=== PATIENT | male | born 1985 | race African-American/Black ===

== ENCOUNTER 2019-04-17 23:09 | Emergency (ER) | payer MEDICAID, SELFPAY ==
[2019-04-17 23:11] VITALS: BP 134/74; PULSE 108; RESP 15; TEMP 37.4; O2SAT 97; BMI 30.4
[2019-04-17] MEDS: Ondansetron 4 MG/2 ML Vial IV (23:42)
[2019-04-17] MEDS: 0.9% Normal Saline 1,000 ML 999 ML IV (23:42)
[2019-04-17] MEDS: Morphine 4 MG/ML Syringe IV (23:43)
--- NOTE | 2019-04-17 23:45 | ED.VISSUMM ---
- ER Visit Summary Date of Service: 04/17/19 Chief Complaint: Dental pain, fever History of Present Illness: The patient is a 33 M presents with left lower dental pain. He states this started yesterday. He also complains of sore throat and painful swallowing. No difficulty swallowing. He has subjective fever. He took ibuprofen just prior to arrival. He complains of mild lightheadedness with no syncope. He has had nausea with no vomiting. He has had mild diarrhea. Denies blood in stool. Denies abdominal pain. Denies chest pain or shortness of breath. Denies other complaints. Physical Examination: Vitals are stable. Temperature 99.3. Alert no acute distress. HEENT exam left lower molar tenderness to palpation with no surrounding fluctuance. No sublingual edema. Pharyngeal erythema and exudate, uvula midline. Neck is supple. No meningismus Lungs are clear and equal bilaterally. Heart is regular rate and rhythm. Abdomen is soft nontender nondistended. Extremities are unremarkable. Skin is warm and dry. Remainder of exam is unremarkable. Emergency Department Course and Treatment: Patient is given IV fluids, morphine, Zofran IV. Rapid strep positive. Patient was given penicillin and prescription for Naprosyn and penicillin. On reevaluation he states he is feeling much improved. Advised to follow-up with primary care physician and dentist. Advised to return to the ED for worsening complaints. Disposition: Discharge home Impression: Odontalgia, pharyngitis This note was generated with [employer] dictation software. It may contain incorrect words, spelling, and punctuation that were not noted in review of the chart prior to signing ED Disposition - Plan for ED Patient: Disposition: Home or Assisted Living Instructions: Dental Pain, PHARYNGITIS, Strep (Confirmed) Prescriptions: Naproxen [Naprosyn] 500 mg PO BID PRN #20 tab Prescription Printed Penicillin V Potassium 500 mg PO 4X/DAY #40 tab Prescription Printed Referrals: Care Physician,No Primary [Primary Care Provider] -
--- NOTE | 2019-04-18 00:05 | ED.RN ---
positive strep A rteported to dr. olea . verbalized understanding
--- NOTE | 2019-04-18 01:19 | ED.DEP ---
ED Disposition - Plan for ED Patient: Instructions: Dental Pain, PHARYNGITIS, Strep (Confirmed) Prescriptions: Naproxen [Naprosyn] 500 mg PO BID PRN #20 tablet Penicillin V Potassium 500 mg PO 4X/DAY #40 tablet Referrals: Care Physician,No Primary [Primary Care Provider] -
[2019-04-18] MEDS: Penicillin Vk 250 MG Tablet 500 MG PO (01:29)
[2019-04-18 01:33] VITALS: BP 135/79; PULSE 90; RESP 15; O2SAT 94
--- NOTE | 2019-04-18 01:34 | ED.RN ---
PT GIVEN WRITTEN AND VERBAL DISCHARGE INSTRUCTIONS AND HOME GOING PRESCRIPTIONS. PT EDUCATED NOT TO DRIVE FOR 6 HOURS AFTER HAVING MORPHINE. PT VERBALIZES UNDERSTANDING. REPORTS, MY BROTHER LIVES BEHIND HERE SO I AM JUST WALKING HOME. DENIES ANY FURTHER QUESTIONS. PT AMBULATES OUT OF DEPT BY SELF.
== END 2019-04-18 01:35 | disposition home or self-care (01) ==
PROVIDERS: Emergency Provider Emergency Medicine
DX: K08.89 Other specified disorders of teeth and supporting structures (principal); J02.0 Streptococcal pharyngitis
CPT/HCPCS: 87077; 87880; 96361; 96374; 96375; 99284; J7030; A4216; J2405

== ENCOUNTER 2019-10-24 09:11 | Emergency (ER) | payer MEDICAID, SELFPAY ==
[2019-10-24 09:12] VITALS: BP 152/94; PULSE 97; RESP 16; TEMP 37.1; O2SAT 99; BMI 32.5
[2019-10-24] MEDS: LORazepam 2 MG/ML Syringe IM (09:38)
--- NOTE | 2019-10-24 10:02 | EKG12_ITS ---
Test Reason : Blood Pressure : / mmHG Vent. Rate : 097 BPM Atrial Rate : 097 BPM P-R Int : 208 ms QRS Dur : 100 ms QT Int : 340 ms P-R-T Axes : 054 051 014 degrees QTc Int : 431 ms Normal sinus rhythm Nonspecific T wave abnormality Abnormal ECG Confirmed by ROSARIO LUIS, MUKESH ([id number]), editorial clerk JOCELYN HOOPER ([id number]) on 10/28/2019 10:13:16 AM Referred By: SHARRON Confirmed By:MUKESH PONCE MD
--- NOTE | 2019-10-24 12:03 | ED.DCSUM_ITS ---
- ER Visit Summary Date of Service: 10/24/19 Chief Complaint: [Anxiety] History of Present Illness: The patient is a 34 M [presents to the emergency department complaint of anxiety that started this morning. Patient states that he came home from work and had not slept yet when he started feeling very anxio us. Patient states that he takes PRN Ativan but ran out. Patient called the squad to bring him in. On arrival he complains of chest discomfort and shortness of breath and feeling jittery and very anxious. Patient states that his anxiety is triggered by deaths in his family as he recently lost his brother about a month ago and he buried a cousin last week. Patient denies any suicidal or homicidal ideation. He denies any illicit drug use. He does not smoke or drink alcohol.] Physical Examination: [HEENT-PERRLA, EOMI. Cranial nerves II through XII grossly intact. TMs clear. Mucous membranes moist. No adenopathy. Cardiovascular-regular rate and rhythm without murmur or ectopy Lungs-clear to auscultation, chest wall stable without crepitus or subcu emphysema Abdomen-normoactive bowel sounds, soft, nontender, no rebound or rigidity, no peritoneal signs. Extremities-intact ?4, normal range of motion, normal pulses, atraumatic] Test Results: [EKG obtained on arrival showed a sinus rhythm with a ventricular rate of 97 bpm with some nonspecific ST changes. ] Emergency Department Course and Treatment: [Patient received Ativan 2 mg IM and he was able to sleep. Upon reevaluation 3 hours later he is feeling significantly improved and most of symptoms are resolved at this time.] Treatment Plan: [Patient will be given a prescription for PRN Ativan. Patient will be given referral to primary care physician ergonomics technician for no doc.] Disposition: [Discharged home in stable condition] Impression: [Anxiety reaction] This note was generated with [employer] dictation software. It may contain incorrect words, spelling, and punctuation that were not noted in review of the chart prior to signing ED Disposition - Plan for ED Patient: Referrals: Care Physician,No Primary [Primary Care Provider] -
--- NOTE | 2019-10-24 12:06 | ED.DEP ---
ED Disposition - Plan for ED Patient: Instructions: Anxiety Reaction Prescriptions: Lorazepam [Ativan] 1 mg PO TID PRN #15 tab PRN Reason: Anxiety Prescription Printed Referrals: Care Physician,No Primary [Primary Care Provider] - Dre Jaquez MD [STAFF PHYSICIAN] - 3-5 Days
[2019-10-24 12:11] VITALS: BP 137/79; PULSE 83; RESP 16; O2SAT 98
== END 2019-10-24 12:12 | disposition home or self-care (01) ==
PROVIDERS: Emergency Provider Emergency Medicine
DX: F41.1 Generalized anxiety disorder (principal)
CPT/HCPCS: 93005; 96372; 99284

== ENCOUNTER 2019-10-26 20:12 | Observation (INO) | payer MEDICAID, SELFPAY ==
[2019-10-26 20:14] VITALS: BP 147/80; PULSE 89; RESP 15; TEMP 36.8; O2SAT 98; BMI 29.2
--- NOTE | 2019-10-26 20:38 | ED.DCSUM_ITS ---
History of Present Illness Chief Complaint: Other, Pain/Inj Informant: Patient Onset: Today Narrative: Patient presents the emergency department for lower lip swelling. 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 When he awoke it was significantly swollen and now painful because of the swelling. He denies any new medications states he takes Ativan as needed for anxiety. He denies any new exposures. He denies any trauma to the lip. No dental pain. No fevers. No history of allergic reactions. Past Medical History - Allergies and Home Meds Allergies/Adverse Reactions: Allergies No Known Allergies Allergy (Verified 10/26/19 20:16) Smoking Status: Former smoker Review of Systems General: Denies: Chills, Fever, Sweats Eyes: Denies: Visual changes - bilaterally, Diplopia ENT: Reports: - - Lower lip swelling. Denies: Left ear pain, Right ear pain, Rhinorrhea, Sore throat Cardiovascular: Denies: Chest pain, Palpitations Respiratory: Denies: Dyspnea, Cough, Dyspnea on exertion Gastrointestinal: Denies: Abdominal pain, Nausea, Vomiting, Diarrhea, Melena, Hematochezia Genitourinary: Denies: Dysuria, Hematuria, Frequency Musculoskeletal: Denies: Back pain, Extremity Pain Skin: Denies: Rash, Wounds Neurological: Denies: Headache, Weakness, Numbness Physical Exam Vital Signs/Narrative: Vital Signs Temp Pulse Resp BP Pulse Ox 10/26/19 20:14 98.3 F 89 15 147/80 H 98 Inital Vital Signs reviewed: Yes General: Well nourished, Well developed, No Acute Distress Head: Normocephalic, Atraumatic Eyes: Perrl, EOMI ENT: Moist mucous membranes, No rhinorrhea, - - The lower lip is diffusely swollen. I do not see any trauma to the lip. There is no trismus. No uvular swelling. Floor the mouth is soft. No tongue swelling. Swelling appears to be confined to the lip itself not extending onto the face. Neck: Supple, Nontender Cardiovascular: Regular rate, Regular rhythm, No murmurs Respiratory: No distress, CTA bilaterally, Chest nontender Abdomen: Soft, Nontender, Nondistended, Normal bowel sounds Back: Nontender, Normal Inspection Extremities: Nontender, No edema Skin: Normal color, No rash Neurological: Alert, Oriented x3, Cranial nerves II-XII grossly intact, Normal Strength, Normal Sensation Psychological: Normal affect, Normal Mood Diagnostic/Tx/Re-eval - Medical Decision Making Patient received Benadryl Pepcid and Solu-Medrol. Repeat examination after couple hours shows no improvement of the lower lip and now the upper lip appears to be swelling. He still laying down resting comfortably. He is handling his secretions. There is no tongue swelling. Because the patient appears to be worsening I think he would benefit from inpatient observation.. ED Disposition - Plan for ED Patient: Disposition: Acute Care Hospital [facility] Diagnosis: Angioedema
[2019-10-26] MEDS: MethylPREDNISolone 125 MG/2 ML Vial IV (21:04)
[2019-10-26] MEDS: DiphenhydrAMINE 50 MG/ML Syringe IV (21:04)
[2019-10-26] MEDS: Famotidine 20 MG Tablet 40 MG PO (21:04)
[2019-10-26 22:59] LABS: Absolute Lymphocyte Count 1.02 X10^3/uL (0.83-4.51); Absolute Neutrophil Count 5.8 X10^3/uL (2.0-7.7); Basophil# 0.03 X10^3/uL; Basophil% 0.4 % (0-1); Eosinophil# 0.03 X10^3/uL; Eosinophils% 0.4 % (0-5); Hematocrit 45.5 % (40-54); Hemoglobin 15.1 g/dL (13.0-16.5); Lymphocyte # 1.02 X10^3/ul (4.0); Lymphocyte % 14.1 % (19-41); Mean Corp Hgb Conc 33.2 g/dL (32-36); Mean Corpuscular Hgb 27.8 pg (27.0-32.0); Mean Corpuscular Volume 83.8 fL (80-94); Mean Platelet Vol. 12.2 fl (6.2-12.0); Monocyte% 4.2 % (0-10); NRBC Flagged by Analyzer 0 % (0-5); Neutrophil # 5.82 X10^3/uL (2.7-7.7); Neutrophil % 80.6 % (47-70); POSITIVE MORPHOLOGY YES; Platelet Count 134 K/mm3 (150-450); RBC Distribution Width SD 42.6 fl (35.1-43.9); Red Blood Count 5.43 M/mm3 (4.6-6.2); White Blood Count 7.2 K/mm3 (4.4-11.0)
[2019-10-26 23:02] VITALS: BP 134/79; PULSE 89; RESP 12; O2SAT 97
[2019-10-26 23:02] LABS: Differential Indicated SCAN CRITERIA MET
--- NOTE | 2019-10-26 23:02 | HP.PCM_ITS ---
Problem List (1) Anxiety and depression Status: Chronic (2) Angioedema Status: Acute Qualifiers: Encounter type: initial encounter Qualified Code(s): T78.3XXA - Angioneurotic edema, initial encounter History of Present Illness Date of Admission: 10/26/19 Chief Complaint: Lip swelling - 1 day The patient is a 34 year old M with past medical history of anxiety/depression, on PRN Ativan comes in with complaints of swelling that started on the morning of the admission. Patient woke up in the morning and realized that his lower lip was swollen. His lower lip got progressively bigger and started to tingle and became painful. He came to the emergency department. Denied any wheezes or choking sensation or loss of breath. He denied any new medications or trying new food. The first time of such an episode. No family history of angioedema. He received IV Solu-Medrol, Benadryl and famotidine. He was reevaluated a couple of hours and patient was found to develop any swelling of the upper lip. At the time of being seen, he denied any wheezes or shortness of breath or choking sensation or tongue swelling. His vitals showed temperature of 98.3F, heart rate 89, blood pressure 147/80, respiratory rate 15, SPO2 97% on room air. WBC was 1.2, hemoglobin 15.1, platelet count was 134, BMP was unremarkable. Past Medical History Past Medical History (Chronic Problems): Chronic Problems Anxiety and depression (Chronic) Allergies No Known Allergies Allergy (Verified 10/26/19 20:16) Home Medications: Ambulatory Orders Medication Instructions Recorded Lorazepam [Ativan] 1 mg PO TID PRN #15 tab 10/24/19 Surgical History: - - right foot/ankle surgery Psychiatric History: Anxiety, Depression Lives: Alone Smoking Status: Current every day smoker Tobacco Use: Cigarettes Alcohol: None Drugs: None - *Family History Maternal History Items: No pertinent history Paternal History Items: Diabetes Review of Systems Constitutional: Denies: Anorexia, Chills, Fever, Night Sweats, Malaise, Weakness, Weight Change, Fatigue Eyes: Denies: Blurred vision, Cataracts, Conjunctivae Inflammation, Pain, Redne ss HEENT: Reports: - - upper and lower lip swelling. Denies: Difficulty Hearing, Difficulty Swallowing, Head Aches, Hearing Changes, Sinus Congestion, Sinus Drainage, Sore Throat Cardiovascular: Denies: Chest Pain, Claudication, Light Headedness, Orthopnea, Palpitations, Paroxysmal Noc. Dyspnea, Syncope Respiratory: Denies: Cough, Hemoptysis, Shortness of breath at rest, Shortness of breath upon exertion, Sputum production Gastrointestinal: Denies: Abdominal Pain, Constipation, Hematemesis, Hem atochezia, Nausea, Vomiting Genitourinary: Denies: Dysuria, Frequency, Incontinence Musculoskeletal: Denies: Joint Pain, Joint Tenderness Skin: Denies: Dryness, Jaundice, Rash, Wounds Neurological: Denies: Balance problems, Blurred vision, Difficulty swallowing, Focal weakness, Numbness, Tingling Psychiatric: Denies: Anxiety, Depression, Homicidal Ideations, Suicidal Ideations Hematologic/ Lymphatic: Denies: Easy Bruising, Easy Bleeding VTE Information - Inpt Only VTE Present on Admission: No VTE Pharm Prophylaxis ordered?: Yes Patient Problems: Active and Suspected Problems Angioedema (Acute) - Physical Exam Vitals/I&O's: Vital Signs Temp Pulse Resp BP Pulse Ox 98.3 F 89 15 147/80 H 98 10/26/19 20:14 10/26/19 20:14 10/26/19 20:14 10/26/19 20:14 10/26/19 20:14 Oxygen Delivery Method Room Air Weight: 95.254 kg Body Mass Index (BMI) 29.2 General: Alert, Oriented x3, Cooperative, No apparent distress HEENT: Atraumatic, PERRLA, EOMI, Normocephalic, - - marked swelling of her lower lip, mild swelling with upper lip, no tongue swelling or uvula swelling Oral: Moist Mucosa Neck: Supple Lungs: Clear to auscultation, Normal air movement, No rhonchi, No wheeze Cardiovascular: Regular rate, Regular Rhythm, Normal S1, Normal S2, No murmurs Abdomen: Bowel Sounds Present, Soft, Non Tender, Non-Distended, No Hepato- splenomegaly Extremities: No edema Skin: No rashes Musculoskeletal: No Tenderness to Palpation of Joints or Extremities Lymphatic: No Cervical, Supraclavicular, or Inguinal Adenopathy Neurological: Cranial nerves II-XII grossly intact, Neuro grossly intact Psych/Mental Status: Normal Affect, Appropriate Laboratory Results 10/26/19 22:49: WBC Pending, RBC Pending, Hgb Pending, Hct Pending, MCV Pending, MCH Pending, MCHC Pending, RDW Std Deviation Pending, RDW Coeff of Maria A Pending, Plt Count Pending, Neut % (Auto) Pending, Absolute Neuts (auto) Pending 10/26/19 22:49: Sodium Pending, Potassium Pending, Chloride Pending, Carbon Dioxide Pending, Anion Gap Pending, BUN Pending, Creatinine Pending, Est GFR (MDRD) Af Amer Pending, Est GFR (MDRD) Non-Af Pending, BUN/Creatinine Ratio Pending, Glucose Pending, Calcium Pending Assessment/Plan All Active Problems Angioedema (Acute) The patient is a 34 year old M with past medical history of anxiety/depression, on PRN Ativan comes in with complaints of swelling that started on the morning of the admission. Patient woke up in the morning and realized that his lower lip was swollen. 1. Angioedema, unclear etiology for now likely idiopathic/isolated Initially involved the lower lip, progressed to involve the upper lip No signs of respiratory failure. First episode of such. No new foods, not on ELTON inhibitor or NSAIDs. No signs of urticaria or anaphylaxis Received IV famotidine, Solu-Medrol, Benadryl Will check liver profile, CRP, ESR, Complement C4 Will continue same, monitor for progressive respiratory distress 2. Hyperglycemia, will check for DM with HgBA1c 3. Anxiety/depression, on Ativan as needed 4. DVT [id number], early ambulation recommended Code Visit Inpatient E&M: 82858 Init Hosp L2
[2019-10-26 23:15] LABS: Anion Gap 6 (5-15); BUN 10 mg/dL (7-18); BUN/Creat Ratio 8.9 RATIO (10-20); Calcium,Total 8.9 mg/dL (8.5-10.1); Chloride 106 mmol/L (98-107); Creatinine, Serum 1.12 mg/dL (0.70-1.30); EST Glomerular Filtration Rate 81 mL/min (>60); Est Glom Filt Rate - Afr Amer 98 mL/min (>60); Estimated Creatinine Clearance 100.85 ml/min; Glucose 163 mg/dL (74-106); Potassium 4.5 mmol/L (3.5-5.1); Sodium Level 138 mmol/L (136-145)
[2019-10-26 23:22] LABS: Differential Comment SCANNED; Platelet Estimate SLT DEC (ADEQ); Red Cell Morphology NORM C+C NORMAL (NORM C&C)
[2019-10-26 23:49] VITALS: BMI 29.7
[2019-10-27] VITALS (9 sets, daily range): BP systolic 115–145; BP diastolic 72–77; PULSE 69–103; RESP 18–100; TEMP 36.6–36.9; O2SAT 20–98
[2019-10-27] MEDS: 0.9% Normal Saline 1,000 ML 100 ML IV ×2 (00:20→10:23)
[2019-10-27] MEDS: Loratadine 10 MG Tablet 5 MG PO ×3 (00:20→21:04)
[2019-10-27] MEDS: 0.9% Saline Lock 10 ML Syringe IV ×3 (00:21→20:51)
[2019-10-27] MEDS: Acetaminophen 325 MG Tablet 650 MG PO ×4 (00:22→21:09)
[2019-10-27 00:35] LABS: Erythrocyte Sedimentation Rate 19 mm/hr (0-15)
[2019-10-27 01:03] LABS: Hemoglobin A1c 6.4 % (4.2-6.3)
[2019-10-27 02:10] LABS: AST(SGOT) 33 U/L (15-37); Alanine Aminotransfer ALT/SGPT 32 U/L (16-61); Albumin, Serum 3.6 g/dL (3.2-5.0); Alkaline Phosphatase 61 U/L (45-117); Bilirubin, Direct 0.08 mg/dL (0.00-0.30); Globulin 4.1 g/dL (2.2-4.2); Protein, Total 7.7 g/dL (6.4-8.2)
[2019-10-27] MEDS: Famotidine 200 MG/20 ML MDV 20 MG in 0.9% Normal Saline (Pres. free 8 ML 300 MG IV ×2 (10:25→21:23)
[2019-10-27] MEDS: DiphenhydrAMINE 50 MG/ML Syringe 25 MG IV ×2 (14:13→20:44)
--- NOTE | 2019-10-27 14:18 | PCM.PN.HOSP ---
Patient Problems: Active and Suspected Problems Angioedema (Acute) Subjective: Still with lower lip swelling and numbness though it is improved. Denies any shortness of breath. Vitals/I&O's: Vital Signs Temp Pulse Resp BP Pulse Ox 98 F 82 20 H 134/76 H 97 10/27/19 10:12 10/27/19 10:17 10/27/19 10:12 10/27/19 10:12 10/27/19 10:12 Oxygen Delivery Method Room Air Weight: 212 lb 15.465 oz Body Mass Index (BMI) 29.7 Intake and Output for Last 24 Hours 10/25/19 10/26/19 10/27/19 23:59 23:59 23:59 Intake Total 1940 / 1940 Output Total 450 / 450 Balance 1490 / 1490 General: Alert, Oriented x3, Cooperative, No apparent distress HEENT: Atraumatic, PERRLA, EOMI, Normocephalic, - - Lower lip is swollen compared to the upper lip Oral: Moist Mucosa Neck: Supple, No JVD Lungs: Clear to auscultation, Normal air movement, No rhonchi, No wheeze, No rales, - - No stridor Cardiovascular: Regular rate, Regular Rhythm, Normal S1, Normal S2, No murmurs Abdomen: Soft, Non Tender, Non-Distended, No Hepato-splenomegaly Extremities: No edema, Capillary Refill Less than 3 Seconds Skin: No rashes, No breakdown Neurological: Neuro grossly intact, Sensory exam intact to light touch and pain Psych/Mental Status: Normal Affect, Appropriate Laboratory Results 10/26/19 22:49: WBC 7.2, RBC 5.43, Hgb 15.1, Hct 45.5, MCV 83.8, MCH 27.8, MCHC 33.2, RDW Std Deviation 42.6, RDW Coeff of Maria A 14.0, Plt Count 134 L, MPV 12.2 H, Immature Gran % (Auto) 0.300, Neut % (Auto) 80.6 H, Lymph % (Auto) 14.1 L, [place] % (Auto) 4.2, Eos % (Auto) 0.4, Baso % (Auto) 0.4, Absolute Neuts (auto) 5.8, Absolute Lymphs (auto) 1.02, Nucleated RBC % 0, Differential Comment SCANNED, Platelet Estimate SLT SEP, RBC Morphology NORM C+C 10/26/19 22:49: Sodium 138, Potassium 4.5, Chloride 106, Carbon Dioxide 26.0, Anion Gap 6, BUN 10, Creatinine 1.12, Estim Creat Clear Calc 100.85, Est GFR (MDRD) Af Amer 98, Est GFR (MDRD) Non-Af 81, BUN/Creatinine Ratio 8.9 L, Glucose 163 H, Calcium 8.9 10/26/19 22:49: ESR 19 H 10/26/19 22:49: Total Bilirubin 0.60, Direct Bilirubin 0.08, AST 33, ALT 32, Alkaline Phosphatase 61, C-React Prot Ext Range 10.10 H, Total Protein 7.7, Albumin 3.6, Globulin 4.1 10/26/19 22:49: Hemoglobin A1c 6.4 H 10/26/19 22:49: Complement C4 Pending Current Medications Acetaminophen (Tylenol) 650 mg PO Q6H PRN PRN PRN Reason: Pain Score 1-10/Temp > 100.7 F Last Admin: 10/27/19 12:47 Dose: 650 mg Documented by: Diphenhydramine HCl (Benadryl) 25 mg IV Q6H PRN PRN PRN Reason: ITCHING Last Admin: 10/27/19 14:13 Dose: 25 mg Documented by: Sodium Chloride () 1,000 mls @ 100 mls/hr IV .Q10H [facility] Stop: 10/27/19 14:47 Last Admin: 10/27/19 10:23 Dose: 100 mls/hr Documented by: Famotidine 20 mg/ Sodium (Chloride) 10 mls @ 300 mls/hr IV Q12 [facility] Last Infusion: 10/27/19 10:29 Dose: Infused Documented by: Loratadine (Claritin) 5 mg PO BID [facility] Last Admin: 10/27/19 10:24 Dose: 5 mg Documented by: Methylprednisolone (Solu-Medrol) 40 mg IV Q8 [facility] Last Admin: 10/27/19 14:14 Dose: 40 mg Documented by: Ondansetron HCl (Zofran) 4 mg IV Q8H PRN PRN PRN Reason: NAUSEA/VOMITING Sodium Chloride () 10 - 40 ml IV UD PRN PRN Reason: SALINE FLUSH Last Admin: 10/27/19 00:21 Dose: 10 ml Documented by: Medical Necessity - Tobacco Use Smoking Status: Current every day smoker Tobacco Use: Cigarettes Assessment/Plan All Active Problems Angioedema (Acute) 1. Angioedema -The etiology at this time, his CRP and his ESR elevated -Complement C4 is pending -Since he still having swelling, numbness even though is not having any shortness of breath do recommend continued observation and current therapy -Continue with Pepcid, Solu-Medrol, Benadryl 2. Hypoglycemia -A1c is 6.4 -Can follow-up with his PCP to initiate treatment DVT: Ambulation Code Visit Inpatient E&M: 35917 Subs Hosp L2
[2019-10-28 02:30] VITALS: BP 134/83; PULSE 96; RESP 18; TEMP 36.9; O2SAT 96
[2019-10-28 02:46] VITALS: PULSE 96
[2019-10-28] MEDS: DiphenhydrAMINE 50 MG/ML Syringe 25 MG IV (02:58)
[2019-10-28] MEDS: 0.9% Saline Lock 10 ML Syringe IV ×5 (02:59→14:53)
[2019-10-28] MEDS: Acetaminophen 325 MG Tablet 650 MG PO ×2 (03:27→14:56)
--- NOTE | 2019-10-28 05:15 | NURSING ---
0200 Patient squeezed bottom lip. Patient reported a yellow liquid came out of lip. Patient said it was more tender and sore after squeezing lip. Patient was advised to leave lip alone and not mess with it.
[2019-10-28 08:30] VITALS: BP 138/79; PULSE 94; RESP 18; TEMP 36.6; O2SAT 99
[2019-10-28] MEDS: Famotidine 200 MG/20 ML MDV 20 MG in 0.9% Normal Saline (Pres. free 8 ML 300 MG IV (08:40)
[2019-10-28] MEDS: Loratadine 10 MG Tablet 5 MG PO (08:40)
--- NOTE | 2019-10-28 11:45 | PCM.DC ---
- Discharge Diagnoses Current Active Problems: Current Active and Chronic Problems Angioedema (Acute) Anxiety and depression (Chronic) You will use the following diet at home:: Regular Your food should be the consistency of: Regular Discharge Activity: May Not Drive - while taking benadryl Allergies/Adverse Reactions: Allergies No Known Allergies Allergy (Verified 10/26/19 20:16) Medications to take at Discharge Lorazepam [Ativan] 1 mg PO TID PRN #15 tab 10/24/19 DiphenhydrAMINE [Benadryl] 25 mg PO Q8H #20 cap 10/28/19 Famotidine [Pepcid] 20 mg PO BID #14 tab 10/28/19 MethylPREDNISolone DosePak [Medrol DosePak] 4 mg PO UD #1 box 10/28/19 The following prescriptions were given: DiphenhydrAMINE [Benadryl] 25 mg PO Q8H #20 cap Transmission Status: Pending to [facility] MethylPREDNISolone DosePak [Medrol DosePak] 4 mg PO UD #1 box Transmission Status: Pending to [facility] Famotidine [Pepcid] 20 mg PO BID #14 tab Transmission Status: Pending to [facility] Primary Care Physician: Care Physician,No Primary [Primary Care Provider] - Please follow up with your Primary Care Physician in: [place] 2 weeks Test Results: Test results from this visit will be discussed in further detail at your follow-up appointment, if applicable.
--- NOTE | 2019-10-28 12:17 | CASEMGMT ---
RN CM Assessment Presentation: Angioedema Intro role of CM and purpose of RN CM assessment to patient in room. Pt is awake, alert and able to participate in assessment. Demographics, PCP and Pharmacy verified. Nurse, Fernando updated that pt requests back to work excuse on dc. PCP: Pt does not have PCP. List of [facility] physicians for [place] given to pt and explained. Process for calling for appt, paperwork and need to attend first appointment explained to pt. Specialists: none Preferred Pharmacy: [facility] Insurance: [place] Prescription Benefit: yes LNOK: Foster Mother Shayy Montes listed Living Arrangements: Living independently. No care needs identified. Transportation: does not drive, states friend drives DME: none HHC/SNF: none SW Referral: no Patient DC goals: Home DC PLAN: Home on dc. Nader VALADEZN RN ACM
--- NOTE | 2019-10-28 13:14 | PCM.DC.SUM ---
Discharge Date and Diagnosis - Problem List Patient Problems: Active and Suspected Problems Angioedema (Acute) Date of Admission: 10/26/19 Date of Discharge: 10/28/19 - Primary Discharge Diagnosis Active and Suspected Problems Angioedema (Acute) - Secondary Discharge Diagnosis Chronic Problems Anxiety and depression (Chronic) Hospital Course and Treatment Summary of Care Provided: The patient is a 34 year old M who was admitted with lower lip swelling, tingling sensation and pain. Patient denies any shortness of breath, choking sensation or wheezing. 1. Angioedema, etiology unclear: Patient was admitted on [facility] floor. Denies respiratory distress, dysphagia, dysphonia, hoarseness. On exam soft palate movement is good. CRP and ESR elevated. Complement C4 is pending. Most likely immune related -The etiology at this time, his CRP and his ESR elevated -Patient was treated with Pepcid, Solu-Medrol, Benadryl. Discharged on Benadryl, Medrol Dosepak and Pepcid. Prescription sent to patient's pharmacy. 2. Prediabetes most likely insulin resistance; morbid obesity consistent with metabolic syndrome: -A1c is 6.4: Weight reduction counseling was done. DVT: Ambulation Patient Problems: Active and Suspected Problems Angioedema (Acute) Subjective: Seen and examined. Patient complain of pain over her lower lip which is still very swollen and edematous. No respiratory distress, dysphagia or hoarseness of voice. - Physical Exam Vitals/I&O's: Vital Signs Temp Pulse Resp BP Pulse Ox 97.9 F 94 18 138/79 H 99 10/28/19 08:30 10/28/19 08:30 10/28/19 08:30 10/28/19 08:30 10/28/19 08:30 Oxygen Delivery Method Room Air Weight: 212 lb 15.465 oz Body Mass Index (BMI) 29.7 Intake and Output for Last 24 Hours 10/26/19 10/27/19 10/28/19 23:59 23:59 23:59 Intake Total 3430 / 3430 890 / 890 Output Total 450 / 450 Balance 2980 / 2980 890 / 890 General: Alert, Oriented x3, Cooperative, - - Morbid obesity HEENT: Atraumatic, PERRLA, EOMI, Normocephalic Neck: Supple, No JVD, Negative Carotid Bruits Lungs: Clear to auscultation, Normal air movement, No rhonchi, No wheeze, No rales, Diminished Cardiovascular: Regular rate, Regular Rhythm, Normal S1, Normal S2, No murmurs Abdomen: Bowel Sounds Present, Soft, Non Tender, Non-Distended Extremities: No edema, Capillary Refill Less than 3 Seconds Skin: No rashes, No breakdown Musculoskeletal: No Tenderness to Palpation of Joints or Extremities, Arthritic Changes Neurological: Cranial nerves II-XII grossly intact Psych/Mental Status: Normal Affect, Appropriate Current Medications Acetaminophen (Tylenol) 650 mg PO Q6H PRN PRN PRN Reason: Pain Score 1-10/Temp > 100.7 F Last Admin: 10/28/19 03:27 Dose: 650 mg Documented by: Diphenhydramine HCl (Benadryl) 25 mg IV Q6H PRN PRN PRN Reason: ITCHING Last Admin: 10/28/19 02:58 Dose: 25 mg Documented by: Famotidine 20 mg/ Sodium (Chloride) 10 mls @ 300 mls/hr IV Q12 [facility] Last Infusion: 10/28/19 08:42 Dose: Infused Documented by: Loratadine (Claritin) 5 mg PO BID BERTA Last Admin: 10/28/19 08:40 Dose: 5 mg Documented by: Methylprednisolone (Solu-Medrol) 40 mg IV Q8 BERTA Last Admin: 10/28/19 05:06 Dose: 40 mg Documented by: Ondansetron HCl (Zofran) 4 mg IV Q8H PRN PRN PRN Reason: NAUSEA/VOMITING Sodium Chloride () 10 - 40 ml IV UD PRN PRN Reason: SALINE FLUSH Last Admin: 10/28/19 08:40 Dose: 10 ml Documented by: Discharge Activity: May Not Drive - while taking benadryl Home Medications: Medications to take at Discharge Lorazepam [Ativan] 1 mg PO TID PRN #15 tab 10/24/19 DiphenhydrAMINE [Benadryl] 25 mg PO Q8H #20 cap 10/28/19 Famotidine [Pepcid] 20 mg PO BID #14 tab 10/28/19 MethylPREDNISolone DosePak [Medrol DosePak] 4 mg PO UD #1 box 10/28/19 Following Prescrptions Were Given to Patient: DiphenhydrAMINE [Benadryl] 25 mg PO Q8H #20 cap Transmission Status: Received by [facility] MethylPREDNISolone DosePak [Medrol DosePak] 4 mg PO UD #1 box Transmission Status: Received by [facility] Famotidine [Pepcid] 20 mg PO BID #14 tab Transmission Status: Received by [facility] Primary Care Physician: Care Physician,No Primary [Primary Care Provider] - Please follow up with your Primary Care Physician in: IN 2 weeks Medical Necessity - Tobacco Use Smoking Status: Current every day smoker Tobacco Use: Cigarettes Meaningful Use Info Meaningful Use Diagnoses (Choose all that apply): None applicable Code Visit Inpatient E&M: 63520 Disch Hosp
[2019-10-28 14:00] VITALS: BP 133/72; PULSE 95; RESP 18; TEMP 36.6; O2SAT 99
== END 2019-10-28 15:22 | disposition home or self-care (01) ==
LOC: ED 22:46 → MS3 10-27 07:05
PROVIDERS: Admitting Provider Internal Medicine; Emergency Provider Emergency Medicine; Visit Provider Internal Medicine
DX: T78.3XXA Angioneurotic edema, initial encounter (principal); F41.1 Generalized anxiety disorder; F32.9 Major depressive disorder, single episode, unspecified; Z79.899 Other long term (current) drug therapy; F17.210 Nicotine dependence, cigarettes, uncomplicated; R73.03 Prediabetes
CPT/HCPCS: 80048; 80076; 83036; 85025; 85652; 86140; 86160; 93005; 96361; 96372; 96374; 96375; 96376; 99218; 99284; J7030; A4216; G0378; J3490

== ENCOUNTER 2019-10-29 08:07 | Inpatient (IN) | payer MEDICAID, SELFPAY ==
[2019-10-26 23:49] VITALS: BMI 29.7
[2019-10-29] VITALS (30 sets, daily range): BP systolic 118–174; BP diastolic 68–132; PULSE 63–121; RESP 14–23; TEMP 36.4–36.8; O2SAT 90–100; BMI 30.9; BMI 30.7
--- NOTE | 2019-10-29 08:10 | RAD_ITS ---
STUDY: X-RAY CHEST REASON FOR EXAM: Male, 34 years old. ET tube placement -- OG tube placement -- pt unresponsive TECHNIQUE: Single AP portable view of the chest. COMPARISON: Comparison is made with prior study dated October 03, 2017. FINDINGS: An endotracheal tube is in situ. The tip is at the level of the ellyn. It should be pulled back approximately 2 cm. The tip of the orogastric tube is in the fundal portion of the stomach. Mild increased markings at the lung bases suggestive of atelectasis. There is no demonstrated pleural abnormality. Normal size heart. Normal mediastinum and wally. Normal visualized pulmonary arteries. Normal visualized aortic arch and descending thoracic aorta. Normal visualized thoracic spine. Normal visualized ribs, clavicles, and shoulders. There is no demonstrated abnormality of the visualized soft tissue structures of the upper abdomen. RAD/Chest 1 View (Portable) IMPRESSION: The tip of the endotracheal tube is at the level of the ellyn. This should be withdrawn approximately 2 cm. The tip of the orogastric tube is in the fundal portion of the stomach. Mild increased markings at the lung bases suggestive of atelectasis. Electronically Signed: Kwabena Adam, at 9:18 EST , Service support ,
--- NOTE | 2019-10-29 08:11 | EKG12_ITS ---
Test Reason : ANGIOEDEMA Blood Pressure : / mmHG Vent. Rate : 102 BPM Atrial Rate : 102 BPM P-R Int : 184 ms QRS Dur : 096 ms QT Int : 328 ms P-R-T Axes : 048 049 033 degrees QTc Int : 427 ms Sinus tachycardia Nonspecific T wave abnormality Abnormal ECG Confirmed by COURTNEY LUIS, ELI ([id number]), state editor KAMILA HERNANDEZ ([id number]) on 11/01/2019 9:52:13 AM Referred By: ALBERTINA Confirmed By:EKATERINA VALDEZ MD
[2019-10-29] MEDS: Etomidate 20 MG/10 ML Vial IV (08:17)
[2019-10-29] MEDS: Rocuronium Bromide 50 MG/5 ML Vial 100 MG IV (08:17)
--- NOTE | 2019-10-29 08:20 | CT_ITS ---
STUDY: CT BRAIN WITHOUT CONTRAST REASON FOR EXAM: Male, 34 years old. Tonic-clonic seizure, lip/tongue/throat swelling, ? Allergic reaction. Recently hospitalized for angioedema-discharged yesterday. RADIATION DOSAGE (If Supplied By Facility): CTDIvol = ( 44.99 ) mGy, DLP = ( 745.49 ) mGycm TECHNIQUE: Transaxial CT imaging of the brain was performed without administration of intravenous contrast material. Individualized dose optimization techniques were used for this CT. COMPARISON: No relevant priors. FINDINGS: Nasal soft tissue swelling. Soft tissue prominence within the nasal cavities. Normal calvarium. Normal size ventricles and extra-axial spaces for the patient''s age. Normal white matter tracts of the cerebral hemispheres. Normal basal ganglia and thalami. Normal brainstem. Normal cerebellum. There is no intracranial hemorrhage. There are no findings of an acute ischemic infarction. Mucosal thickening of the ethmoid sinuses. CT/Brain/Head without Contrast IMPRESSION: No intracranial abnormality is seen. Soft tissue prominence of the nasal structure as well as soft tissue density within the nasal cavity. Electronically Signed: Kwabena Adam, at 9:46 EST , Service support ,
--- NOTE | 2019-10-29 08:22 | ED.DCSUM_ITS ---
History of Present Illness Chief Complaint: Allergic Reaction Detail of Chief Complaint: Angioedema Informant: Patient Onset: Today Context: Sudden Onset - 30 minutes prior to presentation Timing: Continuous Quality: Lower lip, tongue and throat Location: Upper airway Current Severity: Moderate Maximum Severity: Moderate Worsened by: Unknown Relieved by: Unknown Associated Symptoms: Difficulty swallowing and change in voice Narrative: Patient is a 34-year-old male who was admitted on October 26 for angioedema. He states he was discharged yesterday. Patient was seen immediately upon presentation. History is limited secondary to acutely worsening condition. He acknowledges the only medication he is on is systemic steroids and Benadryl. He denies taking any other medicine. Prior similar symptoms: Yes Recent Illness/Hospitalization: Yes - Past Medical History (1) Angioedema Status: Acute Past Medical History - Allergies and Home Meds Allergies/Adverse Reactions: Allergies No Known Allergies Allergy (Verified 10/26/19 20:16) Primary Care Physician: Care Physician,No Primary [Primary Care Provider] - Prior records reviewed: Yes Surgical History: noncontributory, - - right foot/ankle surgery Lives: Alone Smoking Status: Never smoker - Family History Maternal Family History: Reports: No pertinent history Paternal Family History: Reports: Diabetes Review of Systems ROS: Unable to Obtain ENT: Reports: - - In voice and trouble swallowing Allergy: Reports: Swelling of the mouth, Swelling of the tongue Physical Exam Vital Signs/Narrative: Vital Signs Temp Pulse Resp BP Pulse Ox 10/29/19 08:09 97.6 F L 97 23 H 170/107 H 100 Inital Vital Signs reviewed: Yes General: Well nourished, Well developed, Obese Head: Normocephalic, Atraumatic Eyes: Perrl, EOMI. Negative for: Pale conjunctiva, Scleral icterus ENT: Moist mucous membranes, No rhinorrhea, - - There is profound swelling of the lower lip. From the time patient was initially seen and until the time aerosolized lidocaine was nebulized the floor the tongue had swollen to the point his tongue was displaced superiorly. His voice became garbled and had trouble controlling secretions. Neck: Supple, No lymphadenopathy, No JVD, - - Trachea is midline. There is inspiratory stridor and expiratory stridor. Negative for: Nontender Cardiovascular: Regular rate, Regular rhythm, No murmurs, Normal S1, Normal S2 Respiratory: No distress, CTA bilaterally, Chest nontender Abdomen: Soft, Nontender, Nondistended, Normal bowel sounds Extremities: Nontender, No edema Skin: Normal color, No rash. Negative for: Cyanosis, Diaphoresis, Jaundice, No Trauma Neurological: Alert, Oriented x3, Cranial nerves II-XII grossly intact, Normal Strength, Normal Sensation Psychological: Normal affect Diagnostic/Tx/Re-eval Chest X-Ray - ED: 1 View, Read by ED Physician, - - Portable view of the chest was performed and reveals endotracheal tube to be in proper position. Cardiac size and silhouette are normal. Mediastinum is normal. Lung parenchyma is normal. There is no abnormality osseous structures. OG is also in proper position. 10/29/19 08:10 Chest 1 View (Portable) [RAD] Stat 10/29/19 08:20 Brain/Head without Contrast [CT] Stat Laboratory Results 10/29/19 10/29/19 08:15 08:15 WBC 16.4 H RBC 5.52 Hgb 15.2 Hct 45.8 MCV 83.0 MCH 27.5 MCHC 33.2 RDW Std Deviation 43.5 RDW Coeff of Maria A 14.5 Plt Count 150 MPV 12.4 H Immature Gran % (Auto) 0.600 Neut % (Auto) 72.3 H Lymph % (Auto) 17.5 L [place] % (Auto) 9.5 Eos % (Auto) 0.0 Baso % (Auto) 0.1 Absolute Neuts (auto) 11.8 H Absolute Lymphs (auto) 2.87 Nucleated RBC % 0 Differential Comment COMMENT Reactive Lymphocytes 1+ Plt Morphology Comment LARGE Sodium 138 Potassium 3.7 Chloride 102 Carbon Dioxide 31.0 Anion Gap 5 BUN 16 Creatinine 1.15 Estim Creat Clear Calc 98.22 Est GFR (MDRD) Af Amer 95 Est GFR (MDRD) Non-Af 78 BUN/Creatinine Ratio 13.9 Glucose 193 H Calcium 9.2 Total Bilirubin 0.30 AST 30 ALT 66 H Alkaline Phosphatase 73 Total Protein 8.8 H Albumin 4.1 Globulin 4.7 H Albumin/Globulin Ratio 0.9 CT of the head reveals no acute abnormality. Awaiting formal read by radio logist. The hospitalist and industrial tractor driver were paged at 0917 for admission ICU. - Rhythm Strip Rhythm Strip: Sinus Rhythm Rate: 93 Ectopy: None - EKG Initial EKG Interpretation: Sinus Tachycardia - Anus tachycardia with a ventricular rate of 102. ID interval is 184 ms. QRS duration 96 ms. QT duration 328 ms. [place] is normal. The EKG is normal. - Medical Decision Making Patient was informed he requires intubation. Patient was preoxygenated and lidocaine was aerosolized. As the 20 mg etomidate was administered patient had a generalized tonic-clonic seizure. His jaw was clenched closed. For this reason patient received 100 mg of rocuronium to facilitate intubation. Patient pulse ox remained at 100%. There was swelling of the epiglottis and supraglottic structures. This was minimal. Because patient had a generalized tonic clonic seizure and based on review of prior records that he has no known history of seizures talk screen was ordered as well as CT of the head. If CT of the head is normal will contact hospitalist for admission ICU. Since patient is on H1, H2 floresita and prednisone suspect familial angioedema. Since this occurred even though patient has been compliant with his medication he did not receive Pepcid, Benadryl or Solu-Medrol in the department. C complement levels are pending. A second 40 mg bolus of propofol was administered because of tachycardia. Suspect patient is still chemically paralyzed from the rocuronium and awakening. At 0858 I was asked to see patient. Patient had movement of his head in a rhythmic fashion as well as movement of left lower leg in a rhythmic fashion to suggest a possible focal seizure. Since he had a witnessed tonic-clonic seizure and this appears to be a second seizure 1 g of Keppra was ordered. Case was discussed with Dr. Francois Yi the industrial tractor driver. He requested a propofol drip. He will see patient once he gets to the ICU. Dr. Francois Yi was made aware the tach screen is pending. - Critical Care Time Critical care time (excluding procedures): 30-74 minutes - Critical care time 47 minutes, Discussing w/Patient &/or Family/Supervisor Dock, Discussing w/Consultants, Arranging Admission or Transfer, Performing Direct Patient Care at Bedside Procedures Procedure(s): Patient was prepped for oral tracheal intubation with use of glide scope. He was preoxygenated. He received aerosolized lidocaine. Initially he received 20 mg of etomidate. Because of the tonic-clonic seizure and the fact that his teeth were clenched shot he received 100 mg of rocuronium. He was orotracheally abated with a 7.5 [place] endotracheal tube. This was performed without difficulty on first attempt. There is appropriate color change of the capnometer. There was misting in the endotracheal tube, paper trailing. Breath sounds are noted bilaterally. Chest x-ray was obtained to confirm placement of endotracheal tube and OG tube. ED Disposition - Plan for ED Patient: Disposition: Acute Care Hospital [facility] Diagnosis: Idiopathic angioedema, New onset seizure Referrals: Care Physician,No Primary [Primary Care Provider] -
[2019-10-29 08:23] LABS: Absolute Lymphocyte Count 2.87 X10^3/uL (0.83-4.51); Absolute Neutrophil Count 11.8 X10^3/uL (2.0-7.7); Basophil# 0.01 X10^3/uL; Basophil% 0.1 % (0-1); Hematocrit 45.8 % (40-54); Hemoglobin 15.2 g/dL (13.0-16.5); Lymphocyte # 2.87 X10^3/ul (4.0); Lymphocyte % 17.5 % (19-41); Mean Corp Hgb Conc 33.2 g/dL (32-36); Mean Corpuscular Hgb 27.5 pg (27.0-32.0); Mean Platelet Vol. 12.4 fl (6.2-12.0); Monocyte# 1.55 X10^3/uL; Monocyte% 9.5 % (0-10); NRBC Flagged by Analyzer 0 % (0-5); Neutrophil # 11.83 X10^3/uL (2.7-7.7); Neutrophil % 72.3 % (47-70); POSITIVE DIFFERENTIAL YES; POSITIVE MORPHOLOGY YES; Platelet Count 150 K/mm3 (150-450); RBC Distribution Width CV 14.5 % (11.6-14.6); RBC Distribution Width SD 43.5 fl (35.1-43.9); Red Blood Count 5.52 M/mm3 (4.6-6.2); White Blood Count 16.4 K/mm3 (4.4-11.0)
[2019-10-29 08:29] LABS: Differential Indicated SCAN CRITERIA MET
[2019-10-29] MEDS: fentaNYL drip 100 ML 2.5 MCG IV (08:42)
[2019-10-29 08:43] LABS: ALB/GLOB Ratio 0.9 RATIO (0.9-2.4); AST(SGOT) 30 U/L (15-37); Alanine Aminotransfer ALT/SGPT 66 U/L (16-61); Albumin, Serum 4.1 g/dL (3.2-5.0); Alkaline Phosphatase 73 U/L (45-117); Anion Gap 5 (5-15); BUN 16 mg/dL (7-18); BUN/Creat Ratio 13.9 RATIO (10-20); Calcium,Total 9.2 mg/dL (8.5-10.1); Chloride 102 mmol/L (98-107); Creatinine, Serum 1.15 mg/dL (0.70-1.30); EST Glomerular Filtration Rate 78 mL/min (>60); Est Glom Filt Rate - Afr Amer 95 mL/min (>60); Estimated Creatinine Clearance 98.22 ml/min; Globulin 4.7 g/dL (2.2-4.2); Glucose 193 mg/dL (74-106); Potassium 3.7 mmol/L (3.5-5.1); Protein, Total 8.8 g/dL (6.4-8.2); Sodium Level 138 mmol/L (136-145)
[2019-10-29 08:44] LABS: Reactive Lymphocyte 1+
[2019-10-29] MEDS: 0.9% Normal Saline 1,000 ML 150 ML IV (08:44)
[2019-10-29] MEDS: Propofol 200 MG/20 ML Vial 40 MG IV BOLUS ×2 (08:45→08:59)
[2019-10-29 08:50] LABS: Platelet Morphology LARGE
[2019-10-29] MEDS: Propofol 10MG/Ml 1,000 MG/100 ML Bottle 6 MG CONT INF (09:33)
--- NOTE | 2019-10-29 09:37 | NURSING ---
DR TRAE ENG
--- NOTE | 2019-10-29 09:39 | HP.PCM_ITS ---
Problem List (1) Acute hypoxic respiratory failure Status: Acute (2) Angioedema of upper airways Status: Acute (3) Idiopathic angioedema Status: Acute (4) New onset seizure Status: Acute (5) Angioedema Status: Acute Qualifiers: Encounter type: initial encounter Qualified Code(s): T78.3XXA - Angioneurotic edema, initial encounter (6) Anxiety and depression Status: Chronic History of Present Illness Date of Admission: 10/29/19 Chief Complaint: respiratory distress, airway swelling The patient is a 34 year old M with no significant past medical history came to ER with swelling of lower lip, tongue and throat with acute worsening of airway swelling and in respiratory distress. Patient was intubated in ER on etomidate, rocuronium and was given Solu-Medrol, Pepcid and Benadryl. After that he was put on propofol and fentanyl drip. Patient was admitted between 10/26 and discharged on 10/28 for angioedema of lips. Prior to the discharge, on exam there was no swelling of soft palate, base of tongue or pharyngeal wall except lower lip swelling. The patient was discharged on Medrol Dosepak, Pepcid and Benadryl. Patient also has history of seizure and therefore Keppra 1 g was given in ER [] I saw the patient in ICU and is intubated on ventilator. Patient denies any substance use including methamphetamine, cocaine, alcohol, or opioids but U tox is positive of cannabinoids. Past Medical History Past Medical History (Chronic Problems): Chronic Problems Anxiety and depression (Chronic) Allergies No Known Allergies Allergy (Verified 10/26/19 20:16) Home Medications: Ambulatory Orders Medication Instructions Recorded Lorazepam [Ativan] 1 mg PO TID PRN #15 tab 10/24/19 DiphenhydrAMINE [Benadryl] 25 mg PO Q8H #20 cap 10/28/19 Famotidine [Pepcid] 20 mg PO BID #14 tab 10/28/19 MethylPREDNISolone DosePak [Medrol 4 mg PO UD #1 box 10/28/19 DosePak] Surgical History: noncontributory, - - right foot/ankle surgery Psychiatric History: Anxiety, Depression Lives: Alone Smoking Status: Never smoker - *Family History Maternal History Items: No pertinent history Paternal History Items: Diabetes Review of Systems Constitutional: Denies: Chills, Fever HEENT: Reports: Difficulty Swallowing, Dysphasia Unable to obtain accurate/complete ROS d/t: intubated on ventilator. IV fentanyl and propofol drip VTE Information - Inpt Only VTE Present on Admission: No VTE Mechan Device Prophylaxis: None VTE Pharm Prophylaxis ordered?: Yes Patient Problems: Active and Suspected Problems Idiopathic angioedema (Acute) New onset seizure (Acute) Acute hypoxic respiratory failure (Acute) Angioedema of upper airways (Acute) - Physical Exam Vitals/I&O's: Vital Signs Temp Pulse Resp BP Pulse Ox 97.6 F L 101 H 19 H 173/100 H 98 10/29/19 08:09 10/29/19 09:35 10/29/19 09:35 10/29/19 09:35 10/29/19 09:35 Oxygen Delivery Method Mechanical Ventilator Weight: 222 lb 3.615 oz Body Mass Index (BMI) 30.9 Intake and Output for Last 24 Hours 10/27/19 10/28/19 10/29/19 23:59 23:59 23:59 Intake Total 1.04 / 1.04 Balance 1.04 / 1.04 General: - - Intubated on ventilator. HEENT: Atraumatic, PERRLA, EOMI, Normocephalic Oral: - - ET and OG tube swelling of lower lips Neck: Supple, No JVD, Negative Carotid Bruits Lungs: Clear to auscultation, No rhonchi, No wheeze, No rales, Diminished Cardiovascular: Regular rate, Regular Rhythm, Normal S1, Normal S2, No murmurs Abdomen: Bowel Sounds Present, Soft, Non Tender, Non-Distended Extremities: No edema, Capillary Refill Less than 3 Seconds Skin: No rashes, No breakdown Musculoskeletal: No Tenderness to Palpation of Joints or Extremities Neurological: Cranial nerves II-XII grossly intact Psych/Mental Status: Normal Affect, Appropriate Laboratory Results 10/29/19 08:15: WBC 16.4 H, RBC 5.52, Hgb 15.2, Hct 45.8, MCV 83.0, MCH 27.5, MCHC 33.2, RDW Std Deviation 43.5, RDW Coeff of Maria A 14.5, Plt Count 150, MPV 12.4 H, Immature Gran % (Auto) 0.600, Neut % (Auto) 72.3 H, Lymph % (Auto) 17.5 L, [place] % (Auto) 9.5, Eos % (Auto) 0.0, Baso % (Auto) 0.1, Absolute Neuts (auto) 11.8 H, Absolute Lymphs (auto) 2.87, Nucleated RBC % 0, Differential Comment COMMENT, Reactive Lymphocytes 1+, Plt Morphology Comment LARGE 10/29/19 08:15: Sodium 138, Potassium 3.7, Chloride 102, Carbon Dioxide 31.0, Anion Gap 5, BUN 16, Creatinine 1.15, Estim Creat Clear Calc 98.22, Est GFR (MDRD) Af Amer 95, Est GFR (MDRD) Non-Af 78, BUN/Creatinine Ratio 13.9, Glucose 193 H, Calcium 9.2, Total Bilirubin 0.30, AST 30, ALT 66 H, Alkaline Phosphatase 73, Total Protein 8.8 H, Albumin 4.1, Globulin 4.7 H, Albumin/Globulin Ratio 0.9 Current Medications Sodium Chloride () 1,000 mls @ 150 mls/hr IV .Q6H40M BERTA Last Admin: 10/29/19 08:44 Dose: 150 mls/hr Documented by: Fentanyl () 100 mls @ 2.5 mls/hr IV UD BERTA; Protocol Last Titration: 10/29/19 09:07 Dose: 50 mcg/hr, 5 mls/hr Documented by: Propofol (Diprivan) 1,000 mg in 100 mls @ 6.048 mls/hr CONT INF .Q12H BERTA; Protocol Last Admin: 10/29/19 09:33 Dose: 10 mcg/kg/min, 6 mls/hr Documented by: Assessment/Plan All Active Problems Angioedema (Acute) Idiopathic angioedema (Acute) New onset seizure (Acute) Acute hypoxic respiratory failure (Acute) Angioedema of upper airways (Acute) The patient is a 34 year old M with no significant past medical history came to ER with swelling of lower lip, tongue and throat with acute worsening of airway swelling and in respiratory distress. Patient was intubated in ER on etomidate, rocuronium and was given Solu-Medrol, Pepcid and Benadryl. After that he was put on propofol and fentanyl drip. Patient was admitted between 10/26 and discharged on 10/28 for angioedema of lips. Prior to the discharge, on exam there was no swelling of soft palate, base of tongue or pharyngeal wall except lower lip swelling. The patient was discharged on Medrol Dosepak, Pepcid and Benadryl. Patient also has history of seizure and therefore Keppra 1 g was given in ER [] I saw the patient in ICU and is intubated on ventilator. Patient denies any substance use including methamphetamine, cocaine, alcohol, or opioids but U tox is positive of cannabinoids. 1. Angioedema of upper airway including glottis with acute hypoxic respiratory failure on ventilator: Patient is being admitted in ICU. Maintenance Shop Welder consulted. On IV propofol and fentanyl drips. Started on IV Solu-Medrol, Benadryl and IV Pepcid. LFTs ALT 66, A/G ratio 0.9, total protein 8.8. Leukocytosis 16.4 thousand with left shift. Chest x-ray shows mild bilateral atelectasis at lung bases Complement C4 and C1 esterase inhibitor pending. 2. History of seizure: Patient loaded with Keppra 1 g in ER. Continue Keppra 500 mg IV twice daily. 3. Possible polysubstance use: GGT 64, serum alcohol negative. U tox positive of cannabinoids. DVT prophylaxis, moderate risk: Patient is intubated on ventilator therefore Lovenox 40 mg subcut daily. Clinical Impression(s) from Imaging Studies Chest X-Ray 10/29/19 08:10 IMPRESSION: The tip of the endotracheal tube is at the level of the ellyn. This should be withdrawn approximately 2 cm. The tip of the orogastric tube is in the fundal portion of the stomach. Mild increased markings at the lung bases suggestive of atelectasis. Brain CT 10/29/19 08:20 IMPRESSION: No intracranial abnormality is seen. Soft tissue prominence of the nasal structure as well as soft tissue density within the nasal cavity. Code Visit Inpatient E&M: 69654 Init Hosp L3
--- NOTE | 2019-10-29 09:39 | NURSING ---
ICU TRAE ANGIOEDEMA,NEW ONSET SEIZURE
--- NOTE | 2019-10-29 09:48 | NURSING ---
ICU 1
--- NOTE | 2019-10-29 09:51 | ED.RN ---
call ex fortino per his request and updated her on his condition and his admission.
[2019-10-29 10:03] LABS: GGTP 64 U/L (15-85)
--- NOTE | 2019-10-29 10:08 | CON.PCM_ITS ---
Reason for Consult Date of Consultation: 10/29/19 Reason for Consultation: Respiratory failure History of Present Illness: The patient is a 34-year-old male, with a history as outlined below, who presented to the emergency room on October 29 with complaints of oropharyngeal swelling, difficulty swallowing and change in vocal phonation. The patient was just hospitalized October 26- after having presented with angioedema of unclear etiology. The patient's C4 complement level was noted to be 36 mg/dL on October 26. The patient did not have any airway compromise during his previous hospitalization. He was treated with Pepcid, Benadryl and steroids. The patient was discharged home with a Medrol Dosepak and Pepcid. Aside from the aforementioned medications, the patient also appears to have an active prescription for Ativan. On presentation to the emergency department, the patient was noted to be afebrile but was hypertensive with a blood pressure documented to be 170/107. The patient was tachypneic and hypoxemic requiring nonrebreather supplemental oxygen. Laboratory evaluation revealed an elevated white blood cell count to 16,000. Chemistry profile was otherwise unremarkable. Following evaluation in the emergency department, there was concern for airway compromise and the patient was therefore emergently intubated. Short time later, the patient reportedly developed what appeared to be a generalized tonic-clonic seizure, despite not having had a prior history of seizure activity. A CT head was subsequently obtained and revealed no acute intracranial abnormality. The patient was loaded on Keppra and started on a continuous propofol and fentanyl drip. He was then admitted to the medical intensive care unit for further management. Of note, I did clarify with the ED nursing staff who did indicate that the patient's reported seizure activity occurred directly after having been administered etomidate. On arrival to the ICU, the patient was minimally sedated and able to answer some simple questions. He denies any recent food ingestion that was out of the ordinary for him. He denied having taken any other individuals prescription medications. He denied having taken any [id number] medications. Past Medical History Past Medical History (Chronic Problems): Chronic Problems Anxiety and depression (Chronic) Allergies No Known Allergies Allergy (Verified 10/26/19 20:16) Home Medications: Ambulatory Orders Medication Instructions Recorded Lorazepam [Ativan] 1 mg PO TID PRN #15 tab 10/24/19 DiphenhydrAMINE [Benadryl] 25 mg PO Q8H #20 cap 10/28/19 Famotidine [Pepcid] 20 mg PO BID #14 tab 10/28/19 MethylPREDNISolone DosePak [Medrol 4 mg PO UD #1 box 10/28/19 DosePak] Surgical History: noncontributory, - - right foot/ankle surgery Psychiatric History: Anxiety, Depression Lives: Alone Smoking Status: Never smoker - *Family History Maternal History Items: No pertinent history Paternal History Items: Diabetes Review of Systems Unable to obtain accurate/complete ROS d/t: Due to current intubation and mechanical ventilation status Patient Problems: Active and Suspected Problems Idiopathic angioedema (Acute) New onset seizure (Acute) Acute hypoxic respiratory failure (Acute) Angioedema of upper airways (Acute) Objective: The patient's most recent lab work, culture data and imaging studies have all been personally reviewed. - Physical Exam Vitals/I&O's: Vital Signs Temp Pulse Resp BP Pulse Ox 97.6 F L 110 H 19 H 165/97 H 100 10/29/19 08:09 10/29/19 09:45 10/29/19 09:45 10/29/19 09:45 10/29/19 09:45 Oxygen Delivery Method Mechanical Ventilator Weight: 222 lb 3.615 oz Body Mass Index (BMI) 30.9 Intake and Output for Last 24 Hours 10/27/19 10/28/19 10/29/19 23:59 23:59 23:59 Intake Total 1.04 / 1.04 Balance 1.04 / 1.04 General: - - Intubated, minimally sedated and mechanically ventilated. HEENT: Atraumatic, PERRLA, Normocephalic Oral: - - Significant oral pharyngeal swelling/lip edema Neck: Supple, No Nodes, Trachea Midline Lungs: No rhonchi, No wheeze, No rales Cardiovascular: Normal S1, Normal S2, No murmurs, Tachycardic Abdomen: Bowel Sounds Present, Soft, Non Tender, Obese Extremities: No clubbing, No cyanosis, No edema Skin: No breakdown Musculoskeletal: No Tenderness to Palpation of Joints or Extremities Lymphatic: No Cervical, Supraclavicular, or Inguinal Adenopathy Neurological: Neuro grossly intact Labs (Last 48 Hours) 10/29/19 10/29/19 10/29/19 08:15 08:15 08:15 WBC 16.4 H RBC 5.52 Hgb 15.2 Hct 45.8 MCV 83.0 MCH 27.5 MCHC 33.2 RDW Std Deviation 43.5 RDW Coeff of Maria A 14.5 Plt Count 150 MPV 12.4 H Immature Gran % (Auto) 0.600 Neut % (Auto) 72.3 H Lymph % (Auto) 17.5 L [place] % (Auto) 9.5 Eos % (Auto) 0.0 Baso % (Auto) 0.1 Absolute Neuts (auto) 11.8 H Absolute Lymphs (auto) 2.87 Nucleated RBC % 0 Differential Comment COMMENT Reactive Lymphocytes 1+ Plt Morphology Comment LARGE Sodium 138 Potassium 3.7 Chloride 102 Carbon Dioxide 31.0 Anion Gap 5 BUN 16 Creatinine 1.15 Estim Creat Clear Calc 98.22 Est GFR (MDRD) Af Amer 95 Est GFR (MDRD) Non-Af 78 BUN/Creatinine Ratio 13.9 Glucose 193 H Calcium 9.2 Total Bilirubin 0.30 GGT 64 AST 30 ALT 66 H Alkaline Phosphatase 73 Total Protein 8.8 H Albumin 4.1 Globulin 4.7 H Albumin/Globulin Ratio 0.9 Clinical Impression(s) from Imaging Studies Chest X-Ray 10/29/19 08:10 IMPRESSION: The tip of the endotracheal tube is at the level of the ellyn. This should be withdrawn approximately 2 cm. The tip of the orogastric tube is in the fundal portion of the stomach. Mild increased markings at the lung bases suggestive of atelectasis. Electronically Signed: Kwabena Adam, at 9:18 EST , Service support , Brain CT 10/29/19 08:20 IMPRESSION: No intracranial abnormality is seen. Soft tissue prominence of the nasal structure as well as soft tissue density within the nasal cavity. Electronically Signed: Kwabena Adam, at 9:46 EST , Service support , Current Medications Sodium Chloride () 1,000 mls @ 150 mls/hr IV .[id number] BERTA Last Admin: 10/29/19 08:44 Dose: 150 mls/hr Documented by: Fentanyl () 100 mls @ 2.5 mls/hr IV UD BERTA; Protocol Last Titration: 10/29/19 09:07 Dose: 50 mcg/hr, 5 mls/hr Documented by: Propofol (Diprivan) 1,000 mg in 100 mls @ 6.048 mls/hr CONT INF .Q12H BERTA; Protocol Last Admin: 10/29/19 09:33 Dose: 10 mcg/kg/min, 6 mls/hr Documented by: Assessment/Plan Active and Suspected Problems Idiopathic angioedema (Acute) New onset seizure (Acute) Acute hypoxic respiratory failure (Acute) Angioedema of upper airways (Acute) RECOMMENDATIONS: 1. Check C4 complement, along with C1 esterase inhibitor protein levels and function. 2. Check urine toxicology screen. 3. Obtain arterial blood gas. 4. Continue propofol and fentanyl for sedation. 5. Continue Benadryl, Pepcid and IV steroids. 6. Start gentle IV fluid hydration. 7. Lovenox for DVT prophylaxis IMPRESSIONS: 1. 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 The patient returned today, just days after having been discharged with a much more severe case of angioedema, leading to airway compromise and the need for invasive mechanical ventilatory support. The exact precipitating etiology is unclear. We will plan to check C4 complement along with C1 esterase inhibitor protein levels and function. The patient will remain on steroids, Benadryl and Pepcid accordingly. Attempts at spontaneous breathing trial can be undertaken, once the patient's oropharyngeal edema resolves. 2. Reported seizure activity The patient was reported to have experienced questionable seizure activity in the emergency department. However, upon further discussion with emergency department staff, the seizure-like activity was noted after the patient was administered etomidate for intubation. The patient is currently able to follow simple commands. He has no known history of epilepsy. I do strongly suspect that the seizure-like activity was likely the side effect of the etomidate ad ministered in the emergency department for intubation. We will continue to monitor the patient clinically. I do not see an indication for EEG at the current time. TIME: 45 minutes of critical care time, independent of procedures, was spent addressing the patient's acute respiratory failure, idiopathic recurrent angioedema, questionable seizure activity, review of all data and collaboration with the care team. ([id number]) Code Visit [id number]: [id number] Critical care first hour
[2019-10-29] MEDS: levETIRAcetam IV 1,000 MG/100 ML BAG 400 MG IV (10:43)
[2019-10-29 10:48] LABS: Alcohol, Blood (Medical)-Serum < 3.0 mg/dL
[2019-10-29 11:01] LABS: Amphetamine Urine VISTA NEGATIVE (<1000 ng/mL); Barbiturate Urine VISTA NEGATIVE (< 200 ng/mL); Benzodiazepine Urine VISTA NEGATIVE (< 200 ng/mL); Cocaine Urine VISTA NEGATIVE (< 300 ng/mL); Ecstacy Urine VISTA NEGATIVE (< 500 ng/mL); Methadone Urine VISTA NEGATIVE (< 300 ng/mL); PCP Urine VISTA NEGATIVE (< 25 ng/mL); THC Urine VISTA POSITIVE (< 50 ng/mL); Vista UDS pH Range 5
[2019-10-29] MEDS: Famotidine 200 MG/20 ML MDV 20 MG in 0.9% Normal Saline (Pres. free 8 ML 300 MG IV ×2 (12:01→20:56)
[2019-10-29] MEDS: DiphenhydrAMINE 50 MG/ML Syringe 12.5 MG IV ×2 (12:01→18:23)
[2019-10-29] MEDS: Enoxaparin 40 MG/0.4 ML Syringe SC (12:02)
[2019-10-29 12:53] LABS: Erythrocyte Sedimentation Rate 35 mm/hr (0-15)
[2019-10-29] MEDS: Lactated Ringers 1,000 ML 100 ML IV ×2 (12:58→23:20)
[2019-10-29 13:00] LABS: Base Excess 3 mmol/L (-2 to +2); Bicarbonate 27.6 mmol/L (22-26); Blood Gas Specimen Type ART; FI02 21; Mode A-C; O2 Delivery Device Vent; PEEP 5; PO2 81 mmHG (75-100); RR 16; SITE L Brachial; SO2 96 % (95-99); Time Given 1253; Total Carbon Dioxide 29 mmol/L; Vt 450; pCO2 43.4 mmHg (35-45); pH 7.41 (7.35-7.45)
--- NOTE | 2019-10-29 14:20 | CASEMGMT ---
RN NAA Readmission Note Previous Admission: 10.26.2019-10.28.2019 Diagnosis: angioedema DC Disposition: Home Current Admission Presentation: worsening angioedema requiring intubation; seizure See RN NAA assessment completed 10.28.2019 for details. DC PLAN: anticipate pt will be able to return home on dc once extubated and angioedema resolved. Pt does not have PCP, however list of [facility] PCP's given to patient yesterday prior to dc. Will continue to follow and assist with any dc needs that arise. Nader FAYE RN ACM
[2019-10-29 17:26] LABS: Bedside Glucose 192 mg/dL (70-110)
[2019-10-29 18:01] LABS: Bedside Glucose 186 mg/dL (70-110)
[2019-10-29] MEDS: fentaNYL drip 100 ML 7.5 MCG IV (20:50)
[2019-10-29] MEDS: Propofol 10MG/Ml 1,000 MG/100 ML Bottle 3 MG CONT INF (20:55)
[2019-10-29] MEDS: Chlorhexidine 15 ML PO (21:00)
[2019-10-30] VITALS (35 sets, daily range): BP systolic 116–148; BP diastolic 64–93; PULSE 56–103; RESP 14–25; TEMP 36.6–36.8; O2SAT 91–99
[2019-10-30] MEDS: DiphenhydrAMINE 50 MG/ML Syringe 12.5 MG IV ×5 (00:21→23:49)
[2019-10-30 05:12] LABS: Absolute Lymphocyte Count 1.46 X10^3/uL (0.83-4.51); Absolute Neutrophil Count 8.6 X10^3/uL (2.0-7.7); Hematocrit 42.1 % (40-54); Hemoglobin 13.8 g/dL (13.0-16.5); Lymphocyte # 1.46 X10^3/ul (4.0); Lymphocyte % 12.8 % (19-41); Mean Corp Hgb Conc 32.8 g/dL (32-36); Mean Corpuscular Hgb 27.7 pg (27.0-32.0); Mean Corpuscular Volume 84.5 fL (80-94); Mean Platelet Vol. 12.8 fl (6.2-12.0); Monocyte# 1.28 X10^3/uL; Monocyte% 11.2 % (0-10); NRBC Flagged by Analyzer 0 % (0-5); Neutrophil # 8.63 X10^3/uL (2.7-7.7); Neutrophil % 75.4 % (47-70); Platelet Count 128 K/mm3 (150-450); RBC Distribution Width CV 14.8 % (11.6-14.6); Red Blood Count 4.98 M/mm3 (4.6-6.2); White Blood Count 11.4 K/mm3 (4.4-11.0)
[2019-10-30] MEDS: CHLORHEXIDINE GLUC 2% CLOTH 1 EACH TOWELETTE TOPICAL (05:39)
[2019-10-30 05:46] LABS: Bedside Glucose 173 mg/dL (70-110)
[2019-10-30] MEDS: fentaNYL drip 100 ML 10 MCG IV ×2 (06:08→16:44)
--- NOTE | 2019-10-30 06:41 | PN_ITS ---
Subjective: The patient was seen and examined at the bedside this morning. Events from the last 24 hours have been reviewed. The patient is currently afebrile, hemodynamically stable and maintaining appropriate oxygen saturations on assist control mode of mechanical ventilation with minimal FiO2 requirement. No overnight issues were identified by the nursing staff. The patient is currently sedated on both propofol and fentanyl. Objective: The patient's most recent lab work, culture data and imaging studies have all been personally reviewed. General: - - Remains intubated, sedated mechanically ventilated. HEENT: Atraumatic, PERRLA, Normocephalic Oral: - - There continues to be significant oropharyngeal edema. Endotracheal tube remains in place. Neck: Supple, No JVD, Negative Carotid Bruits Lungs: Normal air movement, No rhonchi, No wheeze, No rales Cardiovascular: Regular rate, Regular Rhythm, Normal S1, Normal S2 Abdomen: Bowel Sounds Present, Soft, Non Tender Extremities: No clubbing, No cyanosis, No edema Skin: No breakdown Musculoskeletal: No Tenderness to Palpation of Joints or Extremities, No Muscle Wasting Lymphatic: No Cervical, Supraclavicular, or Inguinal Adenopathy Neurological: - - No focal neurological deficits. Vital Signs Temp Pulse Resp BP Pulse Ox 98.2 F 91 16 130/90 H 97 10/30/19 04:00 10/30/19 06:00 10/30/19 06:00 10/30/19 06:00 10/30/19 06:00 Oxygen Delivery Method Mechanical Ventilator Weight: 220 lb 7.396 oz Body Mass Index (BMI) 30.7 Intake and Output for Last 24 Hours 10/28/19 10/29/19 10/30/19 23:59 23:59 23:59 Intake Total 1914.47 / 1994.14 764.25 / 764.25 Output Total 1000 / 1070 720 / 720 Balance 914.47 / 924.14 44.25 / 44.25 Labs (Last 48 Hours) 10/29/19 10/29/19 10/29/19 08:15 08:15 08:15 WBC 16.4 H RBC 5.52 Hgb 15.2 Hct 45.8 MCV 83.0 MCH 27.5 MCHC 33.2 RDW Std Deviation 43.5 RDW Coeff of Maria A 14.5 Plt Count 150 MPV 12.4 H Immature Gran % (Auto) 0.600 Neut % (Auto) 72.3 H Lymph % (Auto) 17.5 L [place] % (Auto) 9.5 Eos % (Auto) 0.0 Baso % (Auto) 0.1 Absolute Neuts (auto) 11.8 H Absolute Lymphs (auto) 2.87 Nucleated RBC % 0 Differential Comment COMMENT Reactive Lymphocytes 1+ Plt Morphology Comment LARGE ESR Specimen Type Sample Site pH Bicarbonate Actual POC Total CO2 Base Excess O2 Saturation O2 % ABG pCO2 ABG pO2 Respiration Rate O2 Delivery Device Minute Volume Vent Mode Tidal Volume POC PEEP Blood Gas Notified Whom Blood Gas Notified Time Sodium 138 Potassium 3.7 Chloride 102 Carbon Dioxide 31.0 Anion Gap 5 BUN 16 Creatinine 1.15 Estim Creat Clear Calc 98.22 Est GFR (MDRD) Af Amer 95 Est GFR (MDRD) Non-Af 78 BUN/Creatinine Ratio 13.9 Glucose 193 H Calcium 9.2 Total Bilirubin 0.30 GGT 64 AST 30 ALT 66 H Alkaline Phosphatase 73 C-React Prot Ext Range Total Protein 8.8 H Albumin 4.1 Globulin 4.7 H Albumin/Globulin Ratio 0.9 Urine Opiates Screen Urine Methadone Screen Ur Barbiturates Screen Ur Phencyclidine Scrn Ur Amphetamines Screen U Methamphetamin-MDMA U Benzodiazepines Scrn Urine Cocaine Screen U Cannabinoids Screen Ur Drug Screen Comment Ethyl Alcohol C1 Esterase Inhibitor Func C1 Esterase Inhib Complement C4 POC Glucose 10/29/19 10/29/19 10/29/19 08:15 08:15 08:40 WBC RBC Hgb Hct MCV MCH MCHC RDW Std Deviation RDW Coeff of Maria A Plt Count MPV Immature Gran % (Auto) Neut % (Auto) Lymph % (Auto) [place] % (Auto) Eos % (Auto) Baso % (Auto) Absolute Neuts (auto) Absolute Lymphs (auto) Nucleated RBC % Differential Comment Reactive Lymphocytes Plt Morphology Comment ESR 35 H Specimen Type Sample Site pH Bicarbonate Actual POC Total CO2 Base Excess O2 Saturation O2 % ABG pCO2 ABG pO2 Respiration Rate O2 Delivery Device Minute Volume Vent Mode Tidal Volume POC PEEP Blood Gas Notified Whom Blood Gas Notified Time Sodium Potassium Chloride Carbon Dioxide Anion Gap BUN Creatinine Estim Creat Clear Calc Est GFR (MDRD) Af Amer Est GFR (MDRD) Non-Af BUN/Creatinine Ratio Glucose Calcium Total Bilirubin GGT AST ALT Alkaline Phosphatase C-React Prot Ext Range 11.00 H Total Protein Albumin Globulin Albumin/Globulin Ratio Urine Opiates Screen NEGATIVE Urine Methadone Screen NEGATIVE Ur Barbiturates Screen NEGATIVE Ur Phencyclidine Scrn NEGATIVE Ur Amphetamines Screen NEGATIVE U Methamphetamin-MDMA NEGATIVE U Benzodiazepines Scrn NEGATIVE Urine Cocaine Screen NEGATIVE U Cannabinoids Screen POSITIVE H Ur Drug Screen Comment Ethyl Alcohol C1 Esterase Inhibitor Func C1 Esterase Inhib Complement C4 POC Glucose 10/29/19 10/29/19 10/29/19 09:34 09:34 09:34 WBC RBC Hgb Hct MCV MCH MCHC RDW Std Deviation RDW Coeff of Maria A Plt Count MPV Immature Gran % (Auto) Neut % (Auto) Lymph % (Auto) [place] % (Auto) Eos % (Auto) Baso % (Auto) Absolute Neuts (auto) Absolute Lymphs (auto) Nucleated RBC % Differential Comment Reactive Lymphocytes Plt Morphology Comment ESR Specimen Type Sample Site pH Bicarbonate Actual POC Total CO2 Base Excess O2 Saturation O2 % ABG pCO2 ABG pO2 Respiration Rate O2 Delivery Device Minute Volume Vent Mode Tidal Volume POC PEEP Blood Gas Notified Whom Blood Gas Notified Time Sodium Potassium Chloride Carbon Dioxide Anion Gap BUN Creatinine Estim Creat Clear Calc Est GFR (MDRD) Af Amer Est GFR (MDRD) Non-Af BUN/Creatinine Ratio Glucose Calcium Total Bilirubin GGT AST ALT Alkaline Phosphatase C-React Prot Ext Range Total Protein Albumin Globulin Albumin/Globulin Ratio Urine Opiates Screen Urine Methadone Screen Ur Barbiturates Screen Ur Phencyclidine Scrn Ur Amphetamines Screen U Methamphetamin-MDMA U Benzodiazepines Scrn Urine Cocaine Screen U Cannabinoids Screen Ur Drug Screen Comment Ethyl Alcohol < 3.0 C1 Esterase Inhibitor Pending Func C1 Esterase Inhib Pending Complement C4 Cancelled Pending POC Glucose 10/29/19 10/29/19 10/29/19 12:53 14:14 17:57 WBC RBC Hgb Hct MCV MCH MCHC RDW Std Deviation RDW Coeff of Maria A Plt Count MPV Immature Gran % (Auto) Neut % (Auto) Lymph % (Auto) [place] % (Auto) Eos % (Auto) Baso % (Auto) Absolute Neuts (auto) Absolute Lymphs (auto) Nucleated RBC % Differential Comment Reactive Lymphocytes Plt Morphology Comment ESR Specimen Type ART Sample Site L Brachial pH 7.41 Bicarbonate Actual 27.6 H POC Total CO2 29 Base Excess 3 H O2 Saturation 96 O2 % 21 ABG pCO2 43.4 ABG pO2 81 Respiration Rate 16 O2 Delivery Device Vent Minute Volume 9.00 Vent Mode A-C Tidal Volume 450 POC PEEP 5 Blood Gas Notified Whom ICU MD Blood Gas Notified Time 1253 Sodium Potassium Chloride Carbon Dioxide Anion Gap BUN Creatinine Estim Creat Clear Calc Est GFR (MDRD) Af Amer Est GFR (MDRD) Non-Af BUN/Creatinine Ratio Glucose Calcium Total Bilirubin GGT AST ALT Alkaline Phosphatase C-React Prot Ext Range Total Protein Albumin Globulin Albumin/Globulin Ratio Urine Opiates Screen Urine Methadone Screen Ur Barbiturates Screen Ur Phencyclidine Scrn Ur Amphetamines Screen U Methamphetamin-MDMA U Benzodiazepines Scrn Urine Cocaine Screen U Cannabinoids Screen Ur Drug Screen Comment Ethyl Alcohol C1 Esterase Inhibitor Func C1 Esterase Inhib Complement C4 POC Glucose 192 H 186 H 10/30/19 10/30/19 04:50 05:37 WBC 11.4 H RBC 4.98 Hgb 13.8 Hct 42.1 MCV 84.5 MCH 27.7 MCHC 32.8 RDW Std Deviation 45.0 H RDW Coeff of Maria A 14.8 H Plt Count 128 L MPV 12.8 H Immature Gran % (Auto) 0.600 Neut % (Auto) 75.4 H Lymph % (Auto) 12.8 L [place] % (Auto) 11.2 H Eos % (Auto) 0.0 Baso % (Auto) 0.0 Absolute Neuts (auto) 8.6 H Absolute Lymphs (auto) 1.46 Nucleated RBC % 0 Differential Comment Reactive Lymphocytes Plt Morphology Comment ESR Specimen Type Sample Site pH Bicarbonate Actual POC Total CO2 Base Excess O2 Saturation O2 % ABG pCO2 ABG pO2 Respiration Rate O2 Delivery Device Minute Volume Vent Mode Tidal Volume POC PEEP Blood Gas Notified Whom Blood Gas Notified Time Sodium Potassium Chloride Carbon Dioxide Anion Gap BUN Creatinine Estim Creat Clear Calc Est GFR (MDRD) Af Amer Est GFR (MDRD) Non-Af BUN/Creatinine Ratio Glucose Calcium Total Bilirubin GGT AST ALT Alkaline Phosphatase C-React Prot Ext Range Total Protein Albumin Globulin Albumin/Globulin Ratio Urine Opiates Screen Urine Methadone Screen Ur Barbiturates Screen Ur Phencyclidine Scrn Ur Amphetamines Screen U Methamphetamin-MDMA U Benzodiazepines Scrn Urine Cocaine Screen U Cannabinoids Screen Ur Drug Screen Comment Ethyl Alcohol C1 Esterase Inhibitor Func C1 Esterase Inhib Complement C4 POC Glucose 173 H Clinical Impression(s) from Imaging Studies Chest X-Ray 01/14/20 08:10 IMPRESSION: The tip of the endotracheal tube is at the level of the ellyn. This should be withdrawn approximately 2 cm. The tip of the orogastric tube is in the fundal portion of the stomach. Mild increased markings at the lung bases suggestive of atelectasis. Electronically Signed: Kwabena Lombardidonna, at 9:18 EST , Service support , Brain CT 10/29/19 08:20 IMPRESSION: No intracranial abnormality is seen. Soft tissue prominence of the nasal structure as well as soft tissue density within the nasal cavity. Electronically Signed: Kwabena Kia, at 9:46 EST , Service support , Medical Necessity - Tobacco Use Smoking Status: Never smoker Assessment/Plan All Active Problems Angioedema (Acute) Idiopathic angioedema (Acute) New onset seizure (Acute) Acute hypoxic respiratory failure (Acute) Angioedema of upper airways (Acute) RECOMMENDATIONS: 1. Await results of C4 complement, along with C1 esterase inhibitor protein levels and function. 2. Continue current supportive measures including invasive mechanical ventilatory support until oropharyngeal edema improves. 3. Continue propofol and fentanyl for sedation. 4. Continue Benadryl, Pepcid and IV steroids. 5. Continue gentle IV fluid hydration, with plans to transition to tube feeds today. 6. Lovenox for DVT prophylaxis. IMPRESSIONS: 1. 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 The patient returned on 10/29, just days after having been discharged, with a much more severe case of angioedema, leading to airway compromise and the need for invasive mechanical ventilatory support. The exact precipitating etiology is unclear. C4 complement along with C1 esterase inhibitor protein levels and function are currently pending. The patient will remain on steroids, Benadryl and Pepcid accordingly. Attempts at spontaneous breathing trial can be undertaken, once the patient's oropharyngeal edema resolves. 2. Reported seizure activity The patient was reported to have experienced questionable seizure activity in the emergency department. However, upon further discussion with emergency department staff, the seizure-like activity was noted after the patient was administered etomidate for intubation. The patient is currently able to follow simple commands. He has no known history of epilepsy. I do strongly suspect that the seizure-like activity was likely the side effect of the etomidate administered in the emergency department for intubation. We will continue to monitor the patient clinically. Keppra can be discontinued from my perspective. TIME: 38 minutes of critical care time, independent of procedures, was spent addressing the patient's acute respiratory failure, idiopathic recurrent angioedema, questionable seizure activity, review of all data and collaboration with the care team. ([id number]) Code Visit [id number]: [id number] Critical care first hour
--- NOTE | 2019-10-30 07:25 | PCM.PN.HOSP ---
Patient Problems: Active and Suspected Problems Idiopathic angioedema (Acute) New onset seizure (Acute) Acute hypoxic respiratory failure (Acute) Angioedema of upper airways (Acute) Reason for Visit: Angioedema with compromised airway resulting into acute hypoxic respiratory failure Objective: Patient is awake and alert. Mechanically ventilated on minimal oxygen requirement. Light sedation with IV propofol and fentanyl. Patient has a lot of secretions and lower lip swelling which is tender. Vitals/I&O's: Vital Signs Temp Pulse Resp BP Pulse Ox 98.2 F 91 16 130/90 H 97 10/30/19 04:00 10/30/19 06:00 10/30/19 06:00 10/30/19 06:00 10/30/19 06:00 Oxygen Delivery Method Mechanical Ventilator Weight: 220 lb 3.869 oz Body Mass Index (BMI) 30.7 Intake and Output for Last 24 Hours 10/28/19 10/29/19 10/30/19 23:59 23:59 23:59 Intake Total 1914.47 / 1994.14 794.25 / 794.25 Output Total 1000 / 1070 720 / 720 Balance 914.47 / 924.14 74.25 / 74.25 General: Alert HEENT: Atraumatic, PERRLA, EOMI, Normocephalic Oral: - - ET and OG tube. Lower lip is edematous and tender. Mild tenderness over left submandibular angle Neck: Supple, No JVD, Negative Carotid Bruits Lungs: - - ET and OG tube. Mechanically ventilated on assist control mode Cardiovascular: Regular rate, Regular Rhythm, Normal S1, Normal S2, No murmurs Abdomen: Bowel Sounds Present, Soft, Non Tender, Non-Distended Extremities: No edema, Capillary Refill Less than 3 Seconds Musculoskeletal: Arthritic Changes Laboratory Results 10/29/19 08:15: WBC 16.4 H, RBC 5.52, Hgb 15.2, Hct 45.8, MCV 83.0, MCH 27.5, MCHC 33.2, RDW Std Deviation 43.5, RDW Coeff of Maria A 14.5, Plt Count 150, MPV 12.4 H, Immature Gran % (Auto) 0.600, Neut % (Auto) 72.3 H, Lymph % (Auto) 17.5 L, [place] % (Auto) 9.5, Eos % (Auto) 0.0, Baso % (Auto) 0.1, Absolute Neuts (auto) 11.8 H, Absolute Lymphs (auto) 2.87, Nucleated RBC % 0, Differential Comment COMMENT, Reactive Lymphocytes 1+, Plt Morphology Comment LARGE 10/29/19 08:15: Sodium 138, Potassium 3.7, Chloride 102, Carbon Dioxide 31.0, Anion Gap 5, BUN 16, Creatinine 1.15, Estim Creat Clear Calc 98.22, Est GFR (MDRD) Af Amer 95, Est GFR (MDRD) Non-Af 78, BUN/Creatinine Ratio 13.9, Glucose 193 H, Calcium 9.2, Total Bilirubin 0.30, AST 30, ALT 66 H, Alkaline Phosphatase 73, Total Protein 8.8 H, Albumin 4.1, Globulin 4.7 H, Albumin/Globulin Ratio 0.9 10/29/19 08:15: GGT 64 10/29/19 08:15: ESR 35 H 10/29/19 08:15: C-React Prot Ext Range 11.00 H 10/29/19 08:40: Urine Opiates Screen NEGATIVE, Urine Methadone Screen NEGATIVE, Ur Barbiturates Screen NEGATIVE, Ur Phencyclidine Scrn NEGATIVE, Ur Amphetamines Screen NEGATIVE, U Methamphetamin-MDMA NEGATIVE, U Benzodiazepines Scrn NEGATIVE, Urine Cocaine Screen NEGATIVE, U Cannabinoids Screen POSITIVE H, Ur Drug Screen Comment 10/29/19 09:34: Ethyl Alcohol < 3.0 10/29/19 09:34: Complement C4 Cancelled 10/29/19 09:34: C1 Esterase Inhibitor Pending, Func C1 Esterase Inhib Pending, Complement C4 Pending 10/29/19 12:53: Specimen Type ART, Sample Site L Brachial, pH 7.41, Bicarbonate Actual 27.6 H, POC Total CO2 29, Base Excess 3 H, O2 Saturation 96, O2 % 21, ABG pCO2 43.4, ABG pO2 81, Respiration Rate 16, O2 Delivery Device Vent, Minute Volume 9.00, Vent Mode A-C, Tidal Volume 450, POC PEEP 5, Blood Gas Notified Whom ICU , Blood Gas Notified Time 1253 10/29/19 14:14: POC Glucose 192 H 10/29/19 17:57: POC Glucose 186 H 10/30/19 04:50: WBC 11.4 H, RBC 4.98, Hgb 13.8, Hct 42.1, MCV 84.5, MCH 27.7, MCHC 32.8, RDW Std Deviation 45.0 H, RDW Coeff of Maria A 14.8 H, Plt Count 128 L, MPV 12.8 H, Immature Gran % (Auto) 0.600, Neut % (Auto) 75.4 H, Lymph % (Auto) 12.8 L, [place] % (Auto) 11.2 H, Eos % (Auto) 0.0, Baso % (Auto) 0.0, Absolute Neuts (auto) 8.6 H, Absolute Lymphs (auto) 1.46, Nucleated RBC % 0 10/30/19 05:37: POC Glucose 173 H Current Medications Acetaminophen (Tylenol) 650 mg RECTAL Q4H PRN PRN PRN Reason: Pain Score 1-3/Temp > 100.7 F Albuterol Sulfate (Ventolin Aerosols) 2.5 mg INHALATION Q2H PRN PRN PRN Reason: SOB/Wheezing Chlorhexidine Gluconate () 15 ml PO BID [facility] Last Admin: 10/29/19 21:00 Dose: 15 ml Documented by: Chlorhexidine Gluconate () 1 each TOPICAL DAILY [facility] Last Admin: 10/30/19 05:39 Dose: 1 each Documented by: Diphenhydramine HCl (Benadryl) 12.5 mg IV Q6H [facility] Last Admin: 10/30/19 05:39 Dose: 12.5 mg Documented by: Enoxaparin Sodium (Lovenox) 40 mg SC DAILY [facility] Last Admin: 10/29/19 12:02 Dose: 40 mg Documented by: Glucagon () 1 mg IM .X1 PRN PRN Reason: Hypoglycemia Fentanyl () 100 mls @ 2.5 mls/hr IV UD [facility]; Protocol Last Admin: 10/30/19 06:08 Dose: 100 mcg/hr, 10 mls/hr Documented by: Propofol (Diprivan) 1,000 mg in 100 mls @ 6 mls/hr CONT INF .Q12H [facility]; Protocol Last Titration: 10/30/19 06:00 Dose: 10 mcg/kg/min, 6 mls/hr Documented by: Sodium Chloride () 250 mls @ 15 mls/hr IV .[id number] PRN PRN Reason: Saline Flush Sodium Chloride () 250 mls @ 15 mls/hr IV .[id number] PRN PRN Reason: Additional IVPB Infusion Lactated Ringer's () 1,000 mls @ 100 mls/hr IV .Q10H [facility] Last Infusion: 10/30/19 06:00 Dose: 100 mls/hr Documented by: Famotidine 20 mg/ Sodium (Chloride) 10 mls @ 300 mls/hr IV Q12 [facility] Last Infusion: 10/29/19 21:11 Dose: Infused Documented by: Dextrose (Dextrose 10%-Water) 250 mls @ 999 mls/hr IV .Q16M PRN; Protocol PRN Reason: HYPOGLYCEMIA Levetiracetam 500 mg/ Sodium (Chloride) 105 mls @ 400 mls/hr IV Q24 [facility] Last Infusion: 10/29/19 20:15 Dose: Infused Documented by: Insulin Human Lispro (Humalog Kwikpen (Bkc)) 0 unit SC Q6 [facility]; Protocol Methylprednisolone (Solu-Medrol) 40 mg IV Q8 [facility] Last Admin: 10/30/19 05:39 Dose: 40 mg Documented by: Nitroglycerin (Nitrostat) 0.4 mg SUBLINGUAL Q5M PRN PRN Reason: CARDIAC/CHEST PAIN Ondansetron HCl (Zofran) 4 mg IV Q8H PRN PRN PRN Reason: NAUSEA/VOMITING Sodium Chloride () 10 - 40 ml IV UD PRN PRN Reason: SALINE FLUSH STROKE Vital Signs/Narrative: Vital Signs Temp Pulse Resp BP Pulse Ox 10/30/19 06:00 91 16 130/90 H 97 10/30/19 05:29 64 19 H 97 10/30/19 05:00 80 16 138/78 H 97 10/30/19 04:00 98.2 F 58 L 16 116/70 97 Medical Necessity - Tobacco Use Smoking Status: Never smoker Assessment/Plan All Active Problems Angioedema (Acute) Idiopathic angioedema (Acute) New onset seizure (Acute) Acute hypoxic respiratory failure (Acute) Angioedema of upper airways (Acute) The patient is a 34 year old M with no significant past medical history came to ER with swelling of lower lip, tongue and throat with acute worsening of airway swelling and in respiratory distress. Patient was intubated in ER on etomidate, rocuronium and was given Solu-Medrol, Pepcid and Benadryl. Seizure-like movement including clenching of mandible shortly after admitted. Patient was admitted between 10/26 and discharged on 10/28 for angioedema of lips. Prior to the discharge, on exam there was no swelling of soft palate, base of tongue or pharyngeal wall except lower lip swelling. The patient was discharged on Medrol Dosepak, Pepcid and Benadryl. Patient also has history of seizure and therefore Keppra 1 g was given in ER [] 1. Angioedema of upper airway including glottis with acute hypoxic respiratory failure on ventilator: Patient is being admitted in ICU. [facility] [employer] consulted. On IV propofol and fentanyl drips. Started on IV Solu-Medrol, Benadryl and IV Pepcid. LFTs ALT 66, A/G ratio 0.9, total protein 8.8. Leukocytosis 16.4 thousand with left shift. Chest x-ray shows mild bilateral atelectasis at lung bases 10/30/2019: Mild tenderness to her left submandibular angle and lower lip swelling which is tender. Oral secretions. Remains intubated. Complement C4 and C1 esterase inhibitor pending. Discussed with the patient's brother and does not have history of angioedema in first-degree family relative. 2. Seizure-like activity probably secondary to etomidate: Patient loaded with Keppra 1 g in ER. Continue Keppra 500 mg 3. Possible polysubstance use: GGT 64, serum alcohol negative. U tox positive of cannabinoids. DVT prophylaxis, moderate risk: Patient is intubated on ventilator therefore Lovenox 40 mg subcut daily. Clinical Impression(s) from Imaging Studies Chest X-Ray 10/29/19 08:10 IMPRESSION: The tip of the endotracheal tube is at the level of the ellyn. This should be withdrawn approximately 2 cm. The tip of the orogastric tube is in the fundal portion of the stomach. Mild increased markings at the lung bases suggestive of atelectasis. Brain CT 10/29/19 08:20 IMPRESSION: No intracranial abnormality is seen. Soft tissue prominence of the nasal structure as well as soft tissue density within the nasal cavity. Code Visit Inpatient E&M: 78847 Subs Hosp L3
[2019-10-30] MEDS: Lactated Ringers 1,000 ML 100 ML IV ×2 (08:42→19:06)
[2019-10-30] MEDS: Chlorhexidine 15 ML PO ×2 (08:44→21:49)
--- NOTE | 2019-10-30 09:38 | CASEMGMT ---
RN CM Note: Participated in interdisciplinary rounds. Pt remains on ventilator, continues to have swelling related to angioedema. Family present in rounds, were able to ask questions. DC planning deferred at this time. CM will continue to follow and assist with any discharge needs. Nader VALADEZN RN ACM
[2019-10-30] MEDS: Vital AF 1.2 Cal Liquid 1,000 ML 20 ML GT (11:02)
[2019-10-30] MEDS: Famotidine 200 MG/20 ML MDV 20 MG in 0.9% Normal Saline (Pres. free 8 ML 300 MG IV ×2 (11:03→21:46)
[2019-10-30] MEDS: Enoxaparin 40 MG/0.4 ML Syringe SC (11:04)
[2019-10-30] MEDS: Propofol 10MG/Ml 1,000 MG/100 ML Bottle 6 MG CONT INF ×2 (11:17→23:49)
[2019-10-30 11:36] LABS: Bedside Glucose 186 mg/dL (70-110)
[2019-10-30] MEDS: Insulin Lispro 100 UNIT/ML INSULN.PEN SC ×2 (11:39→16:49)
[2019-10-30 16:56] LABS: Bedside Glucose 161 mg/dL (70-110)
[2019-10-30 20:26] LABS: Bedside Glucose 178 mg/dL (70-110)
[2019-10-31] VITALS (40 sets, daily range): BP systolic 108–155; BP diastolic 71–98; PULSE 53–99; RESP 10–23; TEMP 36.9–37.2; O2SAT 91–100
[2019-10-31 00:26] LABS: Bedside Glucose 153 mg/dL (70-110)
[2019-10-31] MEDS: fentaNYL drip 100 ML 10 MCG IV (03:21)
[2019-10-31] MEDS: DiphenhydrAMINE 50 MG/ML Syringe 12.5 MG IV ×4 (05:18→23:18)
[2019-10-31] MEDS: Lactated Ringers 1,000 ML 100 ML IV (05:18)
[2019-10-31] MEDS: CHLORHEXIDINE GLUC 2% CLOTH 1 EACH TOWELETTE TOPICAL (05:19)
[2019-10-31] MEDS: Insulin Lispro 100 UNIT/ML INSULN.PEN SC ×5 (05:34→23:19)
[2019-10-31 05:46] LABS: Bedside Glucose 193 mg/dL (70-110)
--- NOTE | 2019-10-31 06:23 | PCM.PN.INT ---
Subjective: The patient was seen and examined at the bedside this morning. Events from the last 24 hours have been reviewed. The patient is currently afebrile, hemodynamically stable and maintaining appropriate oxygen saturations on assist control mode mechanical ventilation with an FiO2 requirement of 21%. The patient did well this morning with his spontaneous awakening trial. He was never placed on a spontaneous breathing trial, as he continues to have a significant amount of oropharyngeal edema. No overnight issues were identified by the nursing staff. Objective: The patient's most recent lab work, culture data and imaging studies have all been personally reviewed. General: - - Currently alert and interactive. Remains intubated and mechanically ventilated. HEENT: Atraumatic, PERRLA, Normocephalic Oral: Moist Mucosa, - - Endotracheal tube remains in place. Improving oropharyngeal edema Neck: Supple, No JVD, Negative Carotid Bruits Lungs: No rhonchi, No wheeze, No rales Cardiovascular: Regular rate, Regular Rhythm, Normal S1, Normal S2, No murmurs Abdomen: Bowel Sounds Present, Soft, Non Tender Extremities: No clubbing, No cyanosis, No edema Skin: No breakdown Musculoskeletal: No Tenderness to Palpation of Joints or Extremities, No Muscle Wasting Lymphatic: No Cervical, Supraclavicular, or Inguinal Adenopathy Neurological: Neuro grossly intact Vital Signs Temp Pulse Resp BP Pulse Ox 98.9 F 56 L 16 125/80 H 98 10/31/19 00:00 10/31/19 06:00 10/31/19 06:00 10/31/19 06:00 10/31/19 06:00 Oxygen Delivery Method Mechanical Ventilator Weight: 216 lb 14.958 oz Body Mass Index (BMI) 30.7 Intake and Output for Last 24 Hours 10/29/19 10/30/19 10/31/19 23:59 23:59 23:59 Intake Total 1914.47 / 1993.14 2772.16 / 2783.26 715.99 / 715.99 Output Total 1000 / 1070 2370 / 3620 2500 / 2500 Balance 914.47 / 924.14 402.16 / -836.74 -1784.01 / -1784.01 Labs (Last 48 Hours) 10/29/19 10/29/19 10/29/19 08:15 08:15 08:15 WBC 16.4 H RBC 5.52 Hgb 15.2 Hct 45.8 MCV 83.0 MCH 27.5 MCHC 33.2 RDW Std Deviation 43.5 RDW Coeff of Maria A 14.5 Plt Count 150 MPV 12.4 H Immature Gran % (Auto) 0.600 Neut % (Auto) 72.3 H Lymph % (Auto) 17.5 L [place] % (Auto) 9.5 Eos % (Auto) 0.0 Baso % (Auto) 0.1 Absolute Neuts (auto) 11.8 H Absolute Lymphs (auto) 2.87 Nucleated RBC % 0 Differential Comment COMMENT Reactive Lymphocytes 1+ Plt Morphology Comment LARGE ESR Specimen Type Sample Site pH Bicarbonate Actual POC Total CO2 Base Excess O2 Saturation O2 % ABG pCO2 ABG pO2 Respiration Rate O2 Delivery Device Minute Volume Vent Mode Tidal Volume POC PEEP Blood Gas Notified Whom Blood Gas Notified Time Sodium 138 Potassium 3.7 Chloride 102 Carbon Dioxide 31.0 Anion Gap 5 BUN 16 Creatinine 1.15 Estim Creat Clear Calc 98.22 Est GFR (MDRD) Af Amer 95 Est GFR (MDRD) Non-Af 78 BUN/Creatinine Ratio 13.9 Glucose 193 H Calcium 9.2 Total Bilirubin 0.30 GGT 64 AST 30 ALT 66 H Alkaline Phosphatase 73 C-React Prot Ext Range Total Protein 8.8 H Albumin 4.1 Globulin 4.7 H Albumin/Globulin Ratio 0.9 Urine Opiates Screen Urine Methadone Screen Ur Barbiturates Screen Ur Phencyclidine Scrn Ur Amphetamines Screen U Methamphetamin-MDMA U Benzodiazepines Scrn Urine Cocaine Screen U Cannabinoids Screen Ur Drug Screen Comment Ethyl Alcohol C1 Esterase Inhibitor Func C1 Esterase Inhib Complement C4 POC Glucose 10/29/19 10/29/19 10/29/19 08:15 08:15 08:40 WBC RBC Hgb Hct MCV MCH MCHC RDW Std Deviation RDW Coeff of Maria A Plt Count MPV Immature Gran % (Auto) Neut % (Auto) Lymph % (Auto) [place] % (Auto) Eos % (Auto) Baso % (Auto) Absolute Neuts (auto) Absolute Lymphs (auto) Nucleated RBC % Differential Comment Reactive Lymphocytes Plt Morphology Comment ESR 35 H Specimen Type Sample Site pH Bicarbonate Actual POC Total CO2 Base Excess O2 Saturation O2 % ABG pCO2 ABG pO2 Respiration Rate O2 Delivery Device Minute Volume Vent Mode Tidal Volume POC PEEP Blood Gas Notified Whom Blood Gas Notified Time Sodium Potassium Chloride Carbon Dioxide Anion Gap BUN Creatinine Estim Creat Clear Calc Est GFR (MDRD) Af Amer Est GFR (MDRD) Non-Af BUN/Creatinine Ratio Glucose Calcium Total Bilirubin GGT AST ALT Alkaline Phosphatase C-React Prot Ext Range 11.00 H Total Protein Albumin Globulin Albumin/Globulin Ratio Urine Opiates Screen NEGATIVE Urine Methadone Screen NEGATIVE Ur Barbiturates Screen NEGATIVE Ur Phencyclidine Scrn NEGATIVE Ur Amphetamines Screen NEGATIVE U Methamphetamin-MDMA NEGATIVE U Benzodiazepines Scrn NEGATIVE Urine Cocaine Screen NEGATIVE U Cannabinoids Screen POSITIVE H Ur Drug Screen Comment Ethyl Alcohol C1 Esterase Inhibitor Func C1 Esterase Inhib Complement C4 POC Glucose 10/29/19 10/29/19 10/29/19 09:34 09:34 09:34 WBC RBC Hgb Hct MCV MCH MCHC RDW Std Deviation RDW Coeff of Maria A Plt Count MPV Immature Gran % (Auto) Neut % (Auto) Lymph % (Auto) [place] % (Auto) Eos % (Auto) Baso % (Auto) Absolute Neuts (auto) Absolute Lymphs (auto) Nucleated RBC % Differential Comment Reactive Lymphocytes Plt Morphology Comment ESR Specimen Type Sample Site pH Bicarbonate Actual POC Total CO2 Base Excess O2 Saturation O2 % ABG pCO2 ABG pO2 Respiration Rate O2 Delivery Device Minute Volume Vent Mode Tidal Volume POC PEEP Blood Gas Notified Whom Blood Gas Notified Time Sodium Potassium Chloride Carbon Dioxide Anion Gap BUN Creatinine Estim Creat Clear Calc Est GFR (MDRD) Af Amer Est GFR (MDRD) Non-Af BUN/Creatinine Ratio Glucose Calcium Total Bilirubin GGT AST ALT Alkaline Phosphatase C-React Prot Ext Range Total Protein Albumin Globulin Albumin/Globulin Ratio Urine Opiates Screen Urine Methadone Screen Ur Barbiturates Screen Ur Phencyclidine Scrn Ur Amphetamines Screen U Methamphetamin-MDMA U Benzodiazepines Scrn Urine Cocaine Screen U Cannabinoids Screen Ur Drug Screen Comment Ethyl Alcohol < 3.0 C1 Esterase Inhibitor Pending Func C1 Esterase Inhib Pending Complement C4 Cancelled Pending POC Glucose 10/29/19 10/29/19 10/29/19 12:53 14:14 17:57 WBC RBC Hgb Hct MCV MCH MCHC RDW Std Deviation RDW Coeff of Maria A Plt Count MPV Immature Gran % (Auto) Neut % (Auto) Lymph % (Auto) [place] % (Auto) Eos % (Auto) Baso % (Auto) Absolute Neuts (auto) Absolute Lymphs (auto) Nucleated RBC % Differential Comment Reactive Lymphocytes Plt Morphology Comment ESR Specimen Type ART Sample Site L Brachial pH 7.41 Bicarbonate Actual 27.6 H POC Total CO2 29 Base Excess 3 H O2 Saturation 96 O2 % 21 ABG pCO2 43.4 ABG pO2 81 Respiration Rate 16 O2 Delivery Device Vent Minute Volume 9.00 Vent Mode A-C Tidal Volume 450 POC PEEP 5 Blood Gas Notified Whom ICU MD Blood Gas Notified Time 1253 Sodium Potassium Chloride Carbon Dioxide Anion Gap BUN Creatinine Estim Creat Clear Calc Est GFR (MDRD) Af Amer Est GFR (MDRD) Non-Af BUN/Creatinine Ratio Glucose Calcium Total Bilirubin GGT AST ALT Alkaline Phosphatase C-React Prot Ext Range Total Protein Albumin Globulin Albumin/Globulin Ratio Urine Opiates Screen Urine Methadone Screen Ur Barbiturates Screen Ur Phencyclidine Scrn Ur Amphetamines Screen U Methamphetamin-MDMA U Benzodiazepines Scrn Urine Cocaine Screen U Cannabinoids Screen Ur Drug Screen Comment Ethyl Alcohol C1 Esterase Inhibitor Func C1 Esterase Inhib Complement C4 POC Glucose 192 H 186 H 10/30/19 10/30/19 10/30/19 00:16 04:50 05:37 WBC 11.4 H RBC 4.98 Hgb 13.8 Hct 42.1 MCV 84.5 MCH 27.7 MCHC 32.8 RDW Std Deviation 45.0 H RDW Coeff of Maria A 14.8 H Plt Count 128 L MPV 12.8 H Immature Gran % (Auto) 0.600 Neut % (Auto) 75.4 H Lymph % (Auto) 12.8 L [place] % (Auto) 11.2 H Eos % (Auto) 0.0 Baso % (Auto) 0.0 Absolute Neuts (auto) 8.6 H Absolute Lymphs (auto) 1.46 Nucleated RBC % 0 Differential Comment Reactive Lymphocytes Plt Morphology Comment ESR Specimen Type Sample Site pH Bicarbonate Actual POC Total CO2 Base Excess O2 Saturation O2 % ABG pCO2 ABG pO2 Respiration Rate O2 Delivery Device Minute Volume Vent Mode Tidal Volume POC PEEP Blood Gas Notified Whom Blood Gas Notified Time Sodium Potassium Chloride Carbon Dioxide Anion Gap BUN Creatinine Estim Creat Clear Calc Est GFR (MDRD) Af Amer Est GFR (MDRD) Non-Af BUN/Creatinine Ratio Glucose Calcium Total Bilirubin GGT AST ALT Alkaline Phosphatase C-React Prot Ext Range Total Protein Albumin Globulin Albumin/Globulin Ratio Urine Opiates Screen Urine Methadone Screen Ur Barbiturates Screen Ur Phencyclidine Scrn Ur Amphetamines Screen U Methamphetamin-MDMA U Benzodiazepines Scrn Urine Cocaine Screen U Cannabinoids Screen Ur Drug Screen Comment Ethyl Alcohol C1 Esterase Inhibitor Func C1 Esterase Inhib Complement C4 POC Glucose 178 H 173 H 10/30/19 10/30/19 10/30/19 11:33 16:48 23:58 WBC RBC Hgb Hct MCV MCH MCHC RDW Std Deviation RDW Coeff of Maria A Plt Count MPV Immature Gran % (Auto) Neut % (Auto) Lymph % (Auto) [place] % (Auto) Eos % (Auto) Baso % (Auto) Absolute Neuts (auto) Absolute Lymphs (auto) Nucleated RBC % Differential Comment Reactive Lymphocytes Plt Morphology Comment ESR Specimen Type Sample Site pH Bicarbonate Actual POC Total CO2 Base Excess O2 Saturation O2 % ABG pCO2 ABG pO2 Respiration Rate O2 Delivery Device Minute Volume Vent Mode Tidal Volume POC PEEP Blood Gas Notified Whom Blood Gas Notified Time Sodium Potassium Chloride Carbon Dioxide Anion Gap BUN Creatinine Estim Creat Clear Calc Est GFR (MDRD) Af Amer Est GFR (MDRD) Non-Af BUN/Creatinine Ratio Glucose Calcium Total Bilirubin GGT AST ALT Alkaline Phosphatase C-React Prot Ext Range Total Protein Albumin Globulin Albumin/Globulin Ratio Urine Opiates Screen Urine Methadone Screen Ur Barbiturates Screen Ur Phencyclidine Scrn Ur Amphetamines Screen U Methamphetamin-MDMA U Benzodiazepines Scrn Urine Cocaine Screen U Cannabinoids Screen Ur Drug Screen Comment Ethyl Alcohol C1 Esterase Inhibitor Func C1 Esterase Inhib Complement C4 POC Glucose 186 H 161 H 153 H 10/31/19 05:29 WBC RBC Hgb Hct MCV MCH MCHC RDW Std Deviation RDW Coeff of Maria A Plt Count MPV Immature Gran % (Auto) Neut % (Auto) Lymph % (Auto) [place] % (Auto) Eos % (Auto) Baso % (Auto) Absolute Neuts (auto) Absolute Lymphs (auto) Nucleated RBC % Differential Comment Reactive Lymphocytes Plt Morphology Comment ESR Specimen Type Sample Site pH Bicarbonate Actual POC Total CO2 Base Excess O2 Saturation O2 % ABG pCO2 ABG pO2 Respiration Rate O2 Delivery Device Minute Volume Vent Mode Tidal Volume POC PEEP Blood Gas Notified Whom Blood Gas Notified Time Sodium Potassium Chloride Carbon Dioxide Anion Gap BUN Creatinine Estim Creat Clear Calc Est GFR (MDRD) Af Amer Est GFR (MDRD) Non-Af BUN/Creatinine Ratio Glucose Calcium Total Bilirubin GGT AST ALT Alkaline Phosphatase C-React Prot Ext Range Total Protein Albumin Globulin Albumin/Globulin Ratio Urine Opiates Screen Urine Methadone Screen Ur Barbiturates Screen Ur Phencyclidine Scrn Ur Amphetamines Screen U Methamphetamin-MDMA U Benzodiazepines Scrn Urine Cocaine Screen U Cannabinoids Screen Ur Drug Screen Comment Ethyl Alcohol C1 Esterase Inhibitor Func C1 Esterase Inhib Complement C4 POC Glucose 193 H Clinical Impression(s) from Imaging Studies Chest X-Ray 10/29/19 08:10 IMPRESSION: The tip of the endotracheal tube is at the level of the ellyn. This should be withdrawn approximately 2 cm. The tip of the orogastric tube is in the fundal portion of the stomach. Mild increased markings at the lung bases suggestive of atelectasis. Electronically Signed: Kwabena Adam, at 9:18 EST , Service support , Brain CT 10/29/19 08:20 IMPRESSION: No intracranial abnormality is seen. Soft tissue prominence of the nasal structure as well as soft tissue density within the nasal cavity. Electronically Signed: Kwabena Adam, at 9:46 EST , Service support , Medical Necessity - Tobacco Use Smoking Status: Never smoker Assessment/Plan All Active Problems Angioedema (Acute) Idiopathic angioedema (Acute) New onset seizure (Acute) Acute hypoxic respiratory failure (Acute) Angioedema of upper airways (Acute) RECOMMENDATIONS: 1. Await results of C4 complement, along with C1 esterase inhibitor protein levels and function. 2. Continue current supportive measures including invasive mechanical ventilatory support until oropharyngeal edema improves. 3. Continue propofol and fentanyl for sedation. 4. Continue Benadryl, Pepcid and IV steroids. 5. Continue tube feeds. 6. Lovenox for DVT prophylaxis. 7. Check RAST food profile IMPRESSIONS: 1. 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 The patient returned on 10/29, just days after having been discharged, with a much more severe case of angioedema, leading to airway compromise and the need for invasive mechanical ventilatory support. The exact precipitating etiology is unclear. C4 complement along with C1 esterase inhibitor protein levels and function are currently pending. The patient will remain on steroids, Benadryl and Pepcid accordingly. Attempts at spontaneous breathing trial can be undertaken, once the patient's oropharyngeal edema resolves. 2. Reported seizure activity The patient was reported to have experienced questionable seizure activity in the emergency department. However, upon further discussion with emergency department staff, the seizure-like activity was noted after the patient was administered etomidate for intubation. The patient is currently able to follow simple commands. He has no known history of epilepsy. I do strongly suspect that the seizure-like activity was likely the side effect of the etomidate administered in the emergency department for intubation. We will continue to monitor the patient clinically. TIME: 38 minutes of critical care time, independent of procedures, was spent addressing the patient's acute respiratory failure, idiopathic recurrent angioedema, questionable seizure activity, review of all data and collaboration with the care team. ([id number]) Code Visit [id number]: [id number] Critical care first hour
--- NOTE | 2019-10-31 07:00 | NURSING ---
Addendum entered by Gaviota Jaquez 10/31/19 07:13: states pt will not be extubated today due to swelling. Original Note: stated to restart sedation and pain medicine. see med titration.
--- NOTE | 2019-10-31 09:12 | PN_ITS ---
Patient Problems: Active and Suspected Problems Idiopathic angioedema (Acute) New onset seizure (Acute) Acute hypoxic respiratory failure (Acute) Angioedema of upper airways (Acute) Reason for Visit: Angioedema. Patient is still intubated. Oropharyngeal edema Objective: No fever or chills. Heart rate in 70s. Intubated on assist control mode: FiO2 21% Vitals/I&O's: Vital Signs Temp Pulse Resp BP Pulse Ox 98.5 F 79 18 140/91 H 99 10/31/19 08:00 10/31/19 08:00 10/31/19 08:00 10/31/19 08:00 10/31/19 08:00 Oxygen Delivery Method Mechanical Ventilator Weight: 216 lb 14.958 oz Body Mass Index (BMI) 30.7 Intake and Output for Last 24 Hours 10/29/19 10/30/19 10/31/19 23:59 23:59 23:59 Intake Total 1914.47 / 1994.14 2772.16 / 2783.26 976.57 / 976.57 Output Total 1000 / 1070 2370 / 3620 2500 / 2500 Balance 914.47 / 924.14 402.16 / -836.74 -1523.43 / -1523.43 General: Alert, Cooperative, - - ICU sedation protocol HEENT: Atraumatic, PERRLA, EOMI, Normocephalic Neck: Supple, No JVD, Negative Carotid Bruits Lungs: Diminished - Entry is diminished in bilateral lung bases., - - Intubated on ventilator Cardiovascular: Regular rate, Regular Rhythm, Normal S1, Normal S2, No murmurs Abdomen: Bowel Sounds Present, Soft, Non Tender, Non-Distended Extremities: No edema, Capillary Refill Less than 3 Seconds Skin: No breakdown Musculoskeletal: No Tenderness to Palpation of Joints or Extremities Lymphatic: No Cervical, Supraclavicular, or Inguinal Adenopathy Neurological: Cranial nerves II-XII grossly intact, Neuro grossly intact Laboratory Results 10/30/19 00:16: POC Glucose 178 H 10/30/19 11:33: POC Glucose 186 H 10/30/19 16:48: POC Glucose 161 H 10/30/19 23:58: POC Glucose 153 H 10/31/19 05:29: POC Glucose 193 H Current Medications Acetaminophen (Tylenol) 650 mg RECTAL Q4H PRN PRN PRN Reason: Pain Score 1-3/Temp > 100.7 F Albuterol Sulfate (Ventolin Aerosols) 2.5 mg INHALATION Q2H PRN PRN PRN Reason: SOB/Wheezing Chlorhexidine Gluconate () 15 ml PO BID [facility] Last Admin: 10/30/19 21:49 Dose: 15 ml Documented by: Chlorhexidine Gluconate () 1 each TOPICAL DAILY [facility] Last Admin: 10/31/19 05:19 Dose: 1 each Documented by: Diphenhydramine HCl (Benadryl) 12.5 mg IV Q6H [facility] Last Admin: 10/31/19 05:18 Dose: 12.5 mg Documented by: Enoxaparin Sodium (Lovenox) 40 mg SC DAILY [facility] Last Admin: 10/30/19 11:04 Dose: 40 mg Documented by: Glucagon () 1 mg IM .X1 PRN PRN Reason: Hypoglycemia Fentanyl () 100 mls @ 2.5 mls/hr IV UD [facility]; Protocol Last Titration: 10/31/19 08:30 Dose: 150 mcg/hr, 15 mls/hr Documented by: Propofol (Diprivan) 1,000 mg in 100 mls @ 6 mls/hr CONT INF .Q12H [facility]; Protocol Last Admin: 10/31/19 08:41 Dose: Not Given Documented by: Sodium Chloride () 250 mls @ 15 mls/hr IV .[id number] PRN PRN Reason: Saline Flush Sodium Chloride () 250 mls @ 15 mls/hr IV .[id number] PRN PRN Reason: Additional IVPB Infusion Famotidine 20 mg/ Sodium (Chloride) 10 mls @ 300 mls/hr IV Q12 [facility] Last Infusion: 10/30/19 22:59 Dose: Infused Documented by: Dextrose (Dextrose 10%-Water) 250 mls @ 999 mls/hr IV .Q16M PRN; Protocol PRN Reason: HYPOGLYCEMIA Enteral Nutritional Formula (Vital Af 1.2 Ricardo Liquid) 1,000 mls @ 50 mls/hr GT .Q20H [facility] Last Admin: 10/31/19 07:11 Dose: Not Given Documented by: Insulin Human Lispro (Humalog Kwikpen (Bkc)) 0 unit SC Q6 [facility]; Protocol Last Admin: 01/16/20 05:34 Dose: 1 u Documented by: Methylprednisolone (Solu-Medrol) 40 mg IV Q8 [facility] Last Admin: 10/31/19 05:18 Dose: 40 mg Documented by: Nitroglycerin (Nitrostat) 0.4 mg SUBLINGUAL Q5M PRN PRN Reason: CARDIAC/CHEST PAIN Ondansetron HCl (Zofran) 4 mg IV Q8H PRN PRN PRN Reason: NAUSEA/VOMITING Sodium Chloride () 10 - 40 ml IV UD PRN PRN Reason: SALINE FLUSH Sodium Chloride () 10 - 40 ml IV UD PRN PRN Reason: SALINE FLUSH STROKE Vital Signs/Narrative: Vital Signs Temp Pulse Resp BP Pulse Ox 10/31/19 08:00 98.5 F 79 18 140/91 H 99 10/31/19 07:50 75 10/31/19 07:00 78 17 140/95 H 100 10/31/19 06:00 56 L 16 125/80 H 98 Medical Necessity - Tobacco Use Smoking Status: Never smoker Assessment/Plan All Active Problems Angioedema (Acute) Idiopathic angioedema (Acute) New onset seizure (Acute) Acute hypoxic respiratory failure (Acute) Angioedema of upper airways (Acute) The patient is a 34 year old M with no significant past medical history came to ER with swelling of lower lip, tongue and throat with acute worsening of airway swelling and in respiratory distress. Patient was intubated in ER on etomidate, rocuronium and was given Solu-Medrol, Pepcid and Benadryl. Seizure-like movement including clenching of mandible shortly after admitted. Patient was admitted between 10/26 and discharged on 10/28 for angioedema of lips. Prior to the discharge, on exam there was no swelling of soft palate, base of tongue or pharyngeal wall except lower lip swelling. The patient was discharged on Medrol Dosepak, Pepcid and Benadryl. Patient also has history of seizure and therefore Keppra 1 g was given in ER [] 1. Angioedema of upper airway including glottis with acute hypoxic respiratory failure on ventilator: Patient is being admitted in ICU. [employer] consulted. On IV propofol and fentanyl drips. Started on IV Solu-Medrol, Benadryl and IV Pepcid. LFTs ALT 66, A/G ratio 0.9, total protein 8.8. Leukocytosis 16.4 thousand with left shift. Chest x-ray shows mild bilateral atelectasis at lung bases 10/30/2019: Mild tenderness to her left submandibular angle and lower lip swelling which is tender. Oral secretions. Remains intubated. Complement C4 and C1 esterase inhibitor pending. Discussed with the patient's brother and does not have history of angioedema in first-degree family relative. 10/31/2019: Patient remains intubated. Significant oropharyngeal edema. On mechanical ventilatory support until oropharyngeal edema improves. On ICU awakening trial/sedation protocol 2. Seizure-like activity probably secondary to etomidate: Patient loaded with Keppra 1 g in ER. Continue Keppra 500 mg 10/31/2019: Keppra is discontinued. Patient is on low-dose of fentanyl and propofol drip. 3. Possible polysubstance use: GGT 64, serum alcohol negative. U tox positive of cannabinoids. DVT prophylaxis, moderate risk: Patient is intubated on ventilator therefore Lovenox 40 mg subcut daily. Clinical Impression(s) from Imaging Studies Chest X-Ray 10/29/19 08:10 IMPRESSION: The tip of the endotracheal tube is at the level of the ellyn. This should be withdrawn approximately 2 cm. The tip of the orogastric tube is in the fundal portion of the stomach. Mild increased markings at the lung bases suggestive of atelectasis. Brain CT 10/29/19 08:20 IMPRESSION: No intracranial abnormality is seen. Soft tissue prominence of the nasal structure as well as soft tissue density within the nasal cavity. Code Visit Inpatient E&M: 22036 [facility] Hosp L3
[2019-10-31 09:49] LABS: Absolute Lymphocyte Count 1.21 X10^3/uL (0.83-4.51); Absolute Neutrophil Count 8.4 X10^3/uL (2.0-7.7); Basophil# 0.01 X10^3/uL; Basophil% 0.1 % (0-1); Hematocrit 43.1 % (40-54); Hemoglobin 13.9 g/dL (13.0-16.5); Lymphocyte # 1.21 X10^3/ul (4.0); Lymphocyte % 11.3 % (19-41); Mean Corp Hgb Conc 32.3 g/dL (32-36); Mean Corpuscular Hgb 26.9 pg (27.0-32.0); Mean Corpuscular Volume 83.4 fL (80-94); Mean Platelet Vol. 12.5 fl (6.2-12.0); Monocyte% 9.3 % (0-10); NRBC Flagged by Analyzer 0 % (0-5); Neutrophil # 8.44 X10^3/uL (2.7-7.7); Neutrophil % 78.5 % (47-70); POSITIVE MORPHOLOGY YES; Platelet Count 158 K/mm3 (150-450); RBC Distribution Width CV 14.4 % (11.6-14.6); RBC Distribution Width SD 43.8 fl (35.1-43.9); Red Blood Count 5.17 M/mm3 (4.6-6.2); White Blood Count 10.8 K/mm3 (4.4-11.0)
[2019-10-31] MEDS: Famotidine 200 MG/20 ML MDV 20 MG in 0.9% Normal Saline (Pres. free 8 ML 300 MG IV ×2 (09:55→21:32)
[2019-10-31] MEDS: Chlorhexidine 15 ML PO ×2 (09:55→21:31)
[2019-10-31] MEDS: Senna/Docusate Sodium 1 Tablet PO (09:55)
[2019-10-31] MEDS: 0.9% Saline Lock 10 ML Syringe IV ×5 (09:55→21:32)
[2019-10-31] MEDS: Enoxaparin 40 MG/0.4 ML Syringe SC (09:55)
[2019-10-31 10:00] LABS: Differential Indicated SCAN CRITERIA MET
[2019-10-31 10:07] LABS: Anion Gap 5 (5-15); BUN 18 mg/dL (7-18); BUN/Creat Ratio 19.6 RATIO (10-20); Calcium,Total 9.1 mg/dL (8.5-10.1); Chloride 101 mmol/L (98-107); Creatinine, Serum 0.92 mg/dL (0.70-1.30); EST Glomerular Filtration Rate 101 mL/min (>60); Est Glom Filt Rate - Afr Amer 123 mL/min (>60); Estimated Creatinine Clearance 122.77 ml/min; Glucose 176 mg/dL (74-106); Potassium 4.2 mmol/L (3.5-5.1); Sodium Level 135 mmol/L (136-145)
[2019-10-31 10:22] LABS: Platelet Estimate ADEQUATE (ADEQ); Reactive Lymphocyte 1+; Red Cell Morphology NORM C+C NORMAL (NORM C&C)
[2019-10-31] MEDS: fentaNYL drip 100 ML 17.5 MCG IV ×3 (11:51→23:17)
[2019-10-31] MEDS: Propofol 10MG/Ml 1,000 MG/100 ML Bottle 6 MG CONT INF (11:52)
[2019-10-31 12:15] LABS: Bedside Glucose 182 mg/dL (70-110)
[2019-10-31 17:41] LABS: Bedside Glucose 175 mg/dL (70-110)
[2019-10-31] MEDS: Propofol 10MG/Ml 1,000 MG/100 ML Bottle 12 MG CONT INF (22:09)
[2019-10-31 23:26] LABS: Bedside Glucose 160 mg/dL (70-110)
[2019-11-01] VITALS (24 sets, daily range): BP systolic 107–166; BP diastolic 73–109; PULSE 52–98; RESP 14–24; TEMP 36.8–37.1; O2SAT 96–100
[2019-11-01] MEDS: DiphenhydrAMINE 50 MG/ML Syringe 12.5 MG IV ×4 (05:12→22:49)
[2019-11-01 05:31] LABS: Bedside Glucose 138 mg/dL (70-110)
[2019-11-01] MEDS: TITRATION PARAMETER CHANGE 1 EACH IV (05:32)
[2019-11-01 05:37] LABS: Anion Gap 6 (5-15); BUN 18 mg/dL (7-18); BUN/Creat Ratio 18.2 RATIO (10-20); Calcium,Total 9.1 mg/dL (8.5-10.1); Chloride 99 mmol/L (98-107); Creatinine, Serum 0.99 mg/dL (0.70-1.30); EST Glomerular Filtration Rate 93 mL/min (>60); Est Glom Filt Rate - Afr Amer 112 mL/min (>60); Estimated Creatinine Clearance 114.09 ml/min; Glucose 141 mg/dL (74-106); Potassium 4.3 mmol/L (3.5-5.1); Sodium Level 133 mmol/L (136-145)
[2019-11-01 05:39] LABS: Absolute Lymphocyte Count 1.43 X10^3/uL (0.83-4.51); Absolute Neutrophil Count 8.3 X10^3/uL (2.0-7.7); Basophil# 0.03 X10^3/uL; Basophil% 0.3 % (0-1); Eosinophil# 0.19 X10^3/uL; Eosinophils% 1.7 % (0-5); Hemoglobin 15.1 g/dL (13.0-16.5); Lymphocyte # 1.43 X10^3/ul (4.0); Lymphocyte % 12.6 % (19-41); Mean Corp Hgb Conc 32.8 g/dL (32-36); Mean Corpuscular Hgb 27.7 pg (27.0-32.0); Mean Corpuscular Volume 84.4 fL (80-94); Mean Platelet Vol. 12.1 fl (6.2-12.0); Monocyte# 1.31 X10^3/uL; Monocyte% 11.5 % (0-10); NRBC Flagged by Analyzer 0 % (0-5); Neutrophil # 8.32 X10^3/uL (2.7-7.7); Neutrophil % 72.9 % (47-70); Platelet Count 149 K/mm3 (150-450); RBC Distribution Width CV 14.1 % (11.6-14.6); RBC Distribution Width SD 43.3 fl (35.1-43.9); Red Blood Count 5.45 M/mm3 (4.6-6.2); White Blood Count 11.4 K/mm3 (4.4-11.0)
--- NOTE | 2019-11-01 07:04 | PCM.PN.INT ---
Subjective: The patient was seen and examined at the bedside this morning. Events from the last 24 hours have been reviewed. The patient is currently afebrile, hemodynamically stable and maintaining appropriate oxygen saturations on spontaneous mode of mechanical ventilation with an FiO2 requirement of 21%. The patient has done well this morning on his spontaneous breathing trial. His residual swelling seems to be isolated to his lower lip. The patient did have a positive air leak this morning when checked. He is currently alert and following commands appropriately. Therefore, under my direct supervision, the patient was extubated this morning to nasal cannula supplemental oxygen. Upon extubation, the patient reported feeling refreshed and denied the presence of shortness of breath. Objective: The patient's most recent lab work, culture data and imaging studies have all been personally reviewed. General: Alert, Cooperative, - - Tolerating spontaneous mode mechanical ventilation. HEENT: Atraumatic, PERRLA, Normocephalic Oral: - - Endotracheal tube remains in place. The patient has swelling isolated to his lower lip, which continues to improve. Neck: Supple, No Nodes, Trachea Midline Lungs: Normal air movement, No rhonchi, No wheeze, No rales Cardiovascular: Regular rate, Regular Rhythm, Normal S1, Normal S2, No murmurs Abdomen: Bowel Sounds Present, Soft, Non Tender Extremities: No clubbing, No cyanosis, No edema Skin: No breakdown Musculoskeletal: No Tenderness to Palpation of Joints or Extremities, No Muscle Wasting Lymphatic: No Cervical, Supraclavicular, or Inguinal Adenopathy Neurological: Neuro grossly intact, - - Alert and following commands appropriately. Vital Signs Temp Pulse Resp BP Pulse Ox 98.5 F 85 19 H 147/82 H 98 11/01/19 04:00 11/01/19 06:00 11/01/19 06:00 11/01/19 06:00 11/01/19 06:00 Oxygen Delivery Method Mechanical Ventilator Weight: 211 lb 3.245 oz Body Mass Index (BMI) 30.7 Intake and Output for Last 24 Hours 10/30/19 10/31/19 11/01/19 23:59 23:59 23:59 Intake Total 2772.16 / 2783.26 2764.75 / 2786.29 139.55 / 139.55 Output Total 2370 / 3620 4425 / 4425 900 / 900 Balance 402.16 / -836.74 -1660.25 / -1638.71 -760.45 / -760.45 Labs (Last 48 Hours) 10/30/19 10/30/19 10/30/19 00:16 11:33 16:48 WBC RBC Hgb Hct MCV MCH MCHC RDW Std Deviation RDW Coeff of Maria A Plt Count MPV Immature Gran % (Auto) Neut % (Auto) Lymph % (Auto) [place] % (Auto) Eos % (Auto) Baso % (Auto) Absolute Neuts (auto) Absolute Lymphs (auto) Nucleated RBC % Differential Comment Reactive Lymphocytes Platelet Estimate RBC Morphology Sodium Potassium Chloride Carbon Dioxide Anion Gap BUN Creatinine Estim Creat Clear Calc Est GFR (MDRD) Af Amer Est GFR (MDRD) Non-Af BUN/Creatinine Ratio Glucose Calcium Seafood Allergens Beef Allergen Chocolate Allergen [place] Allergen Cow's Milk Allergen Egg Whole Allergen Peanut Allergen Pork Allergen Soybean Allergen Wheat Allergen POC Glucose 178 H 186 H 161 H 10/30/19 10/31/19 10/31/19 23:58 05:29 09:35 WBC 10.8 RBC 5.17 Hgb 13.9 Hct 43.1 MCV 83.4 MCH 26.9 L MCHC 32.3 RDW Std Deviation 43.8 RDW Coeff of Maria A 14.4 Plt Count 158 MPV 12.5 H Immature Gran % (Auto) 0.800 Neut % (Auto) 78.5 H Lymph % (Auto) 11.3 L [place] % (Auto) 9.3 Eos % (Auto) 0.0 Baso % (Auto) 0.1 Absolute Neuts (auto) 8.4 H Absolute Lymphs (auto) 1.21 Nucleated RBC % 0 Differential Comment COMMENT Reactive Lymphocytes 1+ Platelet Estimate ADEQUATE RBC Morphology NORM C+C Sodium Potassium Chloride Carbon Dioxide Anion Gap BUN Creatinine Estim Creat Clear Calc Est GFR (MDRD) Af Amer Est GFR (MDRD) Non-Af BUN/Creatinine Ratio Glucose Calcium Seafood Allergens Beef Allergen Chocolate Allergen [place] Allergen Cow's Milk Allergen Egg Whole Allergen Peanut Allergen Pork Allergen Soybean Allergen Wheat Allergen POC Glucose 153 H 193 H 10/31/19 10/31/19 10/31/19 09:35 09:35 12:04 WBC RBC Hgb Hct MCV MCH MCHC RDW Std Deviation RDW Coeff of Maria A Plt Count MPV Immature Gran % (Auto) Neut % (Auto) Lymph % (Auto) [place] % (Auto) Eos % (Auto) Baso % (Auto) Absolute Neuts (auto) Absolute Lymphs (auto) Nucleated RBC % Differential Comment Reactive Lymphocytes Platelet Estimate RBC Morphology Sodium 135 L Potassium 4.2 Chloride 101 Carbon Dioxide 29.0 Anion Gap 5 BUN 18 Creatinine 0.92 Estim Creat Clear Calc 122.77 Est GFR (MDRD) Af Amer 123 Est GFR (MDRD) Non-Af 101 BUN/Creatinine Ratio 19.6 Glucose 176 H Calcium 9.1 Seafood Allergens Pending Beef Allergen Pending Chocolate Allergen Pending [place] Allergen Pending Cow's Milk Allergen Pending Egg Whole Allergen Pending Peanut Allergen Pending Pork Allergen Pending Soybean Allergen Pending Wheat Allergen Pending POC Glucose 182 H 10/31/19 10/31/19 11/01/19 17:35 23:16 05:11 WBC RBC Hgb Hct MCV MCH MCHC RDW Std Deviation RDW Coeff of Maria A Plt Count MPV Immature Gran % (Auto) Neut % (Auto) Lymph % (Auto) [place] % (Auto) Eos % (Auto) Baso % (Auto) Absolute Neuts (auto) Absolute Lymphs (auto) Nucleated RBC % Differential Comment Reactive Lymphocytes Platelet Estimate RBC Morphology Sodium Potassium Chloride Carbon Dioxide Anion Gap BUN Creatinine Estim Creat Clear Calc Est GFR (MDRD) Af Amer Est GFR (MDRD) Non-Af BUN/Creatinine Ratio Glucose Calcium Seafood Allergens Beef Allergen Chocolate Allergen [place] Allergen Cow's Milk Allergen Egg Whole Allergen Peanut Allergen Pork Allergen Soybean Allergen Wheat Allergen POC Glucose 175 H 160 H 138 H 11/01/19 11/01/19 05:15 05:15 WBC 11.4 H RBC 5.45 Hgb 15.1 Hct 46.0 MCV 84.4 MCH 27.7 MCHC 32.8 RDW Std Deviation 43.3 RDW Coeff of Maria A 14.1 Plt Count 149 L MPV 12.1 H Immature Gran % (Auto) 1.000 H Neut % (Auto) 72.9 H Lymph % (Auto) 12.6 L [place] % (Auto) 11.5 H Eos % (Auto) 1.7 Baso % (Auto) 0.3 Absolute Neuts (auto) 8.3 H Absolute Lymphs (auto) 1.43 Nucleated RBC % 0 Differential Comment Reactive Lymphocytes Platelet Estimate RBC Morphology Sodium 133 L Potassium 4.3 Chloride 99 Carbon Dioxide 28.0 Anion Gap 6 BUN 18 Creatinine 0.99 Estim Creat Clear Calc 114.09 Est GFR (MDRD) Af Amer 112 Est GFR (MDRD) Non-Af 93 BUN/Creatinine Ratio 18.2 Glucose 141 H Calcium 9.1 Seafood Allergens Beef Allergen Chocolate Allergen [place] Allergen Cow's Milk Allergen Egg Whole Allergen Peanut Allergen Pork Allergen Soybean Allergen Wheat Allergen POC Glucose Clinical Impression(s) from Imaging Studies Chest X-Ray 10/29/19 08:10 IMPRESSION: The tip of the endotracheal tube is at the level of the ellyn. This should be withdrawn approximately 2 cm. The tip of the orogastric tube is in the fundal portion of the stomach. Mild increased markings at the lung bases suggestive of atelectasis. Electronically Signed: Kwabena Adam, at 9:18 EST , Service support , Brain CT 10/29/19 08:20 IMPRESSION: No intracranial abnormality is seen. Soft tissue prominence of the nasal structure as well as soft tissue density within the nasal cavity. Electronically Signed: Kwabena Adam, at 9:46 EST , Service support , Medical Necessity - Tobacco Use Smoking Status: Never smoker Assessment/Plan All Active Problems Angioedema (Acute) Idiopathic angioedema (Acute) New onset seizure (Acute) Acute hypoxic respiratory failure (Acute) Angioedema of upper airways (Acute) RECOMMENDATIONS: 1. Await results of C4 complement, C1 esterase inhibitor protein levels and function and Food Allergen RAST profile. 2. Proceed with a trial of extubation this morning. 3. Once extubated, wean supplemental oxygen to maintain saturations at or above 90%. 4. Encourage incentive spirometer use and mobilize patient as tolerated. 5. Formal swallow evaluation prior to advancement of diet. 6. Continue Benadryl, Pepcid and IV steroids. IMPRESSIONS: 1. 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 The patient returned on 10/29, just days after having been discharged, with a much more severe case of angioedema, leading to airway compromise and the need for invasive mechanical ventilatory support. The exact precipitating etiology is unclear. The patient has been maintained on invasive mechanical ventilatory support and was able to be extubated on the morning of November 01. C4 complement, C1 esterase inhibitor protein levels and function, and food allergen RAST profile are currently pending. The patient supplemental oxygen will be weaned to maintain saturations at or above 90%. Encourage incentive spirometer use. He will remain on steroids, Benadryl and Pepcid. Recommend formal swallow evaluation, prior to advancing diet. 2. Reported seizure activity The patient was reported to have experienced questionable seizure activity in the emergency department. However, upon further discussion with emergency department staff, the seizure-like activity was noted after the patient was administered etomidate for intubation. The patient has no known history of epilepsy. I do strongly suspect that the seizure-like activity was likely the side effect of the etomidate administered in the emergency department for intubation. We will continue to monitor the patient clinically. TIME: 36 minutes of critical care time, independent of procedures, was spent addressing the patient's acute respiratory failure, idiopathic recurrent angioedema, questionable seizure activity, review of all data and collaboration with the care team. ([id number]) Code Visit [id number]: [id number] Critical care first hour
--- NOTE | 2019-11-01 08:31 | PN_ITS ---
Patient Problems: Active and Suspected Problems Idiopathic angioedema (Acute) New onset seizure (Acute) Acute hypoxic respiratory failure (Acute) Angioedema of upper airways (Acute) Reason for Visit: Angioedema of upper airway required intubation Objective: The patient is extubated. Currently pulse ox 96% on 2 L of oxygen. Patient is comfortable breathing no respiratory distress. Heart rate and blood pressure control. Vitals/I&O's: Vital Signs Temp Pulse Resp BP Pulse Ox 98.5 F 76 14 147/82 H 96 11/01/19 04:00 11/01/19 07:44 11/01/19 07:00 11/01/19 06:00 11/01/19 07:00 Oxygen Flow Rate (L/min) 2 Oxygen Delivery Method Nasal Cannula Weight: 211 lb 3.245 oz Body Mass Index (BMI) 30.7 Intake and Output for Last 24 Hours 10/30/19 10/31/19 11/01/19 23:59 23:59 23:59 Intake Total 2772.16 / 2783.26 2764.75 / 2786.29 139.55 / 139.55 Output Total 2370 / 3620 4425 / 4425 1300 / 1300 Balance 402.16 / -836.74 -1660.25 / -1638.71 -1160.45 / -1160.45 General: Alert, Oriented x3, Cooperative HEENT: Atraumatic, PERRLA, EOMI, Normocephalic Oral: - - On oropharynx exam, isolated lower lip swelling. No significant edema of oropharynx, deep tongue base or pharyngeal wall. Neck: Supple, No JVD, Negative Carotid Bruits Lungs: Clear to auscultation, No rhonchi, No wheeze, No rales, Diminished Cardiovascular: Regular rate, Regular Rhythm, Normal S1, Normal S2, No murmurs Abdomen: Bowel Sounds Present, Soft, Non Tender, Non-Distended Extremities: No edema, Capillary Refill Less than 3 Seconds Skin: No rashes, No breakdown Musculoskeletal: No Tenderness to Palpation of Joints or Extremities Lymphatic: No Cervical, Supraclavicular, or Inguinal Adenopathy Neurological: Cranial nerves II-XII grossly intact Psych/Mental Status: Normal Affect, Appropriate Laboratory Results 10/31/19 09:35: WBC 10.8, RBC 5.17, Hgb 13.9, Hct 43.1, MCV 83.4, MCH 26.9 L, MCHC 32.3, RDW Std Deviation 43.8, RDW Coeff of Maria A 14.4, Plt Count 158, MPV 12.5 H, Immature Gran % (Auto) 0.800, Neut % (Auto) 78.5 H, Lymph % (Auto) 11.3 L, [place] % (Auto) 9.3, Eos % (Auto) 0.0, Baso % (Auto) 0.1, Absolute Neuts (auto) 8.4 H, Absolute Lymphs (auto) 1.21, Nucleated RBC % 0, Differential Comment COMMENT, Reactive Lymphocytes 1+, Platelet Estimate ADEQUATE, RBC Morphology NORM C+C 10/31/19 09:35: Sodium 135 L, Potassium 4.2, Chloride 101, Carbon Dioxide 29.0, Anion Gap 5, BUN 18, Creatinine 0.92, Estim Creat Clear Calc 122.77, Est GFR (MDRD) Af Amer 123, Est GFR (MDRD) Non-Af 101, BUN/Creatinine Ratio 19.6, Glucose 176 H, Calcium 9.1 10/31/19 09:35: Seafood Allergens Pending, Beef Allergen Pending, Chocolate Allergen Pending, [place] Allergen Pending, Cow's Milk Allergen Pending, Egg Whole Allergen Pending, Peanut Allergen Pending, Pork Allergen Pending, Soybean Allergen Pending, Wheat Allergen Pending 10/31/19 12:04: POC Glucose 182 H 10/31/19 17:35: POC Glucose 175 H 10/31/19 23:16: POC Glucose 160 H 11/01/19 05:11: POC Glucose 138 H 11/01/19 05:15: WBC 11.4 H, RBC 5.45, Hgb 15.1, Hct 46.0, MCV 84.4, MCH 27.7, MCHC 32.8, RDW Std Deviation 43.3, RDW Coeff of Maria A 14.1, Plt Count 149 L, MPV 12.1 H, Immature Gran % (Auto) 1.000 H, Neut % (Auto) 72.9 H, Lymph % (Auto) 12.6 L, [place] % (Auto) 11.5 H, Eos % (Auto) 1.7, Baso % (Auto) 0.3, Absolute Neuts (auto) 8.3 H, Absolute Lymphs (auto) 1.43, Nucleated RBC % 0 11/01/19 05:15: Sodium 133 L, Potassium 4.3, Chloride 99, Carbon Dioxide 28.0, Anion Gap 6, BUN 18, Creatinine 0.99, Estim Creat Clear Calc 114.09, Est GFR (MDRD) Af Amer 112, Est GFR (MDRD) Non-Af 93, BUN/Creatinine Ratio 18.2, Glucose 141 H, Calcium 9.1 Current Medications Acetaminophen (Tylenol) 650 mg RECTAL Q4H PRN PRN PRN Reason: Pain Score 1-3/Temp > 100.7 F Albuterol Sulfate (Ventolin Aerosols) 2.5 mg INHALATION Q2H PRN PRN PRN Reason: SOB/Wheezing Chlorhexidine Gluconate () 1 each TOPICAL DAILY [facility] Last Admin: 10/31/19 05:19 Dose: 1 each Documented by: Diphenhydramine HCl (Benadryl) 12.5 mg IV Q6H [facility] Last Admin: 11/01/19 05:12 Dose: 12.5 mg Documented by: Enoxaparin Sodium (Lovenox) 40 mg SC DAILY [facility] Last Admin: 10/31/19 09:55 Dose: 40 mg Documented by: Glucagon () 1 mg IM .X1 PRN PRN Reason: Hypoglycemia Sodium Chloride () 250 mls @ 15 mls/hr IV .[id number] PRN PRN Reason: Saline Flush Sodium Chloride () 250 mls @ 15 mls/hr IV .[id number] PRN PRN Reason: Additional IVPB Infusion Famotidine 20 mg/ Sodium (Chloride) 10 mls @ 300 mls/hr IV Q12 [facility] Last Infusion: 10/31/19 21:34 Dose: Infused Documented by: Dextrose (Dextrose 10%-Water) 250 mls @ 999 mls/hr IV .Q16M PRN; Protocol PRN Reason: HYPOGLYCEMIA Insulin Human Lispro (Humalog Kwikpen (Bkc)) 0 unit SC Q6 [facility]; Protocol Last Admin: 11/01/19 05:13 Dose: Not Given Documented by: Methylprednisolone (Solu-Medrol) 40 mg IV Q8 [facility] Last Admin: 11/01/19 05:13 Dose: 40 mg Documented by: Nitroglycerin (Nitrostat) 0.4 mg SUBLINGUAL Q5M PRN PRN Reason: CARDIAC/CHEST PAIN Ondansetron HCl (Zofran) 4 mg IV Q8H PRN PRN PRN Reason: NAUSEA/VOMITING Senna/Docusate Sodium (Senokot-S, Dayna-Colace) 1 tablet GT BID [facility] Last Admin: 10/31/19 21:03 Dose: Not Given Documented by: Sodium Chloride () 10 - 40 ml IV UD PRN PRN Reason: SALINE FLUSH Last Admin: 10/31/19 21:32 Dose: 20 ml Documented by: Sodium Chloride () 10 - 40 ml IV UD PRN PRN Reason: SALINE FLUSH STROKE Vital Signs/Narrative: Vital Signs Pulse Resp BP Pulse Ox 11/01/19 07:44 76 11/01/19 07:00 79 14 96 11/01/19 06:46 78 22 H 100 11/01/19 06:00 85 19 H 147/82 H 98 11/01/19 05:00 95 15 147/96 H 99 Medical Necessity - Tobacco Use Smoking Status: Never smoker Assessment/Plan All Active Problems Angioedema (Acute) Idiopathic angioedema (Acute) New onset seizure (Acute) Acute hypoxic respiratory failure (Acute) Angioedema of upper airways (Acute) The patient is a 34 year old M with no significant past medical history came to ER with swelling of lower lip, tongue and throat with acute worsening of airway swelling and in respiratory distress. Patient was intubated in ER on etomidate, rocuronium and was given Solu-Medrol, Pepcid and Benadryl. Seizure-like movement including clenching of mandible shortly after admitted. Patient was admitted between 10/26 and discharged on 10/28 for angioedema of lips. Prior to the discharge, on exam there was no swelling of soft palate, base of tongue or pharyngeal wall except lower lip swelling. The patient was discharged on Medrol Dosepak, Pepcid and Benadryl. Patient also has history of seizure and therefore Keppra 1 g was given in ER [] 1. Angioedema of upper airway including glottis with acute hypoxic respiratory failure on ventilator: Patient is being admitted in ICU. Water Resource Project Manager consulted. On IV propofol and fentanyl drips. Started on IV Solu-Medrol, Benadryl and IV Pepcid. LFTs ALT 66, A/G ratio 0.9, total protein 8.8. Leukocytosis 16.4 thousand with left shift. Chest x-ray shows mild bilateral atelectasis at lung bases 10/30/2019: Mild tenderness to her left submandibular angle and lower lip swelling which is tender. Oral secretions. Remains intubated. Complement C4 and C1 esterase inhibitor pending. Discussed with the patient's brother and does not have history of angioedema in first-degree family relative. 10/31/2019: Patient remains intubated. Significant oropharyngeal edema. On mechanical ventilatory support until oropharyngeal edema improves. On ICU awakening trial/sedation protocol 11/01/2019: Patient is extubated. No significant oropharyngeal/lateral or posterior pharyngeal wall edema. Formal speech/swallow eval. C1 esterase inhibitor, complement C4 levels are pending. Few allergen tests are ordered. 2. Seizure-like activity probably secondary to etomidate: Patient loaded with Keppra 1 g in ER. Continue Keppra 500 mg 10/31/2019: Keppra is discontinued. Patient is on low-dose of fentanyl and propofol drip. 11/01/2019: No seizure-like activities noticed while in ICU. 3. Possible polysubstance use: GGT 64, serum alcohol negative. U tox positive of cannabinoids. DVT prophylaxis, moderate risk: Patient is intubated on ventilator therefore Lovenox 40 mg subcut daily. Total time of the visit including total time spent in counseling or coordination of care, (more than 50% of the total time, spent in obtaining medical information from nurses and other ancillary care providers) and discussion with patient and patient's mother is 35 minutes Laboratory Results 10/31/19 09:35: WBC 10.8, RBC 5.17, Hgb 13.9, Hct 43.1, MCV 83.4, MCH 26.9 L, MCHC 32.3, RDW Std Deviation 43.8, RDW Coeff of Maria A 14.4, Plt Count 158, MPV 12.5 H, Immature Gran % (Auto) 0.800, Neut % (Auto) 78.5 H, Lymph % (Auto) 11.3 L, [place] % (Auto) 9.3, Eos % (Auto) 0.0, Baso % (Auto) 0.1, Absolute Neuts (auto) 8.4 H, Absolute Lymphs (auto) 1.21, Nucleated RBC % 0, Differential Comment COMMENT, Reactive Lymphocytes 1+, Platelet Estimate ADEQUATE, RBC Morphology NORM C+C 10/31/19 09:35: Sodium 135 L, Potassium 4.2, Chloride 101, Carbon Dioxide 29.0, Anion Gap 5, BUN 18, Creatinine 0.92, Estim Creat Clear Calc 122.77, Est GFR (MDRD) Af Amer 123, Est GFR (MDRD) Non-Af 101, BUN/Creatinine Ratio 19.6, Glucose 176 H, Calcium 9.1 10/31/19 09:35: Seafood Allergens Pending, Beef Allergen Pending, Chocolate Allergen Pending, [place] Allergen Pending, Cow's Milk Allergen Pending, Egg Whole Allergen Pending, Peanut Allergen Pending, Pork Allergen Pending, Soybean Allergen Pending, Wheat Allergen Pending 10/31/19 12:04: POC Glucose 182 H 10/31/19 17:35: POC Glucose 175 H 10/31/19 23:16: POC Glucose 160 H 11/01/19 05:11: POC Glucose 138 H 11/01/19 05:15: WBC 11.4 H, RBC 5.45, Hgb 15.1, Hct 46.0, MCV 84.4, MCH 27.7, MCHC 32.8, RDW Std Deviation 43.3, RDW Coeff of Maria A 14.1, Plt Count 149 L, MPV 12.1 H, Immature Gran % (Auto) 1.000 H, Neut % (Auto) 72.9 H, Lymph % (Auto) 12.6 L, [place] % (Auto) 11.5 H, Eos % (Auto) 1.7, Baso % (Auto) 0.3, Absolute Neuts (auto) 8.3 H, Absolute Lymphs (auto) 1.43, Nucleated RBC % 0 11/01/19 05:15: Sodium 133 L, Potassium 4.3, Chloride 99, Carbon Dioxide 28.0, Anion Gap 6, BUN 18, Creatinine 0.99, Estim Creat Clear Calc 114.09, Est GFR (MDRD) Af Amer 112, Est GFR (MDRD) Non-Af 93, BUN/Creatinine Ratio 18.2, Glucose 141 H, Calcium 9.1 Clinical Impression(s) from Imaging Studies Chest X-Ray 10/29/19 08:10 IMPRESSION: The tip of the endotracheal tube is at the level of the ellyn. This should be withdrawn approximately 2 cm. The tip of the orogastric tube is in the fundal portion of the stomach. Mild increased markings at the lung bases suggestive of atelectasis. Brain CT 10/29/19 08:20 IMPRESSION: No intracranial abnormality is seen. Soft tissue prominence of the nasal structure as well as soft tissue density within the nasal cavity. Code Visit Inpatient E&M: 91818 Subs Hosp L3
[2019-11-01] MEDS: CHLORHEXIDINE GLUC 2% CLOTH 1 EACH TOWELETTE TOPICAL (09:49)
[2019-11-01] MEDS: 0.9% Saline Lock 10 ML Syringe IV ×4 (09:49→21:13)
[2019-11-01] MEDS: Famotidine 200 MG/20 ML MDV 20 MG in 0.9% Normal Saline (Pres. free 8 ML 300 MG IV ×2 (09:49→21:13)
[2019-11-01] MEDS: Enoxaparin 40 MG/0.4 ML Syringe SC (09:50)
--- NOTE | 2019-11-01 11:06 | CASEMGMT ---
BARTOLO JACOME NOTE: Discussed discharge planning with pt and he denies anticipating any needs at this time. Pt states has the PCP list but has not made a decision on what PCP he wishes to see. Pt instructed to let staff know if he needs assistance with getting appt with PCP. Pt voices understanding. Rosalva FAYE RN, CM
[2019-11-01] MEDS: Insulin Lispro 100 UNIT/ML INSULN.PEN SC ×3 (12:10→21:18)
[2019-11-01 12:15] LABS: Bedside Glucose 181 mg/dL (70-110)
[2019-11-01] MEDS: Polyethylene Glycol 3350 17 GM PACKET GT (12:41)
[2019-11-01] MEDS: oxyCODONE 5 MG Tablet PO (15:16)
[2019-11-01 17:06] LABS: Bedside Glucose 195 mg/dL (70-110)
[2019-11-01] MEDS: Senna/Docusate Sodium 1 Tablet PO (21:16)
[2019-11-01 21:25] LABS: Bedside Glucose 221 mg/dL (70-110)
[2019-11-02] MEDS: oxyCODONE 5 MG Tablet PO ×3 (00:06→23:20)
[2019-11-02 00:10] LABS: Bedside Glucose 285 mg/dL (70-110)
[2019-11-02 04:30] VITALS: BP 155/93; PULSE 77; RESP 18; TEMP 37.2; O2SAT 95
[2019-11-02] MEDS: DiphenhydrAMINE 50 MG/ML Syringe 12.5 MG IV ×4 (05:56→23:14)
[2019-11-02 07:05] LABS: Bedside Glucose 138 mg/dL (70-110)
--- NOTE | 2019-11-02 07:44 | PCM.PN.PUL ---
Patient Problems: Active and Suspected Problems Idiopathic angioedema (Acute) New onset seizure (Acute) Acute hypoxic respiratory failure (Acute) Angioedema of upper airways (Acute) Subjective: The patient was seen and examined at the bedside this morning. Events from the last 24 hours have been reviewed. The patient is currently afebrile, hemodynamically stable and maintaining appropriate oxygen saturations on room air. The patient has done well clinically following transfer out of the intensive care unit yesterday. His blood pressures have been running a bit on the high side. Objective: The patient's most recent lab work, culture data and imaging studies have all been personally reviewed. - Physical Exam Vitals/I&O's: Vital Signs Temp Pulse Resp BP Pulse Ox 99.0 F 77 18 155/93 H 95 11/02/19 04:30 11/02/19 04:30 11/02/19 04:30 11/02/19 04:30 11/02/19 04:30 Oxygen Flow Rate (L/min) 2 Oxygen Delivery Method Room Air Weight: 210 lb 12.191 oz Body Mass Index (BMI) 30.7 Intake and Output for Last 24 Hours 10/31/19 11/01/19 11/02/19 23:59 23:59 23:59 Intake Total 2764.75 / 2786.29 839.55 / 1189.55 1150 / 1150 Output Total 4425 / 4425 2200 / 2200 Balance -1660.25 / -1638.71 -1360.45 / -1010.45 1150 / 1150 General: Alert, Cooperative, No apparent distress HEENT: Atraumatic, Normocephalic Oral: Moist Mucosa, - - Improving lip edema Neck: Supple, No Nodes, Trachea Midline Lungs: No rhonchi, No wheeze, No rales Cardiovascular: Regular rate, Regular Rhythm, Normal S1, Normal S2 Abdomen: Bowel Sounds Present, Soft, Non Tender Extremities: No clubbing, No cyanosis, No edema Skin: No breakdown Musculoskeletal: No Tenderness to Palpation of Joints or Extremities Lymphatic: No Cervical, Supraclavicular, or Inguinal Adenopathy Neurological: Cranial nerves II-XII grossly intact, Neuro grossly intact Psych/Mental Status: Normal Affect, Appropriate Labs (Last 48 Hours) 10/31/19 10/31/19 10/31/19 09:35 09:35 09:35 WBC 10.8 RBC 5.17 Hgb 13.9 Hct 43.1 MCV 83.4 MCH 26.9 L MCHC 32.3 RDW Std Deviation 43.8 RDW Coeff of Maria A 14.4 Plt Count 158 MPV 12.5 H Immature Gran % (Auto) 0.800 Neut % (Auto) 78.5 H Lymph % (Auto) 11.3 L [place] % (Auto) 9.3 Eos % (Auto) 0.0 Baso % (Auto) 0.1 Absolute Neuts (auto) 8.4 H Absolute Lymphs (auto) 1.21 Nucleated RBC % 0 Differential Comment COMMENT Reactive Lymphocytes 1+ Platelet Estimate ADEQUATE RBC Morphology NORM C+C Sodium 135 L Potassium 4.2 Chloride 101 Carbon Dioxide 29.0 Anion Gap 5 BUN 18 Creatinine 0.92 Estim Creat Clear Calc 122.77 Est GFR (MDRD) Af Amer 123 Est GFR (MDRD) Non-Af 101 BUN/Creatinine Ratio 19.6 Glucose 176 H Calcium 9.1 Seafood Allergens Pending Beef Allergen Pending Chocolate Allergen Pending [place] Allergen Pending Cow's Milk Allergen Pending Egg Whole Allergen Pending Peanut Allergen Pending Pork Allergen Pending Soybean Allergen Pending Wheat Allergen Pending POC Glucose 10/31/19 10/31/19 10/31/19 12:04 17:35 23:16 WBC RBC Hgb Hct MCV MCH MCHC RDW Std Deviation RDW Coeff of Maria A Plt Count MPV Immature Gran % (Auto) Neut % (Auto) Lymph % (Auto) [place] % (Auto) Eos % (Auto) Baso % (Auto) Absolute Neuts (auto) Absolute Lymphs (auto) Nucleated RBC % Differential Comment Reactive Lymphocytes Platelet Estimate RBC Morphology Sodium Potassium Chloride Carbon Dioxide Anion Gap BUN Creatinine Estim Creat Clear Calc Est GFR (MDRD) Af Amer Est GFR (MDRD) Non-Af BUN/Creatinine Ratio Glucose Calcium Seafood Allergens Beef Allergen Chocolate Allergen [place] Allergen Cow's Milk Allergen Egg Whole Allergen Peanut Allergen Pork Allergen Soybean Allergen Wheat Allergen POC Glucose 182 H 175 H 160 H 11/01/19 11/01/19 11/01/19 05:11 05:15 05:15 WBC 11.4 H RBC 5.45 Hgb 15.1 Hct 46.0 MCV 84.4 MCH 27.7 MCHC 32.8 RDW Std Deviation 43.3 RDW Coeff of Maria A 14.1 Plt Count 149 L MPV 12.1 H Immature Gran % (Auto) 1.000 H Neut % (Auto) 72.9 H Lymph % (Auto) 12.6 L [place] % (Auto) 11.5 H Eos % (Auto) 1.7 Baso % (Auto) 0.3 Absolute Neuts (auto) 8.3 H Absolute Lymphs (auto) 1.43 Nucleated RBC % 0 Differential Comment Reactive Lymphocytes Platelet Estimate RBC Morphology Sodium 133 L Potassium 4.3 Chloride 99 Carbon Dioxide 28.0 Anion Gap 6 BUN 18 Creatinine 0.99 Estim Creat Clear Calc 114.09 Est GFR (MDRD) Af Amer 112 Est GFR (MDRD) Non-Af 93 BUN/Creatinine Ratio 18.2 Glucose 141 H Calcium 9.1 Seafood Allergens Beef Allergen Chocolate Allergen [place] Allergen Cow's Milk Allergen Egg Whole Allergen Peanut Allergen Pork Allergen Soybean Allergen Wheat Allergen POC Glucose 138 H 11/01/19 11/01/19 11/01/19 12:09 17:01 21:18 WBC RBC Hgb Hct MCV MCH MCHC RDW Std Deviation RDW Coeff of Maria A Plt Count MPV Immature Gran % (Auto) Neut % (Auto) Lymph % (Auto) [place] % (Auto) Eos % (Auto) Baso % (Auto) Absolute Neuts (auto) Absolute Lymphs (auto) Nucleated RBC % Differential Comment Reactive Lymphocytes Platelet Estimate RBC Morphology Sodium Potassium Chloride Carbon Dioxide Anion Gap BUN Creatinine Estim Creat Clear Calc Est GFR (MDRD) Af Amer Est GFR (MDRD) Non-Af BUN/Creatinine Ratio Glucose Calcium Seafood Allergens Beef Allergen Chocolate Allergen [place] Allergen Cow's Milk Allergen Egg Whole Allergen Peanut Allergen Pork Allergen Soybean Allergen Wheat Allergen POC Glucose 181 H 195 H 221 H 11/02/19 11/02/19 00:06 07:03 WBC RBC Hgb Hct MCV MCH MCHC RDW Std Deviation RDW Coeff of Maria A Plt Count MPV Immature Gran % (Auto) Neut % (Auto) Lymph % (Auto) [place] % (Auto) Eos % (Auto) Baso % (Auto) Absolute Neuts (auto) Absolute Lymphs (auto) Nucleated RBC % Differential Comment Reactive Lymphocytes Platelet Estimate RBC Morphology Sodium Potassium Chloride Carbon Dioxide Anion Gap BUN Creatinine Estim Creat Clear Calc Est GFR (MDRD) Af Amer Est GFR (MDRD) Non-Af BUN/Creatinine Ratio Glucose Calcium Seafood Allergens Beef Allergen Chocolate Allergen [place] Allergen Cow's Milk Allergen Egg Whole Allergen Peanut Allergen Pork Allergen Soybean Allergen Wheat Allergen POC Glucose 285 H 138 H Clinical Impression(s) from Imaging Studies Chest X-Ray 10/29/19 08:10 IMPRESSION: The tip of the endotracheal tube is at the level of the ellyn. This should be withdrawn approximately 2 cm. The tip of the orogastric tube is in the fundal portion of the stomach. Mild increased markings at the lung bases suggestive of atelectasis. Electronically Signed: Kwabena Adam, at 9:18 EST , Service support , Brain CT 10/29/19 08:20 IMPRESSION: No intracranial abnormality is seen. Soft tissue prominence of the nasal structure as well as soft tissue density within the nasal cavity. Electronically Signed: Kwabena Adam, at 9:46 EST , Service support , Current Medications Acetaminophen (Tylenol) 650 mg PO Q6H PRN PRN PRN Reason: Pain Score 1-3 /Temp>100.7 Albuterol Sulfate (Ventolin Aerosols) 2.5 mg INHALATION Q2H PRN PRN PRN Reason: SOB/Wheezing Chlorhexidine Gluconate () 1 each TOPICAL DAILY [facility] Last Admin: 11/01/19 09:49 Dose: 1 each Documented by: Diphenhydramine HCl (Benadryl) 12.5 mg IV Q6H [facility] Last Admin: 11/02/19 05:56 Dose: 12.5 mg Documented by: Enoxaparin Sodium (Lovenox) 40 mg SC DAILY [facility] Last Admin: 11/01/19 09:50 Dose: 40 mg Documented by: Glucagon () 1 mg IM .X1 PRN PRN Reason: Hypoglycemia Sodium Chloride () 250 mls @ 15 mls/hr IV .[id number] PRN PRN Reason: Saline Flush Sodium Chloride () 250 mls @ 15 mls/hr IV .[id number] PRN PRN Reason: Additional IVPB Infusion Famotidine 20 mg/ Sodium (Chloride) 10 mls @ 300 mls/hr IV Q12 [facility] Last Infusion: 11/01/19 21:15 Dose: Infused Documented by: Dextrose (Dextrose 10%-Water) 250 mls @ 999 mls/hr IV .Q16M PRN; Protocol PRN Reason: HYPOGLYCEMIA Insulin Human Lispro (Humalog Kwikpen (Bkc)) 0 unit SC ACHS [facility]; Protocol Last Admin: 11/02/19 07:03 Dose: Not Given Documented by: Methylprednisolone (Solu-Medrol) 40 mg IV Q8 [facility] Last Admin: 11/02/19 05:57 Dose: 40 mg Documented by: Morphine Sulfate () 2 mg IV Q3H PRN PRN PRN Reason: Pain Score 6-10/10 Nitroglycerin (Nitrostat) 0.4 mg SUBLINGUAL Q5M PRN PRN Reason: CARDIAC/CHEST PAIN Ondansetron HCl (Zofran) 4 mg IV Q8H PRN PRN PRN Reason: NAUSEA/VOMITING Oxycodone HCl (Oxyir) 5 mg PO Q4H PRN PRN PRN Reason: Pain Score 4-5/10 Last Admin: 11/02/19 04:25 Dose: 5 mg Documented by: Polyethylene Glycol (Miralax) 17 gm PO DAILY PRN PRN Reason: contipation Senna/Docusate Sodium (Senokot-S, Dayna-Colace) 1 tablet PO BID [facility] Last Admin: 11/01/19 21:16 Dose: 1 tablet Documented by: Sodium Chloride () 10 - 40 ml IV UD PRN PRN Reason: SALINE FLUSH Last Admin: 11/01/19 21:13 Dose: 10 ml Documented by: Sodium Chloride () 10 - 40 ml IV UD PRN PRN Reason: SALINE FLUSH Medical Necessity - Tobacco Use Smoking Status: Never smoker Assessment/Plan All Active Problems Angioedema (Acute) Idiopathic angioedema (Acute) New onset seizure (Acute) Acute hypoxic respiratory failure (Acute) Angioedema of upper airways (Acute) RECOMMENDATIONS: 1. Await results of C4 complement, C1 esterase inhibitor protein levels and function and Food Allergen RAST profile. 2. Transition from IV steroids to prednisone 40 mg daily. Discontinue Benadryl. Continue Pepcid for now. 3. At discharge, would recommend that the patient be sent home with cetirizine 10 mg twice daily along with prednisone taper. 4. Outpatient logging tractor operator referral. The patient needs to establish care with a primary care physician as well. 5. Encourage incentive spirometer use and mobilize patient as tolerated. IMPRESSIONS: 1. 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 The patient returned on 10/29, just days after having been discharged, with a much more severe case of angioedema, leading to airway compromise and the need for invasive mechanical ventilatory support. The exact precipitating etiology is unclear. The patient has been maintained on invasive mechanical ventilatory support and was able to be extubated on the morning of November 01. C4 complement, C1 esterase inhibitor protein levels and function, and food allergen RAST profile are currently pending. He will remain on steroids and Pepcid. Benadryl can be discontinued at this time. At discharge, recommend that he be sent home with cetirizine 10 mg twice daily along with prednisone taper. I would recommend an outpatient logging tractor operator referral. In addition, the patient needs to establish care with a primary care physician so that is send out labs can be reviewed upon their completion. 2. Reported seizure activity The patient was reported to have experienced questionable seizure activity in the emergency department. However, upon further discussion with emergency department staff, the seizure-like activity was noted after the patient was administered etomidate for intubation. The patient has no known history of epilepsy. I do strongly suspect that the seizure-like activity was likely the side effect of the etomidate administered in the emergency department for intubation. We will continue to monitor the patient clinically. This note was generated with [employer] dictation software. It may contain incorrect words, spelling, and punctuation that were not noted in checking the note before signing. Code Visit Inpatient E&M: 84781 Subs Hosp L2
[2019-11-02 07:57] VITALS: O2SAT 95
[2019-11-02] MEDS: 0.9% Saline Lock 10 ML Syringe IV ×5 (08:40→17:56)
[2019-11-02] MEDS: Morphine 2 MG/ML Syringe IV ×4 (08:40→21:43)
[2019-11-02 08:48] VITALS: BP 148/97; PULSE 72; RESP 18; TEMP 36.9; O2SAT 96
[2019-11-02] MEDS: Famotidine 200 MG/20 ML MDV 20 MG in 0.9% Normal Saline (Pres. free 8 ML 300 MG IV ×2 (08:49→21:43)
[2019-11-02] MEDS: Enoxaparin 40 MG/0.4 ML Syringe SC (08:50)
[2019-11-02 09:01] LABS: Absolute Neutrophil Count 10.9 X10^3/uL (2.0-7.7); Basophil# 0.03 X10^3/uL; Basophil% 0.2 % (0-1); Hematocrit 47.9 % (40-54); Hemoglobin 16.2 g/dL (13.0-16.5); Lymphocyte % 9.8 % (19-41); Mean Corp Hgb Conc 33.8 g/dL (32-36); Mean Corpuscular Hgb 27.6 pg (27.0-32.0); Mean Corpuscular Volume 81.5 fL (80-94); Mean Platelet Vol. 11.7 fl (6.2-12.0); Monocyte# 1.71 X10^3/uL; NRBC Flagged by Analyzer 0 % (0-5); Neutrophil # 10.92 X10^3/uL (2.7-7.7); Neutrophil % 76.5 % (47-70); POSITIVE DIFFERENTIAL YES; Platelet Count 174 K/mm3 (150-450); RBC Distribution Width CV 13.7 % (11.6-14.6); Red Blood Count 5.88 M/mm3 (4.6-6.2); White Blood Count 14.3 K/mm3 (4.4-11.0)
[2019-11-02 09:15] LABS: Differential Indicated SCAN CRITERIA MET
[2019-11-02 09:26] LABS: Anion Gap 6 (5-15); BUN 18 mg/dL (7-18); BUN/Creat Ratio 19.2 RATIO (10-20); Calcium,Total 9.3 mg/dL (8.5-10.1); Chloride 101 mmol/L (98-107); Creatinine, Serum 0.94 mg/dL (0.70-1.30); EST Glomerular Filtration Rate 99 mL/min (>60); Est Glom Filt Rate - Afr Amer 120 mL/min (>60); Estimated Creatinine Clearance 120.16 ml/min; Glucose 171 mg/dL (74-106); Potassium 4.3 mmol/L (3.5-5.1); Sodium Level 135 mmol/L (136-145)
[2019-11-02 09:40] LABS: Platelet Estimate ADEQUATE (ADEQ); Platelet Morphology LARGE
[2019-11-02 09:41] LABS: Red Cell Morphology NORM C+C NORMAL (NORM C&C)
--- NOTE | 2019-11-02 10:55 | PCM.PN.HOSP ---
Patient Problems: Active and Suspected Problems Idiopathic angioedema (Acute) New onset seizure (Acute) Acute hypoxic respiratory failure (Acute) Angioedema of upper airways (Acute) Reason for Visit: Angioedema of upper airway. Objective: The patient still has persistent lower lip swelling. It is large and tender. On left side of lower lip, yellowish discoloration with crust. Complaint of burning pain, 10/10 intensity. Blood pressure high 161/97. On Exam General: Alert, Oriented x3, Cooperative HEENT: Atraumatic, PERRLA, EOMI, Normocephalic Oral: Left lower lip is swollen. Tender. Yellowish crust on the left side of the lower lip no significant edema of oropharynx, tongue base or pharyngeal wall. Neck: Supple, No JVD, Negative Carotid Bruits Lungs: Clear to auscultation, No rhonchi, No wheeze, No rales, Diminished. No respiratory distress Cardiovascular: Regular rate, Regular Rhythm, Normal S1, Normal S2, No murmurs Abdomen: Bowel Sounds Present, Soft, Non Tender, Non-Distended Extremities: No edema, Capillary Refill Less than 3 Seconds Skin: No rashes, No breakdown Musculoskeletal: No Tenderness to Palpation of Joints or Extremities Lymphatic: No Cervical, Supraclavicular, or Inguinal Adenopathy Neurological: Cranial nerves II-XII grossly intact Psych/Mental Status: Normal Affect, Appropriate Vitals/I&O's: Vital Signs Temp Pulse Resp BP Pulse Ox 98.5 F 72 18 148/97 H 96 11/02/19 08:48 11/02/19 08:48 11/02/19 08:48 11/02/19 08:48 11/02/19 08:48 Oxygen Flow Rate (L/min) 2 Oxygen Delivery Method Room Air Weight: 210 lb 12.191 oz Body Mass Index (BMI) 30.7 Intake and Output for Last 24 Hours 10/31/19 11/01/19 11/02/19 23:59 23:59 23:59 Intake Total 2764.75 / 2786.29 839.55 / 1189.55 1160 / 1160 Output Total 4425 / 4425 2200 / 2200 Balance -1660.25 / -1638.71 -1360.45 / -1010.45 1160 / 1160 Laboratory Results 11/01/19 12:09: POC Glucose 181 H 11/01/19 17:01: POC Glucose 195 H 11/01/19 21:18: POC Glucose 221 H 11/02/19 00:06: POC Glucose 285 H 11/02/19 07:03: POC Glucose 138 H 11/02/19 08:30: WBC 14.3 H, RBC 5.88, Hgb 16.2, Hct 47.9, MCV 81.5, MCH 27.6, MCHC 33.8, RDW Std Deviation 40.0, RDW Coeff of Maria A 13.7, Plt Count 174, MPV 11.7, Immature Gran % (Auto) 1.500 H, Neut % (Auto) 76.5 H, Lymph % (Auto) 9.8 L, [place] % (Auto) 12.0 H, Eos % (Auto) 0.0, Baso % (Auto) 0.2, Absolute Neuts (auto) 10.9 H, Absolute Lymphs (auto) 1.40, Nucleated RBC % 0, Diff Path Review May foll, Platelet Estimate ADEQUATE, Plt Morphology Comment LARGE, RBC Morphology NORM C+C 11/02/19 08:30: Sodium 135 L, Potassium 4.3, Chloride 101, Carbon Dioxide 28.0, Anion Gap 6, BUN 18, Creatinine 0.94, Estim Creat Clear Calc 120.16, Est GFR (MDRD) Af Amer 120, Est GFR (MDRD) Non-Af 99, BUN/Creatinine Ratio 19.2, Glucose 171 H, Calcium 9.3 Current Medications Acetaminophen (Tylenol) 650 mg PO Q6H PRN PRN PRN Reason: Pain Score 1-3 /Temp>100.7 Albuterol Sulfate (Ventolin Aerosols) 2.5 mg INHALATION Q2H PRN PRN PRN Reason: SOB/Wheezing Chlorhexidine Gluconate () 1 each TOPICAL DAILY [facility] Last Admin: 11/02/19 08:33 Dose: Not Given Documented by: Diphenhydramine HCl (Benadryl) 12.5 mg IV Q6H [facility] Last Admin: 11/02/19 05:56 Dose: 12.5 mg Documented by: Enoxaparin Sodium (Lovenox) 40 mg SC DAILY [facility] Last Admin: 11/02/19 08:50 Dose: 40 mg Documented by: Glucagon () 1 mg IM .X1 PRN PRN Reason: Hypoglycemia Hydrochlorothiazide (Hctz) 25 mg PO DAILY [facility] Sodium Chloride () 250 mls @ 15 mls/hr IV .[id number] PRN PRN Reason: Saline Flush Sodium Chloride () 250 mls @ 15 mls/hr IV .[id number] PRN PRN Reason: Additional IVPB Infusion Famotidine 20 mg/ Sodium (Chloride) 10 mls @ 300 mls/hr IV Q12 [facility] Last Infusion: 11/02/19 08:51 Dose: Infused Documented by: Dextrose (Dextrose 10%-Water) 250 mls @ 999 mls/hr IV .Q16M PRN; Protocol PRN Reason: HYPOGLYCEMIA Insulin Human Lispro (Humalog Kwikpen (Bkc)) 0 unit SC [facility]; Protocol Last Admin: 11/02/19 07:03 Dose: Not Given Documented by: Lidocaine/Diphenhydr/Alum/Mg/Simeth () 20 ml PO Q3H PRN PRN PRN Reason: BURNING ORAL SORE Methylprednisolone (Solu-Medrol) 40 mg IV Q8 [facility] Last Admin: 11/02/19 05:57 Dose: 40 mg Documented by: Morphine Sulfate () 2 mg IV Q3H PRN PRN PRN Reason: Pain Score 6-10/10 Last Admin: 11/02/19 08:40 Dose: 2 mg Documented by: Nitroglycerin (Nitrostat) 0.4 mg SUBLINGUAL Q5M PRN PRN Reason: CARDIAC/CHEST PAIN Ondansetron HCl (Zofran) 4 mg IV Q8H PRN PRN PRN Reason: NAUSEA/VOMITING Oxycodone HCl (Oxyir) 5 mg PO Q4H PRN PRN PRN Reason: Pain Score 4-5/10 Last Admin: 11/02/19 04:25 Dose: 5 mg Documented by: Polyethylene Glycol (Miralax) 17 gm PO DAILY PRN PRN Reason: contipation Senna/Docusate Sodium (Senokot-S, Dayna-Colace) 1 tablet PO BID [facility] Last Admin: 11/02/19 08:49 Dose: Not Given Documented by: Sodium Chloride () 10 - 40 ml IV UD PRN PRN Reason: SALINE FLUSH Last Admin: 11/02/19 08:40 Dose: 10 ml Documented by: Sodium Chloride () 10 - 40 ml IV UD PRN PRN Reason: SALINE FLUSH STROKE Vital Signs/Narrative: Vital Signs Temp Pulse Resp BP Pulse Ox 11/02/19 08:48 98.5 F 72 18 148/97 H 96 11/02/19 07:57 95 Medical Necessity - Tobacco Use Smoking Status: Never smoker Assessment/Plan All Active Problems Angioedema (Acute) Idiopathic angioedema (Acute) New onset seizure (Acute) Acute hypoxic respiratory failure (Acute) Angioedema of upper airways (Acute) The patient is a 34 year old M with no significant past medical history came to ER with swelling of lower lip, tongue and throat with acute worsening of airway swelling and in respiratory distress. Patient was intubated in ER on etomidate, rocuronium and was given Solu-Medrol, Pepcid and Benadryl. Seizure-like movement including clenching of mandible shortly after admitted. Patient was admitted between 10/26 and discharged on 10/28 for angioedema of lips. Prior to the discharge, on exam there was no swelling of soft palate, base of tongue or pharyngeal wall except lower lip swelling. The patient was discharged on Medrol Dosepak, Pepcid and Benadryl. Patient also has history of seizure and therefore Keppra 1 g was given in ER [] 1. Angioedema of upper airway including glottis with acute hypoxic respiratory failure on ventilator: Patient is being admitted in ICU. Carpet Sewer consulted. On IV propofol and fentanyl drips. Started on IV Solu-Medrol, Benadryl and IV Pepcid. LFTs ALT 66, A/G ratio 0.9, total protein 8.8. Leukocytosis 16.4 thousand with left shift. Chest x-ray shows mild bilateral atelectasis at lung bases 10/30/2019: Mild tenderness to her left submandibular angle and lower lip swelling which is tender. Oral secretions. Remains intubated. Complement C4 and C1 esterase inhibitor pending. Discussed with the patient's brother and does not have history of angioedema in first-degree family relative. 10/31/2019: Patient remains intubated. Significant oropharyngeal edema. On mechanical ventilatory support until oropharyngeal edema improves. On ICU awakening trial/sedation protocol 11/01/2019: Patient is extubated. No significant oropharyngeal/lateral or posterior pharyngeal wall edema. Formal speech/swallow eval. C1 esterase inhibitor, complement C4 levels are pending. Few allergen tests are ordered. 11/02: Patient feels very miserable with lower lip swelling and tenderness and burning pain. Started on BMX liquid oral rinse. Nursing care with petroleum jelly on lower lip. Complement levels and allergen tests are still pending. 2. Seizure-like activity probably secondary to etomidate: Patient loaded with Keppra 1 g in ER. Continue Keppra 500 mg 10/31/2019: Keppra is discontinued. Patient is on low-dose of fentanyl and propofol drip. 11/01/2019: No seizure-like activities noticed while in ICU. 11/02: No seizure activity noticed. Patient not on antiepileptic medication. 3. Possible polysubstance use: GGT 64, serum alcohol negative. U tox positive of cannabinoids. DVT prophylaxis, moderate risk: Patient is intubated on ventilator therefore Lovenox 40 mg subcut daily. Total time of the visit including total time spent in counseling or coordination of care, (more than 50% of the total time, spent in obtaining medical information from nurses and other ancillary care providers) and discussion with patient is 30 minutes Laboratory Results 11/01/19 17:01: POC Glucose 195 H 11/01/19 21:18: POC Glucose 221 H 11/02/19 00:06: POC Glucose 285 H 11/02/19 07:03: POC Glucose 138 H 11/02/19 08:30: WBC 14.3 H, RBC 5.88, Hgb 16.2, Hct 47.9, MCV 81.5, MCH 27.6, MCHC 33.8, RDW Std Deviation 40.0, RDW Coeff of Maria A 13.7, Plt Count 174, MPV 11.7, Immature Gran % (Auto) 1.500 H, Neut % (Auto) 76.5 H, Lymph % (Auto) 9.8 L, [place] % (Auto) 12.0 H, Eos % (Auto) 0.0, Baso % (Auto) 0.2, Absolute Neuts (auto) 10.9 H, Absolute Lymphs (auto) 1.40, Nucleated RBC % 0, Diff Path Review May foll, Platelet Estimate ADEQUATE, Plt Morphology Comment LARGE, RBC Morphology NORM C+C 11/02/19 08:30: Sodium 135 L, Potassium 4.3, Chloride 101, Carbon Dioxide 28.0, Anion Gap 6, BUN 18, Creatinine 0.94, Estim Creat Clear Calc 120.16, Est GFR (MDRD) Af Amer 120, Est GFR (MDRD) Non-Af 99, BUN/Creatinine Ratio 19.2, Glucose 171 H, Calcium 9.3 11/02/19 11:58: POC Glucose 215 H Clinical Impression(s) from Imaging Studies Chest X-Ray 10/29/19 08:10 IMPRESSION: The tip of the endotracheal tube is at the level of the ellyn. This should be withdrawn approximately 2 cm. The tip of the orogastric tube is in the fundal portion of the stomach. Mild increased markings at the lung bases suggestive of atelectasis. Brain CT 10/29/19 08:20 IMPRESSION: No intracranial abnormality is seen. Soft tissue prominence of the nasal structure as well as soft tissue density within the nasal cavity. Code Visit Inpatient E&M: 85858 Subs Hosp L2
[2019-11-02] MEDS: hydroCHLOROthiazide 25 MG Tablet PO (11:59)
[2019-11-02] MEDS: Insulin Lispro 100 UNIT/ML INSULN.PEN SC ×3 (12:00→21:54)
[2019-11-02] MEDS: BMX LIQUID 180 ML 20 ML PO ×3 (12:02→21:45)
[2019-11-02 12:15] LABS: Bedside Glucose 215 mg/dL (70-110)
[2019-11-02 15:05] VITALS: BP 157/94; PULSE 84; RESP 18; TEMP 36.9; O2SAT 96
[2019-11-02 16:56] LABS: Bedside Glucose 240 mg/dL (70-110)
[2019-11-02 20:20] VITALS: BP 160/92; PULSE 95; RESP 16; TEMP 36.8; O2SAT 96
[2019-11-02] MEDS: Senna/Docusate Sodium 1 Tablet PO (21:44)
[2019-11-02 22:45] LABS: Bedside Glucose 344 mg/dL (70-110)
[2019-11-03] VITALS (9 sets, daily range): BP systolic 141–175; BP diastolic 97–112; PULSE 78–103; RESP 16–18; TEMP 36.6–37.4; O2SAT 95–97
[2019-11-03] MEDS: BMX LIQUID 180 ML 20 ML PO ×3 (02:41→19:06)
[2019-11-03] MEDS: Morphine 2 MG/ML Syringe IV ×6 (02:41→20:45)
[2019-11-03 03:06] LABS: Beef <0.10 kU/L (Class 0); Corn <0.10 kU/L (Class 0); Egg, Whole <0.10 kU/L (Class 0); Milk (Cow) <0.10 kU/L (Class 0); Peanut <0.10 kU/L (Class 0); Pork <0.10 kU/L (Class 0); Soybean <0.10 kU/L (Class 0); Wheat <0.10 kU/L (Class 0)
[2019-11-03] MEDS: oxyCODONE 5 MG Tablet PO ×4 (04:04→23:03)
[2019-11-03] MEDS: LORazepam 1 MG Tablet PO ×2 (04:51→23:03)
[2019-11-03] MEDS: DiphenhydrAMINE 50 MG/ML Syringe 12.5 MG IV (06:09)
[2019-11-03] MEDS: 0.9% Saline Lock 10 ML Syringe IV ×3 (06:10→20:45)
[2019-11-03] MEDS: Insulin Lispro 100 UNIT/ML INSULN.PEN SC ×4 (06:14→22:22)
[2019-11-03 06:55] LABS: Bedside Glucose 214 mg/dL (70-110)
[2019-11-03 07:00] LABS: Absolute Neutrophil Count 10.7 X10^3/uL (2.0-7.7); Basophil# 0.02 X10^3/uL; Basophil% 0.1 % (0-1); Hematocrit 51.8 % (40-54); Hemoglobin 17.3 g/dL (13.0-16.5); Lymphocyte % 11.6 % (19-41); Mean Corp Hgb Conc 33.4 g/dL (32-36); Mean Corpuscular Hgb 27.2 pg (27.0-32.0); Mean Corpuscular Volume 81.4 fL (80-94); Mean Platelet Vol. 12.2 fl (6.2-12.0); Monocyte# 1.98 X10^3/uL; Monocyte% 13.5 % (0-10); NRBC Flagged by Analyzer 0 % (0-5); POSITIVE DIFFERENTIAL YES; Platelet Count 196 K/mm3 (150-450); RBC Distribution Width CV 14.3 % (11.6-14.6); RBC Distribution Width SD 40.6 fl (35.1-43.9); Red Blood Count 6.36 M/mm3 (4.6-6.2); White Blood Count 14.7 K/mm3 (4.4-11.0)
[2019-11-03 07:15] LABS: Anion Gap 5 (5-15); BUN 20 mg/dL (7-18); BUN/Creat Ratio 19.2 RATIO (10-20); Calcium,Total 9.4 mg/dL (8.5-10.1); Chloride 95 mmol/L (98-107); Creatinine, Serum 1.04 mg/dL (0.70-1.30); EST Glomerular Filtration Rate 88 mL/min (>60); Est Glom Filt Rate - Afr Amer 106 mL/min (>60); Estimated Creatinine Clearance 108.61 ml/min; Glucose 205 mg/dL (74-106); Potassium 4.2 mmol/L (3.5-5.1); Sodium Level 129 mmol/L (136-145)
[2019-11-03 07:37] LABS: Differential Indicated SCAN CRITERIA MET
[2019-11-03] MEDS: hydroCHLOROthiazide 25 MG Tablet PO (07:52)
[2019-11-03] MEDS: Enoxaparin 40 MG/0.4 ML Syringe SC (07:52)
[2019-11-03] MEDS: Famotidine 200 MG/20 ML MDV 20 MG in 0.9% Normal Saline (Pres. free 8 ML 300 MG IV (07:52)
[2019-11-03 07:55] LABS: Platelet Estimate ADEQUATE (ADEQ); Red Cell Morphology NORM C+C NORMAL (NORM C&C)
--- NOTE | 2019-11-03 08:56 | PN_ITS ---
Patient Problems: Active and Suspected Problems Idiopathic angioedema (Acute) New onset seizure (Acute) Acute hypoxic respiratory failure (Acute) Angioedema of upper airways (Acute) Reason for Visit: Angioedema Objective: Patient lower lip is big with thick yellow crust on the lateral side. As per the nursing staff, it looks bigger than yesterday. Patient has burning pain, stinging and drooling. Him sodium is 129. Patient still has leukocytosis probably secondary to steroid. Eosinophil count is 0%. Vitals/I&O's: Vital Signs Temp Pulse Resp BP Pulse Ox 97.8 F 78 18 151/105 H 97 11/03/19 07:48 11/03/19 07:48 11/03/19 07:48 11/03/19 07:48 11/03/19 07:48 Oxygen Flow Rate (L/min) 2 Oxygen Delivery Method Room Air Weight: 210 lb 12.191 oz Body Mass Index (BMI) 30.7 Intake and Output for Last 24 Hours 11/01/19 11/02/19 11/03/19 23:59 23:59 23:59 Intake Total 839.55 / 1189.55 1890 / 1890 Output Total 2200 / 2200 Balance -1360.45 / -1010.45 1890 / 1890 General: Alert, Oriented x3, Cooperative HEENT: Atraumatic, PERRLA, EOMI, Normocephalic Oral: - - Yellowish crust on the left side of the lower lip and looks very big. No significant edema of oropharynx, tongue base or pharyngeal wall. Air entry and passages good along the trachea and bronchus. Mild tenderness over bilateral submandibular angle. Neck: Supple, No JVD, Negative Carotid Bruits Lungs: Clear to auscultation, No rhonchi, No wheeze, No rales, Diminished - Air entry diminished in bilateral lung bases Cardiovascular: Regular rate, Regular Rhythm, Normal S1, Normal S2, No murmurs Abdomen: Bowel Sounds Present, Soft, Non Tender, Non-Distended Extremities: No edema, Capillary Refill Less than 3 Seconds Skin: No rashes, No breakdown Musculoskeletal: No Tenderness to Palpation of Joints or Extremities, Arthritic Changes Neurological: Cranial nerves II-XII grossly intact, Deep Tendon Reflexes 2+/4 and Symmetrical, Neuro grossly intact Psych/Mental Status: Normal Affect, Appropriate Laboratory Results 11/02/19 08:30: WBC 14.3 H, RBC 5.88, Hgb 16.2, Hct 47.9, MCV 81.5, MCH 27.6, MCHC 33.8, RDW Std Deviation 40.0, RDW Coeff of Maria A 13.7, Plt Count 174, MPV 11.7, Immature Gran % (Auto) 1.500 H, Neut % (Auto) 76.5 H, Lymph % (Auto) 9.8 L , [place] % (Auto) 12.0 H, Eos % (Auto) 0.0, Baso % (Auto) 0.2, Absolute Neuts (auto) 10.9 H, Absolute Lymphs (auto) 1.40, Nucleated RBC % 0, Diff Path Review May brian, Platelet Estimate ADEQUATE, Plt Morphology Comment LARGE, RBC Morphology NORM C+C 11/02/19 08:30: Sodium 135 L, Potassium 4.3, Chloride 101, Carbon Dioxide 28.0, Anion Gap 6, BUN 18, Creatinine 0.94, Estim Creat Clear Calc 120.16, Est GFR (MDRD) Af Amer 120, Est GFR (MDRD) Non-Af 99, BUN/Creatinine Ratio 19.2, Glucose 171 H, Calcium 9.3 11/02/19 11:58: POC Glucose 215 H 11/02/19 16:47: POC Glucose 240 H 11/02/19 21:53: POC Glucose 344 H 11/03/19 06:13: POC Glucose 214 H 11/03/19 06:29: WBC 14.7 H, RBC 6.36 H, Hgb 17.3 H, Hct 51.8, MCV 81.4, MCH 27.2, MCHC 33.4, RDW Std Deviation 40.6, RDW Coeff of Maria A 14.3, Plt Count 196, MPV 12.2 H, Immature Gran % (Auto) 1.800 H, Neut % (Auto) 73.0 H, Lymph % (Auto) 11.6 L, [place] % (Auto) 13.5 H, Eos % (Auto) 0.0, Baso % (Auto) 0.1, Absolute Neuts (auto) 10.7 H, Absolute Lymphs (auto) 1.70, Nucleated RBC % 0, Diff Path Review May brian, Platelet Estimate ADEQUATE, RBC Morphology NORM C+C 11/03/19 06:29: Sodium 129 L, Potassium 4.2, Chloride 95 L, Carbon Dioxide 29.0, Anion Gap 5, BUN 20 H, Creatinine 1.04, Estim Creat Clear Calc 108.61, Est GFR (MDRD) Af Amer 106, Est GFR (MDRD) Non-Af 88, BUN/Creatinine Ratio 19.2, Glucose 205 H, Calcium 9.4 Current Medications Acetaminophen (Tylenol) 650 mg PO Q6H PRN PRN PRN Reason: Pain Score 1-3 /Temp>100.7 Albuterol Sulfate (Ventolin Aerosols) 2.5 mg INHALATION Q2H PRN PRN PRN Reason: SOB/Wheezing Chlorhexidine Gluconate () 1 each TOPICAL DAILY [facility] Last Admin: 11/03/19 07:41 Dose: Not Given Documented by: Diphenhydramine HCl (Benadryl) 12.5 mg IV Q6H [facility] Last Admin: 11/03/19 06:09 Dose: 12.5 mg Documented by: Enoxaparin Sodium (Lovenox) 40 mg SC DAILY [facility] Last Admin: 11/03/19 07:52 Dose: 40 mg Documented by: Glucagon () 1 mg IM .X1 PRN PRN Reason: Hypoglycemia Hydralazine HCl (Apresoline Iv) 10 mg IV Q4H PRN PRN PRN Reason: sbp>180 MMHG Hydralazine HCl (Apresoline) 25 mg PO TID [facility] Sodium Chloride () 250 mls @ 15 mls/hr IV .[id number] PRN PRN Reason: Saline Flush Sodium Chloride () 250 mls @ 15 mls/hr IV .[id number] PRN PRN Reason: Additional IVPB Infusion Famotidine 20 mg/ Sodium (Chloride) 10 mls @ 300 mls/hr IV Q12 [facility] Last Admin: 11/03/19 07:52 Dose: 300 mls/hr Documented by: Dextrose (Dextrose 10%-Water) 250 mls @ 999 mls/hr IV .Q16M PRN; Protocol PRN Reason: HYPOGLYCEMIA Sodium Chloride () 1,000 mls @ 150 mls/hr IV .Q6H40M [facility] Stop: 11/03/19 15:14 Insulin Human Lispro (Humalog Shaguftapen (Bkc)) 0 unit SC [facility]; Protocol Last Admin: 11/03/19 06:14 Dose: 2 u Documented by: Lidocaine/Diphenhydr/Alum/Mg/Simeth () 20 ml PO Q3H PRN PRN PRN Reason: BURNING ORAL SORE Last Admin: 11/03/19 02:41 Dose: 20 ml Documented by: Lorazepam (Ativan) 1 mg PO TID PRN PRN Reason: ANXIETY Last Admin: 11/03/19 04:51 Dose: 1 mg Documented by: Methylprednisolone (Solu-Medrol) 40 mg IV Q8 [facility] Last Admin: 11/03/19 06:09 Dose: 40 mg Documented by: Morphine Sulfate () 2 mg IV Q3H PRN PRN PRN Reason: Pain Score 6-10/10 Last Admin: 11/03/19 07:50 Dose: 2 mg Documented by: Nitroglycerin (Nitrostat) 0.4 mg SUBLINGUAL Q5M PRN PRN Reason: CARDIAC/CHEST PAIN Ondansetron HCl (Zofran) 4 mg IV Q8H PRN PRN PRN Reason: NAUSEA/VOMITING Oxycodone HCl (Oxyir) 5 mg PO Q4H PRN PRN PRN Reason: Pain Score 4-5/10 Last Admin: 11/03/19 04:04 Dose: 5 mg Documented by: Polyethylene Glycol (Miralax) 17 gm PO DAILY PRN PRN Reason: contipation Senna/Docusate Sodium (Senokot-S, Dayna-Colace) 1 tablet PO BID [facility] Last Admin: 11/03/19 07:41 Dose: Not Given Documented by: Sodium Chloride () 10 - 40 ml IV UD PRN PRN Reason: SALINE FLUSH Last Admin: 11/03/19 07:50 Dose: 10 ml Documented by: Sodium Chloride () 10 - 40 ml IV UD PRN PRN Reason: SALINE FLUSH STROKE Vital Signs/Narrative: Vital Signs Temp Pulse Resp BP Pulse Ox 11/03/19 07:48 97.8 F 78 18 151/105 H 97 11/03/19 07:40 95 Medical Necessity - Tobacco Use Smoking Status: Never smoker Assessment/Plan All Active Problems Angioedema (Acute) Idiopathic angioedema (Acute) New onset seizure (Acute) Acute hypoxic respiratory failure (Acute) Angioedema of upper airways (Acute) The patient is a 34 year old M with no significant past medical history came to ER with swelling of lower lip, tongue and throat with acute worsening of airway swelling and in respiratory distress. Patient was intubated in ER on etomidate, rocuronium and was given Solu-Medrol, Pepcid and Benadryl. Seizure-like movement including clenching of mandible shortly after admitted. Patient was admitted between 10/26 and discharged on 10/28 for angioedema of lips. Prior to the discharge, on exam there was no swelling of soft palate, base of tongue or pharyngeal wall except lower lip swelling. The patient was discharged on Medrol Dosepak, Pepcid and Benadryl. Patient also has history of seizure and therefore Keppra 1 g was given in ER [] 1. Angioedema of upper airway including glottis with acute hypoxic respiratory failure on ventilator: Patient is being admitted in ICU. Telecommunications Operator consulted. On IV propofol and fentanyl drips. Started on IV Solu-Medrol, Benadryl and IV Pepcid. LFTs ALT 66, A/G ratio 0.9, total protein 8.8. Leukocytosis 16.4 thousand with left shift. Chest x-ray shows mild bilateral atelectasis at lung bases 10/30/2019: Mild tenderness to her left submandibular angle and lower lip swelling which is tender. Oral secretions. Remains intubated. Complement C4 and C1 esterase inhibitor pending. Discussed with the patient's brother and does not have history of angioedema in first-degree family relative. 10/31/2019: Patient remains intubated. Significant oropharyngeal edema. On mechanical ventilatory support until oropharyngeal edema improves. On ICU awakening trial/sedation protocol 11/01/2019: Patient is extubated. No significant oropharyngeal/lateral or posterior pharyngeal wall edema. Formal speech/swallow eval. C1 esterase inhibitor, complement C4 levels are pending. Few allergen tests are ordered. 11/02: Patient feels very miserable with lower lip swelling and tenderness and burning pain. Started on BMX liquid oral rinse. Nursing care with petroleum jelly on lower lip. Complement levels and allergen tests are still pending. 11/03: Discussed with yard conductor. Lower lips swelling is bigger, drooling, burning pain. ENT consult, Dr. Munoz paged and left a voice message. 2. Acute hyponatremia and hypochloremia probably secondary to HCTZ: HCTZ discontinued. IV fluid normal saline 150 mis per hour for 1 L and then 100 mils per hour for another 1 L total of 2 L Hypertension: Blood pressure is 151/105, 141/97. HCTZ discontinued. Start on hydralazine 25 mg 3 times daily. Patient not a good candidate for ELTON/arm in view of angioedema and probably will be careful WITH amlodipine/calcium channel floresita 3. Seizure-like activity probably secondary to etomidate: Patient loaded with Keppra 1 g in ER. Continue Keppra 500 mg 10/31/2019: Keppra is discontinued. Patient is on low-dose of fentanyl and prop ofol drip. 11/01/2019: No seizure-like activities noticed while in ICU. 11/02: No seizure activity noticed. Patient not on antiepileptic medication. 4 Possible polysubstance use: GGT 64, serum alcohol negative. U tox positive of cannabinoids. DVT prophylaxis, moderate risk: Patient is intubated on ventilator therefore Lovenox 40 mg subcut daily. Total time of the visit including total time spent in counseling or coordination of care, (more than 50% of the total time, spent in obtaining medical information from nurses and other ancillary care providers), discussion with communication consultant and discussion with patient is 40 minutes Laboratory Results 11/02/19 08:30: WBC 14.3 H, RBC 5.88, Hgb 16.2, Hct 47.9, MCV 81.5, MCH 27.6, MCHC 33.8, RDW Std Deviation 40.0, RDW Coeff of Maria A 13.7, Plt Count 174, MPV 11.7, Immature Gran % (Auto) 1.500 H, Neut % (Auto) 76.5 H, Lymph % (Auto) 9.8 L , [place] % (Auto) 12.0 H, Eos % (Auto) 0.0, Baso % (Auto) 0.2, Absolute Neuts (auto) 10.9 H, Absolute Lymphs (auto) 1.40, Nucleated RBC % 0, Diff Path Review May foll, Platelet Estimate ADEQUATE, Plt Morphology Comment LARGE, RBC Morphology NORM C+C 11/02/19 08:30: Sodium 135 L, Potassium 4.3, Chloride 101, Carbon Dioxide 28.0, Anion Gap 6, BUN 18, Creatinine 0.94, Estim Creat Clear Calc 120.16, Est GFR (MDRD) Af Amer 120, Est GFR (MDRD) Non-Af 99, BUN/Creatinine Ratio 19.2, Glucose 171 H, Calcium 9.3 11/02/19 11:58: POC Glucose 215 H 11/02/19 16:47: POC Glucose 240 H 11/02/19 21:53: POC Glucose 344 H 11/03/19 06:13: POC Glucose 214 H 11/03/19 06:29: WBC 14.7 H, RBC 6.36 H, Hgb 17.3 H, Hct 51.8, MCV 81.4, MCH 27.2, MCHC 33.4, RDW Std Deviation 40.6, RDW Coeff of Maria A 14.3, Plt Count 196, MPV 12.2 H, Immature Gran % (Auto) 1.800 H, Neut % (Auto) 73.0 H, Lymph % (Auto) 11.6 L, [place] % (Auto) 13.5 H, Eos % (Auto) 0.0, Baso % (Auto) 0.1, Absolute Neuts (auto) 10.7 H, Absolute Lymphs (auto) 1.70, Nucleated RBC % 0, Diff Path Review May foll, Platelet Estimate ADEQUATE, RBC Morphology NORM C+C 11/03/19 06:29: Sodium 129 L, Potassium 4.2, Chloride 95 L, Carbon Dioxide 29.0, Anion Gap 5, BUN 20 H, Creatinine 1.04, Estim Creat Clear Calc 108.61, Est GFR (MDRD) Af Amer 106, Est GFR (MDRD) Non-Af 88, BUN/Creatinine Ratio 19.2, Glucose 205 H, Calcium 9.4 Clinical Impression(s) from Imaging Studies Chest X-Ray 10/29/19 08:10 IMPRESSION: The tip of the endotracheal tube is at the level of the ellyn. This should be withdrawn approximately 2 cm. The tip of the orogastric tube is in the fundal portion of the stomach. Mild increased markings at the lung bases suggestive of atelectasis. Brain CT 10/29/19 08:20 IMPRESSION: No intracranial abnormality is seen. Soft tissue prominence of the nasal structure as well as soft tissue density within the nasal cavity. Code Visit Inpatient E&M: 77536 Subs Hosp L3
--- NOTE | 2019-11-03 09:54 | PN_ITS ---
Patient Problems: Active and Suspected Problems Idiopathic angioedema (Acute) New onset seizure (Acute) Acute hypoxic respiratory failure (Acute) Angioedema of upper airways (Acute) Subjective: The patient was seen and examined at the bedside this morning. Events from the last 24 hours have been reviewed. The patient is currently afebrile, hemodynamically stable and maintaining appropriate oxygen saturations on room air. The patient appears to have worsening in the swelling of his lower lip. He does report a great deal of discomfort in the aforementioned site. Objective: The patient's most recent lab work, culture data and imaging studies have all been personally reviewed. - Physical Exam Vitals/I&O's: Vital Signs Temp Pulse Resp BP Pulse Ox 97.8 F 78 18 151/105 H 97 11/03/19 07:48 11/03/19 07:48 11/03/19 07:48 11/03/19 07:48 11/03/19 07:48 Oxygen Flow Rate (L/min) 2 Oxygen Delivery Method Room Air Weight: 210 lb 12.191 oz Body Mass Index (BMI) 30.7 Intake and Output for Last 24 Hours 11/01/19 11/02/19 11/03/19 23:59 23:59 23:59 Intake Total 839.55 / 1189.55 1890 / 1890 Output Total 2200 / 2200 Balance -1360.45 / -1010.45 1889 / 1890 General: Alert, Cooperative, No apparent distress HEENT: Atraumatic, Normocephalic Oral: Moist Mucosa, - - There appears to be worsening in the degree of swelling of the patient's lower lip. There is superficial crusting and sloughing of skin. Neck: Supple, No Nodes, Trachea Midline Lungs: No rhonchi, No wheeze, No rales Cardiovascular: Regular rate, Regular Rhythm, Normal S1, Normal S2, No murmurs Abdomen: Bowel Sounds Present, Soft, Non Tender Extremities: No clubbing, No cyanosis, No edema Skin: No breakdown Musculoskeletal: No Tenderness to Palpation of Joints or Extremities Lymphatic: No Cervical, Supraclavicular, or Inguinal Adenopathy Neurological: Neuro grossly intact Psych/Mental Status: Anxious Labs (Last 48 Hours) 11/01/19 11/01/19 11/01/19 12:09 17:01 21:18 WBC RBC Hgb Hct MCV MCH MCHC RDW Std Deviation RDW Coeff of Maria A Plt Count MPV Immature Gran % (Auto) Neut % (Auto) Lymph % (Auto) Branch % (Auto) Eos % (Auto) Baso % (Auto) Absolute Neuts (auto) Absolute Lymphs (auto) Nucleated RBC % Diff Path Review Platelet Estimate Plt Morphology Comment RBC Morphology Sodium Potassium Chloride Carbon Dioxide Anion Gap BUN Creatinine Estim Creat Clear Calc Est GFR (MDRD) Af Amer Est GFR (MDRD) Non-Af BUN/Creatinine Ratio Glucose Calcium POC Glucose 181 H 195 H 221 H 11/02/19 11/02/19 11/02/19 00:06 07:03 08:30 WBC 14.3 H RBC 5.88 Hgb 16.2 Hct 47.9 MCV 81.5 MCH 27.6 MCHC 33.8 RDW Std Deviation 40.0 RDW Coeff of Maria A 13.7 Plt Count 174 MPV 11.7 Immature Gran % (Auto) 1.500 H Neut % (Auto) 76.5 H Lymph % (Auto) 9.8 L Branch % (Auto) 12.0 H Eos % (Auto) 0.0 Baso % (Auto) 0.2 Absolute Neuts (auto) 10.9 H Absolute Lymphs (auto) 1.40 Nucleated RBC % 0 Diff Path Review May foll Platelet Estimate ADEQUATE Plt Morphology Comment LARGE RBC Morphology NORM C+C Sodium Potassium Chloride Carbon Dioxide Anion Gap BUN Creatinine Estim Creat Clear Calc Est GFR (MDRD) Af Amer Est GFR (MDRD) Non-Af BUN/Creatinine Ratio Glucose Calcium POC Glucose 285 H 138 H 11/02/19 11/02/19 11/02/19 08:30 11:58 16:47 WBC RBC Hgb Hct MCV MCH MCHC RDW Std Deviation RDW Coeff of Maria A Plt Count MPV Immature Gran % (Auto) Neut % (Auto) Lymph % (Auto) Branch % (Auto) Eos % (Auto) Baso % (Auto) Absolute Neuts (auto) Absolute Lymphs (auto) Nucleated RBC % Diff Path Review Platelet Estimate Plt Morphology Comment RBC Morphology Sodium 135 L Potassium 4.3 Chloride 101 Carbon Dioxide 28.0 Anion Gap 6 BUN 18 Creatinine 0.94 Estim Creat Clear Calc 120.16 Est GFR (MDRD) Af Amer 120 Est GFR (MDRD) Non-Af 99 BUN/Creatinine Ratio 19.2 Glucose 171 H Calcium 9.3 POC Glucose 215 H 240 H 11/02/19 11/03/19 11/03/19 21:53 06:13 06:29 WBC 14.7 H RBC 6.36 H Hgb 17.3 H Hct 51.8 MCV 81.4 MCH 27.2 MCHC 33.4 RDW Std Deviation 40.6 RDW Coeff of Maria A 14.3 Plt Count 196 MPV 12.2 H Immature Gran % (Auto) 1.800 H Neut % (Auto) 73.0 H Lymph % (Auto) 11.6 L Branch % (Auto) 13.5 H Eos % (Auto) 0.0 Baso % (Auto) 0.1 Absolute Neuts (auto) 10.7 H Absolute Lymphs (auto) 1.70 Nucleated RBC % 0 Diff Path Review May foll Platelet Estimate ADEQUATE Plt Morphology Comment RBC Morphology NORM C+C Sodium Potassium Chloride Carbon Dioxide Anion Gap BUN Creatinine Estim Creat Clear Calc Est GFR (MDRD) Af Amer Est GFR (MDRD) Non-Af BUN/Creatinine Ratio Glucose Calcium POC Glucose 344 H 214 H 11/03/19 06:29 WBC RBC Hgb Hct MCV MCH MCHC RDW Std Deviation RDW Coeff of Maria A Plt Count MPV Immature Gran % (Auto) Neut % (Auto) Lymph % (Auto) Branch % (Auto) Eos % (Auto) Baso % (Auto) Absolute Neuts (auto) Absolute Lymphs (auto) Nucleated RBC % Diff Path Review Platelet Estimate Plt Morphology Comment RBC Morphology Sodium 129 L Potassium 4.2 Chloride 95 L Carbon Dioxide 29.0 Anion Gap 5 BUN 20 H Creatinine 1.04 Estim Creat Clear Calc 108.61 Est GFR (MDRD) Af Amer 106 Est GFR (MDRD) Non-Af 88 BUN/Creatinine Ratio 19.2 Glucose 205 H Calcium 9.4 POC Glucose Clinical Impression(s) from Imaging Studies Chest X-Ray 10/29/19 08:10 IMPRESSION: The tip of the endotracheal tube is at the level of the ellyn. This should be withdrawn approximately 2 cm. The tip of the orogastric tube is in the fundal portion of the stomach. Mild increased markings at the lung bases suggestive of atelectasis. Electronically Signed: Kwabena Adam, at 9:18 EST , Service support , Brain CT 10/29/19 08:20 IMPRESSION: No intracranial abnormality is seen. Soft tissue prominence of the nasal structure as well as soft tissue density within the nasal cavity. Electronically Signed: Kwabena Adam, at 9:46 EST , Service support , Current Medications Acetaminophen (Tylenol) 650 mg PO Q6H PRN PRN PRN Reason: Pain Score 1-3 /Temp>100.7 Albuterol Sulfate (Ventolin Aerosols) 2.5 mg INHALATION Q2H PRN PRN PRN Reason: SOB/Wheezing Chlorhexidine Gluconate () 1 each TOPICAL DAILY [facility] Last Admin: 11/03/19 07:41 Dose: Not Given Documented by: Enoxaparin Sodium (Lovenox) 40 mg SC DAILY [facility] Last Admin: 11/03/19 07:52 Dose: 40 mg Documented by: Glucagon () 1 mg IM .X1 PRN PRN Reason: Hypoglycemia Hydralazine HCl (Apresoline Iv) 10 mg IV Q4H PRN PRN PRN Reason: sbp>180 MMHG Hydralazine HCl (Apresoline) 25 mg PO TID [facility] Sodium Chloride () 250 mls @ 15 mls/hr IV .[id number] PRN PRN Reason: Saline Flush Sodium Chloride () 250 mls @ 15 mls/hr IV .[id number] PRN PRN Reason: Additional IVPB Infusion Famotidine 20 mg/ Sodium (Chloride) 10 mls @ 300 mls/hr IV Q12 [facility] Last Infusion: 11/03/19 07:54 Dose: Infused Documented by: Dextrose (Dextrose 10%-Water) 250 mls @ 999 mls/hr IV .Q16M PRN; Protocol PRN Reason: HYPOGLYCEMIA Sodium Chloride () 1,000 mls @ 150 mls/hr IV .Q6H40M [facility] Stop: 11/03/19 15:14 Sodium Chloride () 1,000 mls @ 100 mls/hr IV .Q10H [facility] Stop: 11/04/19 01:59 Insulin Human Lispro (Humalog Kwikpen (Bkc)) 0 unit SC ACHS [facility]; Protocol Last Admin: 11/03/19 06:14 Dose: 2 u Documented by: Lidocaine/Diphenhydr/Alum/Mg/Simeth () 20 ml PO Q3H PRN PRN PRN Reason: BURNING ORAL SORE Last Admin: 11/03/19 02:41 Dose: 20 ml Documented by: Lorazepam (Ativan) 1 mg PO TID PRN PRN Reason: ANXIETY Last Admin: 11/03/19 04:51 Dose: 1 mg Documented by: Methylprednisolone (Solu-Medrol) 40 mg IV Q8 [facility]ERT[facility] Morphine Sulfate () 2 mg IV Q3H PRN PRN PRN Reason: Pain Score 6-10/10 Last Admin: 11/03/19 07:50 Dose: 2 mg Documented by: Nitroglycerin (Nitrostat) 0.4 mg SUBLINGUAL Q5M PRN PRN Reason: CARDIAC/CHEST PAIN Ondansetron HCl (Zofran) 4 mg IV Q8H PRN PRN PRN Reason: NAUSEA/VOMITING Oxycodone HCl (Oxyir) 5 mg PO Q4H PRN PRN PRN Reason: Pain Score 4-5/10 Last Admin: 11/03/19 04:04 Dose: 5 mg Documented by: Polyethylene Glycol (Miralax) 17 gm PO DAILY PRN PRN Reason: contipation Senna/Docusate Sodium (Senokot-S, Dayna-Colace) 1 tablet PO BID BERTA Last Admin: 11/03/19 07:41 Dose: Not Given Documented by: Sodium Chloride () 10 - 40 ml IV UD PRN PRN Reason: SALINE FLUSH Last Admin: 11/03/19 07:50 Dose: 10 ml Documented by: Sodium Chloride () 10 - 40 ml IV UD PRN PRN Reason: SALINE FLUSH Medical Necessity - Tobacco Use Smoking Status: Never smoker Assessment/Plan All Active Problems Angioedema (Acute) Idiopathic angioedema (Acute) New onset seizure (Acute) Acute hypoxic respiratory failure (Acute) Angioedema of upper airways (Acute) RECOMMENDATIONS: 1. Await results of C4 complement, C1 esterase inhibitor protein levels and function and Food Allergen RAST profile. 2. Continue steroids and Pepcid. 3. Given worsening lip swelling, recommend ENT consultation. 4. At discharge, would recommend that the patient be sent home with cetirizine 10 mg twice daily along with prednisone taper. 5. Outpatient waste elimination referral. The patient needs to establish care with a primary care physician as well. 6. Encourage incentive spirometer use and mobilize patient as tolerated. IMPRESSIONS: 1. 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 The patient returned on 10/29, just days after having been discharged, with a much more severe case of angioedema, leading to airway compromise and the need for invasive mechanical ventilatory support. The exact precipitating etiology is unclear. The patient has been maintained on invasive mechanical ventilatory support and was able to be extubated on the morning of November 01. C4 complement, C1 esterase inhibitor protein levels and function, and food allergen RAST profile are currently pending. He will remain on steroids and Pepcid. At discharge, recommend that he be sent home with cetirizine 10 mg twice daily along with prednisone taper. I would recommend an outpatient waste elimination referral. In addition, the patient needs to establish care with a primary care physician so that is send out labs can be reviewed upon their completion. 2. Reported seizure activity The patient was reported to have experienced questionable seizure activity in the emergency department. However, upon further discussion with emergency department staff, the seizure-like activity was noted after the patient was administered etomidate for intubation. The patient has no known history of epilepsy. I do strongly suspect that the seizure-like activity was likely the side effect of the etomidate administered in the emergency department for intubation. We will continue to monitor the patient clinically. This note was generated with [employer] dictation software. It may contain incorrect words, spelling, and punctuation that were not noted in checking the note before signing. Code Visit Inpatient E&M: 27727 Subs Hosp L2
[2019-11-03] MEDS: 0.9% Normal Saline 1,000 ML 150 ML IV (11:00)
[2019-11-03] MEDS: hydrALAZINE 25 MG Tablet PO ×3 (11:03→22:16)
--- NOTE | 2019-11-03 11:32 | PCM.PN.BLA ---
Progress Note Asked to see the patient at the request of Dr. Darnell for worsening lip swelling 34 yo male presented to the ER with angioedema. He was treated appropriately with steroids, antihistamines. He eventually worsened and presented back to the ER with pharyngeal swelling necessitating intubation. He was successfully extubated after 3 days. Since then he has had progressive swelling and pain of his lower lip only. He denies any other airway swelling. Interestingly, he reports taking someone else's medication for a headache prior to onset of his symptoms. He cannot remember whether this was before his first ER visit or second. He tried to call his friend who gave him the medication, but he did not answer. Past Medical History - Allergies and Home Meds Allergies/Adverse Reactions: Allergies No Known Allergies Primary Care Physician: Care Physician,No Primary [Primary Care Provider] - Prior records reviewed: Yes Surgical History: noncontributory, - - right foot/ankle surgery Lives: Alone Smoking Status: Never smoker - Family History Maternal Family History: Reports: No pertinent history Paternal Family History: Reports: Diabetes Review of Systems negative Physical Exam AVSS awake alert nad m/op no airway or tongue swelling. The lower lip is quite edematous and erythematous. There is a central area of that is open on the wet portion of the lip (2 mm opening) I expressed purulence from the opening and cultured this. I expressed as much as possible. A: Angioedema improving with appropriate therapy. Lower lip cellulitis/abscess P: The patient will be trying to contact his friend to see if he gave the patient a prescription medication (?possibly lisinopril?). He will continue steroids and antihistamines as ordered by the primary service. Follow up inherited angioedema bloodwork and RAST testing for food allergy. I have recommended he start IV clindamycin to cover oral pathogens as well as MRSA. The culture will need to be followed. STROKE Vital Signs/Narrative: Vital Signs Temp Pulse Resp BP Pulse Ox 11/03/19 11:03 78 11/03/19 07:48 97.8 F 78 18 151/105 H 97 11/03/19 07:40 95
[2019-11-03 12:20] LABS: Bedside Glucose 332 mg/dL (70-110)
[2019-11-03 17:50] LABS: Bedside Glucose 299 mg/dL (70-110)
[2019-11-03] MEDS: 0.9% Normal Saline 1,000 ML 100 ML IV (19:02)
[2019-11-03 19:13] LABS: Anion Gap 7 (5-15); BUN 26 mg/dL (7-18); BUN/Creat Ratio 21.7 RATIO (10-20); Calcium,Total 9.4 mg/dL (8.5-10.1); Chloride 95 mmol/L (98-107); EST Glomerular Filtration Rate 74 mL/min (>60); Est Glom Filt Rate - Afr Amer 90 mL/min (>60); Estimated Creatinine Clearance 94.13 ml/min; Glucose 309 mg/dL (74-106); Potassium 4.6 mmol/L (3.5-5.1); Sodium Level 130 mmol/L (136-145)
[2019-11-03] MEDS: Famotidine 20 MG Tablet PO (22:17)
[2019-11-03] MEDS: Senna/Docusate Sodium 1 Tablet PO (22:17)
[2019-11-03 22:31] LABS: Bedside Glucose 205 mg/dL (70-110)
[2019-11-04] VITALS (9 sets, daily range): BP systolic 139–158; BP diastolic 89–103; PULSE 91–111; RESP 16; TEMP 36.8–37.3; O2SAT 97–99
[2019-11-04] MEDS: DiphenhydrAMINE 50 MG/ML Syringe 25 MG IV ×4 (00:17→22:16)
[2019-11-04] MEDS: Famotidine 200 MG/20 ML MDV 20 MG in 0.9% Normal Saline (Pres. free 8 ML 300 MG IV ×2 (00:32→22:06)
[2019-11-04] MEDS: 0.9% Saline Lock 10 ML Syringe IV ×2 (00:32→05:35)
--- NOTE | 2019-11-04 00:40 | CT_ITS ---
STUDY: CT FACIAL BONES WITH T WITHOUT CONTRAST REASON FOR EXAM: Male, 34 years old. INCREASING LOWER LIP SWELLING IN THE PAST FEW HOURS,INFECTION WITH PURULENT DRAINAGE.PT RECENTLY OFF VENTILATOR-HAD ANGIOEDEMA AFTER AN ALLERGIC REACTION RADIATION DOSAGE (If Supplied By Facility): CTDIvol = ( 29.38 ) mGy, DLP = ( 1359.37 ) mGycm TECHNIQUE: The patient was scanned in a multi detector CT scanner. Transaxial imaging was performed prior to and following the administration of 100ML ISOVUE 300. Sagittal and coronal images were reconstructed. Individualized dose optimization techniques were used for this CT. COMPARISON: None. FINDINGS: There is diffuse soft tissue swelling involving the lower lobe with severe edema/fluid accumulation extending to near the anterior skin surface. Area of mild remote enhancement seen therefore with possible early abscess formation. This measures approximately 4.7 cm in transverse dimension by 1.3 cm in AP dimension. There is lesser degree of edema involving the upper lip. Remainder of the soft tissues of the face reveal minimal edema otherwise unremarkable. Normal orbital hughes and orbital contents. Normal nasal bones and anterior nasal spine. Normal facial bones. There is no demonstrated fracture. Normal visualized paranasal sinuses. CT/Sinus/Facial Bone W/WO Contras IMPRESSION: Possible early abscess formation of the lower lip with diffuse edema at this level as described above. Clinical correlation recommended. Electronically Signed: Marylou Bergeron MD at 2:28 EST , Service support ,
--- NOTE | 2019-11-04 00:42 | PCM.HOSP.N ---
Hospitalist Note Patient with increased edema of the lower lip, confirmed per staff who have been seen the patient for several days, noticed to have occurred within the last 3 hours, following clindamycin thus unclear if possible etiology. Patient lower lip with more firm area palpated on the patient left side, open region of purulent drainage more medially and proximal, airway intact with no evidence of compromise. Discussed case following evaluation of patient with Dr. Munoz, ENT and following discussions agreed to obtain CT face, discontinue clindamycin, maintain n.p.o. status, continue on IV fluids, transition to IV Solu-Medrol, IV famotidine and IV Benadryl given concerns for recurrence of possible [place] to antibiotics versus worsening possible infection in the region.
--- NOTE | 2019-11-04 00:58 | NURSING ---
Pt concerned as swelling of lip has increased in size. pt feels swollen inside his mouth now starting to extended to upper lips. feels like his throat is itchy. this RN has noted swelling has increased since 1930hrs. pustule closest to jaw, not very visible at 1930hrs now very visible and increased in size. swelling of lip has increased in size. Pt complaining his speech has worsened. This RN concurs that his speech is not as clear as earlier assessment. contacted Dr Diaz who reviewed new medications given to pt today, clindamycin discontinued for now. gave pt IV solumedrol, benadryl and famotidine. Contacted Dr Munoz and updated him. Advised Dr Munoz that pt had been expressing pus out of lip around 1900hrs. Dr Munoz did not alter any medications or give new orders. Explained Dr Diaz would be reviewing pt and would contact him for discussion. Dr Diaz reviewed pt and discussed with Dr Munoz and CT scan ordered. Pt on way to radiology at this time with [facility]. Swelling has not increased further at this time and no further complaints of itchy throat.
[2019-11-04] MEDS: hydrALAZINE 25 MG Tablet PO ×3 (05:35→22:06)
[2019-11-04] MEDS: 0.9% Normal Saline 1,000 ML 125 ML IV (05:41)
[2019-11-04] MEDS: Insulin Lispro 100 UNIT/ML INSULN.PEN SC ×4 (06:39→22:14)
[2019-11-04 06:47] LABS: Absolute Lymphocyte Count 2.81 X10^3/uL (0.83-4.51); Absolute Neutrophil Count 9.4 X10^3/uL (2.0-7.7); Basophil# 0.05 X10^3/uL; Basophil% 0.3 % (0-1); Eosinophil# 0.01 X10^3/uL; Eosinophils% 0.1 % (0-5); Hematocrit 50.5 % (40-54); Hemoglobin 16.8 g/dL (13.0-16.5); Lymphocyte # 2.81 X10^3/ul (4.0); Lymphocyte % 19.2 % (19-41); Mean Corp Hgb Conc 33.3 g/dL (32-36); Mean Corpuscular Hgb 27.9 pg (27.0-32.0); Mean Corpuscular Volume 83.7 fL (80-94); Mean Platelet Vol. 12.3 fl (6.2-12.0); Monocyte# 2.23 X10^3/uL; Monocyte% 15.3 % (0-10); NRBC Flagged by Analyzer 0 % (0-5); Neutrophil # 9.37 X10^3/uL (2.7-7.7); POSITIVE DIFFERENTIAL YES; Platelet Count 190 K/mm3 (150-450); RBC Distribution Width SD 42.1 fl (35.1-43.9); Red Blood Count 6.03 M/mm3 (4.6-6.2); White Blood Count 14.6 K/mm3 (4.4-11.0)
[2019-11-04 06:56] LABS: Bedside Glucose 222 mg/dL (70-110)
[2019-11-04 07:12] LABS: Anion Gap 7 (5-15); BUN 17 mg/dL (7-18); BUN/Creat Ratio 18.5 RATIO (10-20); Chloride 96 mmol/L (98-107); Creatinine, Serum 0.92 mg/dL (0.70-1.30); EST Glomerular Filtration Rate 101 mL/min (>60); Est Glom Filt Rate - Afr Amer 122 mL/min (>60); Estimated Creatinine Clearance 122.77 ml/min; Glucose 201 mg/dL (74-106); Potassium 4.3 mmol/L (3.5-5.1); Sodium Level 131 mmol/L (136-145)
[2019-11-04 07:17] LABS: Differential Indicated SCAN CRITERIA MET
[2019-11-04 07:18] LABS: Neutrophil % 64.2 % (47-70)
[2019-11-04 07:57] LABS: Red Cell Morphology NORM C+C NORMAL (NORM C&C)
[2019-11-04 07:58] LABS: Platelet Estimate ADEQUATE (ADEQ)
--- NOTE | 2019-11-04 08:19 | PCM.PN.INT ---
Subjective: Patient did okay overnight. Patient was seen by Dr. Harrison and was able to have pus expressed from the lip. CT scan confirmed results. Patient did receive 2 doses of clindamycin overnight, but this was discontinued and patient was made n.p.o. for possible surgery. Patient denies any respiratory complaints. No coughing has been reported. General: Alert, Oriented x3, Cooperative, No apparent distress, Well developed, Well nourished, - - No conversational dyspnea. HEENT: Atraumatic, PERRLA, EOMI, Normocephalic, - - Significant enlargement of the lower lip with area of granulation Oral: No Gingival or Mucosal Lesions/ Ulcerations, Dry Mucosa Neck: Supple, No JVD, No Nodes, Trachea Midline, - - No stridor appreciated Lungs: Clear to auscultation, Normal air movement, No rhonchi, No wheeze, No rales, - - Symmetric expansion. No dullness to percussion. Cardiovascular: Regular rate, Regular Rhythm, Normal S1, Normal S2, No murmurs, No rub noted, No Gallop Abdomen: Bowel Sounds Present, Soft, Non Tender, Non-Distended Extremities: No clubbing, No cyanosis, No edema, Capillary Refill Less than 3 Seconds Skin: No rashes, No breakdown Musculoskeletal: No Tenderness to Palpation of Joints or Extremities Lymphatic: No Cervical, Supraclavicular, or Inguinal Adenopathy Neurological: Cranial nerves II-XII grossly intact, Neuro grossly intact, Motor Exam 5/5 strength throughout Psych/Mental Status: Alert and oriented to time, place, person, mood and affect Vital Signs Temp Pulse Resp BP Pulse Ox 37.1 C 111 H 16 158/101 H 97 11/04/19 07:28 11/04/19 07:28 11/04/19 07:28 11/04/19 07:28 11/04/19 07:28 Oxygen Flow Rate (L/min) 2 Oxygen Delivery Method Room Air Weight: 91.1 kg Body Mass Index (BMI) 30.7 Intake and Output for Last 24 Hours 11/02/19 11/03/19 11/04/19 23:59 23:59 23:59 Intake Total 1889 2265.33 / 2465.33 1086.67 / 1086.67 Balance 1889 2265.33 / 2465.33 1086.67 / 1086.67 Labs (Last 48 Hours) 11/02/19 11/02/19 11/02/19 08:30 08:30 11:58 WBC 14.3 H RBC 5.88 Hgb 16.2 Hct 47.9 MCV 81.5 MCH 27.6 MCHC 33.8 RDW Std Deviation 40.0 RDW Coeff of Maria A 13.7 Plt Count 174 MPV 11.7 Immature Gran % (Auto) 1.500 H Neut % (Auto) 76.5 H Lymph % (Auto) 9.8 L [place] % (Auto) 12.0 H Eos % (Auto) 0.0 Baso % (Auto) 0.2 Absolute Neuts (auto) 10.9 H Absolute Lymphs (auto) 1.40 Nucleated RBC % 0 Differential Comment Diff Path Review May foll Platelet Estimate ADEQUATE Plt Morphology Comment LARGE RBC Morphology NORM C+C Sodium 135 L Potassium 4.3 Chloride 101 Carbon Dioxide 28.0 Anion Gap 6 BUN 18 Creatinine 0.94 Estim Creat Clear Calc 120.16 Est GFR (MDRD) Af Amer 120 Est GFR (MDRD) Non-Af 99 BUN/Creatinine Ratio 19.2 Glucose 171 H Calcium 9.3 POC Glucose 215 H 11/02/19 11/02/19 11/03/19 16:47 21:53 06:13 WBC RBC Hgb Hct MCV MCH MCHC RDW Std Deviation RDW Coeff of Maria A Plt Count MPV Immature Gran % (Auto) Neut % (Auto) Lymph % (Auto) [place] % (Auto) Eos % (Auto) Baso % (Auto) Absolute Neuts (auto) Absolute Lymphs (auto) Nucleated RBC % Differential Comment Diff Path Review Platelet Estimate Plt Morphology Comment RBC Morphology Sodium Potassium Chloride Carbon Dioxide Anion Gap BUN Creatinine Estim Creat Clear Calc Est GFR (MDRD) Af Amer Est GFR (MDRD) Non-Af BUN/Creatinine Ratio Glucose Calcium POC Glucose 240 H 344 H 214 H 11/03/19 11/03/19 11/03/19 06:29 06:29 11:39 WBC 14.7 H RBC 6.36 H Hgb 17.3 H Hct 51.8 MCV 81.4 MCH 27.2 MCHC 33.4 RDW Std Deviation 40.6 RDW Coeff of Maria A 14.3 Plt Count 196 MPV 12.2 H Immature Gran % (Auto) 1.800 H Neut % (Auto) 73.0 H Lymph % (Auto) 11.6 L [place] % (Auto) 13.5 H Eos % (Auto) 0.0 Baso % (Auto) 0.1 Absolute Neuts (auto) 10.7 H Absolute Lymphs (auto) 1.70 Nucleated RBC % 0 Differential Comment Diff Path Review May foll Platelet Estimate ADEQUATE Plt Morphology Comment RBC Morphology NORM C+C Sodium 129 L Potassium 4.2 Chloride 95 L Carbon Dioxide 29.0 Anion Gap 5 BUN 20 H Creatinine 1.04 Estim Creat Clear Calc 108.61 Est GFR (MDRD) Af Amer 106 Est GFR (MDRD) Non-Af 88 BUN/Creatinine Ratio 19.2 Glucose 205 H Calcium 9.4 POC Glucose 332 H 11/03/19 11/03/19 11/03/19 17:19 18:40 22:21 WBC RBC Hgb Hct MCV MCH MCHC RDW Std Deviation RDW Coeff of Maria A Plt Count MPV Immature Gran % (Auto) Neut % (Auto) Lymph % (Auto) [place] % (Auto) Eos % (Auto) Baso % (Auto) Absolute Neuts (auto) Absolute Lymphs (auto) Nucleated RBC % Differential Comment Diff Path Review Platelet Estimate Plt Morphology Comment RBC Morphology Sodium 130 L Potassium 4.6 Chloride 95 L Carbon Dioxide 28.0 Anion Gap 7 BUN 26 H Creatinine 1.20 Estim Creat Clear Calc 94.13 Est GFR (MDRD) Af Amer 90 Est GFR (MDRD) Non-Af 74 BUN/Creatinine Ratio 21.7 H Glucose 309 H Calcium 9.4 POC Glucose 299 H 205 H 11/04/19 11/04/19 11/04/19 06:10 06:10 06:38 WBC 14.6 H RBC 6.03 Hgb 16.8 H Hct 50.5 MCV 83.7 MCH 27.9 MCHC 33.3 RDW Std Deviation 42.1 RDW Coeff of Maria A 14.0 Plt Count 190 MPV 12.3 H Immature Gran % (Auto) 0.900 Neut % (Auto) 64.2 Lymph % (Auto) 19.2 [place] % (Auto) 15.3 H Eos % (Auto) 0.1 Baso % (Auto) 0.3 Absolute Neuts (auto) 9.4 H Absolute Lymphs (auto) 2.81 Nucleated RBC % 0 Differential Comment COMMENT Diff Path Review May foll Platelet Estimate ADEQUATE Plt Morphology Comment RBC Morphology NORM C+C Sodium 131 L Potassium 4.3 Chloride 96 L Carbon Dioxide 28.0 Anion Gap 7 BUN 17 Creatinine 0.92 Estim Creat Clear Calc 122.77 Est GFR (MDRD) Af Amer 122 Est GFR (MDRD) Non-Af 101 BUN/Creatinine Ratio 18.5 Glucose 201 H Calcium 9.0 POC Glucose 222 H Clinical Impression(s) from Imaging Studies Facial/Sinus 11/04/19 00:40 IMPRESSION: Possible early abscess formation of the lower lip with diffuse edema at this level as described above. Clinical correlation recommended. Electronically Signed: Marylou Bergeron MD at 2:28 EST , Service support , Medical Necessity - Tobacco Use Smoking Status: Never smoker Assessment/Plan All Active Problems Angioedema (Acute) Idiopathic angioedema (Acute) Acute hypoxic respiratory failure (Acute) RECOMMENDATIONS: 1. Await results of C4 complement, C1 esterase inhibitor protein levels and function and Food Allergen RAST profile. 2. Continue steroids and Pepcid to complete a 5-day course. 3. Await ENT recommendations. 4. Patient should complete a total of 5 days of therapy for angioedema 5. Outpatient paper roll machine operator referral. The patient needs to establish care with a primary care physician as well. 6. Encourage incentive spirometer use and mobilize patient as tolerated. 7. Hemodynamically stable on room air. Will sign off from a critical care perspective IMPRESSIONS: 1. 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 Patient is on IV Benadryl, Pepcid and steroids. Patient was extubated and has no stridor at this time. Patient does have hereditary angioedema work-up currently pending. Would recommend outpatient paper roll machine operator referral. 2. Reported seizure activity The patient was reported to have experienced questionable seizure activity in the emergency department. However, upon further discussion with emergency department staff, the seizure-like activity was noted after the patient was administered etomidate for intubation. The patient has no known history of epilepsy. Reported movements may be secondary to a known side effect of etomidate. Patient could have an outpatient work-up. 3. Probable lower lip abscess Patient has been seen by ENT. Patient was placed on clindamycin and did receive 2 doses. This was held overnight for unclear reasons. Dr. Harrison with ENT is to see the patient today and evaluate on possible surgical intervention. Patient is not currently on antibiotics. Defer to ENT. Code Visit Inpatient E&M: 66772 Subs Hosp L2
[2019-11-04] MEDS: Morphine 2 MG/ML Syringe IV ×3 (09:44→18:34)
[2019-11-04] MEDS: Famotidine 200 MG/20 ML MDV 20 MG in 0.9% Normal Saline (Pres. free 8 ML 10 MG IV (09:44)
--- NOTE | 2019-11-04 10:15 | PN_ITS ---
Patient Problems: Active and Suspected Problems Seizure (Suspected) Idiopathic angioedema (Acute) Acute hypoxic respiratory failure (Acute) Subjective: Chief complaint: Follow-up after admission for idiopathic recurrent angioedema complicated by acute respiratory failure status post extubation and probable lower lip abscess. Patient seen and examined. This morning, nursing staff reported that the swelling of the lower lip is getting worse. Patient denies any worsening shortness of breath. He denied worsening difficulty swallowing. He denied fever or chills. CT scan of the facial bones and sinuses revealed possible early abscess formation of the lower lip with diffuse edema. Awaiting ENTs to see the patient. Blood pressure slightly related, other vital signs are stable. - Physical Exam Vitals/I&O's: Vital Signs Temp Pulse Resp BP Pulse Ox 98.7 F 111 H 16 158/101 H 97 11/04/19 07:28 11/04/19 07:28 11/04/19 07:28 11/04/19 07:28 11/04/19 07:28 Oxygen Flow Rate (L/min) 2 Oxygen Delivery Method Room Air Weight: 200 lb 13.458 oz Body Mass Index (BMI) 30.7 Intake and Output for Last 24 Hours 11/02/19 11/03/19 11/04/19 23:59 23:59 23:59 Intake Total 189 / 1890 2265.33 / 2465.33 1086.67 / 1086.67 Balance 1890 / 1890 2265.33 / 2465.33 1086.67 / 1086.67 General: Alert, Oriented x3, Cooperative, No apparent distress HEENT: Atraumatic, PERRLA, EOMI, Normocephalic Oral: Moist Mucosa, No Gingival or Mucosal Lesions/ Ulcerations, - - Lower lip: Hugely swollen, erythematous with a small pulse points on the inner aspect. Neck: Supple, No JVD, Negative Carotid Bruits, Trachea Midline, Thyroid Normal Size and Texture Lungs: Clear to auscultation, Normal air movement, No rhonchi, No wheeze, No rales, Diminished Cardiovascular: Regular rate, Regular Rhythm, Normal S1, Normal S2, PMI Normal Abdomen: Bowel Sounds Present, Soft, Non Tender, Non-Distended, No Hepato- splenomegaly Extremities: No clubbing, No cyanosis, No edema Skin: No rashes, No breakdown Lymphatic: No Cervical, Supraclavicular, or Inguinal Adenopathy Neurological: Cranial nerves II-XII grossly intact, Motor Exam 5/5 strength throughout Psych/Mental Status: Normal Affect, Appropriate, Alert and oriented to time, place, person, mood and affect Laboratory Results 11/03/19 11:39: POC Glucose 332 H 11/03/19 17:19: POC Glucose 299 H 11/03/19 18:40: Sodium 130 L, Potassium 4.6, Chloride 95 L, Carbon Dioxide 28.0, Anion Gap 7, BUN 26 H, Creatinine 1.20, Estim Creat Clear Calc 94.13, Est GFR (MDRD) Af Amer 90, Est GFR (MDRD) Non-Af 74, BUN/Creatinine Ratio 21.7 H, Glucose 309 H, Calcium 9.4 11/03/19 22:21: POC Glucose 205 H 11/04/19 06:10: WBC 14.6 H, RBC 6.03, Hgb 16.8 H, Hct 50.5, MCV 83.7, MCH 27.9, MCHC 33.3, RDW Std Deviation 42.1, RDW Coeff of Maria A 14.0, Plt Count 190, MPV 12.3 H, Immature Gran % (Auto) 0.900, Neut % (Auto) 64.2, Lymph % (Auto) 19.2, [place] % (Auto) 15.3 H, Eos % (Auto) 0.1, Baso % (Auto) 0.3, Absolute Neuts (auto) 9.4 H, Absolute Lymphs (auto) 2.81, Nucleated RBC % 0, Differential Comment COMMENT, Diff Path Review May brian, Platelet Estimate ADEQUATE, RBC Morphology NORM C+C 11/04/19 06:10: Sodium 131 L, Potassium 4.3, Chloride 96 L, Carbon Dioxide 28.0, Anion Gap 7, BUN 17, Creatinine 0.92, Estim Creat Clear Calc 122.77, Est GFR (MDRD) Af Amer 122, Est GFR (MDRD) Non-Af 101, BUN/Creatinine Ratio 18.5, Glucose 201 H, Calcium 9.0 11/04/19 06:38: POC Glucose 222 H Clinical Impression(s) from Imaging Studies Chest X-Ray 10/29/19 08:10 IMPRESSION: The tip of the endotracheal tube is at the level of the ellyn. This should be withdrawn approximately 2 cm. The tip of the orogastric tube is in the fundal portion of the stomach. Mild increased markings at the lung bases suggestive of atelectasis. Electronically Signed: Kwabena Kia, at 9:18 EST , Service support , Brain CT 10/29/19 08:20 IMPRESSION: No intracranial abnormality is seen. Soft tissue prominence of the nasal structure as well as soft tissue density within the nasal cavity. Electronically Signed: Kwabena Adam, at 9:46 EST , Service support , Facial/Sinus 11/04/19 00:40 IMPRESSION: Possible early abscess formation of the lower lip with diffuse edema at this level as described above. Clinical correlation recommended. Electronically Signed: Marylou Bergeron MD at 2:28 EST , Service support , Current Medications Acetaminophen (Tylenol) 650 mg PO Q6H PRN PRN PRN Reason: Pain Score 1-3 /Temp>100.7 Albuterol Sulfate (Ventolin Aerosols) 2.5 mg INHALATION Q2H PRN PRN PRN Reason: SOB/Wheezing Chlorhexidine Gluconate () 1 each TOPICAL DAILY COUNTS INCLUDE 234 BEDS AT THE [facility] Last Admin: 11/04/19 10:08 Dose: Not Given Documented by: Diphenhydramine HCl (Benadryl) 25 mg IV Q8H COUNTS INCLUDE 234 BEDS AT THE [facility] Last Admin: 11/04/19 07:36 Dose: 25 mg Documented by: Enoxaparin Sodium (Lovenox) 40 mg SC DAILY COUNTS INCLUDE 234 BEDS AT THE [facility] Last Admin: 11/04/19 10:09 Dose: Not Given Documented by: Glucagon () 1 mg IM .X1 PRN PRN Reason: Hypoglycemia Hydralazine HCl (Apresoline Iv) 10 mg IV Q4H PRN PRN PRN Reason: sbp>180 MMHG Hydralazine HCl (Apresoline) 25 mg PO TID COUNTS INCLUDE 234 BEDS AT THE [facility] Last Admin: 11/04/19 05:35 Dose: 25 mg Documented by: Sodium Chloride () 250 mls @ 15 mls/hr IV .[id number] PRN PRN Reason: Saline Flush Sodium Chloride () 250 mls @ 15 mls/hr IV .[id number] PRN PRN Reason: Additional IVPB Infusion Dextrose (Dextrose 10%-Water) 250 mls @ 999 mls/hr IV .Q16M PRN; Protocol PRN Reason: HYPOGLYCEMIA Famotidine 20 mg/ Sodium (Chloride) 10 mls @ 300 mls/hr IV Q12 COUNTS INCLUDE 234 BEDS AT THE [facility] Last Admin: 11/04/19 09:44 Dose: 10 mls/hr Documented by: Sodium Chloride () 1,000 mls @ 125 mls/hr IV .Q8H COUNTS INCLUDE 234 BEDS AT THE [facility] Last Admin: 11/04/19 05:41 Dose: 125 mls/hr Documented by: Insulin Human Lispro (Humalog Kwikpen (Bkc)) 0 unit SC ACHS COUNTS INCLUDE 234 BEDS AT THE [facility]; Protocol Last Admin: 11/04/19 06:39 Dose: 2 u Documented by: Lactobacillus Acidophilus (Acidophilus) 1 tablet PO BID COUNTS INCLUDE 234 BEDS AT THE [facility] Last Admin: 11/04/19 10:08 Dose: Not Given Documented by: Lidocaine/Diphenhydr/Alum/Mg/Simeth () 20 ml PO Q3H PRN PRN PRN Reason: BURNING ORAL SORE Last Admin: 11/03/19 19:06 Dose: 20 ml Documented by: Lorazepam (Ativan) 1 mg PO TID PRN PRN Reason: ANXIETY Last Admin: 11/03/19 23:03 Dose: 1 mg Documented by: Methylprednisolone (Solu-Medrol) 40 mg IV Q8 COUNTS INCLUDE 234 BEDS AT THE [facility] Last Admin: 11/04/19 05:35 Dose: 40 mg Documented by: Morphine Sulfate () 2 mg IV Q3H PRN PRN PRN Reason: Pain Score 6-10/10 Last Admin: 11/04/19 09:44 Dose: 2 mg Documented by: Nitroglycerin (Nitrostat) 0.4 mg SUBLINGUAL Q5M PRN PRN Reason: CARDIAC/CHEST PAIN Ondansetron HCl (Zofran) 4 mg IV Q8H PRN PRN PRN Reason: NAUSEA/VOMITING Oxycodone HCl (Oxyir) 5 mg PO Q4H PRN PRN PRN Reason: Pain Score 4-5/10 Last Admin: 11/03/19 23:03 Dose: 5 mg Documented by: Polyethylene Glycol (Miralax) 17 gm PO DAILY PRN PRN Reason: contipation Senna/Docusate Sodium (Senokot-S, Dayna-Colace) 1 tablet PO BID BERTA Last Admin: 11/04/19 10:09 Dose: Not Given Documented by: Sodium Chloride () 10 - 40 ml IV UD PRN PRN Reason: SALINE FLUSH Last Admin: 11/04/19 05:35 Dose: 10 ml Documented by: Sodium Chloride () 10 - 40 ml IV UD PRN PRN Reason: SALINE FLUSH Medical Necessity - Tobacco Use Smoking Status: Never smoker Assessment/Plan All Active Problems Angioedema (Acute) Idiopathic angioedema (Acute) Acute hypoxic respiratory failure (Acute) This is a 34 years old male patient presented to the emergency room because of change in voice, difficulty swallowing and swelling of the mouth and tongue in context of recent discharge from the hospital after admission for angioedema, was intubated and admitted to intensive care unit for idiopathic angioedema and also found to have probable lower lip abscess. #1 idiopathic recurrent angioedema: Status post extubation, he is on IV Solu- Medrol, IV Benadryl and IV famotidine. This morning, nursing staff reported that lip swelling is getting worse. Patient was seen and evaluated by ENT, stated no evidence of significant worsening of the lip swelling. Is respiratory status stable, pulse ox is maintained on room air, other vital signs are stable. Complement C4 and C1 esterase inhibitor are pending. ENT on the case. Plan to continue same treatment. #2 acute respiratory failure: Status post extubation, respiratory status been stable. Pulse ox is maintained on room air. This is attributed to angioedema of the upper airway. He is on IV steroids, IV Benadryl and IV Pepcid as above. Plan as above. #3 reported seizure activity: Attributed to etomidate that was given for intubation. He has no seizure since then. #4 probable lower lip abscess: CT scan face and facial bones today done and reviewed. ENT mentioned that his lips is not getting any more swollen than before. There is some pus points on the inner aspect of the lower lip. Culture of the lower lip drainage revealed staph aureus. ENT is on the case. Plan: Start IV Unasyn. #5 hyperglycemia: Probably due to IV steroids. No history of diabetes, hemoglobin A1c is 6.4%. Patient has been on sliding scale. #6 DVT prophylaxis: Subcu Lovenox. This note was generated with [employer] dictation software. It may contain incorrect words, spelling, and punctuation that were not noted in checking the note before signing. Code Visit Inpatient E&M: 32023 Subs Hosp L2
[2019-11-04] MEDS: oxyCODONE 5 MG Tablet PO ×2 (10:59→20:10)
[2019-11-04] MEDS: Acetaminophen 325 MG Tablet 650 MG PO ×2 (10:59→20:10)
[2019-11-04 11:20] LABS: Bedside Glucose 253 mg/dL (70-110)
[2019-11-04] MEDS: Tetracaine/Benzocaine/Butamben 1 APPLIC TOPICAL (13:28)
--- NOTE | 2019-11-04 13:34 | PCM.PN.BLA ---
Progress Note The patient reports less pain from his lip although it is still painful. It continues to ooze pus. avss Lip is SMALLER than yesterday (less erythema and edema) although still quite edematous. I was able to manually express some purulence from the opening. I then numbed the lip with topical cetacaine spray. I then explored the opening with a sterile culture swab (q tip). There is no abscess cavity. The depth of the opening is very superficial. (half the size of a qtip). NO further purulence was expressed. A: lip cellulitis/abscess angioedema P: continue IV antibiotics. Gram stain is showing gram positive cocci. Discussed the case with the Dr. Encarnacion. STROKE Vital Signs/Narrative: Vital Signs Temp Pulse Resp BP Pulse Ox 11/04/19 11:22 98.5 F 94 16 146/101 H 98
[2019-11-04 14:05] LABS: Pathologist Review Reviewed
[2019-11-04 14:14] LABS: Pathologist Review Reviewed
--- NOTE | 2019-11-04 14:35 | PCM.HP.ID ---
Problem List (1) Angioedema Status: Acute Qualifiers: Encounter type: initial encounter Qualified Code(s): T78.3XXA - Angioneurotic edema, initial encounter Reason for Consult: lip abscess Consulted by: Dr. Darnell History of Present Illness: The patient is a 34 year old M presented last week with sudden onset lip swelling, discharged 10/28 after treatment for angioedema, came back 10/29 with worsening and throat swelling. Intubated, now off vent. Seen by ENT, had purulence expressed from lip yesterday, cx now showing staph. Denies fever. No prior h/o MRSA but has had skin abscess in the past. Has some impacted molars. Full ROS performed and neg except as noted above. - Medical History Past Medical History (Chronic Problems): Chronic Problems Anxiety and depression (Chronic) Allergies/Adverse Reactions: Allergies etomidate Adverse Reaction (Verified 11/03/19 15:37) Other Seizure-Tonic Clonic Home Medications: Ambulatory Orders Medication Instructions Recorded Lorazepam [Ativan] 1 mg PO TID PRN #15 tab 10/24/19 DiphenhydrAMINE [Benadryl] 25 mg PO Q8H #20 cap 10/28/19 Famotidine [Pepcid] 20 mg PO BID #14 tab 10/28/19 MethylPREDNISolone DosePak [Medrol 4 mg PO UD #1 box 10/28/19 DosePak] - Social History Tobacco Use: non-smoker Vital Signs Temp Pulse Resp BP Pulse Ox 98.3 F 91 16 141/95 H 97 11/04/19 14:28 11/04/19 14:28 11/04/19 14:28 11/04/19 14:28 11/04/19 14:28 Oxygen Flow Rate (L/min) 2 Oxygen Delivery Method Room Air Weight: 91.1 kg Body Mass Index (BMI) 30.7 Microbiology Past 72 Hours 11/03/19 11:25 Gram Stain - Final Wound Abcess - Oral Wound Culture - Preliminary Staphylococcus aureus Laboratory Tests Past 24 Hrs 11/02/19 11/03/19 11/03/19 08:30 06:29 18:40 WBC RBC Hgb Hct MCV MCH MCHC RDW Std Deviation RDW Coeff of Maria A Plt Count MPV Immature Gran % (Auto) Neut % (Auto) Lymph % (Auto) [place] % (Auto) Eos % (Auto) Baso % (Auto) Absolute Neuts (auto) Absolute Lymphs (auto) Nucleated RBC % Differential Comment Diff Path Review Reviewed Reviewed Platelet Estimate RBC Morphology Sodium 130 L Potassium 4.6 Chloride 95 L Carbon Dioxide 28.0 Anion Gap 7 BUN 26 H Creatinine 1.20 Estim Creat Clear Calc 94.13 Est GFR (MDRD) Af Amer 90 Est GFR (MDRD) Non-Af 74 BUN/Creatinine Ratio 21.7 H Glucose 309 H Calcium 9.4 11/04/19 11/04/19 06:10 06:10 WBC 14.6 H RBC 6.03 Hgb 16.8 H Hct 50.5 MCV 83.7 MCH 27.9 MCHC 33.3 RDW Std Deviation 42.1 RDW Coeff of Maria A 14.0 Plt Count 190 MPV 12.3 H Immature Gran % (Auto) 0.900 Neut % (Auto) 64.2 Lymph % (Auto) 19.2 [place] % (Auto) 15.3 H Eos % (Auto) 0.1 Baso % (Auto) 0.3 Absolute Neuts (auto) 9.4 H Absolute Lymphs (auto) 2.81 Nucleated RBC % 0 Differential Comment COMMENT Diff Path Review May foll Platelet Estimate ADEQUATE RBC Morphology NORM C+C Sodium 131 L Potassium 4.3 Chloride 96 L Carbon Dioxide 28.0 Anion Gap 7 BUN 17 Creatinine 0.92 Estim Creat Clear Calc 122.77 Est GFR (MDRD) Af Amer 122 Est GFR (MDRD) Non-Af 101 BUN/Creatinine Ratio 18.5 Glucose 201 H Calcium 9.0 - Other Studies Radiology: [] reviewed Other Studies: [] Route of nutrition/ use of supplements: [] Nutritional Intake: [] IV Site: [] Berry Catheter: [] - Physical Exam General: Alert, Oriented x3, Cooperative, No apparent distress HEENT: Atraumatic, PERRLA, EOMI, - - Lip swelling Neck: Supple, No Nodes Lungs: Clear to auscultation, Normal air movement Cardiovascular: Regular rate, Regular Rhythm Abdomen: Soft, Non Tender, Non-Distended Extremities: No edema Skin: No rashes IV Site: Peripheral, without redness Musculoskeletal: No Tenderness to Palpation of Joints or Extremities Neurological: Cranial nerves II-XII grossly intact - Assessment/Plan Antibiotics: [] Assessment/Plan: [] Active and Suspected Problems Seizure (Suspected) Idiopathic angioedema (Acute) Acute hypoxic respiratory failure (Acute) Lip abscess - on unasyn, ENT following. Cx showing staph aureus, will add vanc for now. Will follow, thank you
--- NOTE | 2019-11-04 17:51 | PCM.RX.CS ---
Consult Pharmacy has been consulted to manage selected antiobiotic: Vancomycin Type of Consult: New start Labs: Sodium 131 mmol/L (136-145) L 11/04/19 06:10 Potassium 4.3 mmol/L (3.5-5.1) 11/04/19 06:10 Chloride 96 mmol/L (98-107) L 11/04/19 06:10 Carbon Dioxide 28.0 mmol/L (21.0-32.0) 11/04/19 06:10 Anion Gap 7 (5-15) 11/04/19 06:10 BUN 17 mg/dL (7-18) 11/04/19 06:10 Creatinine 0.92 mg/dL (0.70-1.30) 11/04/19 06:10 Est GFR (MDRD) Af Amer 122 mL/min (>60) 11/04/19 06:10 Est GFR (MDRD) Non-Af 101 mL/min (>60) 11/04/19 06:10 BUN/Creatinine Ratio 18.5 RATIO (10-20) 11/04/19 06:10 Glucose 201 mg/dL (74-106) H 11/04/19 06:10 Microbiology: Microbiology 11/03/19 11:25 Wound Abcess - Oral Gram Stain - Final 11/03/19 11:25 Wound Abcess - Oral Wound Culture - Preliminary Staphylococcus aureus Weight used for dosin kg Estimated Creatinine Clearance: > 100 Goal Trough: 10-15 mcg/mL Pharmacy Plan for Drug Dosinmg IV x1 followed by 1500mg IV q12h and trough prior to 4th dose per policy. Pharmacy Service will continue to monitor and adjust dosing as required. Follow-Up Labs: Trough Vancomycin - 11/06 @ 4253
[2019-11-04 22:00] LABS: Bedside Glucose 197 mg/dL (70-110)
[2019-11-04] MEDS: Senna/Docusate Sodium 1 Tablet PO (22:06)
[2019-11-04 22:56] LABS: Bedside Glucose 282 mg/dL (70-110)
[2019-11-05] VITALS (8 sets, daily range): BP systolic 130–141; BP diastolic 74–88; PULSE 74–116; RESP 16–18; TEMP 36.4–37.1; O2SAT 95–100
[2019-11-05] MEDS: Acetaminophen 325 MG Tablet 650 MG PO (03:16)
[2019-11-05] MEDS: oxyCODONE 5 MG Tablet PO ×2 (03:16→23:45)
[2019-11-05] MEDS: hydrALAZINE 25 MG Tablet PO ×3 (05:29→21:09)
[2019-11-05 06:10] LABS: Absolute Lymphocyte Count 1.87 X10^3/uL (0.83-4.51); Absolute Neutrophil Count 9.2 X10^3/uL (2.0-7.7); Basophil# 0.02 X10^3/uL; Basophil% 0.2 % (0-1); Hematocrit 47.9 % (40-54); Hemoglobin 15.3 g/dL (13.0-16.5); Lymphocyte # 1.87 X10^3/ul (4.0); Mean Corp Hgb Conc 31.9 g/dL (32-36); Mean Corpuscular Hgb 26.7 pg (27.0-32.0); Mean Corpuscular Volume 83.7 fL (80-94); Mean Platelet Vol. 12.2 fl (6.2-12.0); Monocyte# 1.29 X10^3/uL; Monocyte% 10.3 % (0-10); NRBC Flagged by Analyzer 0 % (0-5); Neutrophil # 9.21 X10^3/uL (2.7-7.7); Neutrophil % 73.9 % (47-70); Platelet Count 181 K/mm3 (150-450); RBC Distribution Width CV 14.3 % (11.6-14.6); RBC Distribution Width SD 43.3 fl (35.1-43.9); Red Blood Count 5.72 M/mm3 (4.6-6.2); White Blood Count 12.5 K/mm3 (4.4-11.0)
[2019-11-05] MEDS: Insulin Lispro 100 UNIT/ML INSULN.PEN SC ×4 (06:20→21:09)
[2019-11-05 06:30] LABS: Anion Gap 8 (5-15); BUN 19 mg/dL (7-18); BUN/Creat Ratio 19.4 RATIO (10-20); Calcium,Total 8.4 mg/dL (8.5-10.1); Chloride 98 mmol/L (98-107); Creatinine, Serum 0.98 mg/dL (0.70-1.30); EST Glomerular Filtration Rate 94 mL/min (>60); Est Glom Filt Rate - Afr Amer 114 mL/min (>60); Estimated Creatinine Clearance 115.26 ml/min; Glucose 226 mg/dL (74-106); Potassium 4.3 mmol/L (3.5-5.1); Sodium Level 132 mmol/L (136-145)
[2019-11-05 06:51] LABS: Bedside Glucose 263 mg/dL (70-110)
[2019-11-05] MEDS: Senna/Docusate Sodium 1 Tablet PO ×2 (08:25→21:09)
[2019-11-05] MEDS: DiphenhydrAMINE 50 MG/ML Syringe 25 MG IV (08:25)
--- NOTE | 2019-11-05 08:25 | PCM.PROGNOTE ---
Patient Problems: Active and Suspected Problems Seizure (Suspected) Idiopathic angioedema (Acute) Acute hypoxic respiratory failure (Acute) Subjective: Chief complaint: Follow-up after admission for idiopathic recurrent angioedema complicated by acute respiratory failure status post extubation and acute lower lip cellulitis and probable abscess. Patient seen and examined. No acute events overnight. Today, his lower lip looks less swollen, smaller in size. He denies fever chills. No other complaints. His vitals are stable. - Physical Exam Vitals/I&O's: Vital Signs Temp Pulse Resp BP Pulse Ox 97.7 F L 101 H 18 139/81 H 96 11/05/19 08:19 11/05/19 08:19 11/05/19 08:19 11/05/19 08:19 11/05/19 08:19 Oxygen Flow Rate (L/min) 2 Oxygen Delivery Method Room Air Weight: 201 lb 0.985 oz Body Mass Index (BMI) 30.7 Intake and Output for Last 24 Hours 11/03/19 11/04/19 11/05/19 23:59 23:59 23:59 Intake Total 2265.33 / 2465.33 3006.50 / 3486.50 1422 / 1422 Balance 2265.33 / 2465.33 3006.50 / 3486.50 1422 / 1422 General: Alert, Oriented x3, Cooperative, No apparent distress HEENT: Atraumatic, PERRLA, EOMI, Normocephalic Oral: Moist Mucosa, No Gingival or Mucosal Lesions/ Ulcerations, - - Lower lip: Swollen, edematous. Neck: Supple, No JVD, Negative Carotid Bruits, Trachea Midline, Thyroid Normal Size and Texture Lungs: Clear to auscultation, Normal air movement, No rhonchi, No wheeze, No rales Cardiovascular: Regular rate, Regular Rhythm, Normal S1, Normal S2, PMI Normal Abdomen: Bowel Sounds Present, Soft, Non Tender, Non-Distended, No Hepato-splenomegaly Extremities: No clubbing, No cyanosis, No edema Skin: No rashes, No breakdown Lymphatic: No Cervical, Supraclavicular, or Inguinal Adenopathy Neurological: Cranial nerves II-XII grossly intact, Neuro grossly intact Psych/Mental Status: Normal Affect, Appropriate, Alert and oriented to time, place, person, mood and affect Microbiology Past 72 Hours 11/03/19 11:25 Wound Abcess - Oral Gram Stain - Final 11/03/19 11:25 Wound Abcess - Oral Wound Culture - Final Meth. resistant Staph. aureus Laboratory Results 11/02/19 08:30: Diff Path Review Reviewed 11/03/19 06:29: Diff Path Review Reviewed 11/04/19 10:55: POC Glucose 253 H 11/04/19 16:22: POC Glucose 197 H 11/04/19 22:14: POC Glucose 282 H 11/05/19 05:54: WBC 12.5 H, RBC 5.72, Hgb 15.3, Hct 47.9, MCV 83.7, MCH 26.7 L, MCHC 31.9 L, RDW Std Deviation 43.3, RDW Coeff of Maria A 14.3, Plt Count 181, MPV 12.2 H, Immature Gran % (Auto) 0.600, Neut % (Auto) 73.9 H, Lymph % (Auto) 15.0 L, [place] % (Auto) 10.3 H, Eos % (Auto) 0.0, Baso % (Auto) 0.2, Absolute Neuts (auto) 9.2 H, Absolute Lymphs (auto) 1.87, Nucleated RBC % 0 11/05/19 05:54: Sodium 132 L, Potassium 4.3, Chloride 98, Carbon Dioxide 26.0, Anion Gap 8, BUN 19 H, Creatinine 0.98, Estim Creat Clear Calc 115.26, Est GFR (MDRD) Af Amer 114, Est GFR (MDRD) Non-Af 94, BUN/Creatinine Ratio 19.4, Glucose 226 H, Calcium 8.4 L 11/05/19 06:18: POC Glucose 263 H Current Medications Acetaminophen (Tylenol) 650 mg PO Q6H PRN PRN PRN Reason: Pain Score 1-3 /Temp>100.7 Last Admin: 11/05/19 03:16 Dose: 650 mg Documented by: Albuterol Sulfate (Ventolin Aerosols) 2.5 mg INHALATION Q2H PRN PRN PRN Reason: SOB/Wheezing Chlorhexidine Gluconate () 1 each TOPICAL DAILY [facility] Last Admin: 11/04/19 10:08 Dose: Not Given Documented by: Enoxaparin Sodium (Lovenox) 40 mg SC DAILY [facility] Last Admin: 11/04/19 10:09 Dose: Not Given Documented by: Glucagon () 1 mg IM .X1 PRN PRN Reason: Hypoglycemia Hydralazine HCl (Apresoline Iv) 10 mg IV Q4H PRN PRN PRN Reason: sbp>180 MMHG Hydralazine HCl (Apresoline) 25 mg PO TID [facility] Last Admin: 11/05/19 05:29 Dose: 25 mg Documented by: Sodium Chloride () 250 mls @ 15 mls/hr IV .[id number] PRN PRN Reason: Saline Flush Sodium Chloride () 250 mls @ 15 mls/hr IV .[id number] PRN PRN Reason: Additional IVPB Infusion Ampicillin Sodium/Sulbactam (Sodium 3 gm/ Sodium Chloride) 112 mls @ 150 mls/hr IV Q8 [facility] Last Infusion: 11/05/19 06:22 Dose: Infused Documented by: Vancomycin IV Pharmacy to Dose (1 ea/ Sodium Chloride) 500 mls @ 250 mls/hr IV PRN PRN; Protocol PRN Reason: Rx to Dose Vancomycin HCl 1,500 mg/ (Sodium Chloride) 530 mls @ 250 mls/hr IV Q12H [facility] Last Infusion: 11/05/19 05:35 Dose: Infused Documented by: Insulin Human Lispro (Humalog Kwikpen (Bkc)) 0 unit SC [facility]; Protocol Last Admin: 11/05/19 06:20 Dose: 2 u Documented by: Lactobacillus Acidophilus (Acidophilus) 1 tablet PO BID [facility] Last Admin: 11/04/19 22:06 Dose: 1 tablet Documented by: Lidocaine/Diphenhydr/Alum/Mg/Simeth () 20 ml PO Q3H PRN PRN PRN Reason: BURNING ORAL SORE Last Admin: 11/03/19 19:06 Dose: 20 ml Documented by: Lorazepam (Ativan) 1 mg PO TID PRN PRN Reason: ANXIETY Last Admin: 11/03/19 23:03 Dose: 1 mg Documented by: Morphine Sulfate () 2 mg IV Q3H PRN PRN PRN Reason: Pain Score 6-10/10 Last Admin: 11/04/19 18:34 Dose: 2 mg Documented by: Nitroglycerin (Nitrostat) 0.4 mg SUBLINGUAL Q5M PRN PRN Reason: CARDIAC/CHEST PAIN Ondansetron HCl (Zofran) 4 mg IV Q8H PRN PRN PRN Reason: NAUSEA/VOMITING Oxycodone HCl (Oxyir) 5 mg PO Q4H PRN PRN PRN Reason: Pain Score 4-5/10 Last Admin: 11/05/19 03:16 Dose: 5 mg Documented by: Polyethylene Glycol (Miralax) 17 gm PO DAILY PRN PRN Reason: contipation Prednisone () 40 mg PO DAILY@0800 [facility] Senna/Docusate Sodium (Senokot-S, Dayna-Colace) 1 tablet PO BID [facility] Last Admin: 11/04/19 22:06 Dose: 1 tablet Documented by: Sodium Chloride () 10 - 40 ml IV UD PRN PRN Reason: SALINE FLUSH Last Admin: 11/04/19 05:35 Dose: 10 ml Documented by: Sodium Chloride () 10 - 40 ml IV UD PRN PRN Reason: SALINE FLUSH Medical Necessity - Tobacco Use Smoking Status: Never smoker Assessment/Plan All Active Problems Angioedema (Acute) Idiopathic angioedema (Acute) Acute hypoxic respiratory failure (Acute) This is a 34 years old male patient presented to the emergency room because of change in voice, difficulty swallowing and swelling of the mouth and tongue in context of recent discharge from the hospital after admission for angioedema, was intubated and admitted to intensive care unit for idiopathic angioedema and also found to have probable lower lip abscess. #1 idiopathic recurrent angioedema: Status post extubation, remained on IV Solu-Medrol, IV Benadryl and IV famotidine. Today, denies any complaints, no shortness of breath or difficulty swallowing. His vital signs are stable, pulse ox is maintained on room air. Complement C4 and C1 esterase inhibitor are pending. Plan: DC IV Solu-Medrol, start oral prednisone, change IV Pepcid to p.o., DC IV Benadryl, start p.o. Benadryl PRN. #2 acute respiratory failure: Status post extubation, respiratory status been stable. Pulse ox is maintained on room air. This is attributed to angioedema of the upper airway. Plan as above. #3 reported seizure activity: Attributed to etomidate that was given for intubation. He has no seizure since then. #4 Acute lower lip cellulitis/probable abscess: He is on IV Unasyn and vancomycin. He has been afebrile, WBC is trending down. CT scan face and facial bones from yesterday reviewed. Culture of the wound on the lower lip revealed MRSA. Appreciate ENT and infectious disease recommendations and help. Will discuss with ID on antibiotic selection and duration. #5 hyperglycemia: Probably due to IV steroids. No history of diabetes, hemoglobin A1c is 6.4%. Patient has been on sliding scale. #6 DVT prophylaxis: Subcu Lovenox. This note was generated with [employer] dictation software. It may contain incorrect words, spelling, and punctuation that were not noted in checking the note before signing. Code Visit Inpatient E&M: 61762 Subs Hosp L2
[2019-11-05] MEDS: Morphine 2 MG/ML Syringe IV (08:38)
[2019-11-05] MEDS: Famotidine 20 MG Tablet PO ×2 (08:51→21:09)
[2019-11-05 08:55] LABS: Chocolate <0.10 kU/L (Class 0)
[2019-11-05 11:06] LABS: Bedside Glucose 252 mg/dL (70-110)
[2019-11-05 12:17] LABS: Pathologist Review Reviewed
[2019-11-05 16:50] LABS: Bedside Glucose 262 mg/dL (70-110)
--- NOTE | 2019-11-05 19:36 | NURSING ---
around 1900 this RN answered bathroom call light. Found patient on floor. Pt stated he was in the restroom and felt weak and dizzy so he lowered himself to the floor instead of him falling. BP 134/78 HR 116 97.8 temp 18 resp 96%. Assisted back to bed with 3 RNs and pt c/o of left thigh cramping. Dr. Estrella made aware of situation. no new orders just stated maybe this is dehydration and to encourage oral fluids and have nightshift RN monitor him. Pt stated he did not hit anything or lose consciousness when he lowered himself to floor. Bed exit on.
[2019-11-05 21:36] LABS: Bedside Glucose 179 mg/dL (70-110)
[2019-11-05] MEDS: LORazepam 1 MG Tablet PO (23:45)
[2019-11-06] VITALS (8 sets, daily range): BP systolic 130–144; BP diastolic 68–79; PULSE 83–110; RESP 16–18; TEMP 36.3–36.9; O2SAT 96–100
--- NOTE | 2019-11-06 01:37 | MRI_ITS ---
STUDY: MRI BRAIN WITHOUT CONTRAST REASON FOR EXAM: Male, 34 years old. dizziness; seizure like activity after medication during intubation d/t angioedema, lower lip abscess TECHNIQUE: Standardized multiplanar fat and water weighted pulse sequences were obtained. COMPARISON: None. FINDINGS: Normal size of the ventricles and extra-axial spaces for the patient''s age. There are a limited number of small white matter hyperintensities, distributed throughout the deep white matter tracts of the cerebral hemispheres, . There is no evidence for recent intracranial ischemia or other cause of cytotoxic edema on diffusion weighted imaging (DWI). Normal T2* images of the brain without demonstrated susceptibility artifact. There is no demonstrated hemosiderin stain. Normal bilateral basal ganglia. Normal thalami. There is no extra-axial fluid accumulation. Normal flow voids within the major intracranial circulation suggesting patency by spin echo criteria. Normal sella turcica, pituitary gland, infundibular stalk, optic chiasm and hypothalamus. Normal tectal plate and pineal gland. Normal midbrain, gustavo and medulla. Normal cerebellum. Normal basal cisterns. Normal bilateral temporal bones. Normal bilateral internal auditory canals. No demonstrated orbital abnormality, within the constraints of a routine brain study. Normal visualized paranasal sinuses. Normal calvarium and skull base. Normal visualized soft tissue structures. Normal visualized upper cervical spine. MRI/Brain without Contrast IMPRESSION: No acute intracranial abnormality. There are scattered, small white matter hyperintensities on T2 and FLAIR signal, differential diagnosis for this appearance includes chronic microvascular ischemic changes, demyelinating disease, Lyme disease, vasculitis or migraine. Electronically Signed: Aly Avelino, at 16:54 EST Tel , Service support ,
[2019-11-06 03:42] LABS: Absolute Lymphocyte Count 3.72 X10^3/uL (0.83-4.51); Absolute Neutrophil Count 5.5 X10^3/uL (2.0-7.7); Eosinophil# 0.03 X10^3/uL; Eosinophils% 0.3 % (0-5); Hematocrit 45.9 % (40-54); Hemoglobin 15.1 g/dL (13.0-16.5); Lymphocyte # 3.72 X10^3/ul (4.0); Mean Corp Hgb Conc 32.9 g/dL (32-36); Mean Corpuscular Hgb 27.4 pg (27.0-32.0); Mean Corpuscular Volume 83.3 fL (80-94); Mean Platelet Vol. 11.8 fl (6.2-12.0); Monocyte# 1.32 X10^3/uL; Monocyte% 12.4 % (0-10); NRBC Flagged by Analyzer 0 % (0-5); Neutrophil # 5.51 X10^3/uL (2.7-7.7); Neutrophil % 51.9 % (47-70); Platelet Count 162 K/mm3 (150-450); RBC Distribution Width CV 14.2 % (11.6-14.6); RBC Distribution Width SD 42.8 fl (35.1-43.9); Red Blood Count 5.51 M/mm3 (4.6-6.2); White Blood Count 10.6 K/mm3 (4.4-11.0)
[2019-11-06 04:08] LABS: Vancomycin, Trough Level 6.4 ug/mL (5.0-15.0)
[2019-11-06 04:10] LABS: Anion Gap 6 (5-15); BUN 17 mg/dL (7-18); BUN/Creat Ratio 18.3 RATIO (10-20); Calcium,Total 8.8 mg/dL (8.5-10.1); Chloride 100 mmol/L (98-107); Creatinine, Serum 0.93 mg/dL (0.70-1.30); EST Glomerular Filtration Rate 100 mL/min (>60); Est Glom Filt Rate - Afr Amer 121 mL/min (>60); Estimated Creatinine Clearance 121.45 ml/min; Glucose 184 mg/dL (74-106); Potassium 3.9 mmol/L (3.5-5.1); Sodium Level 135 mmol/L (136-145)
--- NOTE | 2019-11-06 05:46 | PCM.RX.CS ---
Consult Pharmacy has been consulted to manage selected antiobiotic: Vancomycin Type of Consult: Follow-up Labs: Sodium 135 mmol/L (136-145) L 11/06/19 03:30 Potassium 3.9 mmol/L (3.5-5.1) 11/06/19 03:30 Chloride 100 mmol/L (98-107) 11/06/19 03:30 Carbon Dioxide 29.0 mmol/L (21.0-32.0) 11/06/19 03:30 Anion Gap 6 (5-15) 11/06/19 03:30 BUN 17 mg/dL (7-18) 11/06/19 03:30 Creatinine 0.93 mg/dL (0.70-1.30) 11/06/19 03:30 Est GFR (MDRD) Af Amer 121 mL/min (>60) 11/06/19 03:30 Est GFR (MDRD) Non-Af 100 mL/min (>60) 11/06/19 03:30 BUN/Creatinine Ratio 18.3 RATIO (10-20) 11/06/19 03:30 Glucose 184 mg/dL (74-106) H 11/06/19 03:30 Vancomycin Trough 6.4 ug/mL (5.0-15.0) 11/06/19 03:30 Microbiology: Microbiology 11/03/19 11:25 Wound Abcess - Oral Gram Stain - Final 11/03/19 11:25 Wound Abcess - Oral Wound Culture - Final Meth. resistant Staph. aureus 11/03/19 11:25 Wound Abcess - Oral Anaerobic Culture - Preliminary Goal Trough: 10-15 mcg/mL Pharmacy Plan for Drug Dosing: Pharmacy Service will continue to monitor and adjust dosing as required. Medications Vancomycin HCl 1,500 mg/ (Sodium Chloride) 530 mls @ 250 mls/hr IV Q8H [facility] TROUGH 6.4 NEW DOSE 1500 Q8H NEXT TR 11/07 @ 0330 Follow-Up Labs: Trough Vancomycin Labs to be done on [date and time ordered]: 11/07 @ 7316
[2019-11-06] MEDS: hydrALAZINE 25 MG Tablet PO ×3 (06:28→21:47)
[2019-11-06] MEDS: Insulin Lispro 100 UNIT/ML INSULN.PEN SC ×4 (06:30→21:54)
[2019-11-06 07:01] LABS: Bedside Glucose 279 mg/dL (70-110)
--- NOTE | 2019-11-06 08:08 | PN_ITS ---
Patient Problems: Active and Suspected Problems Idiopathic angioedema (Acute) Acute hypoxic respiratory failure (Acute) Subjective: Chief complaint: Follow-up after admission for idiopathic recurrent angioedema complicated by acute respiratory failure status post extubation and acute lower lip cellulitis and probable abscess. Patient seen and examined. Nursing staff reported that overnight, patient went to the bathroom, felt dizzy and he lowered himself down to the floor. Patient mentioned that he was dizzy, described as spinning and he was not able to get up. This morning, dizziness improved but still there. MRI was ordered. Swelling of the lower lid is almost the same compared to yesterday. Patient denied any difficulty swallowing or difficulty breathing. His vital signs are stable. - Physical Exam Vitals/I&O's: Vital Signs Temp Pulse Resp BP Pulse Ox 98.1 F 92 18 130/79 H 98 11/06/19 03:55 11/06/19 06:28 11/06/19 03:55 11/06/19 03:55 11/06/19 03:55 Oxygen Flow Rate (L/min) 2 Oxygen Delivery Method Room Air Weight: 203 lb 14.841 oz Body Mass Index (BMI) 30.7 Intake and Output for Last 24 Hours 11/04/19 11/05/19 11/06/19 23:59 23:59 23:59 Intake Total 3006.50 / 3486.50 2896 / 2896 642 / 642 Balance 3006.50 / 3486.50 2896 / 2896 642 / 642 General: Alert, Oriented x3, Cooperative, No apparent distress HEENT: Atraumatic, PERRLA, EOMI, Normocephalic Oral: Moist Mucosa, No Gingival or Mucosal Lesions/ Ulcerations, - - Lower lip: Swollen, erythematous, minimal pus points on the inner aspect. Neck: Supple, No JVD, Negative Carotid Bruits, Trachea Midline, Thyroid Normal Size and Texture Lungs: Clear to auscultation, Normal air movement, No rhonchi, No wheeze, No rales Cardiovascular: Regular rate, Regular Rhythm, Normal S1, Normal S2, PMI Normal Abdomen: Bowel Sounds Present, Soft, Non Tender, Non-Distended, No Hepato-splenomegaly Extremities: No clubbing, No cyanosis, No edema Skin: No rashes, No breakdown Lymphatic: No Cervical, Supraclavicular, or Inguinal Adenopathy Neurological: Cranial nerves II-XII grossly intact, Neuro grossly intact Psych/Mental Status: Normal Affect, Appropriate, Alert and oriented to time, place, person, mood and affect Microbiology Past 72 Hours 11/03/19 11:25 Wound Abcess - Oral Gram Stain - Final 11/03/19 11:25 Wound Abcess - Oral Wound Culture - Final Meth. resistant Staph. aureus 11/03/19 11:25 Wound Abcess - Oral Anaerobic Culture - Final No anaerobic bacteria isolated. Laboratory Results 10/31/19 09:35: Seafood Allergens Negative, Beef Allergen <0.10, Chocolate Allergen <0.10, [place] Allergen <0.10, Cow's Milk Allergen <0.10, Egg Whole Allergen <0.10, Peanut Allergen <0.10, Pork Allergen <0.10, Soybean Allergen <0.10, Wheat Allergen <0.10, RAST Comment Comment 11/04/19 06:10: Diff Path Review Reviewed 11/05/19 10:55: POC Glucose 252 H 11/05/19 16:14: POC Glucose 262 H 11/05/19 21:05: POC Glucose 179 H 11/06/19 03:30: WBC 10.6, RBC 5.51, Hgb 15.1, Hct 45.9, MCV 83.3, MCH 27.4, MCHC 32.9, RDW Std Deviation 42.8, RDW Coeff of Maria A 14.2, Plt Count 162, MPV 11.8, Immature Gran % (Auto) 0.400, Neut % (Auto) 51.9, Lymph % (Auto) 35.0, Power % (Auto) 12.4 H, Eos % (Auto) 0.3, Baso % (Auto) 0.0, Absolute Neuts (auto) 5.5, Absolute Lymphs (auto) 3.72, Nucleated RBC % 0 11/06/19 03:30: Sodium 135 L, Potassium 3.9, Chloride 100, Carbon Dioxide 29.0, Anion Gap 6, BUN 17, Creatinine 0.93, Estim Creat Clear Calc 121.45, Est GFR (MDRD) Af Amer 121, Est GFR (MDRD) Non-Af 100, BUN/Creatinine Ratio 18.3, Glucose 184 H, Calcium 8.8 11/06/19 03:30: Vancomycin Trough 6.4 11/06/19 06:29: POC Glucose 279 H Current Medications Acetaminophen (Tylenol) 650 mg PO Q6H PRN PRN PRN Reason: Pain Score 1-3 /Temp>100.7 Last Admin: 11/05/19 03:16 Dose: 650 mg Documented by: Albuterol Sulfate (Ventolin Aerosols) 2.5 mg INHALATION Q2H PRN PRN PRN Reason: SOB/Wheezing Chlorhexidine Gluconate () 1 each TOPICAL DAILY [facility] Last Admin: 11/05/19 08:23 Dose: Not Given Documented by: Diphenhydramine HCl (Benadryl) 25 mg PO TID PRN PRN PRN Reason: Swelling, itching, skin rash Enoxaparin Sodium (Lovenox) 40 mg SC DAILY [facility] Last Admin: 11/05/19 08:24 Dose: Not Given Documented by: Famotidine (Pepcid) 20 mg PO BID [facility] Last Admin: 11/05/19 21:09 Dose: 20 mg Documented by: Glucagon () 1 mg IM .X1 PRN PRN Reason: Hypoglycemia Hydralazine HCl (Apresoline Iv) 10 mg IV Q4H PRN PRN PRN Reason: sbp>180 MMHG Hydralazine HCl (Apresoline) 25 mg PO TID [facility] Last Admin: 11/06/19 06:28 Dose: 25 mg Documented by: Sodium Chloride () 250 mls @ 15 mls/hr IV .[id number] PRN PRN Reason: Saline Flush Sodium Chloride () 250 mls @ 15 mls/hr IV .[id number] PRN PRN Reason: Additional IVPB Infusion Vancomycin IV Pharmacy to Dose (1 ea/ Sodium Chloride) 500 mls @ 250 mls/hr IV PRN PRN; Protocol PRN Reason: Rx to Dose Vancomycin HCl 1,500 mg/ (Sodium Chloride) 530 mls @ 250 mls/hr IV Q8H [facility] Insulin Human Lispro (Humalog Kwikpen (Bkc)) 0 unit SC [facility]; Protocol Last Admin: 11/06/19 06:30 Dose: 3 u Documented by: Lactobacillus Acidophilus (Acidophilus) 1 tablet PO BID [facility] Last Admin: 11/05/19 21:09 Dose: 1 tablet Documented by: Lidocaine/Diphenhydr/Alum/Mg/Simeth () 20 ml PO Q3H PRN PRN PRN Reason: BURNING ORAL SORE Last Admin: 11/03/19 19:06 Dose: 20 ml Documented by: Lorazepam (Ativan) 1 mg PO TID PRN PRN Reason: ANXIETY Last Admin: 11/05/19 23:45 Dose: 1 mg Documented by: Morphine Sulfate () 2 mg IV Q3H PRN PRN PRN Reason: Pain Score 6-10/10 Last Admin: 11/05/19 08:38 Dose: 2 mg Documented by: Nitroglycerin (Nitrostat) 0.4 mg SUBLINGUAL Q5M PRN PRN Reason: CARDIAC/CHEST PAIN Ondansetron HCl (Zofran) 4 mg IV Q8H PRN PRN PRN Reason: NAUSEA/VOMITING Oxycodone HCl (Oxyir) 5 mg PO Q4H PRN PRN PRN Reason: Pain Score 4-5/10 Last Admin: 11/05/19 23:45 Dose: 5 mg Documented by: Polyethylene Glycol (Miralax) 17 gm PO DAILY PRN PRN Reason: contipation Prednisone () 40 mg PO DAILY@0800 [facility] Senna/Docusate Sodium (Senokot-S, Dayna-Colace) 1 tablet PO BID [facility] Last Admin: 11/05/19 21:09 Dose: 1 tablet Documented by: Sodium Chloride () 10 - 40 ml IV UD PRN PRN Reason: SALINE FLUSH Last Admin: 11/04/19 05:35 Dose: 10 ml Documented by: Sodium Chloride () 10 - 40 ml IV UD PRN PRN Reason: SALINE FLUSH Medical Necessity - Tobacco Use Smoking Status: Never smoker Assessment/Plan All Active Problems Angioedema (Acute) Idiopathic angioedema (Acute) Acute hypoxic respiratory failure (Acute) This is a 34 years old male patient presented to the emergency room because of change in voice, difficulty swallowing and swelling of the mouth and tongue in context of recent discharge from the hospital after admission for angioedema, was intubated and admitted to intensive care unit for idiopathic angioedema and also found to have probable lower lip abscess. Overnight, patient complained of dizziness and vertigo. #1 idiopathic recurrent angioedema: He is on p.o. prednisone, p.o. Pepcid and Benadryl PRN. His vital signs are stable. Swelling and edema of the lower lip almost the same compared to yesterday. Patient denied any new symptoms. Respiratory status stable, on room air. Complement C4 and C1 esterase inhibitor are pending. Plan to continue same treatment, possible DC home tomorrow. #2 acute respiratory failure: Status post extubation, respiratory status been stable. Pulse ox is maintained on room air. This is attributed to angioedema of the upper airway. Plan as above. #3 reported seizure activity: Attributed to etomidate that was given for intubation. He has no seizure since then. #4 MRSA acute lower lip cellulitis/probable abscess: He is on IV Unasyn and vancomycin. He has been afebrile, WBC is back to normal. CT scan face and facial bones from yesterday reviewed. Culture of the wound on the lower lip revealed MRSA. Appreciate ENT and infectious disease recommendations and help. Plan to DC IV Unasyn, continue IV vancomycin. Will discuss with ID about antibiotic selection and duration upon discharge. #5 dizziness/vertigo: Last night, patient felt dizzy, lightheaded and described this as spinning. He lowered himself in the bathroom but he did not fell. No evidence of significant trauma. MRI done this morning. I reviewed the MRI by myself and it was unremarkable, awaiting official report. #6 hyperglycemia: Probably due to IV steroids. No history of diabetes, hemoglobin A1c is 6.4%. Patient has been on sliding scale. #7 DVT prophylaxis: Subcu Lovenox. This note was generated with [employer] dictation software. It may contain incorrect words, spelling, and punctuation that were not noted in checking the note before signing. Code Visit Inpatient E&M: 37189 Subs Hosp L2
[2019-11-06] MEDS: Senna/Docusate Sodium 1 Tablet PO ×2 (09:23→21:46)
[2019-11-06] MEDS: Famotidine 20 MG Tablet PO ×2 (09:23→21:46)
[2019-11-06] MEDS: predniSONE 20 MG Tablet 40 MG PO (09:23)
[2019-11-06] MEDS: oxyCODONE 5 MG Tablet PO ×3 (09:34→21:50)
[2019-11-06 11:46] LABS: Bedside Glucose 165 mg/dL (70-110)
[2019-11-06] MEDS: 0.9% Saline Lock 10 ML Syringe IV (12:03)
[2019-11-06] MEDS: Acetaminophen 325 MG Tablet 650 MG PO ×2 (13:54→21:51)
[2019-11-06] MEDS: Smz/Tmp Ds Tablet 1 TABLET PO ×2 (13:54→21:47)
--- NOTE | 2019-11-06 14:03 | PCM.PN.ID ---
Patient Problems: Active and Suspected Problems Idiopathic angioedema (Acute) Acute hypoxic respiratory failure (Acute) Subjective: No further episodes of dizziness. No pain in lip, no fever, no n/v/d. Ongoing purulent drainage. - Physical Exam Vitals/I&O's: Vital Signs Temp Pulse Resp BP Pulse Ox 98.4 F 98 16 131/68 H 96 11/06/19 13:58 11/06/19 13:58 11/06/19 13:58 11/06/19 13:58 11/06/19 13:58 Oxygen Flow Rate (L/min) 2 Oxygen Delivery Method Room Air Weight: 92.5 kg Body Mass Index (BMI) 30.7 Intake and Output for Last 24 Hours 11/04/19 11/05/19 11/06/19 23:59 23:59 23:59 Intake Total 3006.50 / 3486.50 2896 / 2896 1071.17 / 1071.17 Balance 3006.50 / 3486.50 2896 / 2896 1071.17 / 1071.17 General: Alert, Cooperative, No apparent distress HEENT: - - lip swelling. Able to express copious amounts of pus from under lower lip. Lungs: Clear to auscultation, Normal air movement Cardiovascular: Regular rate, Regular Rhythm Abdomen: Soft, Non Tender, Non-Distended Skin: No rashes Microbiology Past 72 Hours 11/03/19 11:25 Wound Abcess - Oral Gram Stain - Final 11/03/19 11:25 Wound Abcess - Oral Wound Culture - Final Meth. resistant Staph. aureus 11/03/19 11:25 Wound Abcess - Oral Anaerobic Culture - Final No anaerobic bacteria isolated. Laboratory Results 11/05/19 16:14: POC Glucose 262 H 11/05/19 21:05: POC Glucose 179 H 11/06/19 03:30: WBC 10.6, RBC 5.51, Hgb 15.1, Hct 45.9, MCV 83.3, MCH 27.4, MCHC 32.9, RDW Std Deviation 42.8, RDW Coeff of Maria A 14.2, Plt Count 162, MPV 11.8, Immature Gran % (Auto) 0.400, Neut % (Auto) 51.9, Lymph % (Auto) 35.0, [place] % (Auto) 12.4 H, Eos % (Auto) 0.3, Baso % (Auto) 0.0, Absolute Neuts (auto) 5.5, Absolute Lymphs (auto) 3.72, Nucleated RBC % 0 11/06/19 03:30: Sodium 135 L, Potassium 3.9, Chloride 100, Carbon Dioxide 29.0, Anion Gap 6, BUN 17, Creatinine 0.93, Estim Creat Clear Calc 121.45, Est GFR (MDRD) Af Amer 121, Est GFR (MDRD) Non-Af 100, BUN/Creatinine Ratio 18.3, Glucose 184 H, Calcium 8.8 11/06/19 03:30: Vancomycin Trough 6.4 11/06/19 06:29: POC Glucose 279 H 11/06/19 11:31: POC Glucose 165 H Current Medications Acetaminophen (Tylenol) 650 mg PO Q6H PRN PRN PRN Reason: Pain Score 1-3 /Temp>100.7 Last Admin: 11/06/19 13:54 Dose: 650 mg Documented by: Albuterol Sulfate (Ventolin Aerosols) 2.5 mg INHALATION Q2H PRN PRN PRN Reason: SOB/Wheezing Chlorhexidine Gluconate () 1 each TOPICAL DAILY [facility] Last Admin: 11/06/19 08:49 Dose: Not Given Documented by: Diphenhydramine HCl (Benadryl) 25 mg PO TID PRN PRN PRN Reason: Swelling, itching, skin rash Enoxaparin Sodium (Lovenox) 40 mg SC DAILY [facility] Last Admin: 11/06/19 08:49 Dose: Not Given Documented by: Famotidine (Pepcid) 20 mg PO BID [facility] Last Admin: 11/06/19 09:23 Dose: 20 mg Documented by: Glucagon () 1 mg IM .X1 PRN PRN Reason: Hypoglycemia Hydralazine HCl (Apresoline Iv) 10 mg IV Q4H PRN PRN PRN Reason: sbp>180 MMHG Hydralazine HCl (Apresoline) 25 mg PO TID [facility] Last Admin: 11/06/19 13:55 Dose: 25 mg Documented by: Sodium Chloride () 250 mls @ 15 mls/hr IV .[id number] PRN PRN Reason: Saline Flush Last Infusion: 11/06/19 12:00 Dose: 0 mls/hr Documented by: Sodium Chloride () 250 mls @ 15 mls/hr IV .[id number] PRN PRN Reason: Additional IVPB Infusion Insulin Human Lispro (Humalog Kwedelmirapen (Bkc)) 0 unit SC [facility]; Protocol Last Admin: 11/06/19 11:31 Dose: 1 u Documented by: Lactobacillus Acidophilus (Acidophilus) 1 tablet PO BID [facility] Last Admin: 11/06/19 09:23 Dose: 1 tablet Documented by: Lidocaine/Diphenhydr/Alum/Mg/Simeth () 20 ml PO Q3H PRN PRN PRN Reason: BURNING ORAL SORE Last Admin: 11/03/19 19:06 Dose: 20 ml Documented by: Lorazepam (Ativan) 1 mg PO TID PRN PRN Reason: ANXIETY Last Admin: 11/05/19 23:45 Dose: 1 mg Documented by: Morphine Sulfate () 2 mg IV Q3H PRN PRN PRN Reason: Pain Score 6-10/10 Last Admin: 11/05/19 08:38 Dose: 2 mg Documented by: Nitroglycerin (Nitrostat) 0.4 mg SUBLINGUAL Q5M PRN PRN Reason: CARDIAC/CHEST PAIN Ondansetron HCl (Zofran) 4 mg IV Q8H PRN PRN PRN Reason: NAUSEA/VOMITING Oxycodone HCl (Oxyir) 5 mg PO Q4H PRN PRN PRN Reason: Pain Score 4-5/10 Last Admin: 11/06/19 13:54 Dose: 5 mg Documented by: Polyethylene Glycol (Miralax) 17 gm PO DAILY PRN PRN Reason: contipation Prednisone () 40 mg PO DAILY@0800 [facility] Last Admin: 11/06/19 09:23 Dose: 40 mg Documented by: Senna/Docusate Sodium (Senokot-S, Dayna-Colace) 1 tablet PO BID [facility] Last Admin: 11/06/19 09:23 Dose: 1 tablet Documented by: Sodium Chloride () 10 - 40 ml IV UD PRN PRN Reason: SALINE FLUSH Last Admin: 11/06/19 12:03 Dose: 10 ml Documented by: Sodium Chloride () 10 - 40 ml IV UD PRN PRN Reason: SALINE FLUSH Trimethoprim/Sulfamethoxazole (Bactrim Ds) 1 tablet PO BID [facility] Last Admin: 11/06/19 13:54 Dose: 1 tablet Documented by: Medical Necessity - Tobacco Use Smoking Status: Never smoker Route of nutrition/ use of supplements: [] Nutritional Intake: [] IV Site: [] Berry Catheter: [] - Assessment/Plan Antibiotics: [] Assessment/Plan: [] Active and Suspected Problems Seizure (Suspected) Idiopathic angioedema (Acute) Acute hypoxic respiratory failure (Acute) Lip abscess - cx with MRSA. Unasyn was stopped. Continue vanc. Will add bactrim to make sure he tolerates it prior to going home. Still able to express copious pus from lip today; recommend ENT re-eval. Will follow
--- NOTE | 2019-11-06 17:06 | PCM.PN.BLA ---
Progress Note The patient reports less pain. The lip is still draining avss cultures+MRSA Lip- less edema. The posterior opening is granulating in with fibrinous exudate at the opening. Anteriorly there is a new opening that is draining purulence. This was thoroughly expressed until no further purulence could be expressed. A: Lip abscess spontaneously draining P: I would like the patient to express this at least three times per day. He is improving. Continue IV antibiotics. STROKE Vital Signs/Narrative: Vital Signs Temp Pulse Resp BP Pulse Ox 11/06/19 13:58 98.4 F 98 16 131/68 H 96 11/06/19 13:55 98
[2019-11-06 17:21] LABS: Bedside Glucose 174 mg/dL (70-110)
[2019-11-06 22:16] LABS: Bedside Glucose 178 mg/dL (70-110)
[2019-11-07] VITALS (7 sets, daily range): BP systolic 127–147; BP diastolic 72–82; PULSE 96–105; RESP 16–18; TEMP 36.4–36.8; O2SAT 97–98
[2019-11-07] MEDS: Morphine 2 MG/ML Syringe IV (00:30)
[2019-11-07] MEDS: DiphenhydrAMINE 25 MG Capsule PO (00:34)
[2019-11-07] MEDS: LORazepam 1 MG Tablet PO (03:11)
[2019-11-07] MEDS: oxyCODONE 5 MG Tablet PO ×3 (03:37→22:47)
[2019-11-07 03:46] LABS: Bedside Glucose 193 mg/dL (70-110)
[2019-11-07] MEDS: hydrALAZINE 25 MG Tablet PO ×3 (06:30→22:47)
[2019-11-07] MEDS: Insulin Lispro 100 UNIT/ML INSULN.PEN SC ×4 (06:34→22:48)
[2019-11-07 06:56] LABS: Bedside Glucose 156 mg/dL (70-110)
[2019-11-07] MEDS: Senna/Docusate Sodium 1 Tablet PO ×2 (08:45→22:47)
[2019-11-07] MEDS: predniSONE 20 MG Tablet 40 MG PO (08:49)
[2019-11-07] MEDS: Smz/Tmp Ds Tablet 1 TABLET PO ×2 (08:50→22:47)
[2019-11-07] MEDS: Famotidine 20 MG Tablet PO ×2 (08:50→22:47)
--- NOTE | 2019-11-07 09:30 | PCM.PN.ID ---
Patient Problems: Active and Suspected Problems Idiopathic angioedema (Acute) Acute hypoxic respiratory failure (Acute) Subjective: Feeling ok, no fever, no n/v/d. Less pus this AM. Was up until 2am last night expressing more from his lip. - Physical Exam Vitals/I&O's: Vital Signs Temp Pulse Resp BP Pulse Ox 97.6 F L 105 H 18 147/82 H 98 11/07/19 08:40 11/07/19 08:40 11/07/19 08:40 11/07/19 08:40 11/07/19 08:40 Oxygen Flow Rate (L/min) 2 Oxygen Delivery Method Room Air Weight: 92.5 kg Body Mass Index (BMI) 30.7 Intake and Output for Last 24 Hours 11/05/19 11/06/19 11/07/19 23:59 23:59 23:59 Intake Total 2896 / 2896 2497.00 / 3057.00 1440 / 1440 Balance 2896 / 2896 2497.00 / 3057.00 1440 / 1440 General: Alert, Cooperative, No apparent distress Oral: - - large lip swelling with some pus today Lungs: Clear to auscultation, Normal air movement Cardiovascular: Regular rate, Regular Rhythm Abdomen: Soft, Non Tender, Non-Distended Microbiology Past 72 Hours 11/03/19 11:25 Wound Abcess - Oral Gram Stain - Final 11/03/19 11:25 Wound Abcess - Oral Wound Culture - Final Meth. resistant Staph. aureus 11/03/19 11:25 Wound Abcess - Oral Anaerobic Culture - Final No anaerobic bacteria isolated. Laboratory Results 11/06/19 11:31: POC Glucose 165 H 11/06/19 17:06: POC Glucose 174 H 11/06/19 21:53: POC Glucose 178 H 11/07/19 03:34: POC Glucose 193 H 11/07/19 06:33: POC Glucose 156 H Current Medications Acetaminophen (Tylenol) 650 mg PO Q6H PRN PRN PRN Reason: Pain Score 1-3 /Temp>100.7 Last Admin: 11/06/19 21:51 Dose: 650 mg Documented by: Albuterol Sulfate (Ventolin Aerosols) 2.5 mg INHALATION Q2H PRN PRN PRN Reason: SOB/Wheezing Chlorhexidine Gluconate () 1 each TOPICAL DAILY [facility] Last Admin: 11/07/19 08:43 Dose: Not Given Documented by: Diphenhydramine HCl (Benadryl) 25 mg PO TID PRN PRN PRN Reason: Swelling, itching, skin rash Last Admin: 11/07/19 00:34 Dose: 25 mg Documented by: Enoxaparin Sodium (Lovenox) 40 mg SC DAILY [facility] Last Admin: 11/07/19 08:44 Dose: Not Given Documented by: Famotidine (Pepcid) 20 mg PO BID [facility] Last Admin: 11/07/19 08:50 Dose: 20 mg Documented by: Glucagon () 1 mg IM .X1 PRN PRN Reason: Hypoglycemia Hydralazine HCl (Apresoline Iv) 10 mg IV Q4H PRN PRN PRN Reason: sbp>180 MMHG Hydralazine HCl (Apresoline) 25 mg PO TID [facility] Last Admin: 11/07/19 06:30 Dose: 25 mg Documented by: Sodium Chloride () 250 mls @ 15 mls/hr IV .[id number] PRN PRN Reason: Saline Flush Last Infusion: 11/06/19 15:30 Dose: 0 mls/hr Documented by: Sodium Chloride () 250 mls @ 15 mls/hr IV .[id number] PRN PRN Reason: Additional IVPB Infusion Vancomycin IV Pharmacy to Dose (1 ea/ Sodium Chloride) 500 mls @ 250 mls/hr IV X1 PRN; Protocol PRN Reason: Rx to Dose Vancomycin HCl 1,500 mg/ (Sodium Chloride) 530 mls @ 250 mls/hr IV Q8H [facility] Last Infusion: 11/07/19 06:00 Dose: Infused Documented by: Insulin Human Lispro (Humalog Kwikpen (Bkc)) 0 unit SC ACHS [facility]; Protocol Last Admin: 11/07/19 06:34 Dose: 1 u Documented by: Lactobacillus Acidophilus (Acidophilus) 1 tablet PO BID [facility] Last Admin: 11/07/19 08:44 Dose: 1 tablet Documented by: Lidocaine/Diphenhydr/Alum/Mg/Simeth () 20 ml PO Q3H PRN PRN PRN Reason: BURNING ORAL SORE Last Admin: 11/03/19 19:06 Dose: 20 ml Documented by: Lorazepam (Ativan) 1 mg PO TID PRN PRN Reason: ANXIETY Last Admin: 11/07/19 03:11 Dose: 1 mg Documented by: Morphine Sulfate () 2 mg IV Q3H PRN PRN PRN Reason: Pain Score 6-10/10 Last Admin: 11/07/19 00:30 Dose: 2 mg Documented by: Nitroglycerin (Nitrostat) 0.4 mg SUBLINGUAL Q5M PRN PRN Reason: CARDIAC/CHEST PAIN Ondansetron HCl (Zofran) 4 mg IV Q8H PRN PRN PRN Reason: NAUSEA/VOMITING Oxycodone HCl (Oxyir) 5 mg PO Q4H PRN PRN PRN Reason: Pain Score 4-5/10 Last Admin: 11/07/19 08:50 Dose: 5 mg Documented by: Polyethylene Glycol (Miralax) 17 gm PO DAILY PRN PRN Reason: contipation Prednisone () 40 mg PO DAILY@0800 [facility] Last Admin: 11/07/19 08:49 Dose: 40 mg Documented by: Senna/Docusate Sodium (Senokot-S, Dayna-Colace) 1 tablet PO BID [facility] Last Admin: 11/07/19 08:45 Dose: 1 tablet Documented by: Sodium Chloride () 10 - 40 ml IV UD PRN PRN Reason: SALINE FLUSH Last Admin: 11/06/19 12:03 Dose: 10 ml Documented by: Sodium Chloride () 10 - 40 ml IV UD PRN PRN Reason: SALINE FLUSH Trimethoprim/Sulfamethoxazole (Bactrim Ds) 1 tablet PO BID [facility] Last Admin: 11/07/19 08:50 Dose: 1 tablet Documented by: Medical Necessity - Tobacco Use Smoking Status: Never smoker Route of nutrition/ use of supplements: [] Nutritional Intake: [] IV Site: [] Berry Catheter: [] - Assessment/Plan Antibiotics: [] Assessment/Plan: [] Active and Suspected Problems Seizure (Suspected) Idiopathic angioedema (Acute) Acute hypoxic respiratory failure (Acute) Lip abscess - cx with MRSA. Unasyn was stopped. Continue vanc and added bactrim to make sure he tolerates it prior to going home. Still able to express pus from lip today but less than yesterday. Plan for d/c will be 7 days of bactrim. Will follow, d/w Dr. Encarnacion.
--- NOTE | 2019-11-07 10:15 | MRI_ITS ---
STUDY: MRI BRAIN WITH CONTRAST REASON FOR EXAM: Male, 34 years old. r/o demyelinating disease, f/u abnormal brain mri TECHNIQUE: Standardized multiplanar fat and water weighted pulse sequences were obtained. IV 18cc dotarem was administered for the contrast portion of the examination. COMPARISON: MRI of the brain dated November 06, 2019 FINDINGS: Normal size of the ventricles and extra-axial spaces for the patient''s age. Normal white matter tracts of the supratentorial brain. There is no extra-axial fluid accumulation. Normal flow voids within the major intracranial circulation suggesting patency by spin echo criteria. Normal venous enhancement. There is no enhancing intra-axial or extra-axial abnormality. No ring-enhancing lesions are seen. Normal sella turcica, pituitary gland, infundibular stalk, optic chiasm and hypothalamus. Normal tectal plate and pineal gland. Normal bilateral internal auditory canals. No demonstrated orbital abnormality, within the constraints of a routine brain study. Normal visualized paranasal sinuses. Normal calvarium and skull base. Normal visualized soft tissue structures. Normal visualized upper cervical spine. MRI/Brain WITH Contrast IMPRESSION: No demonstrated abnormal intraparenchymal or extra-axial enhancing lesions on this enhanced MRI of the brain. Electronically Signed: Vikas Gentile MD at 20:36 EST , Service support ,
--- NOTE | 2019-11-07 10:16 | MRI_ITS ---
STUDY: MRI CERVICAL SPINE WITH AND WITHOUT CONTRAST REASON FOR EXAM: Male, 34 years old. r/o demyelinating disease, f/u abnormal brain mri TECHNIQUE: Standardized fat and water weighted pulse sequences were obtained in the sagittal and axial following administration of IV 18cc dotarem. COMPARISON: None FINDINGS: Normal foramen magnum and brainstem-cervical cord junction. Normal craniovertebral junction. Normal anterior atlantoaxial articulation. Normal odontoid process. There is reversal of the normal cervical lordosis. Normal vertebral bodies and posterior osseous elements. C2-3: Normal endplates. Normal disc height, signal and morphology. Normal central canal and intervertebral neural foramina. C3-4: Normal endplates. Normal disc height, signal and morphology. Normal central canal and intervertebral neural foramina. C4-5: Normal endplates. Mild disc space narrowing is present resulting in a broad-based is herniation that causes mild compression anterior aspect of the cord and mild central canal stenosis. Normal intervertebral neural foramina. C5-6: Normal endplates. Normal disc height, signal and morphology. Normal central canal and intervertebral neural foramina. C6-7: Normal endplates. Normal disc height, signal and morphology. Normal central canal and intervertebral neural foramina. C7-T1: Normal endplates. Normal disc height, signal and morphology. Normal central canal and intervertebral neural foramina. Normal cervical cord. There is no demonstrated cervical cord demyelinating process. There is no evidence of a cord syrinx or plaques or brachial no abnormal enhancement of the cord is seen. No demonstrated abnormal or suspicious enhancement of the soft tissue or bony structures of the cervical spine. Normal visualized soft tissue structures. MRI/Spine Cervical W/WO Contrast IMPRESSION: 1. Mild disc space narrowing is present resulting in a broad-based is herniation that causes mild compression anterior aspect of the cord and mild central canal stenosis. 2. There is no evidence of a cord syrinx or plaques or brachial no abnormal enhancement of the cord is seen. 3. No demonstrated abnormal or suspicious enhancement of the soft tissue or bony structures of the cervical spine. Electronically Signed: Vikas Gentile MD at 21:01 EST , Service support ,
--- NOTE | 2019-11-07 10:21 | PN_ITS ---
Patient Problems: Active and Suspected Problems Idiopathic angioedema (Acute) Acute hypoxic respiratory failure (Acute) Subjective: Chief complaint: Follow-up after admission for idiopathic recurrent angioedema, acute lower lip cellulitis with probable abscess and abnormal MRI brain. Patient seen and examined. No acute events overnight. He has been squeezing his lower lip and pulse has been coming out. Swelling and erythema of the lower lip is improving very slowly. He denies fever chills. He denies any more dizzy spells that he had yesterday. MRI brain done yesterday because of vertigo and it was abnormal, revealed scattered small white matter hypodensities, unclear etiology. His vital signs are stable. - Physical Exam Vitals/I&O's: Vital Signs Temp Pulse Resp BP Pulse Ox 97.6 F L 105 H 18 147/82 H 98 11/07/19 08:40 11/07/19 08:40 11/07/19 08:40 11/07/19 08:40 11/07/19 08:40 Oxygen Flow Rate (L/min) 2 Oxygen Delivery Method Room Air Weight: 203 lb 14.841 oz Body Mass Index (BMI) 30.7 Intake and Output for Last 24 Hours 11/05/19 11/06/19 11/07/19 23:59 23:59 23:59 Intake Total 2896 / 2896 2497.00 / 3057.00 1440 / 1440 Balance 2896 / 2896 2497.00 / 3057.00 1440 / 1440 General: Alert, Oriented x3, Cooperative, No apparent distress HEENT: Atraumatic, PERRLA, EOMI, Normocephalic Oral: Moist Mucosa, No Gingival or Mucosal Lesions/ Ulcerations Neck: Supple, No JVD, Negative Carotid Bruits, Trachea Midline, Thyroid Normal Size and Texture Lungs: Clear to auscultation, Normal air movement, No rhonchi, No wheeze, No rales Cardiovascular: Regular rate, Regular Rhythm, Normal S1, Normal S2, No murmurs, PMI Normal Abdomen: Bowel Sounds Present, Soft, Non Tender, Non-Distended, No Hepato- splenomegaly Extremities: No clubbing, No cyanosis, No edema Skin: No rashes, No breakdown Lymphatic: No Cervical, Supraclavicular, or Inguinal Adenopathy Neurological: Cranial nerves II-XII grossly intact, Motor Exam 5/5 strength throughout Psych/Mental Status: Normal Affect, Appropriate, Alert and oriented to time, place, person, mood and affect Microbiology Past 72 Hours 11/03/19 11:25 Wound Abcess - Oral Gram Stain - Final 11/03/19 11:25 Wound Abcess - Oral Wound Culture - Final Meth. resistant Staph. aureus 11/03/19 11:25 Wound Abcess - Oral Anaerobic Culture - Final No anaerobic bacteria isolated. Laboratory Results 11/06/19 11:31: POC Glucose 165 H 11/06/19 17:06: POC Glucose 174 H 11/06/19 21:53: POC Glucose 178 H 11/07/19 03:34: POC Glucose 193 H 11/07/19 06:33: POC Glucose 156 H Clinical Impression(s) from Imaging Studies Brain MRI 11/06/19 01:37 IMPRESSION: No acute intracranial abnormality. There are scattered, small white matter hyperintensities on T2 and FLAIR signal, differential diagnosis for this appearance includes chronic microvascular ischemic changes, demyelinating disease, Lyme disease, vasculitis or migraine. Electronically Signed: Aly You, at 16:54 EST Tel , Service support , Current Medications Acetaminophen (Tylenol) 650 mg PO Q6H PRN PRN PRN Reason: Pain Score 1-3 /Temp>100.7 Last Admin: 11/06/19 21:51 Dose: 650 mg Documented by: Enoxaparin Sodium (Lovenox) 40 mg SC DAILY [facility] Last Admin: 11/07/19 08:44 Dose: Not Given Documented by: Famotidine (Pepcid) 20 mg PO BID [facility] Last Admin: 11/07/19 08:50 Dose: 20 mg Documented by: Glucagon () 1 mg IM .X1 PRN PRN Reason: Hypoglycemia Hydralazine HCl (Apresoline Iv) 10 mg IV Q4H PRN PRN PRN Reason: sbp>180 MMHG Hydralazine HCl (Apresoline) 25 mg PO TID [facility] Last Admin: 11/07/19 06:30 Dose: 25 mg Documented by: Sodium Chloride () 250 mls @ 15 mls/hr IV .[id number] PRN PRN Reason: Additional IVPB Infusion Vancomycin IV Pharmacy to Dose (1 ea/ Sodium Chloride) 500 mls @ 250 mls/hr IV X1 PRN; Protocol PRN Reason: Rx to Dose Vancomycin HCl 1,500 mg/ (Sodium Chloride) 530 mls @ 250 mls/hr IV Q8H [facility] Last Infusion: 11/07/19 06:00 Dose: Infused Documented by: Insulin Human Lispro (Humalog Kwikpen (Bkc)) 0 unit SC ACHS [facility]; Protocol Last Admin: 11/07/19 06:34 Dose: 1 u Documented by: Lactobacillus Acidophilus (Acidophilus) 1 tablet PO BID [facility] Last Admin: 11/07/19 08:44 Dose: 1 tablet Documented by: Lidocaine/Diphenhydr/Alum/Mg/Simeth () 20 ml PO Q3H PRN PRN PRN Reason: BURNING ORAL SORE Last Admin: 11/03/19 19:06 Dose: 20 ml Documented by: Ondansetron HCl (Zofran) 4 mg IV Q8H PRN PRN PRN Reason: NAUSEA/VOMITING Oxycodone HCl (Oxyir) 5 mg PO Q4H PRN PRN PRN Reason: Pain Score 4-5/10 Last Admin: 11/07/19 08:50 Dose: 5 mg Documented by: Polyethylene Glycol (Miralax) 17 gm PO DAILY PRN PRN Reason: contipation Prednisone () 40 mg PO DAILY@0800 [facility] Last Admin: 11/07/19 08:49 Dose: 40 mg Documented by: Senna/Docusate Sodium (Senokot-S, Dayna-Colace) 1 tablet PO BID [facility] Last Admin: 11/07/19 08:45 Dose: 1 tablet Documented by: Sodium Chloride () 10 - 40 ml IV UD PRN PRN Reason: SALINE FLUSH Last Admin: 11/06/19 12:03 Dose: 10 ml Documented by: Trimethoprim/Sulfamethoxazole (Bactrim Ds) 1 tablet PO BID [facility] Last Admin: 11/07/19 08:50 Dose: 1 tablet Documented by: Medical Necessity - Tobacco Use Smoking Status: Never smoker Assessment/Plan All Active Problems Angioedema (Acute) Idiopathic angioedema (Acute) Acute hypoxic respiratory failure (Acute) This is a 34 years old male patient presented to the emergency room because of change in voice, difficulty swallowing and swelling of the mouth and tongue in context of recent discharge from the hospital after admission for angioedema, was intubated and admitted to intensive care unit for idiopathic angioedema and also found to have probable lower lip abscess. He was found to have abnormal MRI that was done for dizziness/vertigo. #1 idiopathic recurrent angioedema: Remains on p.o. prednisone, p.o. Pepcid and Benadryl PRN. His vital signs are stable. Swelling and edema of the lower lip has been improving very slowly. Respiratory status stable, on room air. Complement C4 and C1 esterase inhibitor are pending. Plan to continue same treatment, start tapering prednisone tomorrow. #2 acute respiratory failure: Status post extubation, respiratory status been stable. Pulse ox is maintained on room air. This is attributed to angioedema of the upper airway. Plan as above. #3 reported seizure activity: Attributed to etomidate that was given for intubation. He has no seizure since then. #4 MRSA acute lower lip cellulitis/probable abscess: He is on the vancomycin, started on oral Bactrim yesterday. He has been afebrile, WBC is back to normal. Culture of the wound on the lower lip revealed MRSA. ENT reevaluated the patient yesterday, requested patient to squeeze his lower lip 3 times a day. Still having pus coming from the inner aspect of the lower lip but improving. Plan to continue same treatment. #5 Abnormal MRI brain: This was done because patient had an episode of dizziness and vertigo. MRI revealed scattered small white matter hypodensities and differential diagnosis includes microvascular ischemic changes, demyelinating disease, Lyme disease or vasculitis. Patient stated that he had a history of head trauma as a child when he was 9 years old. Around 8 years ago, he had an MRI brain at [facility] and according to him, that was done because there was a concern that he may have multiple sclerosis. According to the patient, the MRI was okay and neurology told him that he does not have multiple sclerosis. Tele-neurology consult obtained today. Recommendation reviewed. I spoke with the telemedicine SOC Neurologist over the phone and he recommended MRI brain with contrast, MRI cervical spine and EEG. After discussion, we decided to hold off doing the MRI brain at this time. Plan: ESR, CRP, antinuclear antibodies, MRI brain with contrast, MRI cervical spine, EEG. #6 hyperglycemia: Probably due to IV steroids. Blood sugar has been trending down. No history of diabetes, hemoglobin A1c is 6.4%. Patient has been on sliding scale. #7 DVT prophylaxis: Subcu Lovenox. This note was generated with saamb[employer] dictation software. It may contain incorrect words, spelling, and punctuation that were not noted in checking the note before signing. Code Visit Inpatient E&M: 99506 Subs Hosp L2
[2019-11-07 11:40] LABS: Erythrocyte Sedimentation Rate 39 mm/hr (0-15)
[2019-11-07 12:13] LABS: Vancomycin, Trough Level 11.8 ug/mL (5.0-15.0)
[2019-11-07 12:23] LABS: Anion Gap 6 (5-15); BUN 14 mg/dL (7-18); BUN/Creat Ratio 15.6 RATIO (10-20); CRP < 2.90 mg/L (0.0-3.0); Calcium,Total 8.6 mg/dL (8.5-10.1); Chloride 100 mmol/L (98-107); EST Glomerular Filtration Rate 104 mL/min (>60); Est Glom Filt Rate - Afr Amer 126 mL/min (>60); Glucose 140 mg/dL (74-106); Potassium 3.7 mmol/L (3.5-5.1); Sodium Level 133 mmol/L (136-145)
[2019-11-07 13:31] LABS: Bedside Glucose 230 mg/dL (70-110)
--- NOTE | 2019-11-07 13:45 | PCM.RX.CS ---
Consult Pharmacy has been consulted to manage selected antiobiotic: Vancomycin Type of Consult: Follow-up Suspected Infection: Skin/Soft tissue Prior Doses of Antibiotics Received/Current Regimen: Currently on 1500mg iv q8h. Labs: Sodium 133 mmol/L (136-145) L 11/07/19 11:15 Potassium 3.7 mmol/L (3.5-5.1) 11/07/19 11:15 Chloride 100 mmol/L (98-107) 11/07/19 11:15 Carbon Dioxide 27.0 mmol/L (21.0-32.0) 11/07/19 11:15 Anion Gap 6 (5-15) 11/07/19 11:15 BUN 14 mg/dL (7-18) 11/07/19 11:15 Creatinine 0.90 mg/dL (0.70-1.30) 11/07/19 11:15 Est GFR (MDRD) Af Amer 126 mL/min (>60) 11/07/19 11:15 Est GFR (MDRD) Non-Af 104 mL/min (>60) 11/07/19 11:15 BUN/Creatinine Ratio 15.6 RATIO (10-20) 11/07/19 11:15 Glucose 140 mg/dL (74-106) H 11/07/19 11:15 Vancomycin Trough 11.8 ug/mL (5.0-15.0) 11/07/19 11:15 Microbiology: Microbiology 11/03/19 11:25 Wound Abcess - Oral Gram Stain - Final 11/03/19 11:25 Wound Abcess - Oral Wound Culture - Final Meth. resistant Staph. aureus 11/03/19 11:25 Wound Abcess - Oral Anaerobic Culture - Final No anaerobic bacteria isolated. Weight used for dosin.5 kg Estimated Creatinine Clearance: >100ml/min Goal Trough: 10-15 mcg/mL Pharmacy Plan for Drug Dosing: Trough level this AM was 11.8 (goal range 10-15mcg/ml). Renal function reviewed and approx. same. Will continue same regimen of 1500mg iv q8h. Another trough level has been ordered for 4 days from now (10.11.20). Pharmacy Service will continue to monitor and adjust dosing as required. Follow-Up Labs: Trough Vancomycin - 11.11.19 @1130 before 1200 dose
[2019-11-07] MEDS: Acetaminophen 325 MG Tablet 650 MG PO (16:24)
[2019-11-07 16:56] LABS: Bedside Glucose 271 mg/dL (70-110)
[2019-11-07] MEDS: 0.9% Saline Lock 10 ML Syringe IV ×2 (17:43→19:56)
--- NOTE | 2019-11-07 17:43 | PCM.PN.BLA ---
Progress Note The patient feels well. He has not been able to express anything from the lip this afternoon. avss Lip- large crust centrally. I was unable to express any purulence from the lip. Less edema than previous. A: Lower lip abscess improving slowly. P Continue abx. STROKE Vital Signs/Narrative: Vital Signs Temp Pulse Resp BP Pulse Ox 11/07/19 13:56 97 127/81 H 11/07/19 13:52 97.9 F 97 16 127/81 H 97
[2019-11-07 22:56] LABS: Bedside Glucose 257 mg/dL (70-110)
[2019-11-08] VITALS (7 sets, daily range): BP systolic 126–145; BP diastolic 81–88; PULSE 87–106; RESP 16–18; TEMP 36.7–36.8; O2SAT 96–98
[2019-11-08] MEDS: 0.9% Saline Lock 10 ML Syringe IV ×5 (03:33→23:18)
[2019-11-08] MEDS: oxyCODONE 5 MG Tablet PO ×2 (03:45→17:09)
[2019-11-08] MEDS: hydrALAZINE 25 MG Tablet PO ×3 (06:19→20:51)
[2019-11-08] MEDS: Insulin Lispro 100 UNIT/ML INSULN.PEN SC ×4 (06:21→21:10)
[2019-11-08 06:51] LABS: Bedside Glucose 196 mg/dL (70-110)
--- NOTE | 2019-11-08 10:17 | DCINST_ITS ---
- Discharge Diagnoses Current Active Problems: Current Active and Chronic Problems Idiopathic angioedema (Acute) Acute hypoxic respiratory failure (Acute) You will use the following diet at home:: Regular Your food should be the consistency of: Regular Discharge Activity: Return to Normal Activity Return to work on:: 11/18/19 Weight Bearing Status: Full weight bearing Call your doctor if you observe: Fever of 101 or Higher, Shortness of breath, Dizziness, Fainting spells, Chest pain, Increased palpitations (irregular heartbeat), Uncontrolled pain Instructions: Controlling High Blood Pressure, Taking Your Blood Pressure, Booklet - Living with MRSA, ED Angioedema Allergies/Adverse Reactions: Allergies etomidate Adverse Reaction (Verified 11/03/19 15:37) Other Seizure-Tonic Clonic Medications to take at Discharge Amlodipine [Norvasc] 5 mg PO DAILY #30 tab 11/08/19 Famotidine [Pepcid] 20 mg PO BID #14 tab 11/08/19 Prednisone 30 mg PO DAILY #18 tab 11/08/19 Smz/Tmp Ds [Bactrim Ds] 1 tab PO BID #14 tab 11/08/19 The following prescriptions were given: Smz/Tmp Ds [Bactrim Ds] 1 tab PO BID #14 tab Transmission Status: Pending to [facility] Amlodipine [Norvasc] 5 mg PO DAILY #30 tab Transmission Status: Pending to [facility] Famotidine [Pepcid] 20 mg PO BID #14 tab Transmission Status: Pending to [facility] Prednisone 30 mg PO DAILY #18 tab Transmission Status: Pending to [facility] Primary Care Physician: Care Physician,No Primary [Primary Care Provider] - Please follow up with your Primary Care Physician in: 1 week. Test Results: Test results from this visit will be discussed in further detail at your follow- up appointment, if applicable. Please Follow Up With: Jorge L Munoz MD When: This coming Oct,.
[2019-11-08] MEDS: predniSONE 20 MG Tablet 40 MG PO (11:04)
[2019-11-08] MEDS: Famotidine 20 MG Tablet PO ×2 (11:05→20:51)
[2019-11-08] MEDS: Smz/Tmp Ds Tablet 1 TABLET PO (11:05)
[2019-11-08] MEDS: Senna/Docusate Sodium 1 Tablet PO (11:05)
[2019-11-08 11:40] LABS: Bedside Glucose 159 mg/dL (70-110)
--- NOTE | 2019-11-08 12:13 | NURSING ---
Pts lower lip with increased swelling. More firm to the touch. Notified Dr Encarnacion of same. MD came to assess pt & cancelled DC for today & asked this RN to have Dr Munoz reassess pt today. Dr Munoz notified - states he will be in today after 5.
--- NOTE | 2019-11-08 12:15 | PCM.PROGNOTE ---
Patient Problems: Active and Suspected Problems Idiopathic angioedema (Acute) Acute hypoxic respiratory failure (Acute) Subjective: Chief complaint: Follow-up after admission for idiopathic recurrent angioedema, acute lower lip cellulitis with probable abscess and abnormal MRI brain. Patient seen and examined. Initially, patient was discharged on Bactrim and he agreed to this plan. Right before discharge, the nurse mentioned that his lip is getting more swollen. I went to see the patient and his lower lip looked slightly more swollen and edematous than this morning. He denied any difficulty swallowing or breathing. His vital signs are stable. Discharge was canceled and patient will be seen and evaluated again by ENT later today. - Physical Exam Vitals/I&O's: Vital Signs Temp Pulse Resp BP Pulse Ox 98.0 F 106 H 18 140/81 H 98 11/08/19 09:30 11/08/19 09:30 11/08/19 09:30 11/08/19 09:30 11/08/19 09:30 Oxygen Flow Rate (L/min) 2 Oxygen Delivery Method Room Air Weight: 203 lb 14.841 oz Body Mass Index (BMI) 30.7 Intake and Output for Last 24 Hours 11/06/19 11/07/19 11/08/19 23:59 23:59 23:59 Intake Total 2497.00 / 3057.00 4000 / 4000 830 / 830 Balance 2497.00 / 3057.00 4000 / 4000 830 / 830 General: Alert, Oriented x3, Cooperative, No apparent distress HEENT: Atraumatic, PERRLA, EOMI, Normocephalic Oral: Moist Mucosa, No Gingival or Mucosal Lesions/ Ulcerations, - - Lower lip: Erythematous, swollen, minimal drainage in the middle of the lower lip. I tried to squeeze his lower lip, no significant pus came out. Neck: Supple, No JVD, Negative Carotid Bruits, Trachea Midline, Thyroid Normal Size and Texture Lungs: Clear to auscultation, Normal air movement, No rhonchi, No wheeze, No rales Cardiovascular: Regular rate, Regular Rhythm, Normal S1, Normal S2, PMI Normal Abdomen: Bowel Sounds Present, Soft, Non Tender, Non-Distended, No Hepato-splenomegaly Extremities: No clubbing, No cyanosis, No edema Skin: No rashes, No breakdown Lymphatic: No Cervical, Supraclavicular, or Inguinal Adenopathy Neurological: Cranial nerves II-XII grossly intact, Neuro grossly intact Psych/Mental Status: Normal Affect, Appropriate, Alert and oriented to time, place, person, mood and affect Microbiology Past 72 Hours 11/03/19 11:25 Wound Abcess - Oral Gram Stain - Final 11/03/19 11:25 Wound Abcess - Oral Wound Culture - Final Meth. resistant Staph. aureus 11/03/19 11:25 Wound Abcess - Oral Anaerobic Culture - Final No anaerobic bacteria isolated. Laboratory Results 10/29/19 09:34: C1 Esterase Inhibitor Cancelled 11/07/19 11:15: Sodium 133 L, Potassium 3.7, Chloride 100, Carbon Dioxide 27.0, Anion Gap 6, BUN 14, Creatinine 0.90, Estim Creat Clear Calc 125.50, Est GFR (MDRD) Af Amer 126, Est GFR (MDRD) Non-Af 104, BUN/Creatinine Ratio 15.6, Glucose 140 H, Calcium 8.6, C-React Prot Ext Range < 2.90 11/07/19 11:15: C1 Esterase Inhibitor Pending 11/07/19 12:34: POC Glucose 230 H 11/07/19 16:27: POC Glucose 271 H 11/07/19 22:46: POC Glucose 257 H 11/08/19 06:20: POC Glucose 196 H 11/08/19 11:30: POC Glucose 159 H Current Medications Acetaminophen (Tylenol) 650 mg PO Q6H PRN PRN PRN Reason: Pain Score 1-3 /Temp>100.7 Last Admin: 11/07/19 16:24 Dose: 650 mg Documented by: Enoxaparin Sodium (Lovenox) 40 mg SC DAILY [facility] Last Admin: 11/08/19 11:05 Dose: 40 mg Documented by: Famotidine (Pepcid) 20 mg PO BID [facility] Last Admin: 11/08/19 11:05 Dose: 20 mg Documented by: Glucagon () 1 mg IM .X1 PRN PRN Reason: Hypoglycemia Hydralazine HCl (Apresoline Iv) 10 mg IV Q4H PRN PRN PRN Reason: sbp>180 MMHG Hydralazine HCl (Apresoline) 25 mg PO TID [facility] Last Admin: 11/08/19 06:19 Dose: 25 mg Documented by: Sodium Chloride () 250 mls @ 15 mls/hr IV .[id number] PRN PRN Reason: Additional IVPB Infusion Vancomycin IV Pharmacy to Dose (1 ea/ Sodium Chloride) 500 mls @ 250 mls/hr IV X1 PRN; Protocol PRN Reason: Rx to Dose Vancomycin HCl 1,500 mg/ (Sodium Chloride) 530 mls @ 250 mls/hr IV Q8H [facility] Last Infusion: 11/08/19 05:41 Dose: Infused Documented by: Insulin Human Lispro (Humalog Kwikpen (Bkc)) 0 unit SC ACHS [facility]; Protocol Last Admin: 11/08/19 12:03 Dose: 1 u Documented by: Lactobacillus Acidophilus (Acidophilus) 1 tablet PO BID [facility] Last Admin: 11/08/19 11:05 Dose: 1 tablet Documented by: Lidocaine/Diphenhydr/Alum/Mg/Simeth () 20 ml PO Q3H PRN PRN PRN Reason: BURNING ORAL SORE Last Admin: 11/03/19 19:06 Dose: 20 ml Documented by: Ondansetron HCl (Zofran) 4 mg IV Q8H PRN PRN PRN Reason: NAUSEA/VOMITING Oxycodone HCl (Oxyir) 5 mg PO Q4H PRN PRN PRN Reason: Pain Score 4-10/10 Last Admin: 11/08/19 03:45 Dose: 5 mg Documented by: Polyethylene Glycol (Miralax) 17 gm PO DAILY PRN PRN Reason: contipation Prednisone () 40 mg PO DAILY@0800 [facility] Last Admin: 11/08/19 11:04 Dose: 40 mg Documented by: Senna/Docusate Sodium (Senokot-S, Dayna-Colace) 1 tablet PO BID [facility] Last Admin: 11/08/19 11:05 Dose: 1 tablet Documented by: Sodium Chloride () 10 - 40 ml IV UD PRN PRN Reason: SALINE FLUSH Last Admin: 11/08/19 03:33 Dose: 10 ml Documented by: Trimethoprim/Sulfamethoxazole (Bactrim Ds) 1 tablet PO BID [facility] Last Admin: 11/08/19 11:05 Dose: 1 tablet Documented by: Medical Necessity - Tobacco Use Smoking Status: Never smoker Assessment/Plan All Active Problems Angioedema (Acute) Idiopathic angioedema (Acute) Acute hypoxic respiratory failure (Acute) This is a 34 years old male patient presented to the emergency room because of change in voice, difficulty swallowing and swelling of the mouth and tongue in context of recent discharge from the hospital after admission for angioedema, was intubated and admitted to intensive care unit for idiopathic angioedema and also found to have probable lower lip abscess. He was found to have abnormal MRI that was done for dizziness/vertigo. #1 idiopathic recurrent angioedema: Remains on p.o. prednisone, p.o. Pepcid and Benadryl PRN. His vital signs are stable. His lower lip started to swollen again and I am not sure if this is because of the angioedema or because of the lip cellulitis/abscess. Respiratory status stable, on room air. Complement C4 and C1 esterase inhibitor are pending. Plan to continue same treatment, patient will be reevaluated by ENT today. #2 acute respiratory failure: Status post extubation, respiratory status been stable. Pulse ox is maintained on room air. This is attributed to angioedema of the upper airway. Plan as above. #3 reported seizure activity: Attributed to etomidate that was given for intubation. He has no seizure since then. #4 MRSA acute lower lip cellulitis/probable abscess: Remained on the vancomycin, on oral Bactrim yesterday. He has been afebrile, WBC is back to normal. Culture of the wound on the lower lip revealed MRSA. Initially, he was discharged this morning on Bactrim but later, nursing staff mentioned that his lower lip is getting more swollen. Discharge was canceled. Patient kept on IV vancomycin and Bactrim. He will be reevaluated by ENT as mentioned above. #5 Abnormal MRI brain: He has no more symptoms, stable. MRI revealed scattered small white matter hypodensities and differential diagnosis includes microvascular ischemic changes, demyelinating disease, Lyme disease or vasculitis. Tele-neurology consulted and recommended MRI brain with contrast, MRI cervical spine and EEG. Both MRI brain with contrast and MRI cervical spine showed no evidence of demyelinating process. EEG was performed and was normal awake EEG. ESR was slightly raised, CRP was normal. Antinuclear antibodies are pending. At this time, no evidence of acute neurological findings, no multiple sclerosis. Recommend patient to follow-up with his neurologist appointment [facility] as outpatient. #6 hyperglycemia: Probably due to IV steroids. Blood sugar has been trending down. No history of diabetes, hemoglobin A1c is 6.4%. Patient has been on sliding scale. #7 DVT prophylaxis: Subcu Lovenox. This note was generated with [employer] dictation software. It may contain incorrect words, spelling, and punctuation that were not noted in checking the note before signing. Code Visit Inpatient E&M: 03068 Subs Hosp L2
[2019-11-08 13:36] LABS: C1 EST Inhibitor, Functional >92 (.)
[2019-11-08 13:38] LABS: ANTINUCLEAR ANTIBODIES DIRECT Negative (Negative)
[2019-11-08 16:36] LABS: Bedside Glucose 214 mg/dL (70-110)
--- NOTE | 2019-11-08 17:13 | PCM.PN.BLA ---
Progress Note The patient started to experience more tightness and pain in his lip last night. He reports his lip is larger now. avss Lip- The lip is somewhat more erythematous and larger than yesterday. There remains a central crust with underlying fibrinous exudate. I expressed the lip and could not express any pus. I then sprayed the lip with cetacaine spray. I then placed a 16 gauge needle into the right and left side of the lip separately while aspirating. No purulence was aspirated on either side. He tolerated this well without complication A: Lip cellulitis slightly worse than yesterday vs. angioedema worsening as steroids are being weaned. P: will discuss with primary team. Continue prednisone and vancomycin and bactrim. STROKE Vital Signs/Narrative: Vital Signs Temp Pulse Resp BP Pulse Ox 11/08/19 15:02 96 126/83 H 11/08/19 14:59 98.3 F 96 18 126/83 H 97
--- NOTE | 2019-11-08 17:23 | NURSING ---
DR WHITT IN TO SEE PT
--- NOTE | 2019-11-08 17:51 | NURSING ---
RECEIVED CALL FROM DR CULVER. NEW ORDER FOR SOLUMEDROL IV X1. ALSO MONITOR LIP CLOSELY FOR WORSENING/IMPROVEMENT.
[2019-11-08] MEDS: MethylPREDNISolone 125 MG/2 ML Vial 60 MG IV (18:40)
[2019-11-08] MEDS: Morphine 2 MG/ML Syringe IV (20:49)
[2019-11-08] MEDS: Acetaminophen 325 MG Tablet 650 MG PO (20:50)
[2019-11-08 22:21] LABS: Bedside Glucose 226 mg/dL (70-110)
[2019-11-09] MEDS: 0.9% Saline Lock 10 ML Syringe IV (05:06)
[2019-11-09] MEDS: Acetaminophen 325 MG Tablet 650 MG PO (05:06)
[2019-11-09 05:07] VITALS: PULSE 81
[2019-11-09] MEDS: hydrALAZINE 25 MG Tablet PO (05:07)
[2019-11-09 05:12] VITALS: BP 141/78; PULSE 81; RESP 16; TEMP 36.6; O2SAT 97
[2019-11-09] MEDS: Insulin Lispro 100 UNIT/ML INSULN.PEN SC ×2 (06:41→11:47)
[2019-11-09 06:46] LABS: Bedside Glucose 194 mg/dL (70-110)
[2019-11-09 09:12] VITALS: PULSE 90
[2019-11-09] MEDS: Senna/Docusate Sodium 1 Tablet PO (09:20)
[2019-11-09] MEDS: predniSONE 20 MG Tablet 40 MG PO (09:20)
[2019-11-09] MEDS: Famotidine 20 MG Tablet PO (09:21)
--- NOTE | 2019-11-09 11:14 | PCM.PN.BLA ---
Progress Note The patient feels much better with less lip pain. He reports the swelling has come down. avss Lip- Significantly less edema. No erythema. Nothing could be expressed. A: Drastic improvement of lip cellulitis overnight P: Continue antibiotics per primary team. He will likely be discharged this weekend. Follow up with me as scheduled 11/12/19. He will need Primary care follow up as well. STROKE Vital Signs/Narrative: Vital Signs Pulse 11/09/19 09:12 90
--- NOTE | 2019-11-09 11:19 | DCINST_ITS ---
- Discharge Diagnoses Current Active Problems: Current Active and Chronic Problems Idiopathic angioedema (Acute) Acute hypoxic respiratory failure (Acute) You will use the following diet at home:: Regular Your food should be the consistency of: Regular Discharge Activity: Return to Normal Activity Return to work on:: 11/18/19 Weight Bearing Status: Full weight bearing Call your doctor if you observe: Fever of 101 or Higher, Shortness of breath, Dizziness, Fainting spells, Chest pain, Increased palpitations (irregular heartbeat), Uncontrolled pain Instructions: Controlling High Blood Pressure, Taking Your Blood Pressure, ED Angioedema, Booklet - Living with MRSA Allergies/Adverse Reactions: Allergies etomidate Adverse Reaction (Verified 11/03/19 15:37) Other Seizure-Tonic Clonic Medications to take at Discharge Amlodipine [Norvasc] 5 mg PO DAILY #30 tab 11/09/19 Clindamycin [Cleocin] 450 mg PO TID #60 cap 11/09/19 DiphenhydrAMINE [Benadryl] 25 mg PO TID #14 cap 11/09/19 Famotidine [Pepcid] 20 mg PO BID #14 tab 11/09/19 Prednisone 40 mg PO DAILY #50 tab 11/09/19 The following prescriptions were given: DiphenhydrAMINE [Benadryl] 25 mg PO TID #14 cap Transmission Status: Pending to [facility] Clindamycin [Cleocin] 450 mg PO TID #60 cap Transmission Status: Pending to [facility] Amlodipine [Norvasc] 5 mg PO DAILY #30 tab Transmission Status: Pending to [facility] Famotidine [Pepcid] 20 mg PO BID #14 tab Transmission Status: Pending to [facility] Prednisone 40 mg PO DAILY #50 tab Transmission Status: Pending to [facility] Primary Care Physician: Care Physician,No Primary [Primary Care Provider] - Please follow up with your Primary Care Physician in: 1 week. Test Results: Test results from this visit will be discussed in further detail at your follow- up appointment, if applicable. Please Follow Up With: Jorge L Munoz MD When: 3-5 days.
[2019-11-09 11:50] VITALS: BP 135/76; PULSE 84; RESP 18; TEMP 36.7; O2SAT 94
[2019-11-09 11:55] LABS: Bedside Glucose 235 mg/dL (70-110)
--- NOTE | 2019-11-09 12:36 | PCM.DC.SUM ---
Discharge Date and Diagnosis Date of Admission: 10/29/19 Date of Discharge: 11/09/19 - Primary Discharge Diagnosis Active and Suspected Problems #1 idiopathic recurrent angioedema. #2 acute respiratory failure, resolved. #3 MRSA acute lower lip cellulitis/probable abscess. #4 questionable seizure, attributed to etomidate that was given for intubation. #5 abnormal MRI, acute demyelinating disease ruled out. #6 hyperglycemia without diabetes, attributed to steroids. - Secondary Discharge Diagnosis Chronic Problems Anxiety and depression (Chronic) Hospital Course and Treatment Imaging Results: Clinical Impression(s) from Imaging Studies Chest X-Ray 10/29/19 08:10 IMPRESSION: The tip of the endotracheal tube is at the level of the ellyn. This should be withdrawn approximately 2 cm. The tip of the orogastric tube is in the fundal portion of the stomach. Mild increased markings at the lung bases suggestive of atelectasis. Electronically Signed: Kwabena Adam, at 9:18 EST , Service support , Brain CT 10/29/19 08:20 IMPRESSION: No intracranial abnormality is seen. Soft tissue prominence of the nasal structure as well as soft tissue density within the nasal cavity. Electronically Signed: Kwabena Adam, at 9:46 EST , Service support , Facial/Sinus 11/04/19 00:40 IMPRESSION: Possible early abscess formation of the lower lip with diffuse edema at this level as described above. Clinical correlation recommended. Electronically Signed: Marylou Bergeron MD at 2:28 EST , Service support , Brain MRI 11/06/19 01:37 IMPRESSION: No acute intracranial abnormality. There are scattered, small white matter hyperintensities on T2 and FLAIR signal, differential diagnosis for this appearance includes chronic microvascular ischemic changes, demyelinating disease, Lyme disease, vasculitis or migraine. Electronically Signed: Aly You, at 16:54 EST Tel , Service support , Brain MRI 11/07/19 10:15 IMPRESSION: No demonstrated abnormal intraparenchymal or extra-axial enhancing lesions on this enhanced MRI of the brain. Electronically Signed: Vikas Gentile MD at 20:36 EST , Service support , Cervical Spine MRI 11/07/19 10:16 IMPRESSION: 1. Mild disc space narrowing is present resulting in a broad-based is herniation that causes mild compression anterior aspect of the cord and mild central canal stenosis. 2. There is no evidence of a cord syrinx or plaques or brachial no abnormal enhancement of the cord is seen. 3. No demonstrated abnormal or suspicious enhancement of the soft tissue or bony structures of the cervical spine. Electronically Signed: Vikas Gentile MD at 21:01 EST , Service support , Dr. Smith/Dr. Yi, critical care. Dr. Eid, infectious disease. Dr. Munoz, ENT. Operations: None Procedures: EKG, Intubation Summary of Care Provided: Patient seen and examined on the day of discharge and appeared to be stable to be discharged home. Swelling and erythema of the lower lip improved compared to yesterday. Denied difficulty breathing or swallowing. Denied fever or chills. His vital signs are stable. This is a 34 years old male patient presented to the emergency room because of change in voice, difficulty swallowing and swelling of the mouth and tongue in context of recent discharge from the hospital after admission for angioedema, was intubated and admitted to intensive care unit for idiopathic recurrent angioedema and he developed acute lower lip cellulitis with probable abscess. Later, patient developed dizziness with vertigo for which MRI done and was reported as abnormal. #1 idiopathic recurrent angioedema: Initially, patient was intubated, admitted to intensive care unit and he was treated with IV steroids, IV Pepcid and IV Benadryl. He remained on mechanical ventilation for 3 days. There was no obvious etiology for this angioedema. Antinuclear antibodies were negative. C1 esterase inhibitors was normal. Complement C4 was normal as well. Patient discharged on tapering course of prednisone as well as Pepcid and Benadryl. #2 acute respiratory failure: Status post extubation, patient remained on mechanical ventilation for 3 days. Pulse ox is maintained on room air. This is attributed to angioedema of the upper airway. #3 reported seizure activity: Attributed to etomidate that was given for intubation. He has no seizure since then. #4 MRSA acute lower lip cellulitis/probable abscess: Treated with IV vancomycin and later, he was started on Bactrim. Culture of the lower lip revealed MRSA. Swelling of the lower lip kept getting better and worsening over couple of days. ENT evaluated the patient multiple times, there was no drainage or pus came out on needle drainage that was done by ENT. Patient was switched to IV clindamycin and he was given another dose of IV Solu-Medrol. Following morning, swelling and erythema of the lower lip significantly improved. Patient discharged on clindamycin 450 mg p.o. 3 times daily for 7 days, plan to follow-up with ENT in 3 to 5 days. #5 Abnormal MRI brain: MRI was done because patient complained of vertigo. MRI revealed scattered small white matter hypodensities and differential diagnosis includes microvascular ischemic changes, demyelinating disease, Lyme disease or vasculitis. Tele-neurology consulted and recommended MRI brain with contrast, MRI cervical spine and EEG. Both MRI brain with contrast and MRI cervical spine showed no evidence of demyelinating process. EEG was performed and was normal awake EEG. ESR was slightly raised, CRP was normal. Antinuclear antibodies was negative. There was no evidence of acute demyelinating disease, multiple sclerosis ruled out. Recommended to follow-up with his previous neurology at [facility] after recovery. #6 hyperglycemia: Secondary to IV steroids. Treated with insulin scale. No history of diabetes, hemoglobin A1c is 6.4%. Patient discharged home in a stable medical condition, discharged on clindamycin 450 mg p.o. 3 times daily for 7 days, discharged on tapering course of prednisone over 20 days, discharged on Pepcid and Benadryl, started on Norvasc for elevated blood pressure, recommended follow-up with ENT in 3 to 5 days and follow-up with PCP in 1 week. This note was generated with [employer] software. It may contain incorrect words, spelling, and punctuation that were not noted in checking the note before signing. - Physical Exam Vitals/I&O's: Vital Signs Temp Pulse Resp BP Pulse Ox 98.0 F 84 18 135/76 H 94 11/09/19 11:50 11/09/19 11:50 11/09/19 11:50 11/09/19 11:50 11/09/19 11:50 Oxygen Flow Rate (L/min) 2 Oxygen Delivery Method Room Air Weight: 203 lb 14.841 oz Body Mass Index (BMI) 30.7 Intake and Output for Last 24 Hours 11/07/19 11/08/19 11/09/19 23:59 23:59 23:59 Intake Total 4000 / 4000 2882.75 / 2882.75 70.5 / 70.5 Balance 4000 / 4000 2882.75 / 2882.75 70.5 / 70.5 General: Alert, Oriented x3, Cooperative, No apparent distress HEENT: Atraumatic, PERRLA, EOMI, Normocephalic Oral: Moist Mucosa, No Gingival or Mucosal Lesions/ Ulcerations, - - Lower lip: Swelling and erythema significant improved, dried, crusting. Neck: Supple, No JVD, Negative Carotid Bruits, Trachea Midline, Thyroid Normal Size and Texture Lungs: Clear to auscultation, Normal air movement, No rhonchi, No wheeze, No rales Cardiovascular: Regular rate, Regular Rhythm, Normal S1, Normal S2 Abdomen: Bowel Sounds Present, Soft, Non Tender, Non-Distended, No Hepato-splenomegaly Extremities: No clubbing, No cyanosis, No edema Skin: No rashes, No breakdown Lymphatic: No Cervical, Supraclavicular, or Inguinal Adenopathy Neurological: Cranial nerves II-XII grossly intact, Motor Exam 5/5 strength throughout Psych/Mental Status: Normal Affect, Appropriate Microbiology Past 72 Hours 11/03/19 11:25 Wound Abcess - Oral Gram Stain - Final 11/03/19 11:25 Wound Abcess - Oral Wound Culture - Final Meth. resistant Staph. aureus 11/03/19 11:25 Wound Abcess - Oral Anaerobic Culture - Final No anaerobic bacteria isolated. Laboratory Results 10/29/19 09:34: Func C1 Esterase Inhib >92, Complement C4 42 11/07/19 11:15: REID Screen Negative 11/08/19 16:24: POC Glucose 214 H 11/08/19 21:06: POC Glucose 226 H 11/09/19 06:39: POC Glucose 194 H 11/09/19 11:45: POC Glucose 235 H Current Medications Acetaminophen (Tylenol) 650 mg PO Q6H PRN PRN PRN Reason: Pain Score 1-3 /Temp>100.7 Last Admin: 11/09/19 05:06 Dose: 650 mg Documented by: Enoxaparin Sodium (Lovenox) 40 mg SC DAILY [facility] Last Admin: 11/09/19 09:21 Dose: Not Given Documented by: Famotidine (Pepcid) 20 mg PO BID [facility] Last Admin: 11/09/19 09:21 Dose: 20 mg Documented by: Glucagon () 1 mg IM .X1 PRN PRN Reason: Hypoglycemia Hydralazine HCl (Apresoline Iv) 10 mg IV Q4H PRN PRN PRN Reason: sbp>180 MMHG Hydralazine HCl (Apresoline) 25 mg PO TID [facility] Last Admin: 11/09/19 05:07 Dose: 25 mg Documented by: Sodium Chloride () 250 mls @ 15 mls/hr IV .[id number] PRN PRN Reason: Additional IVPB Infusion Last Infusion: 11/09/19 06:45 Dose: 0 mls/hr Documented by: Clindamycin Phosphate 600 mg/ (Dextrose) 54 mls @ 100 mls/hr IV Q8 [facility] Last Infusion: 11/09/19 05:39 Dose: Infused Documented by: Insulin Human Lispro (Humalog Kwikpen (Bkc)) 0 unit SC [facility]; Protocol Last Admin: 11/09/19 11:47 Dose: 2 u Documented by: Lactobacillus Acidophilus (Acidophilus) 1 tablet PO BID [facility] Last Admin: 11/09/19 09:20 Dose: 1 tablet Documented by: Lidocaine/Diphenhydr/Alum/Mg/Simeth () 20 ml PO Q3H PRN PRN PRN Reason: BURNING ORAL SORE Last Admin: 11/03/19 19:06 Dose: 20 ml Documented by: Ondansetron HCl (Zofran) 4 mg IV Q8H PRN PRN PRN Reason: NAUSEA/VOMITING Polyethylene Glycol (Miralax) 17 gm PO DAILY PRN PRN Reason: contipation Prednisone () 40 mg PO DAILY@0800 [facility] Last Admin: 11/09/19 09:20 Dose: 40 mg Documented by: Senna/Docusate Sodium (Senokot-S, Dayna-Colace) 1 tablet PO BID BERTA Last Admin: 11/09/19 09:20 Dose: 1 tablet Documented by: Sodium Chloride () 10 - 40 ml IV UD PRN PRN Reason: SALINE FLUSH Last Admin: 11/09/19 05:06 Dose: 20 ml Documented by: Discharge Activity: Return to Normal Activity Return to work on:: 11/18/19 Weight Bearing Status: Full weight bearing Call your doctor if you observe: Fever of 101 or Higher, Shortness of breath, Dizziness, Fainting spells, Chest pain, Increased palpitations (irregular heartbeat), Uncontrolled pain Home Medications: Medications to take at Discharge Amlodipine [Norvasc] 5 mg PO DAILY #30 tab 11/09/19 Clindamycin [Cleocin] 450 mg PO TID #60 cap 11/09/19 DiphenhydrAMINE [Benadryl] 25 mg PO TID #14 cap 11/09/19 Famotidine [Pepcid] 20 mg PO BID #14 tab 11/09/19 Prednisone 40 mg PO DAILY #50 tab 11/09/19 Following Prescrptions Were Given to Patient: DiphenhydrAMINE [Benadryl] 25 mg PO TID #14 cap Transmission Status: Received by [facility] Clindamycin [Cleocin] 450 mg PO TID #60 cap Transmission Status: Received by [facility] Amlodipine [Norvasc] 5 mg PO DAILY #30 tab Transmission Status: Received by [facility] Famotidine [Pepcid] 20 mg PO BID #14 tab Transmission Status: Received by [facility] Prednisone 40 mg PO DAILY #50 tab Transmission Status: Received by [facility] Primary Care Physician: Care Physician,No Primary [Primary Care Provider] - Please follow up with your Primary Care Physician in: 1 week. Please Follow Up With: Jorge L Munoz MD When: 3-5 days. Patient Instructions: Controlling High Blood Pressure, Taking Your Blood Pressure, ED Angioedema, Booklet - Living with MRSA Disposition: Home Minutes spent on discharge:: 35 Patient Condition:: Stable Medical Necessity - Tobacco Use Smoking Status: Never smoker Meaningful Use Info Meaningful Use Diagnoses (Choose all that apply): None applicable Code Visit Inpatient E&M: 80523 Disch Hosp
--- NOTE | 2019-11-11 13:48 | CASEMGMT ---
BARTOLO JACOME DC PHONE CALL DC DATE: 11.09.2019 DC Disposition: Home Diagnosis on Discharge: angioedema LACE/STRATA:06/18 Intro role of CM to patient via phone. Pt was upset as he had not had his medications on dc. Pt relayed his medications were delivered from [facility] pharmacy day prior to discharge and were locked up until dc. On discharge, pt was not given meds,. He returned to ER for BP and states withdrawal issues. 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 No further questions were asked as pt was on his way to [facility] and was agitated on phone. Nader VALADEZN RN ACM
[2019-11-11 17:09] LABS: C1 Esterase Inhibitor, Quant 33 mg/dL (21-39)
== END 2019-11-09 13:51 | disposition home or self-care (01) | DRG 811 ==
LOC: ED 09:20 → ICU 12:25 → MS3 11-01 18:05
PROVIDERS: Internal Medicine Critical Care Medicine; Internal Medicine Infectious Disease; Admitting Provider Internal Medicine; Emergency Provider Emergency Medicine; Visit Provider Hospitalist
DX: T78.3XXA Angioneurotic edema, initial encounter (principal); R56.9 Unspecified convulsions; J96.01 Acute respiratory failure with hypoxia; K13.0 Diseases of lips; E87.8 Other disorders of electrolyte and fluid balance, not elsewhere classified; E87.1 Hypo-osmolality and hyponatremia; B95.62 Methicillin resistant Staphylococcus aureus infection as the cause of diseases classified elsewhere; F32.9 Major depressive disorder, single episode, unspecified; F41.9 Anxiety disorder, unspecified; R93.0 Abnormal findings on diagnostic imaging of skull and head, not elsewhere classified; R73.9 Hyperglycemia, unspecified; T38.0X5A Adverse effect of glucocorticoids and synthetic analogues, initial encounter
CPT/HCPCS: 31500; 31720; 36415; 36600; 51702; 70450; 70488; 70551; 70552; 71045; 72156; 80048; 80053; 80202; 80307; 80320; 82803; 82962; 82977; 85025; 85652; 86003; 86005; 86038; 86140; 86160; 86161; 87070; 87075; 87077; 87186; 87205; 92526; 92610; 93005; 94002; 94003; 94640; 94660; 94762; 95819; 97116; 97162; 97163; 97166; 97530; 97802; 99251; 99285; A9575; J7030; J7040; J7050; J7120; Q9967; A4216; G0463; G0480; J0295; J3490

== ENCOUNTER 2019-11-10 17:44 | Emergency (ER) | payer MEDICAID, SELFPAY ==
[2019-10-29 11:08] VITALS: BMI 30.7
[2019-11-10 17:46] VITALS: BP 143/93; PULSE 110; RESP 16; TEMP 36.9; O2SAT 99; BMI 27.1
[2019-11-10 17:55] LABS: Bedside Glucose 165 mg/dL (70-110)
--- NOTE | 2019-11-10 19:41 | ED.DCSUM_ITS ---
History of Present Illness Chief Complaint: Anxiety Informant: Patient Onset: Yesterday Context: Gradual Onset Timing: Intermittent Narrative: Patient is a 34-year-old male with history of anxiety as well as hypertension and idiopathic angioedema presenting with anxiety and concern for high blood pressure. Patient was discharged from the hospital yesterday after a 11-day admission included an intubation for angioedema of the lip. Patient was initially supposed to be discharged 2 days ago and his prescriptions were sent to the pharmacy. Prescriptions included Bactrim and prednisone. Patient states the prescriptions never brought up and he actually was discharged the day after. He has been on clindamycin but has not been on any other medications. He states he is been on Xanax in the past just as needed. He was receiving it while he was in the hospital. Patient states since he is been home he is been feeling shaky, anxious and has had a throbbing headache. He is following up with the pharmacy and his insurance tomorrow to get the rest of his prescriptions. Patient denies any other complaints at this time. Denies any vision changes, nausea, vomiting, abdominal pain, chest pain or shortness of b reath. Past Medical History - Allergies and Home Meds Allergies/Adverse Reactions: Allergies etomidate Adverse Reaction (Verified 11/10/19 17:48) Other Seizure-Tonic Clonic Primary Care Physician: Care Physician,No Primary [Primary Care Provider] - Past Medical History: - - Hypertension, anxiety, idiopathic angioedema Surgical History: noncontributory, - - right foot/ankle surgery Smoking Status: Current some day smoker - Family History Maternal Family History: Reports: No pertinent history Paternal Family History: Reports: Diabetes Review of Systems General: Reports: Malaise. Denies: Chills, Fever, Sweats Eyes: Denies: Visual changes - bilaterally, Diplopia ENT: Denies: Rhinorrhea, Sore throat Cardiovascular: Denies: Chest pain, Palpitations Respiratory: Denies: Dyspnea, Cough, Dyspnea on exertion Gastrointestinal: Denies: Abdominal pain, Nausea, Vomiting, Diarrhea, Melena, Hematochezia Genitourinary: Denies: Dysuria, Hematuria, Frequency Musculoskeletal: Denies: Back pain, Extremity Pain Skin: Denies: Rash, Wounds Neurological: Reports: Headache, - - Tremulous. Denies: Weakness, Numbness Psych: Reports: Anxiety. Denies: Depression, Suicidal thoughts, Suicidal ideations Physical Exam Vital Signs/Narrative: Vital Signs Temp Pulse Resp BP Pulse Ox 11/10/19 17:46 98.5 F 110 H 16 143/93 H 99 Inital Vital Signs reviewed: Yes General: Well nourished, Well developed, No Acute Distress Head: Normocephalic, Atraumatic Eyes: Perrl, EOMI, - - No nystagmus ENT: Moist mucous membranes, No rhinorrhea, TM's clear, - - Pronounced lower lip, scab in the middle of the lip?patient states is from his recent episode of angioedema Neck: Supple, Nontender Cardiovascular: Regular rate, Regular rhythm, No murmurs Respiratory: No distress, CTA bilaterally, Chest nontender Abdomen: Soft, Nontender, Nondistended, Normal bowel sounds Back: Nontender, Normal Inspection Extremities: Nontender, No edema Skin: Normal color, No rash Neurological: Alert, Oriented x3, Cranial nerves II-XII grossly intact, Normal Strength, Normal Sensation Psychological: Normal affect, Normal Mood, - - Patient is conversing and behaving appropriately however he does appear anxious and is pacing in the emergency room Diagnostic/Tx/Re-eval - Medical Decision Making Patient is evaluated for concerns of anxiety as well as medication withdrawal. Patient had an extended ICU/hospital stay was just discharged from the hospital yesterday. Since he has been home patient is been feeling more anxious. He is also concerned about his medications as there is an issue with getting most of his medications filled including his steroids and his antihypertensive. He is plan on getting that sorted out to the pharmacy tomorrow. I did check an [place] report which does not show any recent opioid or benzodiazepine prescriptions. Patient be given a short course of Xanax which she was on during his hospital stay as well as a dose in the emergency room. He is also given a dose of his Norvasc. Patient is only mildly hypertensive and I do not suspect hypertensive emergency at this time. In addition he has a normal neurologic exam. Is not having chest pain or shortness of breath. I do not think he requires any blood work, imaging or EKG at this time. Patient is agreeable with this plan. He is supposed to be on steroids and he is given a dose of 40 mg p.o. prednisone as well in the emergency room. Patient is counseled on signs and symptoms requiring return to the emergency room. Patient verbalizes agreement and understand this plan. Patient discharged home in stable and improved condition. ED Disposition - Plan for ED Patient: Disposition: Home or Assisted Living Diagnosis: Anxiety, Headache Instructions: Anxiety Reaction Prescriptions: ALPRAZolam [Xanax] 0.5 mg PO BID PRN PRN 5 Days #10 tab PRN Reason: Anxiety Prescription Printed Referrals: Care Physician,No Primary [Primary Care Provider] - Additional Instructions: You have been given a short course of Xanax to take as needed. Please follow-up with the pharmacy and your insurance tomorrow to get the rest of your prescriptions filled. You have also been given a dose of your blood pressure medication, Norvasc, as well as a dose of steroids. You can take Tylenol or ibuprofen at home as needed for your headache. Return the emergency room with any worsening symptoms.
[2019-11-10] MEDS: predniSONE 20 MG Tablet 40 MG PO (20:05)
[2019-11-10] MEDS: ALPRAZolam 0.5 MG Tablet PO (20:05)
[2019-11-10] MEDS: amLODIPine 5 MG Tablet PO (20:05)
[2019-11-10 20:09] VITALS: PULSE 108; RESP 18; O2SAT 97
== END 2019-11-10 20:10 | disposition home or self-care (01) ==
PROVIDERS: Emergency Provider Emergency Medicine
DX: F41.9 Anxiety disorder, unspecified (principal); R51 Headache; I10 Essential (primary) hypertension; F17.200 Nicotine dependence, unspecified, uncomplicated; Z79.2 Long term (current) use of antibiotics; Z79.899 Other long term (current) drug therapy
CPT/HCPCS: 82962; 99283

== ENCOUNTER 2019-12-18 01:11 | Emergency (ER) | payer MEDICAID, SELFPAY ==
[2019-12-18 01:13] VITALS: BP 153/97; PULSE 71; RESP 18; TEMP 36.5; O2SAT 100; BMI 30.5
--- NOTE | 2019-12-18 01:51 | EKG12_ITS ---
Test Reason : SOB Blood Pressure : / mmHG Vent. Rate : 066 BPM Atrial Rate : 066 BPM P-R Int : 172 ms QRS Dur : 098 ms QT Int : 376 ms P-R-T Axes : 030 055 051 degrees QTc Int : 394 ms Normal sinus rhythm Normal ECG Confirmed by ONIEL KAY ([id number]), avid editor KAMILA HERNANDEZ ([id number]) on 12/18/2019 2:20:01 PM Referred By: Confirmed By:ONIEL KAY
--- NOTE | 2019-12-18 01:52 | CT_ITS ---
STUDY: CTA CHEST REASON FOR EXAM: Male, 34 years old. SOB/PALPITATIONS. Hx of arrythmia, HTN and pre-diabetes. RADIATION DOSAGE (If Supplied By Facility): CTDIvol = ( 15.97 ) mGy, DLP = ( 502.24 ) mGycm TECHNIQUE: The examination was performed with the intravenous administration of isovue 300 100ml. Post-processing of the angiographic images was performed, with multiplanar reformation and 3D reconstruction. There is image blurring as a result of cardiac motion. Diagnostic accuracy is somewhat reduced. However, there is substantial diagnostic information remaining available on this study. Individualized dose optimization techniques were used for this CT. COMPARISON: Portable chest x-ray 10/29/2019 FINDINGS: Normal enhancement of the main pulmonary artery and right and left pulmonary arteries. Normal enhancement of the bilateral peripheral pulmonary arteries. There is no demonstrated pulmonary embolism. Normal thoracic aorta and visualized great vessels. There is no demonstrated aortic dissection. Normal heart and pericardium. Left ventricular wall appears thickened. Normal mediastinum. Normal hilar regions. Normal visualized trachea and bronchi. The lungs are well expanded. Normal pulmonary parenchyma. Normal pleura. Normal chest wall structures. Normal osseous structures. Normal visualized upper abdomen. CT/CTA Chest W/WO Contrast IMPRESSION: Normal CTA chest examination, without a demonstrated pulmonary embolism or arterial dissection. Electronically Signed: Kandice Serrano MD at 2:52 EST , Service support ,
--- NOTE | 2019-12-18 01:58 | ED.VISSUMM ---
- ER Visit Summary Date of Service: 12/18/19 Chief Complaint: Shortness of breath, palpitations History of Present Illness: The patient is a 34 M presenting with shortness of breath, palpitations. He states this started 2 days ago. He states this has been intermittent episodes of very brief shortness of breath and feeling like his heart skips a beat. He states these episodes last about 2 seconds. They have been becoming more frequent. He denies chest pain. Denies syncope. He does drink more caffeine than he used to. He denies alcohol or drug use. He was recently admitted for angioedema. He states these symptoms have completely resolved. Denies fever. Denies other complaints. Physical Examination: Vitals are stable. Patient is afebrile. Alert no acute distress. HEENT exam is unremarkable. Neck is supple. Lungs are clear and equal bilaterally. Heart is regular rate and rhythm. Abdomen is soft nontender nondistended. Extremities are unremarkable. Skin is warm and dry. No focal neurologic deficit. Remainder of exam is unremarkable. Emergency Department Course and Treatment: EKG is sinus rhythm rate of 66 with no acute ischemic changes. Normal CTA chest examination, without a demonstrated pulmonary embolism or arterial dissection. CBC normal except platelet 122. Chemistries unremarkable. Troponin is negative. TSH 2.34. Patient was advised of these findings and advised to follow-up with primary care physician. Advised to return to the ED for worsening complaints. Disposition: Discharge home Impression: Palpitations This note was generated with [employer] dictation software. It may contain incorrect words, spelling, and punctuation that were not noted in review of the chart prior to signing ED Disposition - Plan for ED Patient: Instructions: Palpitations Referrals: Wayne Cagle DO [NON CLINICAL AFFILIATE] - Care Physician,No Primary [Primary Care Provider] -
[2019-12-18 02:20] LABS: Anion Gap 5 (5-15); BUN 14 mg/dL (7-18); BUN/Creat Ratio 13.5 RATIO (10-20); Calcium,Total 9.1 mg/dL (8.5-10.1); Chloride 105 mmol/L (98-107); Creatinine, Serum 1.04 mg/dL (0.70-1.30); EST Glomerular Filtration Rate 88 mL/min (>60); Est Glom Filt Rate - Afr Amer 106 mL/min (>60); Estimated Creatinine Clearance 108.61 ml/min; Glucose 96 mg/dL (74-106); Potassium 3.8 mmol/L (3.5-5.1); Sodium Level 139 mmol/L (136-145); Thyroid Stim Hormone (TSH) 2.34 uIU/mL (0.358-3.74)
[2019-12-18 03:00] LABS: Absolute Lymphocyte Count 2.85 X10^3/uL (0.83-4.51); Absolute Neutrophil Count 2.8 X10^3/uL (2.0-7.7); Basophil# 0.06 X10^3/uL; Basophil% 0.9 % (0-1); Eosinophil# 0.04 X10^3/uL; Eosinophils% 0.6 % (0-5); Hematocrit 42.7 % (40-54); Hemoglobin 14.1 g/dL (13.0-16.5); Lymphocyte # 2.85 X10^3/ul (4.0); Lymphocyte % 43.7 % (19-41); Mean Corpuscular Hgb 28.1 pg (27.0-32.0); Mean Corpuscular Volume 85.1 fL (80-94); Mean Platelet Vol. 13.3 fl (6.2-12.0); Monocyte# 0.72 X10^3/uL; NRBC Flagged by Analyzer 0 % (0-5); Neutrophil # 2.84 X10^3/uL (2.7-7.7); Neutrophil % 43.6 % (47-70); Platelet Count 122 K/mm3 (150-450); RBC Distribution Width CV 13.7 % (11.6-14.6); RBC Distribution Width SD 42.6 fl (35.1-43.9); Red Blood Count 5.02 M/mm3 (4.6-6.2); White Blood Count 6.5 K/mm3 (4.4-11.0)
--- NOTE | 2019-12-18 03:32 | ED.DEP ---
ED Disposition - Plan for ED Patient: Instructions: Palpitations Referrals: Care Physician,No Primary [Primary Care Provider] - Wayne Cagle DO [NON CLINICAL AFFILIATE] -
[2019-12-18 03:44] VITALS: BP 146/89; PULSE 65; RESP 13; O2SAT 100
== END 2019-12-18 03:45 | disposition home or self-care (01) ==
LOC: ED 02:03
PROVIDERS: Emergency Provider Emergency Medicine
DX: R00.2 Palpitations (principal); E11.9 Type 2 diabetes mellitus without complications; I10 Essential (primary) hypertension; Z79.899 Other long term (current) drug therapy
CPT/HCPCS: 71275; 80048; 84443; 84484; 85025; 93005; 99285; Q9967

== ENCOUNTER 2020-02-27 16:53 | Emergency (ER) | payer MEDICAID, SELFPAY ==
[2020-02-27 16:54] VITALS: BP 155/102; BP 155/103; PULSE 86; PULSE 90; RESP 17; TEMP 36.5; O2SAT 96; O2SAT 97; BMI 31.4
--- NOTE | 2020-02-27 17:10 | CT_ITS ---
STUDY: CT BRAIN WITHOUT CONTRAST REASON FOR EXAM: Male, 34 years old. VALENTIN X 2 DAYS, PT STATES HX SEIZURE RADIATION DOSAGE (If Supplied By Facility): CTDIvol = ( 44.99 ) mGy, DLP = ( 745.49 ) mGycm TECHNIQUE: Transaxial CT imaging of the brain was performed without administration of intravenous contrast material. Individualized dose optimization techniques were used for this CT. COMPARISON: October 29, 2019 FINDINGS: Normal soft tissue structures. Normal calvarium. Normal size ventricles and extra-axial spaces for the patient''s age. Normal white matter tracts of the cerebral hemispheres. Normal basal ganglia and thalami. Normal brainstem. Normal cerebellum. There is no intracranial hemorrhage. There are no findings of an acute ischemic infarction. Normal visualized paranasal sinuses. No significant change since prior study CT/Brain/Head without Contrast IMPRESSION: Normal unenhanced CT scan of the brain. Electronically Signed: Cristo Hernandez MD at 17:56 EDT , Service support ,
--- NOTE | 2020-02-27 17:27 | ED.VIS.HA ---
History of Present Illness Chief Complaint: Headache Narrative: Patient presenting for evaluation secondary to headache. 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 This all happened in October. Patient reports over the course the last 2 days he has been dealing with a right-sided headache. Patient states that it has been a continuous headache that will have paroxysms of pain. He reports associated with some blurry vision as well as auras. He denies any nausea or vomiting. He denies any neck stiffness, fevers, recent infections, recent head injuries. He is never really had any prior similar episodes in the past. He denies any numbness or weakness. He denies any personal or familial history of headaches or migraines. Review of systems otherwise negative. Past Medical History - Allergies and Home Meds Allergies/Adverse Reactions: Allergies etomidate Adverse Reaction (Verified 02/27/20 16:54) Other Seizure-Tonic Clonic Primary Care Physician: Care Physician,No Primary [Primary Care Provider] - Prior records reviewed: Yes Past Medical History: - - Recurrent angioedema Surgical History: noncontributory, - - right foot/ankle surgery Smoking Status: Never smoker - Family History Maternal Family History: Reports: No pertinent history Paternal Family History: Reports: Diabetes Review of Systems All systems negative except as indicated General: Denies: Chills, Fever, Sweats Eyes: Reports: Blurred Vision - bilaterally. Denies: Diplopia ENT: Denies: Rhinorrhea, Sore throat Cardiovascular: Denies: Chest pain, Palpitations Respiratory: Denies: Dyspnea, Cough, Dyspnea on exertion Gastrointestinal: Denies: Abdominal pain, Nausea, Vomiting, Diarrhea, Melena, Hematochezia Genitourinary: Denies: Dysuria, Hematuria, Frequency Musculoskeletal: Denies: Back pain, Extremity Pain Skin: Denies: Rash, Wounds Neurological: Reports: Headache Physical Exam Vital Signs/Narrative: Vital Signs Temp Pulse Resp BP Pulse Ox 02/27/20 16:54 97.7 F L 86 17 155/103 H 96 Inital Vital Signs reviewed: Yes General: Well nourished, Well developed Head: NC, AT, Temporary Artery Tenderness - Right sided. Negative for: Vesicular Rash, Sinus Tenderness Eyes: Perrl, EOMI, - - Funduscopy was limited secondary to myosis, but was not remarkable for any sort of retinal hemorrhages ENT: Moist mucous membranes, No rhinorrhea Neck: Supple, No Lymphadenopathy, No JVD, Nontender, No Meningismus, - - Negative Brudzinski, Kernig, and jolt testing Cardiovascular: Regular rate, Regular rhythm, No murmurs Respiratory: No distress, CTA bilaterally, Chest nontender Abdomen: Soft, Nontender, Nondistended, Normal bowel sounds Back: Nontender, Normal Inspection Extremities: Nontender, No edema Skin: Normal color, No rash Neuro: Alert, Oriented x3, Cranial nerves II-XII grossly intact, Normal Strength, Normal Sensation, Normal DTR, Normal Gait Psychological: Normal affect Diagnostic/Tx/Re-eval Clinical Impression(s) from Imaging Studies Brain CT 02/27/20 17:10 IMPRESSION: Normal unenhanced CT scan of the brain. Electronically Signed: Cristo Hernandez MD at 17:56 EDT , Service support , Laboratory Data 02/27/20 17:20 ESR 13 - Medical Decision Making Patient presented secondary to a headache. Patient did have some focal tenderness to palpation over his right hoahaoism, there was some concern for the possibility of temporal arteritis. IV was established ESR was obtained which was found to be normal. CT imaging of the brain was normal. Patient was given a dose of subcutaneous Imitrex, repeat evaluation at 1812 shows him to have resolution of his headache. At this point I believe he likely was either having a migraine headache or cluster headache. While his headache is unilateral and seems to be waxing and waning it does not have all the classic signs of a cluster headaches I will not be starting the patient on a calcium channel floresita or Tegretol. Patient was recommended conservative management measures should his headache return. He was discharged in improved condition. Disposition: Home ED Disposition - Plan for ED Patient: Disposition: Home or Assisted Living Diagnosis: Migraine headache Instructions: ED, Migraine (Classical) Referrals: Mathieu Alvaerz III, MD [STAFF PHYSICIAN] - As Needed
[2020-02-27 17:43] LABS: Erythrocyte Sedimentation Rate 13 mm/hr (0-15)
[2020-02-27 17:44] VITALS: BP 146/89
[2020-02-27] MEDS: SUMAtriptan 6 MG/0.5 ML Vial SC (18:05)
[2020-02-27] MEDS: 0.9% Normal Saline 1,000 ML 999 ML IV (18:08)
== END 2020-02-27 18:25 | disposition home or self-care (01) ==
PROVIDERS: Emergency Provider Emergency Medicine
DX: G43.109 Migraine with aura, not intractable, without status migrainosus (principal)
CPT/HCPCS: 70450; 85652; 96372; 99283; J7030; A4216; J3030

== ENCOUNTER 2020-03-05 13:54 | Emergency (ER) | payer MEDICAID, SELFPAY ==
[2020-03-05 13:55] VITALS: BP 147/99; PULSE 116; RESP 18; TEMP 36.8; O2SAT 95; BMI 30.7
[2020-03-05] MEDS: dexAMETHasone 10 MG/ML Vial PO.IVFORM (14:55)
[2020-03-05] MEDS: Ibuprofen 600 MG Tablet PO (14:55)
--- NOTE | 2020-03-05 15:46 | ED.DCSUM_ITS ---
History of Present Illness Chief Complaint: General Illness Informant: Patient Onset: Days Context: Gradual Onset Timing: Continuous Narrative: Is a 34-year-old male presenting with fever, myalgias and sore throat. Patient stated that he had neck pain in triage however when he points the area of his neck pain he points to his anterior left neck. He states he had a subjective fever 3 to 4 days ago and since then is just felt bad. He notes this time of year every year he tends to get strep throat. States is very painful to swallow. He denies any vision changes, difficulty breathing or cough. He states he has been quarantine at home and has not had any sick contacts. He only goes out to the grocery store. He tried taking Tylenol and Motrin at home with no relief of his symptoms. He denies any other complaints at this time. Past Medical History - Allergies and Home Meds Allergies/Adverse Reactions: Allergies etomidate Adverse Reaction (Verified 03/05/20 13:54) Other Seizure-Tonic Clonic Primary Care Physician: Care Physician,No Primary [Primary Care Provider] - Past Medical History: - - MRSA, history of angioedema?idiopathic Surgical History: noncontributory, - - right foot/ankle surgery Smoking Status: Never smoker - Family History Maternal Family History: Reports: No pertinent history Paternal Family History: Reports: Diabetes Review of Systems General: Reports: Chills, Fever, Malaise, Subjective. Denies: Sweats Eyes: Denies: Visual changes - bilaterally, Diplopia ENT: Reports: Sore throat. Denies: Rhinorrhea Cardiovascular: Denies: Chest pain, Palpitations Respiratory: Denies: Dyspnea, Cough, Dyspnea on exertion Gastrointestinal: Denies: Abdominal pain, Nausea, Vomiting, Diarrhea, Melena, Hematochezia Genitourinary: Denies: Dysuria, Hematuria, Frequency Musculoskeletal: Denies: Back pain, Extremity Pain Skin: Denies: Rash, Wounds Neurological: Denies: Headache, Weakness, Numbness Physical Exam Vital Signs/Narrative: Vital Signs Temp Pulse Resp BP Pulse Ox 03/05/20 13:55 98.2 F 116 H 18 147/99 H 95 Inital Vital Signs reviewed: Yes General: Well nourished, Well developed, No Acute Distress Head: Normocephalic, Atraumatic Eyes: Perrl, EOMI ENT: Moist mucous membranes, No rhinorrhea, - - Erythema, edema and exudates bilateral tonsils, left more notable than right. No signs of peritonsillar abscess. Handling secretions well.. Negative for: TM's clear - Mild erythema and injection of the right tympanic membrane no bulging or air-fluid level note d, normal left tympanic membrane Neck: Supple, - - Mild tenderness palpation left anterior neck. Negative for: No lymphadenopathy Cardiovascular: Regular rate, Regular rhythm, No murmurs Respiratory: No distress, CTA bilaterally, Chest nontender Abdomen: Soft, Nontender, Nondistended, Normal bowel sounds Back: Nontender, Normal Inspection Extremities: Nontender, No edema Skin: Normal color, No rash Neurological: Alert, Oriented x3, Cranial nerves II-XII grossly intact, Normal Strength, Normal Sensation Psychological: Normal affect, Normal Mood Diagnostic/Tx/Re-eval - Medical Decision Making Patient is evaluated for fever, sore throat, headache and generalized malaise. His physical exam is consistent with pharyngitis. Strep swab is positive. This explains all of his symptoms. Patient does not have any hypoxia or difficulty breathing. I do not suspect COVID and I do not think testing is indicated at this time. Patient is given Decadron for discomfort and swelling. Patient does not have any findings consistent with a peritonsillar abscess or any airway compromise. He is given the option of Bicillin versus course of Augmentin. Patient elects for the Bicillin injection. Patient is counseled on signs and symptoms requiring return to the emergency room. Patient verbalizes agreement and understand this plan. Patient discharged home in stable and improved condition. ED Disposition - Plan for ED Patient: Disposition: Home or Assisted Living Diagnosis: Strep pharyngitis Instructions: ED Pharyngitis Strep Confirmed Referrals: Mathieu Alvarez III, MD [STAFF PHYSICIAN] - Additional Instructions: Take ibuprofen for discomfort as well as to help with swelling in your throat.
[2020-03-05 16:03] VITALS: BP 131/84; PULSE 69; RESP 15; O2SAT 98
[2020-03-05] MEDS: Penicillin G Benzathine 1.2 MU/2 ML Syringe IM (16:05)
== END 2020-03-05 16:06 | disposition home or self-care (01) ==
PROVIDERS: Emergency Provider Emergency Medicine
DX: J02.0 Streptococcal pharyngitis (principal)
CPT/HCPCS: 87077; 87880; 96372; 99283

== ENCOUNTER 2020-03-14 13:32 | Emergency (ER) | payer MEDICAID, SELFPAY ==
[2020-03-14 13:32] VITALS: BP 146/95; PULSE 107; RESP 18; TEMP 36.4; O2SAT 96; BMI 29.9
[2020-03-14 13:38] VITALS: BP 146/95; PULSE 107; RESP 18; TEMP 36.4; O2SAT 96
--- NOTE | 2020-03-14 13:45 | RAD_ITS ---
STUDY: X-RAY CHEST REASON FOR EXAM: Male, 34 years old. SOB TECHNIQUE: October 29, 2019 COMPARISON: None. FINDINGS: The lungs are clear and expanded. There is no demonstrated pleural abnormality. Normal size heart. Normal mediastinum and wally. Normal visualized pulmonary arteries. Normal visualized aortic arch and descending thoracic aorta. Normal visualized thoracic spine. Normal visualized ribs, clavicles, and shoulders. There is no demonstrated abnormality of the visualized soft tissue structures of the upper abdomen. RAD/Chest 1 View (Portable) IMPRESSION: Normal x-ray examination of the chest. Electronically Signed: Stanford Poole DO at 14:18 EDT Tel [phone], Service support ,
--- NOTE | 2020-03-14 13:45 | EKG12_ITS ---
Test Reason : GENERAL ILLNESS Blood Pressure : / mmHG Vent. Rate : 095 BPM Atrial Rate : 095 BPM P-R Int : 190 ms QRS Dur : 096 ms QT Int : 330 ms P-R-T Axes : 047 041 028 degrees QTc Int : 414 ms Normal sinus rhythm Normal ECG Confirmed by NING MARSHALL MD ([id number]), map editor KAMILA HERNANDEZ ([id number]) on 03/17/2020 1:36:03 PM Referred By: DUSTIN Confirmed By:NING MARSHALL MD
--- NOTE | 2020-03-14 13:46 | ED.DCSUM_ITS ---
History of Present Illness Chief Complaint: General Illness Detail of Chief Complaint: Dizzy, chest pain, short of breath, sore throat, chills Informant: Patient Onset: Today Narrative: Patient was recently seen for strep pharyngitis. He was given Bicillin and a single dose of Decadron. Patient states those symptoms seem to improve but he does have occasional sore throat. He still reports intermittent fever that is subjective. He reports last fever 2 days ago. He states yesterday he felt well but woke up this morning feeling dizzy with some shortness of breath and headache. He states his sore throat was worse, he had myalgias, and chills. Patient states that his shortness of breath and dizziness seem to be improved at this time. - Past Medical History (1) Angioedema Status: Resolved (2) Anxiety and depression Status: Chronic (3) Seizure Status: Suspected Past Medical History - Allergies and Home Meds Allergies/Adverse Reactions: Allergies etomidate Adverse Reaction (Verified 03/14/20 13:34) Other Seizure-Tonic Clonic Primary Care Physician: Care Physician,No Primary [Primary Care Provider] - Prior records reviewed: Yes Surgical History: noncontributory, - - right foot/ankle surgery Smoking Status: Never smoker - Family History Maternal Family History: Reports: No pertinent history Paternal Family History: Reports: Diabetes Review of Systems General: Reports: Chills, Fever, Subjective Eyes: Denies: Visual changes - bilaterally ENT: Reports: Sore throat, - - Sinus pressure Cardiovascular: Reports: Chest pain Respiratory: Reports: Dyspnea. Denies: Cough Gastrointestinal: Denies: Abdominal pain, Nausea, Vomiting, Diarrhea Genitourinary: Denies: Dysuria Musculoskeletal: Denies: Swelling, Extremity Pain Skin: Denies: Rash Neurological: Denies: Headache Hematologic: Denies: Easy bruising, Easy bleeding Allergy: Denies: Uticaria Physical Exam Vital Signs/Narrative: Vital Signs Temp Pulse Resp BP Pulse Ox 03/14/20 13:38 97.6 F L 107 H 18 146/95 H 96 03/14/20 13:32 97.6 F L 107 H 18 146/95 H 96 Inital Vital Signs reviewed: Yes General: Well nourished, Well developed, - - Patient lying with head of bed elevated approximately 30 degrees. He speaks with a strong voice and tolerate secretions well. Head: Normocephalic ENT: Moist mucous membranes, TM's clear, - - Normal posterior pharynx. Neck: Supple Cardiovascular: Regular rate, Regular rhythm Respiratory: No distress Abdomen: Soft, Nontender Back: Nontender Extremities: Nontender Skin: Normal color Neurological: Alert, Oriented x3 Diagnostic/Tx/Re-eval Impressions Chest X-Ray 03/14/20 13:45 IMPRESSION: Normal x-ray examination of the chest. Electronically Signed: Stanford Poole DO at 14:18 EDT Tel [phone], Service support , 03/14/20 13:45 Chest 1 View (Portable) [RAD] Stat Laboratory Results 03/14/20 03/14/20 14:00 14:00 WBC 4.6 RBC 5.23 Hgb 14.3 Hct 43.8 MCV 83.7 MCH 27.3 MCHC 32.6 RDW Std Deviation 40.7 RDW Coeff of Maria A 13.4 Plt Count 201 MPV 12.0 Immature Gran % (Auto) 1.500 H Neut % (Auto) 47.8 Lymph % (Auto) 37.4 Sargent % (Auto) 11.3 H Eos % (Auto) 1.1 Baso % (Auto) 0.9 Absolute Neuts (auto) 2.2 Absolute Lymphs (auto) 1.73 Nucleated RBC % 0 Sodium 140 Potassium 3.7 Chloride 107 Carbon Dioxide 27.0 Anion Gap 6 BUN 10 Creatinine 0.95 Estim Creat Clear Calc 118.89 Est GFR (MDRD) Af Amer 118 Est GFR (MDRD) Non-Af 97 BUN/Creatinine Ratio 10.5 Glucose 114 H Calcium 9.2 - EKG Initial EKG Interpretation: Sinus Rhythm - Sinus at 95 with no acute ischemia. - Medical Decision Making Patient was given Toradol and a liter of IV fluids. On repeat evaluation he does feel improved. We discussed that I believe the patient has a viral syndrome. We discussed the possibility of this being Covid. We could do a send out test but results would not be available for 3 to 5 days. Patient states he is not interested in being tested. We discussed watching his symptoms at home and avoiding being in crowds. He voices understanding and agreement. He will be referred to Dr. Parnell for follow-up as needed. ED Disposition - Plan for ED Patient: Disposition: Home or Assisted Living Diagnosis: Viral syndrome Instructions: ED Viral Syndrome Referrals: [place] Parnell MD [STAFF PHYSICIAN] - As Needed
[2020-03-14] MEDS: Ketorolac 30 MG/ML Syringe IV (14:01)
[2020-03-14] MEDS: 0.9% Normal Saline 1,000 ML 1000 ML IV (14:02)
[2020-03-14 14:10] LABS: Absolute Lymphocyte Count 1.73 X10^3/uL (0.83-4.51); Absolute Neutrophil Count 2.2 X10^3/uL (2.0-7.7); Basophil# 0.04 X10^3/uL; Basophil% 0.9 % (0-1); Eosinophil# 0.05 X10^3/uL; Eosinophils% 1.1 % (0-5); Hematocrit 43.8 % (40-54); Hemoglobin 14.3 g/dL (13.0-16.5); Lymphocyte # 1.73 X10^3/ul (4.0); Lymphocyte % 37.4 % (19-41); Mean Corp Hgb Conc 32.6 g/dL (32-36); Mean Corpuscular Hgb 27.3 pg (27.0-32.0); Mean Corpuscular Volume 83.7 fL (80-94); Monocyte# 0.52 X10^3/uL; Monocyte% 11.3 % (0-10); NRBC Flagged by Analyzer 0 % (0-5); Neutrophil # 2.21 X10^3/uL (2.7-7.7); Neutrophil % 47.8 % (47-70); Platelet Count 201 K/mm3 (150-450); RBC Distribution Width CV 13.4 % (11.6-14.6); RBC Distribution Width SD 40.7 fl (35.1-43.9); Red Blood Count 5.23 M/mm3 (4.6-6.2); White Blood Count 4.6 K/mm3 (4.4-11.0)
[2020-03-14 14:29] LABS: Anion Gap 6 (5-15); BUN 10 mg/dL (7-18); BUN/Creat Ratio 10.5 RATIO (10-20); Calcium,Total 9.2 mg/dL (8.5-10.1); Chloride 107 mmol/L (98-107); Creatinine, Serum 0.95 mg/dL (0.70-1.30); EST Glomerular Filtration Rate 97 mL/min (>60); Est Glom Filt Rate - Afr Amer 118 mL/min (>60); Estimated Creatinine Clearance 118.89 ml/min; Glucose 114 mg/dL (74-106); Potassium 3.7 mmol/L (3.5-5.1); Sodium Level 140 mmol/L (136-145)
[2020-03-14 14:47] VITALS: BP 146/97; PULSE 96; RESP 17; O2SAT 97
--- NOTE | 2020-03-14 14:47 | ED.RN ---
IV DC'ED, CATHETER INTACT, SMALL GAUZE DRESSING PLACED. DISCHARGE INSTRUCTIONS GIVEN TO AND REVIEWED WITH PATIENT, PATIENT DENIES QUESTIONS OR CONCERNS AND VOICES UNDERSTANDING OF DISCHARGE INSTRUCTIONS. PT AMBULATE OUT OF ROOM WITHOUT DIFFICULTY.
== END 2020-03-14 14:48 | disposition home or self-care (01) ==
PROVIDERS: Emergency Provider Emergency Medicine
DX: B34.9 Viral infection, unspecified (principal)
CPT/HCPCS: 71045; 80048; 85025; 93005; 96361; 96374; 99284; J7030

== ENCOUNTER 2020-03-30 21:32 | Emergency (ER) | payer MEDICAID, SELFPAY ==
[2020-03-30 21:33] VITALS: BP 164/100; PULSE 100; RESP 17; TEMP 36.2; O2SAT 97; BMI 32.1
[2020-03-30] MEDS: LORazepam 0.5 MG Tablet PO (22:00)
[2020-03-30 22:28] VITALS: PULSE 115; RESP 20; O2SAT 99
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
[2020-03-30 23:19] VITALS: RESP 16
== END 2020-03-30 23:19 | disposition home or self-care (01) ==
LOC: ED 21:50
PROVIDERS: Emergency Provider Emergency Medicine
DX: F41.9 Anxiety disorder, unspecified (principal)
CPT/HCPCS: 99283

== ENCOUNTER 2020-06-08 00:43 | Emergency (ER) | payer MEDICAID, SELFPAY ==
[2020-06-08 00:44] VITALS: BP 164/95; PULSE 85; RESP 18; TEMP 35.6; O2SAT 98; BMI 32.1
[2020-06-08 00:46] VITALS: BP 164/95; PULSE 85; RESP 18; TEMP 35.6; O2SAT 98
--- NOTE | 2020-06-08 01:35 | ED.VISSUMM ---
- ER Visit Summary Date of Service: 06/08/20 Chief Complaint: Dysuria and urethral discharge History of Present Illness: The patient is a 35 M who presents with dysuria and urethral discharge that began yesterday. Patient states he noted a white/[place] urethral discharge. Patient admits to some burning with urination. Patient admits to some urgency and frequency. Patient also admits to recent cough with some yellow sputum production. Patient denies any fevers or chills. Patient denies any nausea or vomiting. Patient denies any back or flank pain. Physical Examination: Vital signs are stable. Patient is afebrile. Patient is in no acute distress. Oral mucosa is pink and moist. Neck is supple. Trachea is midline. There is no JVD. Heart was regular rate and rhythm. Lungs are clear and equal bilaterally. Abdomen is soft. Bowel sounds are normal. There is no tenderness. There is no rebound or guarding noted. exam showed mild amount of white urethral discharge. There are no testicular masses. There is no testicular or inguinal tenderness. There are no inguinal hernias noted. Cranial nerves II through XII are intact. There are no focal motor or sensory deficits. Test Results: Urinalysis was obtained. Leukocyte esterase was 100 with 10-25 white blood cells. GC and Chlamydia cultures were sent. Emergency Department Course and Treatment: Patient was given Rocephin and Zithromax here. Patient was instructed to follow-up with his primary care physician in 5 to 7 days for GC and Chlamydia results. Patient was instructed to notify his sexual partners if he is positive. Patient was instructed to abstain from sexual activity until his cultures are returned. Patient understood and was agreeable with the plan. All questions were answered. Disposition: Discharge home Impression: Urethritis This note was generated with [employer] dictation software. It may contain incorrect words, spelling, and punctuation that were not noted in review of the chart prior to signing ED Disposition - Plan for ED Patient: Disposition: Home or Assisted Living Diagnosis: Urethritis Instructions: ED STI Male Treated Referrals: Mathieu Alvarez III, MD [STAFF PHYSICIAN] - 5-7 Days
[2020-06-08 01:43] LABS: Bacteria 0 SEEN /hpf (None Seen); Mucous, Urine 0 SEEN /hpf (<or=2+); Squamous Epithelial Cells - UA 0 SEEN /hpf (0-5)
[2020-06-08 01:45] LABS: Color, Urine Yellow (Yellow); Glucose, Dipstick 1000 mg/dl (Normal); Ketone-Dipstick Negative (Negative); Leukocyte Esterase-Dipstick 500 /ul (Negative); Nitrite-Dipstick Negative (Negative); Occult Blood-Urine 50 /ul (Negative); Protein-Dipstick 15 mg/dl (Negative); Urine Bilirubin Dipstick Negative (Negative); Urine Clarity Sl. Cloudy (Clear); Urine Urobilinogen Normal (Normal)
[2020-06-08] MEDS: Ceftriaxone 500 MG Vial 250 MG IM (01:49)
[2020-06-08] MEDS: Azithromycin 250 MG Tablet 1000 MG PO (01:49)
[2020-06-08 01:51] LABS: Amorphous Sediment 1+; Red Blood Cells-Urine 0-5 SEEN /hpf (0-5); White Blood Cells 10-25 SEEN /hpf (0-5)
[2020-06-08 03:32] LABS: Chlamydia Trachomatis by PCR Negative (Negative); Probe Check PASS
[2020-06-08 03:33] LABS: Neisserai gonorrhoeae by PCR Positive (Negative)
== END 2020-06-08 02:13 | disposition home or self-care (01) ==
LOC: ED 01:55
PROVIDERS: Emergency Provider Emergency Medicine
DX: N34.2 Other urethritis (principal)
CPT/HCPCS: 81001; 87491; 87591; 96372; 99283

== ENCOUNTER 2020-06-13 12:49 | Emergency (ER) | payer MEDICAID, SELFPAY ==
[2020-06-13 12:50] VITALS: BP 144/90; PULSE 98; RESP 15; TEMP 36.5; O2SAT 99; BMI 31.8
--- NOTE | 2020-06-13 13:06 | EKG12_ITS ---
Test Reason : Blood Pressure : / mmHG Vent. Rate : 086 BPM Atrial Rate : 086 BPM P-R Int : 194 ms QRS Dur : 094 ms QT Int : 336 ms P-R-T Axes : 048 053 045 degrees QTc Int : 402 ms Normal sinus rhythm Normal ECG Confirmed by ROSARIO LUIS, MUKESH ([id number]), graphic editor JOCELYN HOOPER ([id number]) on 06/15/2020 2:02:47 PM Referred By: Confirmed By:MUKESH PONCE MD
--- NOTE | 2020-06-13 13:07 | ED.VISSUMM ---
- ER Visit Summary Date of Service: 06/13/20 Chief Complaint: Headache, dizziness History of Present Illness: The patient is a 35 M presenting with headache and dizziness. He states this started this morning. This has been gradual in onset. He has a history of previous migraine headaches. He denies syncope. Denies trauma. He has nausea without vomiting. He has mild diarrhea. Denies fever or cough. Denies known exposure to COVID. Denies other complaints. Physical Examination: Vitals are stable. Patient is afebrile. Alert no acute distress. HEENT exam is unremarkable. Neck is supple. No meningismus Lungs are clear and equal bilaterally. Heart is regular rate and rhythm. Abdomen is soft nontender nondistended. Extremities are unremarkable. Skin is warm and dry. No focal neurologic deficit. Remainder of exam is unremarkable. Emergency Department Course and Treatment: Patient was given IV fluids, Reglan, Benadryl. EKG is sinus rhythm rate of 86 with no acute ischemic changes. Basic metabolic panel unremarkable. On reevaluation, patient is feeling improved. His headache has resolved. His dizziness is improved. He is advised to follow-up with Dr. Santo managed care liaison for no doctor. Advised return to ED for worsening complaints. Disposition: Discharge home Impression: Headache, dizziness This note was generated with [employer] dictation software. It may contain incorrect words, spelling, and punctuation that were not noted in review of the chart prior to signing ED Disposition - Plan for ED Patient: Instructions: ED Dizz[place] [facility]errals: German Mayen MD [[facility]] -
[2020-06-13] MEDS: 0.9% Normal Saline 1,000 ML 1000 ML IV ×2 (14:06→15:46)
[2020-06-13] MEDS: Metoclopramide 10 MG/2 ML Vial 5 MG IV (14:06)
[2020-06-13] MEDS: DiphenhydrAMINE 50 MG/ML Syringe 25 MG IV (14:06)
[2020-06-13 14:20] LABS: Anion Gap 6 (5-15); BUN 8 mg/dL (7-18); BUN/Creat Ratio 9.2 RATIO (10-20); Calcium,Total 8.9 mg/dL (8.5-10.1); Chloride 106 mmol/L (98-107); Creatinine, Serum 0.87 mg/dL (0.70-1.30); EST Glomerular Filtration Rate 107 mL/min (>60); Est Glom Filt Rate - Afr Amer 130 mL/min (>60); Estimated Creatinine Clearance 128.63 ml/min; Glucose 130 mg/dL (74-106); Potassium 3.9 mmol/L (3.5-5.1); Sodium Level 139 mmol/L (136-145)
--- NOTE | 2020-06-13 15:11 | ED.DEP ---
ED Disposition - Plan for ED Patient: Instructions: ED Dizziness [facility] Referrals: German Mayen MD [[facility]] -
[2020-06-13 15:46] VITALS: BP 134/71; PULSE 68; RESP 15; O2SAT 98
== END 2020-06-13 15:47 | disposition home or self-care (01) ==
LOC: ED 13:11
PROVIDERS: Emergency Provider Emergency Medicine
DX: R42 Dizziness and giddiness (principal); R51 Headache
CPT/HCPCS: 80048; 93005; 96361; 96374; 96375; 99283

== ENCOUNTER 2020-07-27 12:14 | Emergency (ER) | payer MEDICAID, SELFPAY ==
[2020-07-27 12:15] VITALS: BP 142/90; PULSE 95; RESP 16; TEMP 36.4; O2SAT 99; BMI 31.4
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
== END 2020-07-27 13:39 | disposition home or self-care (01) ==
LOC: ED 13:08
PROVIDERS: Emergency Provider Student in an Organized Health Care Education/Training Program
DX: B34.9 Viral infection, unspecified (principal)
CPT/HCPCS: 87635; 99283; U0003

== ENCOUNTER 2020-09-10 00:39 | Emergency (ER) | payer MEDICAID, SELFPAY ==
[2020-09-10 00:41] VITALS: BP 156/89; PULSE 108; RESP 22; TEMP 36.9; O2SAT 95; BMI 34.4
--- NOTE | 2020-09-10 00:51 | EKG12_ITS ---
Test Reason : PALPS Blood Pressure : / mmHG Vent. Rate : 098 BPM Atrial Rate : 098 BPM P-R Int : 182 ms QRS Dur : 092 ms QT Int : 324 ms P-R-T Axes : 049 049 017 degrees QTc Int : 413 ms Normal sinus rhythm Nonspecific T wave abnormality Abnormal ECG Confirmed by ROLANDO LUIS, NING ([id number]), associate embalmer/funeral director JOCELYN HOOPER ([id number]) on 09/11/2020 11:11:21 AM Referred By: ALEJANDRA Confirmed By:NING MARSHALL MD
[2020-09-10 00:56] LABS: Absolute Lymphocyte Count 2.41 X10^3/uL (0.83-4.51); Absolute Neutrophil Count 1.5 X10^3/uL (2.0-7.7); Basophil# 0.06 X10^3/uL; Basophil% 1.3 % (0-1); Eosinophil# 0.05 X10^3/uL; Eosinophils% 1.1 % (0-5); Hematocrit 47.4 % (40-54); Lymphocyte # 2.41 X10^3/ul (4.0); Lymphocyte % 51.2 % (19-41); Mean Corp Hgb Conc 33.8 g/dL (32-36); Mean Corpuscular Hgb 27.9 pg (27.0-32.0); Mean Corpuscular Volume 82.6 fL (80-94); Mean Platelet Vol. 12.7 fl (6.2-12.0); Monocyte# 0.66 X10^3/uL; NRBC Flagged by Analyzer 0 % (0-5); Neutrophil # 1.52 X10^3/uL (2.7-7.7); Neutrophil % 32.2 % (47-70); POSITIVE MORPHOLOGY YES; Platelet Count 165 K/mm3 (150-450); RBC Distribution Width CV 13.8 % (11.6-14.6); RBC Distribution Width SD 41.2 fl (35.1-43.9); Red Blood Count 5.74 M/mm3 (4.6-6.2); White Blood Count 4.7 K/mm3 (4.4-11.0)
[2020-09-10 01:09] LABS: Differential Indicated SCAN CRITERIA MET
[2020-09-10 01:28] LABS: Anion Gap 9 (5-15); BUN 10 mg/dL (7-18); BUN/Creat Ratio 10.1 RATIO (10-20); Calcium,Total 9.3 mg/dL (8.5-10.1); Chloride 104 mmol/L (98-107); Creatinine, Serum 0.99 mg/dL (0.70-1.30); EST Glomerular Filtration Rate 93 mL/min (>60); Est Glom Filt Rate - Afr Amer 112 mL/min (>60); Estimated Creatinine Clearance 113.03 ml/min; Glucose 232 mg/dL (74-106); Potassium 3.5 mmol/L (3.5-5.1); Sodium Level 137 mmol/L (136-145)
[2020-09-10 01:30] LABS: Differential Comment SCANNED
--- NOTE | 2020-09-10 02:00 | ED.DCSUM_ITS ---
- ER Visit Summary Date of Service: 09/10/20 Chief Complaint: Palpitations History of Present Illness: The patient is a 35 M who presents with palpitations. Started an hour prior to presentation. He feels the palpitations in his chest. He denies any chest pain. It makes him feel short of breath, but currently states he is feeling better. He denies a fever or cough. He does not have a physician general practice. He has a history of palpitations and they told him at one point he had a block. He does admit to drinking alcohol this evening. Physical Examination: Vital signs reviewed. HEENT exam unremarkable. Heart is regular rate and rhythm without murmurs. Lungs are clear to auscultation. Abdomen is soft and nontender. Extremities reveal no edema. Peripheral pulses are equal. Skin exam normal. Neurologic exam normal. Test Results: EKG was sinus rhythm with a rate of 98. There are nonspecific ST- T wave changes. I see no evidence of any first or second-degree AV block. Laboratory studies show glucose of 232. Troponin is normal. Alcohol level is 120 Emergency Department Course and Treatment: The patient was feeling better by the time he arrived by EMS. When I reevaluated him after laboratory studies return he was sleeping. His heart rate is below 100. And regular. Patient will continue to monitor his heart rate. I will give him cardiology for follow-up Treatment Plan: [] Disposition: Discharge Impression: Palpitations, alcohol intoxication This note was generated with [employer] dictation software. It may contain incorrect words, spelling, and punctuation that were not noted in review of the chart prior to signing ED Disposition - Plan for ED Patient: Disposition: Home or Assisted Living Instructions: ED Palpitations Referrals: Care Physician,No Primary [Primary Care Provider] - Pedro Austin MD [STAFF PHYSICIAN] -
[2020-09-10 02:14] VITALS: BP 156/89; PULSE 104; RESP 16; O2SAT 98
== END 2020-09-10 02:15 | disposition home or self-care (01) ==
PROVIDERS: Emergency Provider Emergency Medicine
DX: F10.129 Alcohol abuse with intoxication, unspecified (principal); R00.2 Palpitations; Y90.6 Blood alcohol level of 120-199 mg/100 ml; E11.9 Type 2 diabetes mellitus without complications; I10 Essential (primary) hypertension
CPT/HCPCS: 80048; 80320; 84484; 85025; 93005; 99285; A4216; G0480

== ENCOUNTER 2020-09-22 07:57 | Emergency (ER) | payer MEDICAID, SELFPAY ==
[2020-09-22 07:58] VITALS: BP 149/105; PULSE 73; RESP 18; TEMP 36.6; O2SAT 99; BMI 33.5
--- NOTE | 2020-09-22 08:12 | ED.VISSUMM ---
- ER Visit Summary Date of Service: 09/22/20 Chief Complaint: [Insomnia] History of Present Illness: The patient is a 35 M [presents to the emergency department complaint of insomnia and inability to stay asleep for the last 8 days. Patient does have history of similar issues in the past and used to be on Ambien. He has tried [id number] remedies without success including melatonin and Benadryl. Patient states that sometimes he will fall asleep but wakes up after about an hour and then can fall asleep again. He does have history of anxiety and depression as well as schizophrenia but states that he has been off all medications for about 3 years. Patient states that he was admitted to a psychiatric facility about 3 or 4 years ago. Patient currently has no primary care physician and does not see a therapist. He denies feeling suicidal or homicidal. He denies auditory or visual hallucinations. He denies recent illness or new medications. Patient would like to speak with one of our therapists today.] Physical Examination: [HEENT-PERRLA, EOMI. Cranial nerves II through XII grossly intact. TMs clear. Mucous membranes moist. No adenopathy. Cardiovascular-regular rate and rhythm without murmur or ectopy Lungs-clear to auscultation, chest wall stable without crepitus or subcu emphysema Abdomen-normoactive bowel sounds, soft, nontender, no rebound or rigidity, no peritoneal signs. Extremities-intact ?4, normal range of motion, normal pulses, atraumatic] Test Results: [None indicated] Emergency Department Course and Treatment: [Patient was evaluated by health social work professor and will be set up with outpatient counseling services.] Treatment Plan: [We will be given a prescription for Ambien to help with his sleep given that he is used it in the past successfully.] Disposition: [Discharged home in stable condition] Impression: [Insomnia] This note was generated with [employer] dictation software. It may contain incorrect words, spelling, and punctuation that were not noted in review of the chart prior to signing ED Disposition - Plan for ED Patient: Referrals: Care Physician,No Primary [Primary Care Provider] -
--- NOTE | 2020-09-22 10:32 | ED.DEP ---
ED Disposition - Plan for ED Patient: Instructions: ED Bipolar Disorder, ED Schizophrenia, General, ED Insomnia Prescriptions: Zolpidem Tartrate [Ambien] 10 mg PO QHS PRN #20 tab PRN Reason: Insomnia Prescription Printed Referrals: Care Physician,No Primary [Primary Care Provider] - Additional Instructions: See the counseling center
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
== END 2020-09-22 10:42 | disposition home or self-care (01) ==
PROVIDERS: Emergency Provider Emergency Medicine
DX: G47.00 Insomnia, unspecified (principal)
CPT/HCPCS: 99282

== ENCOUNTER 2020-09-30 09:00 | Outpatient (RCR) | payer MEDICAID, SELFPAY ==
--- NOTE | 2020-09-30 09:05 | BH.SGPN.GN ---
Behaviors/Verbalizations/Mental Status: []Client alert and oriented, casually dressed, hygiene fair. Eye contact fair. Motor activity appropriate. Speech within normal limits. Affect constricted, mood anxious. Thoughts linear, logical, no signs of hallucinations or delusions. Client Response/Progress/Benefit: []Client responded well to session, receptive to feedback and engaged. Client's first day of IOP tx and reports feeling somewhat anxious. Client shared he presents as a high-functioning anxious person and reports people often tell him that he seems calm. Client reports his biggest stressors include lack of sleep, relationship issues, and managing his anxiety. Client reports belief he has sleep apnea and has stayed up for 8 days in a row recently. Client shared he does not have a PCP and was informed that IOP staff can help him establish this service. Appeared to benefit from connecting with peers and gaining expectations for IOP. Will continue IOP tx to monitor mood, improve sleep, and prevent decompensation of symptoms. Narrative Note: []
--- NOTE | 2020-09-30 11:25 | BH.NA ---
Physical Data - Vital Signs Pulse Rate: 82 Blood Pressure: 146/92 - Height/Weight Height: 1.8 m Weight:: 104.326 kg Weight in Pounds: 230.0 lbs Current Medication Compliance - Medication Compliance Do you take your medication as prescribed?: No Nutritional History - Appetite Nutritional Instructions:: If client shows signs of a swallowing problem, weight change of 10 pounds or more in the last month, or is on a diabetic diet, the physician will review and request a dietitian consult, as appropriate. All unintentional weight loss will be referred to the physician for decision on need for dietitian consult. Describe your appetite:: Good Functional Assessment - Sleep Pattern Describe any problems with sleeping: Client states prior to going to the ER on 09/22 due to insomnia for 8 days, he was sleeping 1-2 hours per night. Client states now while taking Ambien, he is sleeping 4 hours per night. - Activities Motor Activity:: Functional Sensory/Communication Assess - Vision Problems Do you have any vision problems?: Glasses - Communication Problems Do you have difficulty understanding what people are saying?: No Medical Problems/History - Cardiac Conditions Cardiovascular: Other (See comments) Comments:: client unsure of name- possible first degree block. Client states he wore a holter monitor and never sent device back to be read. Client states this was diagnosed 5-6 years ago. - Metabolic Conditions Metabolic: Other (See comments) Comments:: elevated A1C of 6.3 this year - Pain Assessment Do you have acute or chronic pain?: No - Additional History Additional comments:: October 2019- MRSA in lip. Client was hospitalized in October 2019 for angioedema- client states this was not the biggest issue, and MRSA in lip was biggest issue. Client has had one seizure-type activity after recieving etomidate for intubation. Surgical History - Surgical History Have you had any surgeries? If so, list type and date:: Yes - ankle fracture Substance Abuse - Substance Abuse Please describe substance abuse in the last 30 days:: Client states he drinks alcohol occasionally on the weekends. Client denies tobacco use. Client reports occasional marijuana use. Client states occasionally drinks caffiene. Mental Status Summary - Mental Status Significant Findings/Observations on Appearance and Mood:: Client is alert and oriented x 4. Client is casually groomed. Client is cooperative with assessment. Client makes fair eye contact. Client's speech is normal volume. Client appears mildly anxious for assessment. Client denies hallucinations/delusions. Client denies SI. Suicide Assessment - Suicidal Ideation Are you currently or have you been suicidal in the past?: No - denies SI Suicidal Intentional Rating Scale (SIRS): Suicidal thoughts (past) Physician Notification: If Active suicidal thoughts/Will not contract for safety is checked, contact physician and document in the Physician Notification section below. Past Psychiatric History - MH Treatment Hx Past Psychiatric Medications:: Haldol, client does not remember the names of other medications. Age of first mental health symptoms: Client states he was diagnosed as bipolar and with schizophrenia about 4-5 years ago. Client reports he has had panic attacks, hallucinations and psychosis off and on since he was 19 years old. Describe (age, circumstance, etc) any past hospitalizations: Client's most recent hospitalization was in 2016. Current providers for mental health treatment (counselor, psychiatrist, vocational case manager, etc.): None. Fall Risk Assessment - Age Age: Less than 60 - Mental Status Mental Status: Willing & able to ask for assistance when needed - Physical Status Physical Status: No problems - Impairments Impairments: None - Elimination Elimination: Continent AND independent - Gait or Balance Gait or Balance: Walks independently - Hx of Falls History of falls in the past 6 months: No known history - Medications/Substances Medications/substances used within the past 24 hours or ordered to administer: None of the medications/substances list above - Total Score Total Points:: 0 RN Summary of Impressions - Impressions Recommendations: Include psychiatric and medical issues, treatment planning recommendations, and discharge planning needs. Impressions: Psychiatric Issues: panic disorder; anxiety disorder, NOS; rule out schizoaffective disorder, bipolar type; THC use disorder Impression: General Medical Conditions: Client's BP was 146/92. Discussed with client that it was noted he was on antihypertensives when in the hospital October 2019. Client states he does not take medication now. Client states he does not have a PCP. Discussed with client local options for PCP and that client should make an appointment with one to discuss BP. Client also discusses possible heart block, unsure of name and states he did not send holter monitor test back. Discussed this as well with client to see PCP to discuss further testing. Client also states he feels he may have sleep apnea, stating he wakes up at night at times feeling air hunger and feels his head is cloudy. Discussed with client that he should make an appointment with a PCP to discuss these issues/concerns. - Level of Care How do the client's current symptoms and functional deficits support need for this level of care?: Client was referred to IOP from emergency room. Client went to the ER on 09/22/2020 stating he had hardly slept in 8 days. Client states when he has lack of sleep, he knows mental health symptoms including hallucinations will start coming. Client states since being given Ambien in ER, he has been sleeping about 4 hours per night and feels somewhat better. Client reports daily panic attacks with symptoms including chest pressure, increased respiratory rate, and sweating. Client reports he has not had hallucinations for some time, but states he knew it would begin happening if he didn't go to the hospital for help and get some sleep. Client denies SI. IOP will promote gains and prevent further decompensation while providing social support and skills training.
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
[2020-09-30 12:04] VITALS: BP 146/92; PULSE 82
--- NOTE | 2020-09-30 12:07 | BH.DR.ITP ---
Initial Treatment Plan - Patient Information Visit Information: ADMISSION DATE: EXPECTED LOS: 4-6 weeks - Problems/Symptoms Problem #1:: Anxiety Symptom:: panic attacks, rumination, irritability, biological disruption of sleep, worry
--- NOTE | 2020-10-02 10:00 | BH.SGPN.GN ---
Behaviors/Verbalizations/Mental Status: []Client alert and oriented, casually dressed and groomed. Eye contact good. Motor activity appropriate. Speech within normal limits. Affect flat, mood anxious. Thoughts linear, logical, no signs of hallucinations or delusions. Client Response/Progress/Benefit: []Client was a passive participant AEB client taking notes and listening to peers, but client declined to contribute to discussion. Client attentive as the group identified consequences of not having healthy boundaries. These included: feeling overwhelmed, isolation,poor relationships, and worsening mental health symptoms. Client was attentive during psychoeducation on the different kinds of boundaries. Client seemed to benefit from increased awareness of how poor boundaries can negatively impact mental health. No progress to document yet as it is client?s first week. Will continue IOP tx to prevent decompensation and increase use of healthy coping skills. Narrative Note: []
--- NOTE | 2020-10-02 10:56 | BH.SGPN.GN ---
Behaviors/Verbalizations/Mental Status: []Client alert and oriented, casual dress, hygiene appropriate. Eye contact good. Motor activity appropriate. Speech within normal limits. Affect congruent, mood anxious, dysthymic. Thoughts linear, logical, no signs of hallucinations or delusions. Client Response/Progress/Benefit: []Client responded well to session, connecting with peers and receptive to supportive statements. Client engaged in the boundary self-assessment activity and attentive during psychoeducation on the different boundary styles. Client reported he is ?very rigid? and shared that people who are porous ?bother me.? Client stated being rigid has chronically had a negative impact on his mental health and relationships. Client participated in brainstorming strategies to improve boundary setting but did not share what skill he wanted to work on to improve boundaries. Progress noted in client?s increased engagement in group. Will continue IOP tx to prevent decompensation and increase use of healthy coping skills. Narrative Note: []
--- NOTE | 2020-10-02 14:55 | BH.MDN_ITS ---
Multi-Disciplinary Note - Note 30-min Individual Time Started:: 12:35 Date: 10/02/20 Purpose of session/treatment goals addressed:: The purpose of this session was to gather information on client's current stressors, symptoms, and treatment goals. Another goal was to build rapport and provide psychoeducation. Eye Contact:: Fair Motor Activity:: Appropriate Appearance:: Casual Speech:: Other - Circumstantial Mood:: Anxious Affect:: Constricted Thoughts:: Circular, No evidence of hallucinations/delusions noted Staff Interventions:: Therapist used active listening and open-ended questions to explore client's current stressors, symptoms, history, and treatment goals. Therapist used strengths perspective to build rapport and provided psychoeducation on anxiety. Client Response:: Client responded well to session, open to meeting with therapist. Client shared he has seen many therapists over the years and has knowledge of healthy coping skills, but finds himself struggling currently. Client identifies his biggest stressor is making and maintaining relationships. Client describes himself as closed off and having rigid boundaries. Client shared he wants to work on being more vulnerable in current relationships, improving communication, and being more flexible to ideas that are not his own. Client stated having rigid boundaries has led to self-isolation and keeps client from forming meaningful relationships. Client has a girlfriend, but he reports the two do not have good communication. Client stated he would also like to work on slowing down my reactions to things by learning more effective ways to cope with emotions. Client reports history of anxiety and stated he often masks his anxiety. Client also has significant sleep issues and reports belief he has sleep apnea. Client encouraged to explore options for a PCP to help client get scheduled for a sleep study. Risks/Concerns:: Client denies any suicidal ideations, plans, or intent as of 10/02/20. Progress Toward Goals/Plan:: Client's first week of IOP tx. Client reports connecting with the topics discussed so far during group sessions. Client recently had a medication change from [facility] psychiatrist. Client endorses anger and irritability, poor sleep, anxiety, ruminations, and panic attacks. Client reports primary support issues and relationships stressors. Client encouraged to establish a PCP and follow up with obtaining a sleep study. Client will continue IOP tx to prevent decompensation, increase interpersonal effectiveness skills, and improve daily functioning. Time Stopped:: 13:05
--- NOTE | 2020-10-02 14:56 | BH.MTP ---
Master Treatment Plan - Patient Information Program Physician:: Dr. Erin Feng Primary Therapist:: Salina CURTIS - Psychiatric Diagnoses Psychiatric Diagnoses:: Panic disorder; anxiety disorder, NOS; rule out schizoaffective disorder, bipolar type; THC use disorder Diagnosis Code(s):: F 41.0 - Estimated LOS Estimated LOS (in weeks):: 6 Problem/Goal #1 - Problem/Goal #1 Stated Goal:: Client will reduce anxiety and panic symptoms while increasing ability to function on daily basis. Description of Barriers: Client reports history of relationship issues and describes himself as having very rigid boundaries. Client shared he tends to minimize his emotions and symtpoms. Client has medical concerns including history of head trauma, type II diabetes, and potential sleep apnea, but client does not have a PCP. Client's issues with sleep make it difficult for client to wake up in the mornings which could be a barrier to treatment. Client does not drive and is currently unemployed. Functional Impact: Client is a 35-year-old male with a possible history of schizoaffective disorder. Client was referred to IOP following a recent ER visit due to insomnia. Client reports prior to ER visit he was only sleeping 1-2 hours a day for eight days straight. Additionally, client endorses increased anxiety and erratic moods. Client reports daily panic attacks without a trigger as well as increased irritability. Client denies any current hallucinations, but client does have a history of auditory hallucinations 3-4 years ago. Client also has a history of trauma and homicidal ideations, but client denies any currently. Client reports belief his symptoms have become worse since being off work. Client is unable to function at his baseline and there is a risk of decompensation without support of IOP. Goal Relevant Strengths/Supports: Client reports he has been to many therapists over the years and has knowledge of numerous coping strategies. Client has his mother and girlfriend for support. Client is kind and open to feedback. - Objectives Objective #1 Stated Objective: Client will identify 2-3 anxiety/panic triggers and 2 coping skills to use when feeling anxious to manage anxiety as shown by preventing decompensation or reducing DSM-5 scores for anxiety. Interventions: Therapist will provide education on anxiety, safety behaviors, and maintenance cycles. Therapist will help client explore personal symptoms and warning signs of anxiety. Therapist will teach client coping skills to improve emotional regulation, mindfulness, and distress tolerance to help client cope with anxiety in the moment. Discharge Criteria: Client will have accomplished this goal when client can identify at least 2 triggers and report using 2 coping skills to manage anxiety. Additionally, client will have accomplished this goal if can prevent decompensation or reduce DSM-5 scores. Target Date: 11/10/20 Review Date: 10/30/20 Status: open Objective #2 Stated Objective: Client will identify 2-3 cognitive distortions that lead to rumination and learn 2-3 ways to manage these thoughts to better manage anxiety. Interventions: Therapist will provide education on the most common cognitive distortions and teach client the connection between thoughts, emotions, and feelings. Therapist will assist client in identifying, challenging, and replacing dysfunctional thoughts with more realistic thoughts. Therapist will use CBT and DBT techniques to help client gain awareness of thinking errors and learn how to more effectively handle negative thoughts. Discharge Criteria: Client will have accomplished this goal when can identify at least 2 cognitive distortions and at least 2 coping skills to manage negative thoughts. Target Date: 11/10/20 Review Date: 10/30/20 Status: open Problem/Goal #2 - Problem/Goal #2 Stated Goal:: Client will increase self-awareness and interpersonal effectiveness skills to improve relationships. Description of Barriers: Client reports history of relationship issues and describes himself as having very rigid boundaries. Client shared he tends to minimize his emotions and symtpoms. Client has medical concerns including history of head trauma, type II diabetes, and potential sleep apnea, but client does not have a PCP. Client's issues with sleep make it difficult for client to wake up in the mornings which could be a barrier to treatment. Client does not drive and is currently unemployed. Functional Impact: Client is a 35-year-old male with a possible history of schizoaffective disorder. Client was referred to [facility] following a recent ER visit due to insomnia. Client reports prior to ER visit he was only sleeping 1-2 hours a day for eight days straight. Additionally, client endorses increased anxiety and erratic moods. Client reports daily panic attacks without a trigger as well as increased irritability. Client denies any current hallucinations, but client does have a history of auditory hallucinations 3-4 years ago. Client also has a history of trauma and homicidal ideations, but client denies any currently. Client reports belief his symptoms have become worse since being off work. Client is unable to function at his baseline and there is a risk of decompensation without support of IOP. Goal Relevant Strengths/Supports: Client reports he has been to many therapists over the years and has knowledge of numerous coping strategies. Client has his mother and girlfriend for support. Client is kind and open to feedback. - Objectives Objective #1 Stated Objective: Client will learn 2-3 techniques to better manage his interpersonal relationships. Interventions: Through group and individual sessions, client will learn strategies to improve communication, resolve conflict, and increase emotional regulation to better manage interpersonal relationships. Discharge Criteria: Client will have accomplished this goal when he can identify and report using at least 2 techniques to better manage interpersonal relationships. Target Date: 11/10/20 Review Date: 10/30/20 Status: open
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
--- NOTE | 2020-10-08 14:07 | BH.COMM ---
Communication Note - Communication with Client Communication Note: Client no called no showed for IOP two days in a row (10/07 & 10/08). Client reports it was due to lack of sleep. Will continue to reach out to client next week. Due to client not attending this week, client did not meet with individual therapist.
--- NOTE | 2020-10-13 09:10 | BH.SGPN.GN ---
Behaviors/Verbalizations/Mental Status: [] Eye contact is good. Motor activity is appropriate. Appearance is casual. Speech is Appropriate. Mood is anxious. Affect is congruent. Thoughts are linear and logical. No evidence of psychosis. Reviewed daily check in sheet and no reports of suicidal thoughts. Client Response/Progress/Benefit: [] Pt was an active participant in group discussions. States Anxiety has been kicking my ass. Reports 2-3 visits to the ER due to panic. States I'm always battling with my thoughts. Decreased sleep. States that his friends often come to him for advice and support when they are anxious and he feels that he can give great suggestions however struggles to find his own coping strategies for thoughts. He shared his struggles with anxiety for the past several years. No progress noted. Despite insight and awareness of impact of anxiety pt has been inconsistent with IOP and attempting skills. Benefited from group support, encouragement, and feedback. Will continue in IOP to improve functioning, learn healthy coping skills, and prevent decompensation. Narrative Note: []
--- NOTE | 2020-10-13 10:10 | BH.SGPN.GN ---
Behaviors/Verbalizations/Mental Status: []Client alert and oriented, casually dressed and groomed. Eye contact good. Motor activity appropriate. Speech within normal limits. Affect constricted, mood anxious. Thoughts linear, logical, no signs of hallucinations or delusions. Client Response/Progress/Benefit: []Client was an engaged participant AEB client providing input throughout discussion and listening attentively to others. Client connected with the topic of obstacles and solutions and worked with group to identify common obstacles that keep people stuck. Client described his current reality ?like everything is in a chicken handler? as client is struggling with sleep, anxiety, work, and health issues. Client's realistic, desired reality is to be relaxed, calm, and have more routine and order. Client identified barriers keeping client from his desired reality which included: anxiety, lack of routine, and negative self-talk. Benefited from group as client was able to identify current and desired mental health state and increase awareness of how barriers can impact progress. Client to continue IOP tx to prevent decompensation, improve emotional regulation skills, and improve daily functioning. Narrative Note: []
--- NOTE | 2020-10-13 11:10 | BH.SGPN.GN ---
Behaviors/Verbalizations/Mental Status: []Client alert and oriented, casually dressed and groomed. Eye contact fair. Motor activity appropriate. Speech within normal limits. Affect constricted, mood anxious. Thoughts linear, logical, no signs of hallucinations or delusions. Client Response/Progress/Benefit: []Client engaged during activity and provided ideas on how to cope with internal barriers that keep clients stuck from moving towards goals. Client able to identify barriers to desired reality. Client reported he wants to work on overcoming barrier of anxiety by listening to music and self-soothing by smelling calming scents. Benefited from group by identifying obstacles and solutions to desired reality. Progress minimal due to client new in program and has struggled with attendance. Will continue IOP tx to prevent decompensation, decrease anxiety and increase healthy coping skills.
--- NOTE | 2020-10-15 14:22 | BH.COMM ---
Communication Note - Communication with Client Communication Note: Client unable to meet with therapist this week due client's cancellations. Therapist followed up with client via phone and left a message about scheduling a session for next week.
== END 2020-10-15 23:59 ==
LOC: BHIOP 09:00
PROVIDERS: Referring Provider Psychiatry & Neurology Psychiatry; Visit Provider Psychiatry & Neurology Psychiatry
DX: F41.0 Panic disorder [episodic paroxysmal anxiety] (principal); F41.9 Anxiety disorder, unspecified; F12.90 Cannabis use, unspecified, uncomplicated; Z87.820 Personal history of traumatic brain injury; E11.9 Type 2 diabetes mellitus without complications; Z79.899 Other long term (current) drug therapy
CPT/HCPCS: 90792; H2012; H2020

== ENCOUNTER 2020-10-08 23:53 | Emergency (ER) | payer MEDICAID, SELFPAY ==
[2020-10-08 23:56] VITALS: BP 171/96; PULSE 128; RESP 23; TEMP 36.6; O2SAT 98; BMI 35.4
--- NOTE | 2020-10-09 00:16 | ED.VIS.GEN ---
History of Present Illness Chief Complaint: Anxiety Informant: Patient Onset: Hours - 1-2 Context: Gradual Onset - earlier, worse after vaping THC accidentally Timing: Continuous Quality: Anxiety Location: All over Current Severity: Moderate Maximum Severity: Moderate Worsened by: vaping Relieved by: nothing Associated Symptoms: denies Narrative: Patient states he has a longstanding history of anxiety issues. He is already feeling a little anxious, then someone was passing around a vaping cigarette, he thought it was loaded with regular tobacco/nicotine, but after smoking it he was told that it had THC. As a result he has felt more anxious since smoking this. He has not been getting better, usually has prn Ativan to take in a scenario like this which he would have done but he is out. He denies any other symptoms except for feeling his heart racing a little. Prior similar symptoms: Yes - Past Medical History (1) Anxiety and depression Status: Chronic Past Medical History - Allergies and Home Meds Allergies/Adverse Reactions: Allergies etomidate Adverse Reaction (Verified 10/08/20 23:54) Other Seizure-Tonic Clonic Primary Care Physician: Care Physician,No Primary [Primary Care Provider] - Surgical History: - - right foot/ankle surgery Smoking Status: Current every day smoker - Family History Maternal Family History: Reports: No pertinent history Paternal Family History: Reports: Diabetes Review of Systems General: Denies: Chills, Fever, Sweats Eyes: Denies: Visual changes - bilaterally, Diplopia ENT: Denies: Rhinorrhea, Sore throat Cardiovascular: Denies: Chest pain, Palpitations Respiratory: Denies: Dyspnea, Cough, Dyspnea on exertion Gastrointestinal: Denies: Abdominal pain, Nausea, Vomiting, Diarrhea, Melena, Hematochezia Genitourinary: Denies: Dysuria, Hematuria, Frequency Musculoskeletal: Denies: Back pain, Extremity Pain Skin: Denies: Rash, Wounds Neurological: Denies: Headache, Weakness, Numbness Psych: Reports: Anxiety. Denies: Depression, Suicidal thoughts, Suicidal ideations Physical Exam Vital Signs/Narrative: Vital Signs Temp Pulse Resp BP Pulse Ox 10/08/20 23:56 97.9 F 128 H 23 H 171/96 H 98 Inital Vital Signs reviewed: Yes General: Well nourished, Well developed, No Acute Distress Head: Normocephalic, Atraumatic Eyes: Perrl, EOMI ENT: Moist mucous membranes, No rhinorrhea Neck: Supple, - - FROM Respiratory: No distress Skin: Normal color, No rash, No Trauma Neurological: Alert, Oriented x3, Cranial nerves II-XII grossly intact, Normal Strength, Normal Sensation, Normal Gait Psychological: Normal affect, Normal Mood Diagnostic/Tx/Re-eval - Medical Decision Making At triage patient was more tachycardic, but during the evaluation, his heart rate is around 105-110. It is sinus tachycardia. He is amenable to getting a dose of Ativan and being discharged, which was done. ED Disposition - Plan for ED Patient: Disposition: Home or Assisted Living Diagnosis: Anxiety Instructions: ED Anxiety Reaction Referrals: Doctor,Your [STAFF PHYSICIAN] - 3-5 Days if not improving
[2020-10-09] MEDS: LORazepam 1 MG Tablet PO (00:42)
[2020-10-09 00:45] VITALS: BP 159/97; PULSE 82; RESP 15; O2SAT 98
[2020-10-09 02:18] VITALS: BP 175/118; PULSE 121; RESP 15; O2SAT 98
--- NOTE | 2020-10-09 02:19 | ED.RN ---
pt returns by squad for anxiety.
--- NOTE | 2020-10-09 02:32 | ED.VIS.GEN ---
History of Present Illness Chief Complaint: Anxiety Informant: Patient Onset: Today, Hours - Several Context: Gradual Onset Timing: Continuous Quality: jittery and anxious Location: all over Current Severity: Moderate Maximum Severity: Severe Worsened by: when lied down Relieved by: Ativan earlier helped Associated Symptoms: denies Narrative: Patient was seen here by myself less than 1 hour ago for the same thing. States he vaped on something given to him that contain THC and he did not know it until after he already smoked it. Started feeling much more anxious after that, is chronically anxious. He was given Ativan and discharged, and he was fine with that. He states he laid down and felt the same symptoms were worse, no dyspnea or any other new symptoms, so he called EMS and was brought back. He was sleeping practically upon EMS transferring him to the bed from the cot. He states he did not do any more smoking or drugs or anything else. - Past Medical History (1) Anxiety and depression Status: Chronic Past Medical History - Allergies and Home Meds Allergies/Adverse Reactions: Allergies etomidate Adverse Reaction (Verified 10/08/20 23:54) Other Seizure-Tonic Clonic Primary Care Physician: Doctor,Your [STAFF PHYSICIAN] - 3-5 Days if not improving Surgical History: - - right foot/ankle surgery Smoking Status: Current every day smoker - Family History Maternal Family History: Reports: No pertinent history Paternal Family History: Reports: Diabetes Review of Systems General: Denies: Chills, Fever, Sweats Eyes: Denies: Visual changes - bilaterally, Diplopia ENT: Denies: Rhinorrhea, Sore throat Cardiovascular: Reports: Heart racing - a little. Denies: Chest pain, Palpitations Respiratory: Denies: Dyspnea, Cough, Dyspnea on exertion, Orthopnea Gastrointestinal: Denies: Abdominal pain, Nausea, Vomiting, Diarrhea, Melena, Hematochezia Genitourinary: Denies: Dysuria, Hematuria, Frequency Musculoskeletal: Denies: Back pain, Swelling, Extremity Pain Skin: Denies: Rash, Wounds Neurological: Denies: Headache, Weakness, Numbness Psych: Reports: Anxiety. Denies: Suicidal thoughts Physical Exam Vital Signs/Narrative: Vital Signs Temp Pulse Resp BP Pulse Ox 10/09/20 02:18 121 H 15 175/118 H 98 10/09/20 00:45 82 15 159/97 H 98 10/08/20 23:56 97.9 F 128 H 23 H 171/96 H 98 Inital Vital Signs reviewed: Yes General: Well nourished, Well developed, No Acute Distress Head: Normocephalic, Atraumatic Eyes: Perrl, EOMI ENT: Moist mucous membranes, No rhinorrhea Neck: Supple, Nontender Cardiovascular: Regular rate, Regular rhythm, No murmurs, Tachycardia Respiratory: No distress, CTA bilaterally, Chest nontender Abdomen: Soft, Nontender, Nondistended Extremities: Nontender, No edema Skin: Normal color, No rash, No Trauma Neurological: Alert, Oriented x3, Cranial nerves II-XII grossly intact, Normal Strength, Normal Sensation Psychological: Normal affect, Normal Mood, - - appears calm. speaks calmly. logical goad-directed sequential thoughts. Diagnostic/Tx/Re-eval - Medical Decision Making Patient was given an injection of Benadryl and monitored. He just received Ativan an hour prior to his second visit. He feels better, his blood pressure is 140 systolic now, with a heart rate in the low 100s, and now he states that I cannot go home because I am locked out of my apartment. Discharge papers will be provided, and I have alerted nursing that lined up the patient resides here for a couple of hours, it is about 4 AM. ED Disposition - Plan for ED Patient: Disposition: Home or Assisted Living Diagnosis: Anxiety Instructions: ED Anxiety Reaction Referrals: Doctor,Your [STAFF PHYSICIAN] - 3-5 Days if not improving
[2020-10-09] MEDS: DiphenhydrAMINE 50 MG/ML Syringe 25 MG IM (02:47)
[2020-10-09 03:50] VITALS: BP 146/93; PULSE 110; RESP 15; O2SAT 97
[2020-10-09 06:33] VITALS: RESP 16
[2020-10-09 06:50] VITALS: BP 135/64; PULSE 98; RESP 15; O2SAT 97
== END 2020-10-09 06:52 | disposition home or self-care (01) ==
LOC: ED 10-09 00:20
PROVIDERS: Emergency Provider Emergency Medicine
DX: F41.9 Anxiety disorder, unspecified (principal); F17.210 Nicotine dependence, cigarettes, uncomplicated
CPT/HCPCS: 96372; 99285

== ENCOUNTER 2020-10-19 09:00 | Outpatient (RCR) | payer MEDICAID, SELFPAY ==
[2020-10-16 00:41] VITALS: BP 146/92; PULSE 82
--- NOTE | 2020-10-19 09:00 | BH.SGPN.GN ---
Behaviors/Verbalizations/Mental Status: [] Eye contact is poor. Motor activity is appropriate. Appearance is casual. Speech is Appropriate. Mood is depressed. Affect is flat. Thoughts are linear and logical. No evidence of psychosis. No suicidal thoughts reported Client Response/Progress/Benefit: [] Pt spoke when prompted. Shared that his mood has been erratic since last week. I've been having a different kind of anxiety. He shared that he has been happy, sad, angry, and anxiety all in one day. Its been a weird ride. Pt admits that he has not been consistent with IOP or treatment in general. Utilizing ER when anxiety or overwhelmed and has not set appointment with PCP. I knew that I need to come in to talk today. Spending time with friends over the holiday. Pt stopped his Seroquel yesterday and feels that it might have something to do with his recent mood swings. Pt was started on Seroquel 09/30/20. States that he feels more even today. No progress noted. Pt has been inconsistent with IOP only showing once per week. Showed up today even though he was not on the schedule. Limited benefit from group aside from support. Will continue in IOP to stabilize mood. Narrative Note: []
--- NOTE | 2020-10-19 10:15 | BH.SGPN.GN ---
Behaviors/Verbalizations/Mental Status: []Client alert and oriented, casually dressed and fairly groomed. Eye contact fair to good. Motor activity appropriate. Speech within normal limits. Affect constricted, mood anxious and dysthymic. Thoughts linear, logical, no signs of hallucinations or delusions. Client Response/Progress/Benefit: []Client was an engaged participant AEB providing some input during discussion and attentively listening throughout. Connected with group topic of perspective and the impacts of one?s perspective on mental health. Client shared that perspective can switch quickly. Shared example that one could be having a good day but stub their toe which could switch their perspective to thinking everything is negative. Client worked with the group to identify how a negative perspective can impact mental health.?Client contributed as group discussed ways a positive perspective can impact mental health. Client appeared to benefit from increasing understanding of mental health benefits of a positive perspective and potential consequences to progress when perspective is negative. Client progress hindered by pt's lack of consistent attendance. Client is to continue IOP to improve mood stability, increase healthy coping and prevent decompensation.
--- NOTE | 2020-10-19 11:15 | BH.SGPN.GN ---
Behaviors/Verbalizations/Mental Status: []Client alert and oriented, casually dressed and groomed. Eye contact good. Motor activity appropriate. Speech within normal limits. Affect constricted. Mood anxious. Thoughts linear, logical, no signs of hallucinations or delusions. Client Response/Progress/Benefit: []Client responded well to session, actively participating. Connected with the benefits of recognizing personal strengths on improving mental health which included: increased self-confidence, improved self-esteem, and better follow through. Client able to identify personal strengths he possesses which included: being open-minded, curiosity, and independence. Group discussed how personal strengths can help client make progress for mental health and identified strategies to help them acknowledge strengths more often. Client shared that it is important to practice character building activities in order to activate one?s strengths. Appeared to benefit from recognizing personal strengths and identifying strategies to increase recognition of strengths. Client will continue IOP tx to prevent decompensation, monitor mood and sleep, and improve daily functioning. Narrative Note: []
--- NOTE | 2020-10-21 10:10 | BH.SGPN.GN ---
Behaviors/Verbalizations/Mental Status: [] Eye contact is good. Motor activity is appropriate. Appearance is casual. Speech is Appropriate. Mood is anxious. Affect is congruent. Thoughts are linear and logical. No evidence of psychosis. Client Response/Progress/Benefit: [] Pt was an active participant in group discussions. Attentive during psycho-education on 4 types of conflict styles (Competing, Collaborating, Avoiding, and Accommodating). Worked with group to define conflict and identify how conflict is helpful; (allows us to grow, helps us stand up for ourselves, empowers us, helps clarify, and helps us gain clarification). With peers identified what prevents them from addressing or managing conflict which included; emotions, past experiences, fear, upbringing, scared how they will react, fear of backlash from others, and possibility on things escalating. Pt believes his conflict style is competing which can lead to lost relationships. Benefited from group due to increase insight and awareness of conflict, conflict styles, and obstacles to managing conflict. Narrative Note: []
--- NOTE | 2020-10-21 11:11 | BH.SGPN.GN ---
Behaviors/Verbalizations/Mental Status: []Client alert and oriented, casually dressed and groomed. Eye contact fair. Motor activity appropriate. Speech within normal limits. Affect congruent, mood anxious. Thoughts linear, logical, no signs of hallucinations or delusions. Client Response/Progress/Benefit: []Client engaged in session AEB contributing to discussion and taking notes. Client did well to participate during the activity in which participants were challenged to eliminate various items through group consensus. Client contributed to discussion of the barriers that occurred during the activity as well as the conflict resolution strategies. Client reviewed the worksheet on fair fighting rules to cope with conflict and client selected attempting to come to a compromise or understanding as the skill client would like to improve. Client stated he has been the ?competing? type all of his life and he recognizes he needs to change. Appeared to benefit from learning strategies to better manage conflict. Progress noted in client?s report of reduced anxiety today. Will continue IOP tx to prevent decompensation, establish supportive connections, and improve mood stability. Narrative Note: []
--- NOTE | 2020-10-21 11:48 | PCM.BH.PN_ITS ---
Progress Note Progress Note: History of Present Illness/Interim History: [] The patient is a 35-year-old single male with a history of schizoaffective disorder who is seen in follow-up at the [facility] behavioral health IOP program. I last saw the patient about 3 weeks ago and at that time the patient was started on Seroquel. The patient says he has been taking the Seroquel for about 2 weeks and it has improved his sleep. His mood remains erratic and he complains of intense mood swings at times. He also has been showing evidence of health anxiety while participating in the program. His attendance has been only about 1 day a week to the IOP program. The patient has gone to the emergency room for panic attacks and chest pain a few times in the past few weeks. He has not been admitted. The patient denies any hallucinations or paranoia. He feels that he is irritable and easily frustrated. He states his mood is all over the place. He is sleeping about 5 hours a night. No fatigue. He feels that his Ambien that he takes at night makes him feel weird after he takes it. His girlfriend said he was hearing things at 1 point shortly after he took his Ambien. He denies suicidal ideation, homicidal ideation or symptoms of tejal. Current Psychiatric Medications: [] Ambien 10 mg p.o. nightly; Seroquel 50 mg p.o. nightly (x2 weeks) Mental Status Examination: [] Patient is a 35-year-old -[place] male who is seen wearing a mask due to the Covid pandemic. He is casually dressed and groomed with good hygiene. He has no psychomotor agitation or retardation. He is cooperative and pleasant during the interview. Eye contact is good and. Mood is euthymic today but erratic. Affect is full and normal. Thought process is goal-directed and organized. Thought content: There is no evidence of suicidal or homicidal ideation. No evidence of hallucinations or delusions. Reality testing is intact. Impulsivity is moderate. Insight: Good. Judgment: Intact. Diagnoses: [] [place] I: [] Rule out schizoaffective disorder, bipolar type; panic disorder; anxiety disorder, NOS; THC use disorder [place] II: [] Deferred [place] III: [] History of traumatic brain injury, rule out PASTOR, diabetes mellitus type 2 [place] IV:[]] Primary support, job issues Plan: [] Patient will continue the IOP program in behavioral health at [facility] as the structure, support, education, individual and group therapy will hopefully prevent worsening of the patient's symptoms which might require hospitalization. The patient felt safe during the interview and if at any time and is not feel safe he will let us know or go to the emergency room. The risks, options, possible complications and side effects of medications were discussed with patient and he understands and accepts these. He agrees to discontinue his Ambien. He also agrees to increase his Seroquel to 100 mg p.o. nightly for 2 nights. On the third night he will increase the Seroquel to 200 mg p.o. nightly in order to help with his anxiety and to stabilize his mood. The patient will get a sleep study JEREMÍAS as soon as he gets a primary care doctor to rule out obstructive sleep apnea. Prescription was sent in for Seroquel 100 mg, 2 p.o. nightly. Patient will follow up with his outpatient psychiatric and medical providers.
--- NOTE | 2020-10-21 15:19 | BH.MDN_ITS ---
Multi-Disciplinary Note - Note 60-min Individual Time Started:: 12:15 Date: 10/21/20 Purpose of session/treatment goals addressed:: The purpose of this session was to address current stressors, symptoms, triggers for emotional dysregulation. Other topics included psychoeducation on complex trauma and establishing providers. Eye Contact:: Good Motor Activity:: Restless Appearance:: Casual Speech:: Appropriate Mood:: Anxious Affect:: Congruent Thoughts:: Racing, No evidence of hallucinations/delusions noted Staff Interventions:: Therapist used active listening and open-ended questions to explore client's current stressors, symptoms, and triggers. Therapist provided psychoeducation on complex trauma and mood dysregulation. Therapist discussed the importance of obtaining a PCP and will research providers for client. Therapist gave client homework. Client Response:: Client responded well to session, open to meeting with therapist. Client shared he went to the ER this week because he was having chest pain. Client has a history of high blood pressure and while in the ER his blood pressure medication was changed. Client reports the change has significantly helped. Client reports he has been having erratic moods and the Ambien he takes for sleep has been causing client to feel really weird. Client is to no longer to take the Ambien. Client reported high anxiety and panic earlier this week, but today reports that his anxiety is less of an issue. Client willing to work on increasing self-awareness of triggers and trauma responses. Client shared he is currently working on getting more visitation rights with his children, but client is worried he will not be able to manage his emotions. Client denies that he has ever been abusive to his children, but client fears that his childhood trauma and how my dad was will impact how client raises his children. Psychoeducation on trauma and discussed resilience factors client possesses. Receptive to practicing calming strategies as well as communicating with his s upports and children about emotions. Client willing to read for homework and complete a self-assessment. Risks/Concerns:: Client denies any suicidal ideations, plan, or intent as of 10/21/20. Client recently went to the ER for chest pain and high blood pressure. Client reported he was put on a different blood pressure medication and he feels better today. Still no PCP. Progress Toward Goals/Plan:: Client?s attendance over the past two weeks has been minimal, but client returns to IOP more consistently this week. Client has gone to the emergency room for panic attacks and chest pain a few times in the past few weeks. Client also continues to endorse sleep issues and erratic mood swings. Client describes these mood swings as being ?all over the place? and easily frustrated. Client also reports ruminations and health anxiety. Client receptive to discussion on establishing PCP. Will continue IOP tx to prevent decompensation, monitor medications and mood, and improve daily functioning. Time Stopped:: 13:15
--- NOTE | 2020-10-27 09:10 | BH.SGPN.GN ---
Behaviors/Verbalizations/Mental Status: [] Eye contact is poor. Motor activity is appropriate. Appearance is casual. Speech is Appropriate. Mood is anxious. Affect is congruent. Thoughts are linear and logical. No evidence of psychosis. Reviewed daily check in sheet and pt reports 1/5 for suicidal ideations and 1/5 for intent. Therapist notified. Pt appeared drowsy during first group often with eyes closed. Client Response/Progress/Benefit: [] Pt was an active participant in group discussion on empathy and vulnerability in mental health. Daily symptoms notes 1/5 for depression and anger. Notes 4/5 for anxiety. Pt states I'm trying to get on a good sleep schedule however for some reason I'm fighting it. Notes that his mood is more stable than last week and not as erratic. Identifies as an insomniac and states he is fighting sleep at times. Unclear on the motivation for this. Incongruent at times stating that he is fighting the urge to sleep and then stating he is up with anxiety and restless. He will talk about his current emotions and challenges mixed in with his past struggles and it is confusing what is current and past. Reports that he is utilizing skills and not utilizing the ER when anxious. 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 Increased insight and awareness on group topics discussed. Also benefited from group support and encouragement. Will continue in IOP to increase healthy coping, stabilize mood, and prevent decompensation. Narrative Note: []
--- NOTE | 2020-10-27 10:13 | BH.SGPN.GN ---
Behaviors/Verbalizations/Mental Status: [] Alert and oriented. Casually dressed and groomed. Eye contact good. Motor activity appropriate. Speech within normal limits. Mood dysthymic, affect constricted. Thoughts linear, logical, no signs of hallucinations or delusions. Client Response/Progress/Benefit: []Client engaged participant AEB client taking notes, but client was mostly quiet. Group discussed healthy versus unhealthy coping skills and what contributes to people using unhealthy skills. The group stated unhealthy coping skills tend to be easy, habitual, and temporary relief. Client gave the example of sex and laying as forms of unhealthy coping skills. Client participated in the group activity and connected that a healthy foundation of coping skills is composed of healthy internal and external coping skills. Client seemed to benefit from increased awareness of the importance of increasing healthy coping skills and consequences of utilizing unhealthy coping skills. Progress noted as client has been attending group more consistently. However, client continues to struggle with sleep issues and mood instability. Will continue IOP tx to prevent decompensation and improve daily functioning. Narrative Note: []
--- NOTE | 2020-10-27 11:13 | BH.SGPN.GN ---
Behaviors/Verbalizations/Mental Status: []Alert and oriented. Casually dressed and groomed. Eye contact good. Motor activity appropriate. Speech within normal limits. Mood dysthymic, affect constricted. Thoughts linear, logical, no signs of hallucinations or delusions. Client Response/Progress/Benefit: []Client responded well to session, actively listening and taking notes. Group discussed the different categories of coping skills which included distraction, emotional release, grounding, self-love, and thought challenging. Client participated in creating a coping skills ?menu? from the five categories of coping skills. Client's coping skill menu included: taking a walk, talking to someone, deep breathing, exercise, and finding evidence against negative thoughts. Progress variable as client continues to report erratic moods and sleep issues. Client's attendance has improved which is progress. Appeared to benefit from increasing repertoire of healthy coping skills. Will continue tx to prevent decompensation, monitor medication and mood, and improve daily functioning. Narrative Note: []
--- NOTE | 2020-10-28 11:16 | BH.MDN ---
Multi-Disciplinary Note - Note 45-min Individual Time Started:: 10:20 Date: 10/28/20 Purpose of session/treatment goals addressed:: The purpose of this session was to address current stressors, symptoms, and goals. Another goal was to identify strategies to overcome barriers and increase accountability for goals. Eye Contact:: Fair Motor Activity:: Appropriate Appearance:: Casual Speech:: Appropriate Affect:: Congruent Thoughts:: Circular, No evidence of hallucinations/delusions noted Staff Interventions:: Therapist used active listening and open-ended questions to explore client's current stressors, symptoms, and concerns. Therapist reviewed the PCP list with client and developed a plan to connect client with care providers. Therapist explored client's overall health and mental health goals and suggested strategies to help client be more consistent and self-accountable. Therapist will call PCPs in the area at client's request. Client Response:: Client responded well to session, open to meeting with therapist. Client reports feeling ?very tired? today as client did not go to sleep until around 4am. Client was unable to take his Seroquel because it was so late client would not have been able to get up for group. Client continues to feel anxious about sleep and his health issues. Client shared he has not been to the ER for anxiety recently, but he is still having panic attacks. Client reports he has been able to manage these through talking with supports and distractions. Discussed other options to help manage panic such as walking, self-talk, and grounding. Client worries about his heart, diabetes, and high blood pressure. Client has been trying to make healthier choices such as drinking smoothies and he wants to begin exercising. Client admits to struggling with accountability and recognizes that he is setting a lot of big goals all at once. Receptive to discussion of strategies to increase accountability and client liked the idea of a habit tracker via email. The habit tracker will include: eating habits, sleep, medication, exercise, appointments, and household tasks. Risks/Concerns:: Client denies any suicidal ideations, plan, or intent as of 10/28/20. Client reports some issues with medication compliance and continues to have sleep issues. Progress Toward Goals/Plan:: Client?s IOP attendance has improved and he has not been to the ER since 10/20/20 which is progress. Client?s mood appears more stable this week and he reports less irritability. Client continues to struggle with sleep issues and adjusting to Seroquel, anxiety and panic, medical concerns, and medication non-compliance. Receptive to the strategy of completing a daily habit tracker to promote accountability. Requested that therapist call PCPs in the area. Will continue IOP tx to improve mood stability and increase healthy coping skills. Time Stopped:: 11:05
--- NOTE | 2020-10-28 12:09 | PCM.BH.PN ---
Progress Note Progress Note: History of Present Illness/Interim History: [] Patient is a 35-year-old single -[place] male with a history of schizoaffective disorder and anxiety who is seen in follow-up at the [facility] behavioral health IOP program. I last saw the patient 1 week ago and at that time I increased his Seroquel to 100 mg p.o. nightly and he was then supposed to increase that up to 200 mg. Patient says he has been taking to 50 mg quetiapine pills or 100 mg at bedtime total but he has not picked up the new prescription yet. He says his mood is more stable on the higher dose of Seroquel and his anxiety is much improved. He has not had to go to the emergency room for anxiety and chest pain in the past week. I reviewed his ER record from October 20, 2020 and he was diagnosed with high blood pressure in the emergency room. But his EKG was normal and the rest of the work-up and evaluation was normal. He states that he stopped the Ambien and he feels like the Ambien was caught causing him to feel weird and to hear things when he took the Ambien. He feels it was also affecting his mood. So he will stay off the Ambien he says as we agreed. His sleep has improved on the Seroquel and he is getting close to 7 hours a night sometimes now. He does get anxious when he feels the Seroquel working at night but then that resolves. He is trying to keep his sleep-wake cycle more regular. He denies suicidal ideation, homicidal ideation, symptoms of tejal or hallucinations or delusions. He has much less irritable now also. Current Psychiatric Medications: [] Ambien DC'd 1 week ago.; Seroquel 100 mg p.o. nightly (x1 week). Mental Status Examination: [] Patient is a 35-year-old male who is seen wearing a mask due to the pandemic but appears normal for stated age and is casually dressed and groomed with good hygiene. He has no psychomotor agitation or retardation. Eye contact is good and mood is euthymic. Affect is full and normal. Thought process is goal-directed and organized. Thought content: No evidence of suicidal or homicidal ideation. No evidence of hallucinations or delusions. Reality testing is intact. Impulsivity is low to moderate. Insight: Good. Judgment: Intact. Diagnoses: [] [place] I: [] Schizoaffective disorder, bipolar type; panic disorder; anxiety disorder, NOS; THC use disorder [place] II: [] Deferred [place] III: [] History of traumatic brain injury, rule out PASTOR, diabetes mellitus type 2, recently possibly diagnosed with hypertension in the emergency room [place] IV:[]] Primary support, job issues Plan: [] Patient will continue the IOP program in the behavioral health at [facility] as the structure, support, education, individual and group therapy will hopefully prevent worsening of the patient's symptoms which might require hospitalization. The patient felt safe during the interview and if at any time he does not feel safe he will let us know or go to the emergency room. The risk, options, possible complications and side effects of the medications were again discussed with the patient and he understands and accepts these. He will continue to stay off his Ambien. 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 nightly up to 200 mg p.o. nightly. If 200 mg makes him too tired than he will go back down to 150 or 100 mg p.o. He needs to schedule a sleep study JEREMÍAS with his primary care doctor. He will continue to follow-up with his outpatient psychiatric and medical providers especially he needs to follow-up for his recent diagnosis of possible hypertension in the emergency room on October 20, 2020.
--- NOTE | 2020-11-03 10:15 | BH.SGPN.GN ---
Behaviors/Verbalizations/Mental Status: []Eye contact is fair. Alert and oriented. Motor activity is appropriate. Appearance is casual. grooming is appropriate. Speech is Appropriate. Mood is dysthymic. Affect is constricted. low energy. Thoughts are linear and logical. No evidence of psychosis or hallucinations. Client Response/Progress/Benefit: [Pt semi-engaged participant AEB pt providing limited contributions during session however appeared to listen to others and engaged in activity. Pt assisted group with identifying consequences of not expressing self in a healthy way which included: resentment, bitterness, seeking constant distractions, lashing out, displacement, lose support, and mental health negatively impacted. Pt stated his anxiety can make it hard to communicate at times because difficulty thinking Pt seemed to benefit from increased awareness of the impact unmanaged emotions can have on mental health. Pt is to continue IOP to improve mood stability, improve emotional regulation and prevent decompensation. Narrative Note: []
--- NOTE | 2020-11-03 11:10 | BH.SGPN.GN ---
Behaviors/Verbalizations/Mental Status: []Client alert and oriented, casually dressed and groomed. Eye contact good. Motor activity appropriate. Speech within normal limits. Affect constricted, mood anxious. Thoughts linear, logical, no signs of hallucinations or delusions. Client Response/Progress/Benefit: []Client engaged in session AEB client listening attentively to peers and providing input. Attentive during psychoeducation on 4 zones of regulation. Client able to identify feelings and behaviors for each zone. Group identified coping skills one can use to support self in each zone which included: journaling, opposite action, thought challenging, exercise, listening to music, deep breathing, progressive muscle relaxation, and reaching out to supports. Client stated belief that he is in the yellow zone today because client feels anxious about all the tasks he has to accomplish. Client reports he can benefit from sticking to a routine today and getting some exercise. Benefited from increased education on zones of regulation or stages of alertness for emotions and healthy coping skills to use for each zone. Will continue IOP tx to prevent decompensation and improve daily functioning. Narrative Note: []
--- NOTE | 2020-11-03 14:20 | BH.MDN_ITS ---
Multi-Disciplinary Note - Note 30-min Individual Time Started:: 09:30 Date: 11/03/20 Purpose of session/treatment goals addressed:: The purpose of this session was to identify strategies to overcome barriers and increase accountability for goals. Another goal was to review healthy communication skills. Eye Contact:: Good Motor Activity:: Appropriate Appearance:: Casual Speech:: Appropriate Mood:: Other - tired Affect:: Constricted Thoughts:: Linear, Logical, No evidence of hallucinations/delusions noted Staff Interventions:: Therapist gathered information on client's progress with his current mental health and medical goals. Therapist explored solutions to overcome barriers to follow through and empowered client on his steps of progress. Discussed the interconnectedness between mental health and phsyical health. Therapist reviewed healthy coping skills and communication skills. Therapist encouraged client to call Dr. Hanna's office again today. Client Response:: Client responded well to session, open to meeting with therapist. Client reports overall his mood and functioning have improved. Client recognized he has been procrastinating and not following through with some of his goals. Client has been drinking smoothies in the morning and has been taking his medications which is progress. Client also has been attending IOP more. Client is struggling to be consistent with exercise, cleaning, and calling provi ders. Client called Dr. Hanna during session and left a message. Client would like to get a sleep study as he continues to have sleep issues and has been having disturbing dreams recently. Client shared the dreams do not bother him throughout the day, but he does not look forward to going to sleep. Client plans to call Dr. Hanna again today as well as the dentist. Client receptive to feedback from therapist on increasing personal accountability. Client has a habit tracker that he can berny daily. Risks/Concerns:: Client denies any suicidal ideations, plan, or intent as of 11/03/20. Client reports having disturbing dreams, but they do not seem to bother him during the day. Progress Toward Goals/Plan:: Client reports overall his anxiety has decreased, and his mood is better which is progress. However, client continues to struggle with health issues that trigger anxiety as well as sleep issues. Client was in the ER on 10/30/20 for palpitations. Client has still not scheduled with a PCP, but was willing to call during session and left a message. Client reports medication compliance and was receptive to discussion on using the habit trac ker. Will continue IOP tx to promote mood stability, improve functioning, and further reduce anxiety. Time Stopped:: 10:00
--- NOTE | 2020-11-04 09:05 | BH.SGPN.GN ---
Behaviors/Verbalizations/Mental Status: []Alert and oriented, casually dressed and groomed. Eye contact good. Motor activity appropriate. Speech within normal limits. Affect congruent, mood content. Thoughts linear, no signs of hallucinations or delusions. Clients daily symptom tracker scores indicate no risk for SI, plan, or intent. Client Response/Progress/Benefit: []Client responded well to session, engaged and receptive to feedback. Client reports feeling cool this morning which client stated means he is less anxious. Client shared overall his anxiety has significantly decreased besides my normal daily anxiety. Client continues to worry about his health and was again encouraged to follow up with scheduling an appointment with a PCP. Client's IOP attendance has improved and he has been more engaged which is progress. Appeared to benefit from connecting with peers and reflecting on gains. Will continue IOP tx to promote mood stability and improve daily functioning. Narrative Note: []
--- NOTE | 2020-11-04 10:20 | BH.SGPN.GN ---
Behaviors/Verbalizations/Mental Status: [] Eye contact is good. Motor activity is appropriate. Appearance is casual. Speech is Appropriate. Mood is anxious. Affect is congruent. Thoughts are linear and logical. No evidence of psychosis. Client Response/Progress/Benefit: [] Pt was an active participant in group discussion and activity. Shared insights on the quote of the day. Attentive during psychoeducation. Client worked with group to identify forces that can impact growth and overall mental health. Positive factors that group identified can impact mental health included; asking for help, self-care, taking medications, personal hygiene, and utilizing coping skills. Struggled at times during experiential activity stating often I'm getting really anxious. Processed the activity with peers and was able to make connections with the overall topic of the group. Pt benefited from increased awareness of the impact positive and negative forces can have on mental health and personal growth. Will continue in IOP to maintain gains, prevent decompensations, and stabilize mood. Narrative Note: []
--- NOTE | 2020-11-04 11:20 | BH.SGPN.GN ---
Behaviors/Verbalizations/Mental Status: []Eye contact is fair. Alert and oriented. Motor activity is appropriate. Appearance is casual. grooming is appropriate. Speech is Appropriate. Mood is euthymic, slightly anxious. Affect is congruent. Thoughts are linear and logical. No evidence of psychosis or hallucinations. Client Response/Progress/Benefit: []Pt receptive of session, listened attentively to peers and provided positive input throughout group discussion. Group processed the activity and identified positive and negative forces impacting ability to complete the challenge. Pt was attentive during psychoeducation and appeared to benefit from increased insight on the impact of negative and positive forces on mental wellness. Identified wanting to continue to work on negative force of procrastination which he will accomplish by playing music to keep him motivated while he is reading through e-mails for work. Pt recommended continued IOP tx to stabilize moods, increase consistent use of healthy coping and prevent decompensation. Narrative Note: []
--- NOTE | 2020-11-13 09:30 | BH.DS ---
Discharge Summary - Demographics Date of Admission:: 09/30/21 Discharge Date: 11/11/20 Presenting Problems at Admission:: Client is a 35-year-old male with a possible history of schizoaffective disorder. Client was referred to [facility] following an ER visit due to insomnia. Client reported prior to ER visit he was only sleeping 1-2 hours a day for eight days straight. Client has long-standing history of sleep issues and can benefit from a sleep study. Additionally, at admission client endorsed increased anxiety and erratic moods. Client reported daily panic attacks without a trigger as well as increased irritability. Client denied hallucinations at intake, but client does have a history of auditory hallucinations 3-4 years ago. Client also has a history of trauma and homicidal ideations, but client denied any during IOP. Client reported belief his symptoms have become worse since being off work. Client is unable to function at his baseline and there is a risk of decompensation without support of IOP. Discharge Diagnoses:: Panic disorder; anxiety disorder, NOS; rule out schizoaffective disorder, bipolar type; THC use disorder; History of PTSD Reason for Discharge:: Client presented to [facility] ER on 11/11/20 due to increased stress and homicidal ideations. Client was admitted to [facility] as he needed higher level of care. - Treatment Progress During Treatment & Response: Client?s response to treatment was variable due to client?s fatigue and inconsistent attendance. Client was showing progress with attendance prior to hospitalization, but he struggled to stay alert during group sessions due to sleep issues. When client was not fatigued, client was a good group member and engaged in individual sessions. Client self-reported inconsistent use of coping skills and following through with personal goals. Client was vague at times with therapist and appeared to minimize his anxiety. Issues Still to be Addressed:: Client appeared to minimize his symptoms while in [facility] as client was hospitalized for homicidal ideations and severe anxiety which was incongruent to his self-report during IOP sessions. Client can benefit from returning to [facility] following inpatient admission to promote stabilization of mood and reinforce healthy coping skills. Client can also benefit from establishing outpatient providers to manage medical concerns that exacerbate anxiety and sleep issues. Discharge Recommendations/Instructions:: Client is currently admitted at [facility] for Psychiatry and was informed he can return to [facility] following inpatient discharge. Client has been provided with resources to establish a PCP. Discharge Handout: Complete Discharge Handout with client on aftercare options and continuity of care.
--- NOTE | 2020-11-27 09:00 | BH.SGPN.GN ---
This psychotherapy group was provided via telehealth using two-way, real-time interactive telecommunication technology between the patients and the provider. The interactive telecommunication technology included audio and video. The patient was offered telemedicine as an option for care delivery during the COVID-19 pandemic and consented to this option. Patient location: [place] Provider located at [facility] Behaviors/Verbalizations/Mental Status: []Client alert and oriented, casually dressed. Eye contact fair. Motor activity appropriate. Speech within normal limits. Affect constricted, mood euthymic and anxious. Thoughts linear, logical, no signs of hallucinations or delusions. Reviewed client?s symptom tracker, no risk or plan for suicide ideation, plan, or intent as of 11/27/20. Client Response/Progress/Benefit: []Client responded well to session, engaged throughout self-check in and listened to other group members share in discussion. Client reported feeling ?enthused? this morning. 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 Client identified his positives as following his health regimens which helps him continue a healthy routine. Benefited from group as client connected with peers. Progress difficult to measure as client does not disclose how he is applying coping skills outside of IOP. Will continue IOP to practice the use of healthy coping skills and improve daily functioning. Narrative Note: []
== END 2020-11-12 10:00 | disposition short-term general hospital (02) ==
LOC: BHIOP 09:00
PROVIDERS: Referring Provider Psychiatry & Neurology Psychiatry; Visit Provider Psychiatry & Neurology Psychiatry
DX: F41.0 Panic disorder [episodic paroxysmal anxiety] (principal); F41.9 Anxiety disorder, unspecified; F12.90 Cannabis use, unspecified, uncomplicated
CPT/HCPCS: 99214; H0035; H2012; H2020; 90832; 90834; 90837

== ENCOUNTER 2020-10-20 04:49 | Emergency (ER) | payer MEDICAID, SELFPAY ==
[2020-10-20 04:50] VITALS: BP 167/108; PULSE 84; RESP 17; TEMP 36.5; O2SAT 98; BMI 34.7
--- NOTE | 2020-10-20 05:01 | EKG12_ITS ---
Test Reason : CP Blood Pressure : / mmHG Vent. Rate : 086 BPM Atrial Rate : 086 BPM P-R Int : 186 ms QRS Dur : 100 ms QT Int : 360 ms P-R-T Axes : 041 032 025 degrees QTc Int : 430 ms Normal sinus rhythm Nonspecific T wave abnormality Abnormal ECG Confirmed by ROSARIO LUIS, MUKESH ([id number]), medical editor JOCELYN HOOPER ([id number]) on 10/21/2020 9:29:40 AM Referred By: YEIMY Confirmed By:MUKESH PONCE MD
--- NOTE | 2020-10-20 05:01 | RAD_ITS ---
HISTORY: took sleeping pill and woke up 0330 with chest pain ADDITIONAL HISTORY: None provided. EXAMINATION/TECHNIQUE: XR Chest 1 View AP/PA Number of images including paperwork: 1 COMPARISON: 03/14/2020 FINDINGS: LUNGS AND PLEURA: No consolidation, mass or pleural effusion. CARDIAC SILHOUETTE: Unremarkable. MEDIASTINUM AND SAMIA: Unremarkable. UPPER ABDOMEN: Unremarkable. SKELETON AND SOFT TISSUES: No acute skeletal findings. OTHER DEVICES AND HARDWARE: None. RAD/Chest 1 View (Portable) IMPRESSION: No acute cardiopulmonary abnormality. at 0521 Reported and signed by: Brianna Bautista MD Electronically Signed: Brianna Bautista MD at 5:21 EST Tel , Service support ,
--- NOTE | 2020-10-20 05:02 | ED.VIS.GEN ---
History of Present Illness Chief Complaint: Chest Pain Informant: Patient Narrative: Patient had a difficult time sleeping, he took his Ambien, after which she only slept for about an hour and then he had some anxiety associated with some chest pain. He walked to the emergency department. He has now chest pain-free and is feeling quite sleepy. He has no radiation of his pain he has no back pain or tearing sensation he has no lower extremity edema. He denies any calf pain. No DVT or PE risk factors. There was no pleuritic component to this pain. Past Medical History - Allergies and Home Meds Allergies/Adverse Reactions: Allergies etomidate Adverse Reaction (Verified 10/08/20 23:54) Other Seizure-Tonic Clonic Primary Care Physician: Care Physician,No Primary [Primary Care Provider] - Past Medical History: - - Hypertension, noncompliant with medications Surgical History: - - right foot/ankle surgery Smoking Status: Former smoker - Family History Maternal Family History: Reports: No pertinent history Paternal Family History: Reports: Diabetes Review of Systems All systems negative except as indicated General: Denies: Chills, Fever ENT: Denies: Rhinorrhea, Sore throat Cardiovascular: Reports: Chest pain. Denies: Palpitations, Heart racing Respiratory: Denies: Dyspnea, Cough Gastrointestinal: Denies: Abdominal pain, Nausea, Vomiting Genitourinary: Denies: Dysuria Musculoskeletal: Denies: Myalgias, Arthralgias Skin: Denies: Rash Neurological: Denies: Headache Psych: Reports: Anxiety. Denies: Depression Allergy: Denies: Swelling of the mouth Physical Exam Vital Signs/Narrative: Vital Signs Temp Pulse Resp BP Pulse Ox 10/20/20 04:50 97.7 F L 84 17 167/108 H 98 General: - - She is quite somnolent, he is arousable when arousable he is lucid and coherent. Head: Normocephalic, Atraumatic ENT: Moist mucous membranes, No rhinorrhea Neck: Supple Cardiovascular: Regular rate, Regular rhythm, No murmurs Respiratory: No distress, CTA bilaterally, Chest nontender Abdomen: Soft, Nontender, Nondistended Back: Nontender, Normal Inspection. Negative for: CVA tenderness Extremities: Nontender Skin: Normal color Neurological: Normal Strength, Normal Sensation Diagnostic/Tx/Re-eval - Rhythm Strip Rhythm Strip: Sinus Rhythm Rate: 86 Ectopy: None - EKG Initial EKG Interpretation: - - Sinus rhythm with a rate of 86. Normal NE and QTc intervals. No obvious ischemic changes. Otherwise normal EKG. - Medical Decision Making Unremarkable work-up. Heart score is a 2 he appears well I will discharge him with reassurance. He is hypertensive, I will start antihypertensives and referred to a PCP. He understands that he needs to follow-up. ED Disposition - Plan for ED [facility] Diagnosis: Chest pain, Hypertension Instructions: ED Chest Pain, Uncertain Cause, ED High Blood Pressure ... Prescriptions: Hydrochlorothiazide [Hctz] 25 mg PO DAILY 30 Days #30 tab Transmission Status: Pending to [facility] Referrals: Meet Valladares MD [STAFF PHYSICIAN] - 3-5 Days
[2020-10-20 05:06] LABS: Absolute Lymphocyte Count 2.95 X10^3/uL (0.83-4.51); Absolute Neutrophil Count 1.3 X10^3/uL (2.0-7.7); Basophil# 0.06 X10^3/uL; Basophil% 1.2 % (0-1); Eosinophil# 0.08 X10^3/uL; Eosinophils% 1.6 % (0-5); Hematocrit 45.5 % (40-54); Hemoglobin 15.2 g/dL (13.0-16.5); Lymphocyte # 2.95 X10^3/ul (4.0); Lymphocyte % 59.2 % (19-41); Mean Corp Hgb Conc 33.4 g/dL (32-36); Mean Corpuscular Hgb 27.3 pg (27.0-32.0); Mean Corpuscular Volume 81.7 fL (80-94); Mean Platelet Vol. 12.3 fl (6.2-12.0); Monocyte# 0.58 X10^3/uL; Monocyte% 11.6 % (0-10); NRBC Flagged by Analyzer 0 % (0-5); Neutrophil # 1.29 X10^3/uL (2.7-7.7); POSITIVE MORPHOLOGY YES; Platelet Count 132 K/mm3 (150-450); RBC Distribution Width CV 13.8 % (11.6-14.6); Red Blood Count 5.57 M/mm3 (4.6-6.2)
[2020-10-20 05:22] LABS: Anion Gap 7 (5-15); BUN 12 mg/dL (7-18); BUN/Creat Ratio 11.9 RATIO (10-20); Calcium,Total 8.7 mg/dL (8.5-10.1); Chloride 101 mmol/L (98-107); Creatinine, Serum 1.01 mg/dL (0.70-1.30); EST Glomerular Filtration Rate 90 mL/min (>60); Est Glom Filt Rate - Afr Amer 109 mL/min (>60); Estimated Creatinine Clearance 107.41 ml/min; Glucose 185 mg/dL (74-106); Potassium 3.4 mmol/L (3.5-5.1); Sodium Level 135 mmol/L (136-145)
[2020-10-20 05:23] LABS: Differential Indicated SCAN CRITERIA MET
[2020-10-20 05:37] LABS: Differential Comment SCANNED
[2020-10-20 05:45] VITALS: BP 143/86; PULSE 78; RESP 20; O2SAT 96
== END 2020-10-20 05:46 | disposition home or self-care (01) ==
PROVIDERS: Emergency Provider Emergency Medicine
DX: R07.9 Chest pain, unspecified (principal); I10 Essential (primary) hypertension; Z87.891 Personal history of nicotine dependence
CPT/HCPCS: 71045; 80048; 84484; 85025; 93005; 99283; A4216

== ENCOUNTER 2020-10-30 11:06 | Emergency (ER) | payer MEDICAID, SELFPAY ==
[2020-10-30 11:08] VITALS: BP 157/77; PULSE 105; RESP 18; TEMP 36.7; O2SAT 95; BMI 32.3
--- NOTE | 2020-10-30 11:21 | EKG12_ITS ---
Test Reason : PALPS Blood Pressure : / mmHG Vent. Rate : 092 BPM Atrial Rate : 092 BPM P-R Int : 186 ms QRS Dur : 094 ms QT Int : 342 ms P-R-T Axes : 045 043 040 degrees QTc Int : 422 ms Normal sinus rhythm Normal ECG Confirmed by ROLANDO LUIS, NING ([id number]), associate editor SILVIO DE LA CRUZ ([id number] on 11/04/2020 6:37:13 AM Referred By: DORIAN Confirmed By:NING MARSHALL MD
--- NOTE | 2020-10-30 11:23 | ED.DCSUM_ITS ---
- ER Visit Summary Date of Service: 10/30/20 Chief Complaint: [Chest discomfort] History of Present Illness: The patient is a 35 M [presents to the emergency department with sensation of chest discomfort that started happening this morning. Patient states that he was walking when he developed a sinking feeling in his chest and felt a pain encounter went through his body. Pain was somewhat sharp. He felt somewhat lightheaded with it. No syncope. Did not feel like his heart was racing or skipping beats. Patient states that he had 3 episodes and each lasted about 2 to 3 seconds. He has had no recent travel or surgery. He denies recent illness. Denies fever or cough or COVID-19 exposures. Patient has history of hypertension. Anxiety but this feels very different than his anxiety episodes.] Physical Examination: [HEENT-PERRLA, EOMI. Cranial nerves II through XII demian sly intact. TMs clear. Mucous membranes moist. No adenopathy. Cardiovascular-regular rate and rhythm without murmur or ectopy Lungs-clear to auscultation, chest wall stable without crepitus or subcu emphysema Abdomen-normoactive bowel sounds, soft, nontender, no rebound or rigidity, no peritoneal signs. Extremities-intact ?4, normal range of motion, normal pulses, atraumatic] Test Results: [EKG obtained arrival shows sinus rhythm with a ventricular rate of 92 bpm with no acute segment changes. CBC with differential notable, 3.1, hemoglobin 15, hematocrit 46, plates 125. Chemistries unremarkable. Glucose was 204. Troponin is less than 0.015. D-dimer was less than 0.27. Chest x-ray obtained 1 view interpreted by myself as no acute disease process. Radiology read the x-ray is normal.] Emergency Department Course and Treatment: [IV line established on arrival. 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 Patient's heart score is a 1. Disposition: [Discharged home in stable condition.] Impression: [Chest pain-etiology uncertain] This note was generated with [employer] software. It may contain incorrect words, spelling, and punctuation that were not noted in review of the chart prior to signing ED Disposition - Plan for ED Patient: Referrals: Care Physician,No Primary [Primary Care Provider] -
[2020-10-30 11:48] VITALS: O2SAT 96
[2020-10-30] MEDS: Aspirin 81 MG TAB.CHEW 324 MG PO (11:49)
[2020-10-30] MEDS: 0.9% Normal Saline 1,000 ML 150 ML IV (11:49)
--- NOTE | 2020-10-30 11:55 | RAD_ITS ---
STUDY: X-RAY CHEST REASON FOR EXAM: Male, 35 years old. Chest pain, palpitations TECHNIQUE: Single AP portable view of the chest. COMPARISON: Comparison is made with prior study dated 10/20/2020. FINDINGS: EKG electrodes are seen. The lungs are clear and expanded. There is no demonstrated pleural abnormality. Normal size heart. Normal mediastinum and wally. Normal visualized pulmonary arteries. Normal visualized aortic arch and descending thoracic aorta. Normal visualized thoracic spine. Normal visualized ribs, clavicles, and shoulders. There is no demonstrated abnormality of the visualized soft tissue structures of the upper abdomen. RAD/Chest 1 View (Portable) IMPRESSION: Normal x-ray examination of the chest. Electronically Signed: Kwabena Adam, at 12:41 EST , Service support ,
[2020-10-30 12:02] LABS: Absolute Lymphocyte Count 1.33 X10^3/uL (0.83-4.51); Absolute Neutrophil Count 1.2 X10^3/uL (2.0-7.7); Basophil# 0.05 X10^3/uL; Basophil% 1.6 % (0-1); Eosinophil# 0.04 X10^3/uL; Eosinophils% 1.3 % (0-5); Hemoglobin 15.2 g/dL (13.0-16.5); Lymphocyte # 1.33 X10^3/ul (4.0); Lymphocyte % 43.2 % (19-41); Mean Corpuscular Hgb 26.8 pg (27.0-32.0); Mean Platelet Vol. 12.9 fl (6.2-12.0); Monocyte# 0.42 X10^3/uL; Monocyte% 13.6 % (0-10); NRBC Flagged by Analyzer 0 % (0-5); Neutrophil # 1.24 X10^3/uL (2.7-7.7); Neutrophil % 40.3 % (47-70); Platelet Count 125 K/mm3 (150-450); RBC Distribution Width CV 13.2 % (11.6-14.6); RBC Distribution Width SD 38.9 fl (35.1-43.9); Red Blood Count 5.68 M/mm3 (4.6-6.2); White Blood Count 3.1 K/mm3 (4.4-11.0)
[2020-10-30 12:18] LABS: Anion Gap 4 (5-15); BUN 17 mg/dL (7-18); Calcium,Total 9.4 mg/dL (8.5-10.1); Chloride 101 mmol/L (98-107); Creatinine, Serum 1.13 mg/dL (0.70-1.30); EST Glomerular Filtration Rate 79 mL/min (>60); Est Glom Filt Rate - Afr Amer 96 mL/min (>60); Estimated Creatinine Clearance 96.01 ml/min; Glucose 204 mg/dL (74-106); Potassium 3.5 mmol/L (3.5-5.1); Sodium Level 135 mmol/L (136-145)
[2020-10-30 12:19] LABS: D-Dimer Quantitative (DVT/PE) <= 0.27 FEU/ug/m (0.27-0.49)
[2020-10-30 13:16] VITALS: BP 138/89; PULSE 89; RESP 17; O2SAT 96
--- NOTE | 2020-10-30 14:14 | ED.DEP ---
ED Disposition - Plan for ED Patient: Instructions: ED Chest Pain, Uncertain Cause Referrals: Care Physician,No Primary [Primary Care Provider] - Dre Jaquez MD [STAFF PHYSICIAN] - 3-5 Days
[2020-10-30 15:00] VITALS: BP 135/96; PULSE 92; RESP 20; O2SAT 98
== END 2020-10-30 15:02 | disposition home or self-care (01) ==
LOC: ED 11:26
PROVIDERS: Emergency Provider Emergency Medicine
DX: R07.89 Other chest pain (principal); I10 Essential (primary) hypertension; F41.9 Anxiety disorder, unspecified; Z79.899 Other long term (current) drug therapy
CPT/HCPCS: 71045; 80048; 84484; 85025; 85379; 93005; 96360; 96361; 99284; J7030; A4216

== ENCOUNTER 2020-11-11 03:46 | Emergency (ER) | payer MEDICAID, SELFPAY ==
[2020-11-11 03:48] VITALS: BP 148/89; PULSE 80; RESP 16; TEMP 36.1; O2SAT 96; BMI 34.7
--- NOTE | 2020-11-11 04:16 | ED.VISSUMM ---
- ER Visit Summary Date of Service: 11/11/20 Chief Complaint: Homicidal ideation History of Present Illness: The patient is a 35 M who reports that he goes to the counseling center. He states that he has had very poor sleep for the past 2 weeks. He is only sleeping 2 to 3 hours at night and it is not restful sleep. He ports that he has vivid dreams as soon as he falls asleep. He was placed on Seroquel approximately 3 weeks ago for this and it seems to be worsening rather than better. Patient reports that he does feel depressed and stressed due to family issues. He denies any suicidal ideation, but he does report that he has homicidal ideation and will not expand on that any further. Review of systems: General: No fever, chills, cold sweats. Cardiovascular: No chest pain, palpitations. Respiratory: No cough, shortness of breath, dyspnea on exertion. Gastrointestinal: No abdominal pain, nausea, vomiting, diarrhea, melena, or hematochezia. Genitourinary: No dysuria, frequency, hematuria. Skin: No rash. Neuro: No headache, numbness, weakness. Physical Examination: Vitals: Stable. Afebrile. General: Well-nourished and well-developed. Head: Normocephalic atraumatic. Neck: Supple, no lymphadenopathy. No JVD. Nontender. Cardiovascular: Regular rate and rhythm. No murmurs. Respiratory: No respiratory distress. Clear to auscultation bilaterally. Abdominal: Soft, nontender, nondistended, normal bowel sounds. No guarding, rebound, or peritoneal signs. Back: Nontender. Extremities: Nontender, no edema. Skin: Normal color, no rash. Neurologic: Alert and oriented ?3. Cranial nerves II through XII are intact. Normal strength and sensation. Mental status exam: Patient appears their stated age. Good posture and grooming. Good eye contact. Normal rate, volume, and latency of speech. No suicidal ideation. No auditory or visual hallucinations. Flow of thought is logical. Insight and judgment is poor. Very flat affect. Test Results: CBC shows platelets 137, second neutrophils of 30, lymphocytes 57. Chem-7 shows a sodium 134 and glucose of 180. Covid is negative. Alcohol is negative. Emergency Department Course and Treatment: Patient rested comfortably without complaint. He is medically cleared. Treatment Plan: The patient was discussed with the counseling center and they are speaking with him now. After discussion with them they feel the patient needs to be hospitalized for his homicidal ideation. They are in the process of finding placement for him. Disposition: Pending Impression: 1. Homicidal ideation. This note was generated with [employer] software. It may contain incorrect words, spelling, and punctuation that were not noted in review of the chart prior to signing ED Disposition - Plan for ED Patient: Referrals: Care Physician,No Primary [Primary Care Provider] -
[2020-11-11 04:34] LABS: Absolute Lymphocyte Count 2.67 X10^3/uL (0.83-4.51); Absolute Neutrophil Count 1.4 X10^3/uL (2.0-7.7); Basophil# 0.05 X10^3/uL; Basophil% 1.1 % (0-1); Eosinophil# 0.06 X10^3/uL; Eosinophils% 1.3 % (0-5); Hematocrit 46.9 % (40-54); Hemoglobin 15.9 g/dL (13.0-16.5); Lymphocyte # 2.67 X10^3/ul (4.0); Lymphocyte % 57.2 % (19-41); Mean Corp Hgb Conc 33.9 g/dL (32-36); Mean Corpuscular Hgb 27.6 pg (27.0-32.0); Mean Corpuscular Volume 81.4 fL (80-94); Monocyte% 10.7 % (0-10); NRBC Flagged by Analyzer 0 % (0-5); Neutrophil # 1.38 X10^3/uL (2.7-7.7); Neutrophil % 29.5 % (47-70); Platelet Count 137 K/mm3 (150-450); RBC Distribution Width CV 13.4 % (11.6-14.6); RBC Distribution Width SD 39.2 fl (35.1-43.9); Red Blood Count 5.76 M/mm3 (4.6-6.2); White Blood Count 4.7 K/mm3 (4.4-11.0)
[2020-11-11 04:47] LABS: Anion Gap 8 (5-15); BUN 16 mg/dL (7-18); BUN/Creat Ratio 16.4 RATIO (10-20); Chloride 99 mmol/L (98-107); Creatinine, Serum 0.98 mg/dL (0.70-1.30); EST Glomerular Filtration Rate 94 mL/min (>60); Est Glom Filt Rate - Afr Amer 114 mL/min (>60); Glucose 180 mg/dL (74-106); Potassium 3.6 mmol/L (3.5-5.1); Sodium Level 134 mmol/L (136-145)
[2020-11-11 04:50] VITALS: RESP 16
[2020-11-11 04:51] LABS: Alcohol, Blood (Medical)-Serum < 3.0 mg/dL
--- NOTE | 2020-11-11 05:09 | ED.RN ---
CALLED [facility] TO SEE THIS PT
[2020-11-11 05:50] VITALS: RESP 16
--- NOTE | 2020-11-11 05:57 | ED.RN ---
[facility] CALLED AND IS CURRENTLY SPEAKING WITH PATIENT AT THIS TIME
[2020-11-11 06:53] VITALS: RESP 16
[2020-11-11 07:15] LABS: Amphetamine Urine VISTA NEGATIVE (<1000 ng/mL); Barbiturate Urine VISTA NEGATIVE (< 200 ng/mL); Benzodiazepine Urine VISTA NEGATIVE (< 200 ng/mL); Cocaine Urine VISTA NEGATIVE (< 300 ng/mL); Ecstacy Urine VISTA NEGATIVE (< 500 ng/mL); Methadone Urine VISTA NEGATIVE (< 300 ng/mL); PCP Urine VISTA NEGATIVE (< 25 ng/mL); THC Urine VISTA NEGATIVE (< 50 ng/mL); Vista UDS pH Range 5
[2020-11-11 08:15] LABS: Bacteria 0 SEEN /hpf (None Seen); Mucous, Urine 0 SEEN /hpf (<or=2+); Red Blood Cells-Urine 0 SEEN /hpf (0-5)
[2020-11-11 08:20] LABS: Color, Urine Yellow (Yellow); Glucose, Dipstick 1000 mg/dl (Normal); Ketone-Dipstick Negative (Negative); Leukocyte Esterase-Dipstick 25 /ul (Negative); Nitrite-Dipstick Negative (Negative); Occult Blood-Urine Negative /ul (Negative); Protein-Dipstick 15 mg/dl (Negative); Urine Bilirubin Dipstick Negative (Negative); Urine Clarity Clear (Clear); Urine Urobilinogen Normal (Normal)
[2020-11-11 08:26] LABS: Squamous Epithelial Cells - UA 0-5 SEEN /hpf (0-5); White Blood Cells 0-5 SEEN /hpf (0-5)
--- NOTE | 2020-11-11 08:43 | NURSING ---
FAXED UA, COVID AND PINK SLIP TO [facility]
[2020-11-11 09:09] VITALS: BP 147/86; PULSE 88; RESP 16; O2SAT 98
--- NOTE | 2020-11-11 09:12 | NURSING ---
CALLED [facility]. ETA IS 30 TO 40 MIN
--- NOTE | 2020-11-11 10:15 | ED.RN ---
[facility] TO ED TO TRANSPORT PATIENT, CARE AND REPORT TO THEM, PATIENT STATUS UNCHANGED AT THIS TIME.
== END 2020-11-11 10:28 ==
LOC: ED 04:36
PROVIDERS: Student in an Organized Health Care Education/Training Program; Emergency Provider Emergency Medicine
DX: F31.9 Bipolar disorder, unspecified (principal); R45.850 Homicidal ideations; F25.9 Schizoaffective disorder, unspecified; I10 Essential (primary) hypertension; Z79.899 Other long term (current) drug therapy
CPT/HCPCS: 80048; 80307; 81001; 82077; 85025; 87426; 99283

== ENCOUNTER 2020-11-23 20:34 | Emergency (ER) | payer MEDICAID, SELFPAY ==
[2020-11-23 20:36] VITALS: BP 170/95; PULSE 122; RESP 18; TEMP 36.2; O2SAT 97; BMI 33.3
--- NOTE | 2020-11-23 21:01 | EKG12_ITS ---
Test Reason : PALPITATIONS Blood Pressure : / mmHG Vent. Rate : 097 BPM Atrial Rate : 097 BPM P-R Int : 166 ms QRS Dur : 094 ms QT Int : 338 ms P-R-T Axes : 038 041 016 degrees QTc Int : 429 ms Normal sinus rhythm Nonspecific T wave abnormality Abnormal ECG Confirmed by ROSARIO LUIS, MUKESH ([id number]), metropolitan editor JOCELYN HOOPER ([id number]) on 11/26/2020 9:28:47 AM Referred By: EDEN Confirmed By:MUKESH PONCE MD
--- NOTE | 2020-11-23 21:03 | ED.VIS.GEN ---
History of Present Illness Chief Complaint: Palpitations Informant: Patient Narrative: 35-year-old male presenting to the emergency department with a chief complaint of palpitations. Patient states that at least once every couple hours she gets a sensation very similar to when his stomach drops going down to help. He states he feels like his heart pauses. He does not feel that it beats irregularly. He does not feel that is beating fast. He notes he is on a new blood pressure medicine started about a month ago but does not know the name of it. He denies any stimulants. He denies any syncope lightheadedness or feeling that he is going to pass out. - Past Medical History (1) Anxiety and depression Status: Chronic (2) Seizure Status: Suspected (3) Angioedema Status: Resolved Past Medical History - Allergies and Home Meds Allergies/Adverse Reactions: Allergies etomidate Adverse Reaction (Verified 11/23/20 20:36) Other Seizure-Tonic Clonic Surgical History: - - right foot/ankle surgery Smoking Status: Former smoker Drugs: None - Family History Maternal Family History: Reports: No pertinent history Paternal Family History: Reports: Diabetes Review of Systems General: Denies: Chills, Fever, Sweats Eyes: Denies: Visual changes - bilaterally, Diplopia ENT: Denies: Rhinorrhea, Sore throat Cardiovascular: Reports: Palpitations. Denies: Chest pain, Heart racing Respiratory: Denies: Dyspnea, Cough, Dyspnea on exertion Gastrointestinal: Denies: Abdominal pain, Nausea, Vomiting, Diarrhea, Melena, Hematochezia Genitourinary: Denies: Dysuria, Hematuria, Frequency Musculoskeletal: Denies: Back pain, Extremity Pain Skin: Denies: Rash, Wounds Neurological: Denies: Headache, Weakness, Numbness Physical Exam Vital Signs/Narrative: Vital Signs Temp Pulse Resp BP Pulse Ox 11/23/20 20:36 97.1 F L 122 H 18 170/95 H 97 Inital Vital Signs reviewed: Yes General: Well nourished, Well developed, No Acute Distress Head: Normocephalic, Atraumatic Eyes: Perrl, EOMI ENT: Moist mucous membranes, No rhinorrhea Neck: Supple, Nontender Cardiovascular: Regular rate, Regular rhythm, No murmurs Respiratory: No distress, CTA bilaterally, Chest nontender Abdomen: Soft, Nontender, Nondistended, Normal bowel sounds Back: Nontender, Normal Inspection Extremities: Nontender, No edema Skin: Normal color, No rash Neurological: Alert, Oriented x3, Cranial nerves II-XII grossly intact, Normal Strength, Normal Sensation Psychological: Normal affect, Normal Mood Diagnostic/Tx/Re-eval Laboratory Last Values WBC 5.0 K/mm3 (4.4-11.0) 11/23/20 21:20 RBC 5.61 M/mm3 (4.6-6.2) 11/23/20 21:20 Hgb 15.9 g/dL (13.0-16.5) 11/23/20 21:20 Hct 45.8 % (40-54) 11/23/20 21:20 MCV 81.6 fL (80-94) 11/23/20 21:20 MCH 28.3 pg (27.0-32.0) 11/23/20 21:20 MCHC 34.7 g/dL (32-36) 11/23/20 21:20 RDW Std Deviation 39.3 fl (35.1-43.9) 11/23/20 21:20 RDW Coeff of Maria A 13.4 % (11.6-14.6) 11/23/20 21:20 Plt Count 133 K/mm3 (150-450) L 11/23/20 21:20 MPV 12.5 fl (6.2-12.0) H 11/23/20 21:20 Immature Gran % (Auto) 0.000 % (0.0-0.9) 11/23/20 21:20 Neut % (Auto) 47.1 % (47-70) 11/23/20 21:20 Lymph % (Auto) 38.8 % (19-41) 11/23/20 21:20 [place] % (Auto) 12.3 % (0-10) H 11/23/20 21:20 Eos % (Auto) 0.8 % (0-5) 11/23/20 21:20 Baso % (Auto) 1.0 % (0-1) 11/23/20 21:20 Absolute Neuts (auto) 2.3 X10^3/uL (2.0-7.7) 11/23/20 21:20 Absolute Lymphs (auto) 1.92 X10^3/uL (0.83-4.51) 11/23/20 21:20 Nucleated RBC % 0 % (0-5) 11/23/20 21:20 Sodium 134 mmol/L (136-145) L 11/23/20 21:20 Potassium 3.5 mmol/L (3.5-5.1) 11/23/20 21:20 Chloride 100 mmol/L (98-107) 11/23/20 21:20 Carbon Dioxide 28.0 mmol/L (21.0-32.0) 11/23/20 21:20 Anion Gap 6 (5-15) 11/23/20 21:20 BUN 21 mg/dL (7-18) H 11/23/20 21:20 Creatinine 1.24 mg/dL (0.70-1.30) 11/23/20 21:20 Estim Creat Clear Calc 87.49 ml/min 11/23/20 21:20 Est GFR (MDRD) Af Amer 86 mL/min (>60) 11/23/20 21:20 Est GFR (MDRD) Non-Af 71 mL/min (>60) 11/23/20 21:20 BUN/Creatinine Ratio 16.9 RATIO (10-20) 11/23/20 21:20 Glucose 158 mg/dL (74-106) H 11/23/20 21:20 Calcium 9.5 mg/dL (8.5-10.1) 11/23/20 21:20 Magnesium 1.8 mg/dL (1.6-2.6) 11/23/20 21:20 Troponin I < 0.015 ng/mL (<0.045) 11/23/20 21:20 - EKG Initial EKG Interpretation: Sinus Rhythm - EKG demonstrates a normal sinus rhythm at a rate of 97 with no concerning features of ACS or ectopy. No preexcitation or prolonged QT noted - Medical Decision Making Patient was observed on the monitor for over an hour and a half. There been no significant events. Patient has felt his symptoms I went back and correlated with the time and there is the occasional PVC with compensatory pause. This is most likely what he is feeling. His lab analysis is negative. His EKG unremarkable. View portable chest x-ray is obtained and my interpretation is no acute disease process. At this point patient be discharged home. Instructions to follow-up with his doctor. We talked about the possibility needing a Holter monitor. ED Disposition - Plan for ED Patient: Disposition: Home or Assisted Living Diagnosis: Palpitations, PVC (premature ventricular contraction) Instructions: ED Palpitations, Premature Ventricular Contractions Additional Instructions: Follow-up with your family doctor to discuss further evaluation such as Holter monitor. If you are passing out please return to the emergency department or if you have any concerns.
[2020-11-23 21:42] LABS: Absolute Lymphocyte Count 1.92 X10^3/uL (0.83-4.51); Absolute Neutrophil Count 2.3 X10^3/uL (2.0-7.7); Basophil# 0.05 X10^3/uL; Eosinophil# 0.04 X10^3/uL; Eosinophils% 0.8 % (0-5); Hematocrit 45.8 % (40-54); Hemoglobin 15.9 g/dL (13.0-16.5); Lymphocyte # 1.92 X10^3/ul (4.0); Lymphocyte % 38.8 % (19-41); Mean Corp Hgb Conc 34.7 g/dL (32-36); Mean Corpuscular Hgb 28.3 pg (27.0-32.0); Mean Corpuscular Volume 81.6 fL (80-94); Mean Platelet Vol. 12.5 fl (6.2-12.0); Monocyte# 0.61 X10^3/uL; Monocyte% 12.3 % (0-10); NRBC Flagged by Analyzer 0 % (0-5); Neutrophil # 2.33 X10^3/uL (2.7-7.7); Neutrophil % 47.1 % (47-70); Platelet Count 133 K/mm3 (150-450); RBC Distribution Width CV 13.4 % (11.6-14.6); RBC Distribution Width SD 39.3 fl (35.1-43.9); Red Blood Count 5.61 M/mm3 (4.6-6.2)
[2020-11-23 22:01] LABS: Anion Gap 6 (5-15); BUN 21 mg/dL (7-18); BUN/Creat Ratio 16.9 RATIO (10-20); Calcium,Total 9.5 mg/dL (8.5-10.1); Chloride 100 mmol/L (98-107); Creatinine, Serum 1.24 mg/dL (0.70-1.30); EST Glomerular Filtration Rate 71 mL/min (>60); Est Glom Filt Rate - Afr Amer 86 mL/min (>60); Estimated Creatinine Clearance 87.49 ml/min; Glucose 158 mg/dL (74-106); Magnesium 1.8 mg/dL (1.6-2.6); Potassium 3.5 mmol/L (3.5-5.1); Sodium Level 134 mmol/L (136-145)
[2020-11-23 22:46] VITALS: BP 151/88; PULSE 89; RESP 17; O2SAT 98
== END 2020-11-23 22:47 | disposition home or self-care (01) ==
PROVIDERS: Emergency Provider Emergency Medicine
DX: I49.3 Ventricular premature depolarization (principal); R00.2 Palpitations; F32.9 Major depressive disorder, single episode, unspecified; F41.9 Anxiety disorder, unspecified; Z79.899 Other long term (current) drug therapy; Z87.891 Personal history of nicotine dependence
CPT/HCPCS: 80048; 83735; 84484; 85025; 93005; 99285

== ENCOUNTER 2020-11-25 09:00 | Outpatient (RCR) | payer MEDICAID, SELFPAY ==
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
--- NOTE | 2020-11-25 12:25 | BH.DR.ITP ---
Initial Treatment Plan - Patient Information Visit Information: ADMISSION DATE: EXPECTED LOS: 4-6 weeks - Problems/Symptoms Problem #1:: Anxiety Symptom:: Rumination, panic attacks Problem #2:: Mood instability Symptom:: Anger, depression, homicidal ideation when angry
--- NOTE | 2020-11-25 13:43 | BH.MTP_ITS ---
Master Treatment Plan - Patient Information Program Physician:: Dr. Erin Feng Primary Therapist:: Salina CURTIS - Psychiatric Diagnoses Psychiatric Diagnoses:: Panic disorder; anxiety disorder, NOS; rule out schizoaffective disorder, bipolar type; THC use disorder Diagnosis Code(s):: F 41.0 - Estimated LOS Estimated LOS (in weeks):: 6 Problem/Goal #1 - Problem/Goal #1 Stated Goal:: Client will reduce anxiety and panic symptoms while increasing ability to function on daily basis. Description of Barriers: Client reports history of relationship issues and describes himself as having very rigid boundaries. Client recently hospitalized for homicidal ideations. Client shared he tends to minimize his emotions and symptoms. Client has medical concerns including history of head trauma, type II diabetes, and potential sleep apnea. Client still does not have a PCP. Client's issues with sleep make it difficult for client to wake up in the mornings which was a barrier to treatment prior to his hospitalization. Client?s current stressors include obtaining visitation and employment issues. Functional Impact: Client is a 35-year-old male with a possible history of schizoaffective disorder. Client previously participated in [facility] from September 2019-October 2019, but then was discharged due to needing higher level of care. Client was admitted to [facility] from 11/11/20-11/17/20 due to anger and homicidal ideations. Client states that he was angry at the time and very frustrated due to a recent court date he had for child visitation. He became angry and made it known that he wanted to hurt the other individual. He states that he no longer feels that anger now. Additionally, client endorses increased anxiety and erratic moods. Client continues to report panic attacks without a trigger as well as chronic issues with sleep. Client reports his sleep improved when he was inpatient, but now he is back to struggling to fall asleep. Is established with outpatient mental health services now, but still no PCP or scheduled sleep study. Client denies any current hallucinations, but client does have a history of auditory hallucinations 3-4 years ago. Client is unable to function at his baseline and there is a risk of decompensation without support of [facility]. Goal Relevant Strengths/Supports: Client is now established with outpatient services at [facility]. Client has his mother and girlfriend for support. Client is kind and open to feedback. - Objectives Objective #1 Stated Objective: Client will identify 2-3 anxiety/panic triggers and 2 coping skills to use when feeling anxious to manage anxiety as shown by preventing decompensation or reducing DSM-5 scores for anxiety. Interventions: Therapist will provide education on anxiety, safety behaviors, and maintenance cycles. Therapist will help client explore personal symptoms and warning signs of anxiety. Therapist will teach client coping skills to improve emotional regulation, mindfulness, and distress tolerance to help client cope with anxiety in the moment. Discharge Criteria: Client will have accomplished this goal when client can identify at least 2 triggers and report using 2 coping skills to manage anxiety. Additionally, client will have accomplished this goal if can prevent decompensation or reduce DSM-5 scores. Target Date: 01/06/21 Review Date: 12/23/20 Status: open Objective #2 Stated Objective: Client will learn 2-3 techniques to better manage anxiety to improve his interpersonal relationships. Interventions: Through group and individual sessions, client will learn strategies to improve communication, effectively resolve conflict, and increase emotional regulation to better manage interpersonal relationships. Discharge Criteria: Client will have accomplished this goal when he can identify and report using at least 2 techniques to better manage anxiety and interpersonal relationships. Target Date: 01/06/21 Review Date: 12/23/20 Status: open Problem/Goal #2 - Problem/Goal #2 Stated Goal:: Client will reduce anger through increasing emotional regulation skills. Description of Barriers: Client reports history of relationship issues and describes himself as having very rigid boundaries. Client recently hospitalized for homicidal ideations. Client shared he tends to minimize his emotions and symptoms. Client has medical concerns including history of head trauma, type II diabetes, and potential sleep apnea. Client still does not have a PCP. Client's issues with sleep make it difficult for client to wake up in the mornings which was a barrier to treatment prior to his hospitalization. Client?s current str essors include obtaining visitation and employment issues. Functional Impact: Client is a 35-year-old male with a possible history of schizoaffective disorder. Client previously participated in [facility] from September 2019-October 2019, but then was discharged due to needing higher level of care. Client was admitted to [facility] from 11/11/20-11/17/20 due to anger and homicidal ideations. Client states that he was angry at the time and very frustrated due to a recent court date he had for child visitation. He became angry and made it known that he wanted to hurt the other individual. He states that he no longer feels that anger now. Additionally, client endorses increased anxiety and erratic moods. Client continues to report panic attacks without a trigger as well as chronic issues with sleep. Client reports his sleep improved when he was inpatient, but now he is back to struggling to fall asleep. Is established with outpatient mental health services now, but still no PCP or scheduled sleep study. Client denies any current hallucinations, but client does have a history of auditory hallucinations 3-4 years ago. Client is unable to function at his baseline and there is a risk of decompensation without support of IOP. Goal Relevant Strengths/Supports: Client is now established with outpatient services at [facility]. Client has his mother and girlfriend for support. Client is kind and open to feedback. - Objectives Objective #1 Stated Objective: Client will identify 2 triggers and 2 coping skills to use when client experiences mood dysregulation and anger. Interventions: Through individual and group counseling client will be provided with education on healthy coping skills to manage anger. Therapist will provide information on healthy emotion release coping skills. Individual therapist will teach client DBT techniques to increase emotional regulation and mindfulness. Discharge Criteria: Client will have accomplished this goal when client can identify at least 2 triggers and 2 coping skills to increase mood stability and reduce anger. Target Date: 01/06/21 Review Date: 12/23/20 Status: open Objective #2 Stated Objective: Client will identify 2-3 cognitive distortions that reinforce anger and learn 2-3 ways to manage these thoughts to improve mood stability. Interventions: Therapist will provide education on the most common cognitive distortions and teach client the connection between thoughts, emotions, and feelings. Therapist will assist client in identifying, challenging, and replacing dysfunctional thoughts with positive, more realistic thoughts. Therapist will use CBT and DBT techniques to help client gain awareness of thinking errors and learn how to more effectively handle negative thoughts that reinforce anger. Discharge Criteria: Client will have accomplished this goal when can identify at least 2 cognitive distortions that reinforce anger and at least 2 coping skills to manage distortions Target Date: 01/06/21 Review Date: 12/23/20 Status: open
--- NOTE | 2020-11-25 15:36 | BH.COMM ---
Communication Note - Communication with Client Communication Note: Met with pt to complete initial paperwork. No changes since pre-admission screening. Completed [place] Suicide Screening with low risk. Denies any SI in the past month. Pt was recently hospitalized from 11/11/20-11/17/20 for anger and homicidal ideations, but he denies any HI since being hospitalized. Denies access to weapons. Does not present as imminent danger to himself or others due to no active SI/HI, plan, intent, or hx of attempts. Future-oriented.
--- NOTE | 2020-12-03 10:10 | BH.SGPN.GN ---
Behaviors/Verbalizations/Mental Status: []Client alert and oriented, casually dressed, hygiene appeared to be tended to. Eye contact fair. Motor activity appropriate. Speech within normal limits. Affect constricted, mood anxious and euthymic. Thoughts linear, logical, no signs of hallucinations or delusions. Client Response/Progress/Benefit: []Client responded well to session, attentive and engaged throughout discussion and activity. Agreed with session quote and shared that setbacks have helped him ?create new paths.? The group identified benefits of failure as: learning new skills, gains perspective, and helps individuals learn to succeed. The group identified impacts of fear of failure as: keeps stagnant, keeps from seeking help, increase of hopelessness, and fear of change. Client seemed to connect how failures can lead to positive changes. Client appeared to benefit from gaining awareness of the impact fear of failure can have on one?s mental health and wellbeing. Progress noted as client was willing to participate in group activity and provided input to group discussion. Will continue IOP to increase the use of healthy coping skills, monitor mood and sleep, and improve daily functioning. Narrative Note: []
--- NOTE | 2020-12-03 11:10 | BH.SGPN.GN ---
Behaviors/Verbalizations/Mental Status: []Client alert and oriented, neatly dressed and groomed. Eye contact good. Motor activity appropriate. Speech within normal limits. Affect congruent, mood euthymic. Thoughts linear, logical, no signs of hallucinations or delusions. Client Response/Progress/Benefit: []Client responded well to session, participating during the group activity and sharing in small group discussion. 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 Client able to identify barriers that reinforce fear of failure which included: rigid expectations, angry, rejection, and ?what if? thinking. Client attentive during discussion of the different strategies to help overcome fear of failure. Client reports plan to overcome his barrier of not feeling prepared by using positive self-talk and setting small goals. Client appeared to benefit from increasing insight to barriers and learning healthy coping skills. Progress reported in improved sleep. Client continues to struggle with consistent attendance. Will continue IOP tx to prevent decompensation, increase emotional regulation skills, and improve interpersonal effectiveness. Narrative Note: []
--- NOTE | 2020-12-03 14:03 | BH.MDN_ITS ---
Multi-Disciplinary Note - Note 30-min Individual Time Started:: 09:45 Date: 12/03/20 Purpose of session/treatment goals addressed:: To address status on tx goals, current stressors, and attendance. Eye Contact:: Good Motor Activity:: Appropriate Appearance:: Casual Speech:: Appropriate Mood:: Euthymic Affect:: Congruent Thoughts:: Linear, Logical, No evidence of hallucinations/delusions noted Staff Interventions:: Therapist used active listening and open-ended questions to explore client's current stressors, mood, and response to stressors. Used motivational interviewing to promote change and elicit self-reflection. Assessed client's mood and goals for the week. Client Response:: Client responded well to session, open to meeting with therapist. Client had court yesterday to obtain visitation with his son. Client was granted visitation, but client shared they put me on a really tight rope. Client stated in order to maintain visitation, client must complete a court- ordered program, get his license, and get his truck fixed. Client looks forward to getting to see his son more, but he is also anxious to accomplish these tasks. Discussed taking one task at a time, calming skills, and time management. Client acknowledges that his attendance and communication with IOP staff is not always good. Client receptive to being more proactive with scheduling IOP or calling should client need to cancel. Risks/Concerns:: Client denies any suicidal or homicial ideations, plan, or intent as of 12/03/20. Future oriented and positive. Progress Toward Goals/Plan:: Client reports sleep has improved since starting the Seroquel XL. Client's visitation hearing went well yesterday and client feels some relief. Client continues to endorse difficulty concentrating, panic attacks, anxiety, and anger that has decreased since medication change. Client was encouraged to increase communication with IOP so staff can plan accordingly and know what days client plans to attend. Client will continue IOP tx to prevent decompensation, improve emotional regulation skills, and improve daily functioning. Time Stopped:: 10:05
--- NOTE | 2020-12-04 09:00 | BH.SGPN.GN ---
Behaviors/Verbalizations/Mental Status: []Client alert and oriented, casually dressed. Eye contact fair. Motor activity appropriate. Speech within normal limits. Affect constricted, mood anxious and euthymic. Thoughts linear, logical, no signs of hallucinations or delusions. Reviewed client?s symptom tracker, no risk or plan for suicide ideation as of 12/04/20. Client Response/Progress/Benefit: []Client responded well to session, engaged throughout and participated in group discussion. Client reported feeling ?motivated? this morning as he shares having to complete many tasks for today like attending meetings and running errands. Reports feeling low as an effect from his medications but stated increased sleep the past few nights. Identified ?having patience? as a healthy coping skill to complete things on his agenda today. Progress limited as client denies any mental health goals related to tx. Benefited from group as rapport builds with peers. Will continue IOP to increase the use of healthy coping skills, improve mood stability, and decrease mental health symptoms. Narrative Note: []
--- NOTE | 2020-12-04 10:05 | BH.SGPN.GN ---
Behaviors/Verbalizations/Mental Status: [] Eye contact is good. Motor activity is appropriate. Appearance is casual. Speech is Appropriate. Mood is anxious. Affect is congruent. Thoughts are linear and logical. No evidence of psychosis. Client Response/Progress/Benefit: [] Pt was an active participant in group discussion and completed group worksheet. Attentive. Provided appropriate feedback. Group worked together to define anger and discussed the ways anger can impact one internally and externally. Pt identified lack of sleep, feeling disrespected, and frustration as being internal events or feelings that can lead to anger. Pt also identified external ways that he commonly expresses his anger which includes; cussing, being aggressive, and facial expressions. Benefited from group by increasing understanding of the impact of anger on mental health. Will continue in IOP to prevent decompensation, stabilize mood, improve sleep, and prevent readmission to psych unit. Narrative Note: []
--- NOTE | 2020-12-04 11:00 | BH.SGPN.GN ---
Behaviors/Verbalizations/Mental Status: []Client alert and oriented, casually dressed and groomed. Eye contact good. Motor activity appropriate. Speech within normal limits. Affect congruent, mood agitated. Thoughts linear, logical, no signs of hallucinations or delusions. Client Response/Progress/Benefit: []Pt was engaged throughout AEB contributing to group discussion and self-reflection. Pt contributed as the group provided examples of physical warning signs for anger and identified personal warning signs. These included: increased heart rate, getting hot, tunnel vision, and ?a frustrated feeling all over my body.? Pt contributed as group brainstormed healthy coping skills for better managing anger which included: music, walking/exercise, meditation, reflecting on consequences, and grounding. Pt appeared to benefit from identifying different techniques to manage anger as well as gaining awareness of potential consequences of unmanaged anger. Pt selected using humor as the coping skill pt would like to try to regulate anger. Progress noted in pt?s self-report of improved sleep, however, pt continues to struggle with consistency in skill application and follow through with goals. Will continue IOP tx to improve daily functioning and improve emotional regulation skills. Narrative Note: []
--- NOTE | 2020-12-08 10:46 | BH.MDN ---
Multi-Disciplinary Note - Note 45-min Individual Time Started:: 09:15 Date: 12/08/20 Purpose of session/treatment goals addressed:: To address stressors and identify resources to help manage those stressors. Eye Contact:: Good Motor Activity:: Appropriate Appearance:: Disheveled Speech:: Appropriate Mood:: Euthymic Affect:: Congruent Thoughts:: Linear, Logical, No evidence of hallucinations/delusions noted Staff Interventions:: Explored client's stressors, mood, and functioning. Provided emotional support and helped client prioritize stressors. Explored community resources to help support client overcome stressors. Discussed the importance of using internal coping skills such as communication and goal setting. Discussed case management services. Client Response:: Client responded well to session, alert and reports being in a good mood. Client shared his foster mom is doing better and will be out of the hospital this week. Client stated once she gets out of the hospital, client will likely switch to telehealth as he will help take care of her. Client continues to have many stressors including: needing to get his license, fixing his car, taking court-ordered classes, and scheduling an appointment with a PCP. Client reports these stressors are doable however, he continues to procrastinate on accomplishing these tasks. Client receptive to exploring community resources and identifying steps to obtain his license during session. Client plans to make phone calls today to get started on getting his temporary permit. Client also receptive to case management and believes this could help client stay organized and manage stressors. Risks/Concerns:: Client did not present as a danger to himself or others. Client was positive and future oriented today. Progress Toward Goals/Plan:: Per client?s report, his mood has been stable, and client has not reported sleep issues since the medication change. Client notes numerous stressors, but reports ?I feel like they are all doable.? Client appears motivated to accomplish court-ordered program and other requirements needed for visitation rights. Continues to struggle with effectively communicating with IOP staff, but his attendance has improved. Will continue IOP tx to monitor medication, reinforce healthy coping skills, and improve daily functioning. Client was also encouraged to obtain case management services. Time Stopped:: 10:00
--- NOTE | 2020-12-10 09:00 | BH.SGPN.GN ---
This psychotherapy group was provided via telehealth using two-way, real-time interactive telecommunication technology between the patients and the provider.?The interactive telecommunication technology included audio and video.? ?The patient was offered telemedicine as an option for care delivery during the COVID-19 pandemic and consented to this option. ?Patient location: [place] ?Provider located at [facility] Behaviors/Verbalizations/Mental Status: []Client alert and oriented, casually dressed and groomed. Eye contact good. Motor activity appropriate. Speech within normal limits. Affect incongruent AEB laughter while reporting irritability, mood agitated. Thoughts linear, logical, no signs of hallucinations or delusions. Reviewed client?s symptom tracker, no risk for suicidal ideation, plan, or intent as of 12/10/20 Client Response/Progress/Benefit: []Client was mostly engaged, but he appeared restless and distracted at home. Client shared he did not get sleep last night, so his mood is somewhat erratic. Client stated his positives today are that he logged on to IOP via telehealth and recently bought a vacuum. Client stated he currently feels irritated because of a smell in his apartment. Client shared smells really trigger me and client felt like he would not benefit from group until he got rid of the smell. Client left group and returned after throwing away a candle and when he returned he reported an improved mood. Client continues to struggle with reflecting on application of coping skills. Appeared to benefit from receiving support from peers. Will continue IOP tx to promote mood stability and increase follow-through with goals. Narrative Note: []
--- NOTE | 2020-12-10 10:08 | BH.SGPN.GN ---
This psychotherapy group was provided via telehealth using two-way, real-time interactive telecommunication technology between the patients and the provider.?The interactive telecommunication technology included audio and video.? ?The patient was offered telemedicine as an option for care delivery during the COVID-19 pandemic and consented to this option. ?Patient location: [place] ?Provider located at [facility] Behaviors/Verbalizations/Mental Status: [] Client alert and oriented, casually dressed and groomed. Eye contact fair. Motor activity appropriate. Speech within normal limits, limited input provided. Affect constricted, mood anxious and depressed. Thoughts linear, logical, no signs of hallucinations or delusions. Client Response/Progress/Benefit: [] Client receptive to session, passive participant but remained actively engaged AEB listening and providing some feedback when agreeing with other?s comments throughout. Appeared to listen as the group brainstormed the positive and negative aspects of stress on physical and mental health. Noted that stress can lead to an ?emotional breakdown? if left unmanaged. Client willing to complete stress jar activity in which participants identified current stressors impacting mental health; however, declined to share with group. Progress is unable to be determined due to limited input provided. Recommended to continue with IOP tx to improve skill application, further reduce symptomology, and prevent decompensation. Narrative Note: []
--- NOTE | 2020-12-10 11:12 | BH.SGPN.GN ---
This psychotherapy group was provided via telehealth using two-way, real-time interactive telecommunication technology between the patients and the provider.?The interactive telecommunication technology included audio and video.? The patient was offered telemedicine as an option for care delivery during the COVID-19 pandemic and consented to this option. Patient location: [place] Provider located at [facility] Behaviors/Verbalizations/Mental Status: []Client alert and oriented, casually dressed and groomed. Eye contact fair. Motor activity appropriate. Speech within normal limits. Affect congruent, mood euthymic. Thoughts linear, logical, no signs of hallucinations or delusions. Client Response/Progress/Benefit: []Client passive participant in session AEB limited contributions during discussion and appeared to listen attentively to others at times. Client appeared to listen during discussion about the 4 A's of managing stress and discussed connecting with the various benefits of each. When reviewing the 4 A's client stated could use alter to make a lifestyle change. Client stated to stop being late to things he can alter what time he leaves his house. Client seemed to benefit from increased awareness of the impact of stress on mental health and increasing repertoire of stress management strategies. Client is to continue IOP level of care to continue focusing on mood stabilization, increase consistent utilization of healthy coping and prevent decompensation. Narrative Note: []
--- NOTE | 2020-12-11 10:12 | BH.SGPN.GN ---
This psychotherapy group was provided via telehealth using two-way, real-time interactive telecommunication technology between the patients and the provider. The interactive telecommunication technology included audio and video. The patient was offered telemedicine as an option for care delivery during the COVID-19 pandemic and consented to this option. Patient location: [place] Provider located at [facility] Behaviors/Verbalizations/Mental Status: []Client alert and oriented, casually dressed and groomed. Eye contact fair to good. Motor activity appropriate. Speech within normal limits, limited input provided. Affect congruent, mood dysthymic and anxious. Thoughts linear, logical, no signs of hallucinations or delusions. Client Response/Progress/Benefit: []Client was a passive participant AEB listening throughout but struggling to provide input to discussion, often turning camera off screen. Struggled to provide input but listened to the group discussion on barriers that keep them from choosing a healthier path to mental wellness such as pitfalls. Group worked together to identify examples of personal pitfalls which included; distorted thinking, lack of motivation, fear of failure, self-blame, and unhealthy coping. Client declined to share own personal pitfalls and continues to struggle with engagement which may be impeding progress. Client benefited from group as he learned to better identify potential barriers to improving mental health symptoms. Client will continue IOP to increase the consistent use of healthy coping skills, reduce mental health sx, and prevent decompensation. Narrative Note: []
== END 2020-12-13 23:59 ==
LOC: BHIOP 09:00
PROVIDERS: Referring Provider Psychiatry & Neurology Psychiatry; Visit Provider Psychiatry & Neurology Psychiatry
DX: F25.0 Schizoaffective disorder, bipolar type (principal); F41.0 Panic disorder [episodic paroxysmal anxiety]; F41.9 Anxiety disorder, unspecified; F12.90 Cannabis use, unspecified, uncomplicated; Z87.820 Personal history of traumatic brain injury; E11.9 Type 2 diabetes mellitus without complications; Z79.899 Other long term (current) drug therapy
CPT/HCPCS: 90792; H0035; H2012; H2020; T1002; 90832; 90834

== ENCOUNTER 2020-12-18 10:47 | Outpatient (RCR) | payer MEDICAID, SELFPAY ==
--- NOTE | 2020-12-18 09:03 | BH.SGPN.GN ---
Behaviors/Verbalizations/Mental Status: []Client alert and oriented, casually dressed and groomed. Eye contact good. Motor activity appropriate. Speech within normal limits. Affect congruent, mood euthymic. Thoughts linear, logical, no signs of hallucinations or delusions. Reviewed client?s symptom tracker, no risk for suicidal ideation, plan, or intent as of 12/18/20 Client Response/Progress/Benefit: []Client responded well to session, attentive and providing supportive statements. Client reports feeling excited and motivated this morning. Client expressed that he is in a manic stage of cleaning and he is looking forward to going home after IOP to keep cleaning. Client denied any other symptoms of tejal and stated that he has been getting better sleep the past two nights. Client also shared he gave up alcohol as client reports belief drinking negatively impacted client's sleep. Client currently has stressors, but he reports I'm balancing it all. Appeared to benefit from reflecting on his improved motivation and sleep. Will continue to monitor mood and symptoms. Will continue IOP tx to promote mood stability and improve daily functioning. Narrative Note: []
--- NOTE | 2020-12-18 15:22 | BH.MDN_ITS ---
Multi-Disciplinary Note - Note 30-min Individual Time Started:: 11:15 Date: 12/18/20 Purpose of session/treatment goals addressed:: The address current symptoms, functioning, and plan of care moving forward. Eye Contact:: Good Motor Activity:: Appropriate Appearance:: Casual Speech:: Appropriate Mood:: Euthymic Affect:: Congruent Thoughts:: Linear, Logical, No evidence of hallucinations/delusions noted Staff Interventions:: Therapist explored client's symptoms and current functioning using open-ended questions. Discussed plan of care including outpatient resources and follow up post IOP tx. Discussed strategies to promote mood stability. Client Response:: Client responded well to session, open to meeting with therapist. Client stated he has many stressors on his plate right now, but per client's report he is handling it all. Client shared he has been attending the [employer] group that was court ordered and he is working on getting his truck fixed. Client stated he has been cleaning his home and he is almost manic about it. Client does not believe he has any other symptoms of tejal, but was receptive to therapist's concerns and encouragement to monitor mood and impulsivity. Client reports belief that his increased energy is due to getting good sleep. Client has been compliant with his medications and reports giving up alcohol. Client has not yet scheduled a sleep study or followed up with a PCP. Client met with his new psychiatrist and he was referred to case management which may help client's follow through with appointments. Client agreeable to attending IOP tx for two more weeks to reinforce healthy coping skills and further improve mood stability. Risks/Concerns:: Client denies any suicidal or homicidal ideations, plan, or intent as of 12/18/20. Progress Toward Goals/Plan:: Client reports an energetic mood today that client contributes to getting two good nights of sleep. Client shared he is in a manic cleaning stage but client did not report any other symptoms of tejal. Per client's report he is functioning well, however, client has yet to schedule any medical appointments. Client has not been to the ER for anxiety in almost a month which is progress. Will continue IOP tx for two more weeks to reinforce healthy coping skills, establish aftercare, and further improve mood stability. Time Stopped:: 11:48
--- NOTE | 2020-12-23 13:20 | BH.MTP_ITS ---
Treatment Plan Review Date of Admission:: 11/25/20 Date of Treatment Plan Review:: 12/23/20 Admitting Diagnoses:: Panic disorder F 41.0; anxiety disorder, NOS; rule out schizoaffective disorder, bipolar type; THC use disorder Current Diagnoses:: Panic disorder F 41.0; anxiety disorder, NOS; rule out schizoaffective disorder, bipolar type; THC use disorder Patient's Response to Treatment:: Client?s attendance is variable, but has improved over the past two weeks. Client is less engaged when he attends group via telehealth. Client reports benefitting from IOP as it reinforces healthy skills, teaches client goal setting techniques, and keeps client accountable. Client has been compliant with his medications and is established with outpatient services. Client also is a positive group member and enjoys connecting with peers each week. Client is engaged in individual sessions, but his follow through with goals is low which hinder progress moving forward. Status of Current Problems and Symptoms: Client reports chronic anxiety and panic that is just normal for me. Client's sleep has improved, but he will occasionally report inability to fall asleep. Reports his extended release medication and giving up drinking has improved sleep. Client continues to report symptoms of sleep apnea, but has not scheduled a sleep study. Client reported some symptoms of tejal last week sharing I'm in a manic state of cleaning. However, client did not report any other smptoms of tejal. Client's functioning continues to be below his baseline, but it is improving. Problem #1 Problem Name:: Will reduce anxiety and panic symptoms while increasing ability to function Status of Goals:: Objective 1- complete with ongoing work encouraged. Per self- report, client reports less anxiety and isolation. Client also has not been to the ER in over a month for anxiety which is progress. Objective 2- In progress. Client has been attending a [employer] group weekly and he has been granted visitation with his son. Team Recommendations:: Discussed with tx team and it was recommended that client continue working on goal and objectives. Client is also encouraged to increase follow through with establishing a PCP and sleep study. Problem #2 Problem Name:: Pt will reduce anger through increasing emotional regulation s kills. Status of Goals:: Objective 1- complete with ongoing work encouraged. Client has awareness of triggers for anger and he has been reporting less anger overall. Client also has denied any homicidal ideations since discharging from [facility]. Objective 2- in progress. Client continues to work on improving his thought challenging skills to improve mood stability. Team Recommendations:: Discussed with team and it is recommended that client increase his engagement and follow through with tx goals.
--- NOTE | 2020-12-25 11:12 | BH.DS_ITS ---
Discharge Summary - Demographics Date of Admission:: 11/25/20 Discharge Date: 12/25/20 Presenting Problems at Admission:: Client is a 35-year-old male with a possible history of schizoaffective disorder. Client previously participated in IOP from September 2019-October 2019, but then was discharged due to needing a higher level of care. Client was admitted to [facility] from 11/11/20-11/17/20 due to anger and homicidal ideations. Client states that he was angry at the time and very frustrated due to a recent court date he had for child visitation. Additionally, client endorsed increased anxiety and erratic moods at admission. Client also reported panic attacks without a trigger as well as chronic issues with sleep. Client denied any current hallucinations, but client does have a history of auditory hallucinations 3-4 years ago. Client was unable to function at his baseline and there was a risk of decompensation without support of IOP. Discharge Diagnoses:: Panic disorder F 41.0; anxiety disorder, NOS; rule out schizoaffective disorder, bipolar type; THC use disorder Reason for Discharge:: Client reports receiving the maximum benefit from IOP and has met his tx goals. Client no longer meets criteria for IOP level of care and will transition to outpatient counseling. - Treatment Progress During Treatment & Response: Client?s attendance was variable, but was improved from previous admission to [facility]. Client was less engaged when he attended group via telehealth, but when client was in person he was attentive and contributed. Client was a positive group member and connected with peers each week.Client reported benefitting from IOP as it reinforced healthy skills, taught client goal setting techniques, and promoted accountability. Client was engaged in individual sessions, but his follow through with goals was variable which hindered progress at times. Client did make progress with increasing medication compliance, completing ADLs at home, and reducing his ER visits. Per client?s self-report, his anxiety has reduced since admission and his sleep improved somewhat. Client was unable to complete the DSM-5 prior to discharge, so there is no data to measure the percentage in which his symptom scores changed. Issues Still to be Addressed:: Client struggled with follow through and consistency while in IOP, so there is a concern post IOP discharge that client will not follow up with his outpatient appointments. Additionally, client has ongoing medical issues that need to be addressed including getting a sleep study and finding a PCP. Discharge Recommendations/Instructions:: Client will follow up with his providers at [facility] for medication management, counseling, and potentially case management. Client sees Aneesh Hawkins for medication management and was last seen on 12/16/20. Client sees Nehemias Allison on 12/29/20 for individual counseling. A referral was sent for client to receive case management services at [facility] as well. Discharge Handout: Complete Discharge Handout with client on aftercare options and continuity of care.
== END 2020-12-25 11:33 | disposition home or self-care (01) ==
LOC: BHIOP 10:47
PROVIDERS: Referring Provider Psychiatry & Neurology Psychiatry; Visit Provider Psychiatry & Neurology Psychiatry
DX: F41.0 Panic disorder [episodic paroxysmal anxiety] (principal); F32.9 Major depressive disorder, single episode, unspecified; F12.90 Cannabis use, unspecified, uncomplicated
CPT/HCPCS: H0035; H2012; 90832

== ENCOUNTER 2020-12-27 15:54 | Emergency (ER) | payer MEDICAID, SELFPAY ==
[2020-12-27 15:55] VITALS: BP 176/87; PULSE 115; RESP 16; TEMP 35.4; O2SAT 96; BMI 32.7
--- NOTE | 2020-12-27 16:07 | CT_ITS ---
EXAM: CT HEAD WITHOUT INTRAVENOUS CONTRAST CLINICAL INDICATION: headache, vomitting TECHNIQUE: Multiple axial images were obtained of the head without intravenous contrast. This CT exam was performed using one or more of the following dose reduction techniques: automated exposure control, adjustment of the mA and/or kV according to patient size, and/or use of iterative reconstruction technique. This report was created using [employer] report generation technology. COMPARISON: 02/27/2020 FINDINGS: BRAIN AND EXTRA-AXIAL SPACES: Unremarkable. No intra- or extra-axial hemorrhage. No evidence of acute infarct. No intracranial mass or mass effect. There is preservation of the [place]/white matter interface. Posterior fossa structures are unremarkable. Ventricles are appropriate for age. No hydrocephalus. Basal cisterns are patent. BONES/JOINTS: Unremarkable. No discrete lytic or blastic abnormalities. SINUSES: Unremarkable as visualized. Clear. MASTOID AIR CELLS: Unremarkable. Clear. ORBITS: Visualized globes, extraocular muscles, optic nerves and retrobulbar fat appear unremarkable. CT/Brain/Head without Contrast IMPRESSION: Negative head/brain CT without intravenous contrast. Electronically Signed: Yaakov Holloway MD ([place]) at 16:49 EDT , Service support ,
--- NOTE | 2020-12-27 16:08 | ED.DCSUM_ITS ---
- ER Visit Summary Date of Service: 12/27/20 Chief Complaint: [Not feeling well] History of Present Illness: The patient is a 35 M [presents to the emergency department with complaint of not feeling well for the last for 5 hours. Patient states that he got a headache and developed generalized weakness and vomited 6 or 7 times. Patient denies any falls or head injuries. He denies any fever or cough. He denies any COVID-19 exposures. Patient thinks this may be a migraine but does not typically get migraines. Initially the pain was in the left side of his head but is now generalized. He denies any significant photophobia. Patient is not anticoagulated. He denies any abdominal pain. Patient denies diarrhea. Patient has history of seizure related to medication but not on any seizure medications currently.] Physical Examination: [HEENT-PERRLA, EOMI. Cranial nerves II through XII grossly intact. TMs clear. Mucous membranes moist. No adenopathy. Cardiovascular-regular rate and rhythm without murmur or ectopy Lungs-clear to auscultation, chest wall stable without crepitus or subcu emphysema Abdomen-normoactive bowel sounds, soft, nontender, no rebound or rigidity, no peritoneal signs. Neuro tswc-dgizve-rayy and heel velasquez testing within normal limits, negative Romberg, negative , Fundi benign Extremities-intact ?4, normal range of motion, normal pulses, atraumatic] Test Results: [CT scan of the brain without contrast was normal. COVID-19 test rapid was negative.] Emergency Department Course and Treatment: [The line was established. Patient was given a liter normal same fluid bolus. Patient given Reglan 10 mg IV, Benadryl 25 mg IV, and Toradol 30 mg IV.] Patient's headache resolved. He feels Treatment Plan: [Patient advised to push fluids and get rest. Patient advised to return if worsening headache, persistent vomiting, or condition worsen anyway.] Disposition: [Discharged home in stable condition] Impression: [Migrainous cephalgia-resolved] This note was generated with [employer] dictation software. It may contain incorrect words, spelling, and punctuation that were not noted in review of the chart pr ior to signing ED Disposition - Plan for ED Patient: Referrals: Care Physician,No Primary [Primary Care Provider] -
[2020-12-27] MEDS: 0.9% Normal Saline 1,000 ML 1000 ML IV (16:22)
[2020-12-27] MEDS: Ketorolac 30 MG/ML Syringe IV (16:23)
[2020-12-27] MEDS: DiphenhydrAMINE 50 MG/ML Syringe 25 MG IV (16:23)
[2020-12-27] MEDS: Metoclopramide 10 MG/2 ML Vial IV (16:23)
[2020-12-27 16:31] VITALS: BP 144/90; PULSE 97; RESP 16; O2SAT 98
--- NOTE | 2020-12-27 17:12 | ED.DEP ---
ED Disposition - Plan for ED Patient: Instructions: ED, Migraine (Classical) Referrals: Care Physician,No Primary [Primary Care Provider] - Dre Jaquez MD [STAFF PHYSICIAN] - 3-5 Days
[2020-12-27 17:17] VITALS: BP 119/60; PULSE 71; RESP 18; O2SAT 98
== END 2020-12-27 17:18 | disposition home or self-care (01) ==
PROVIDERS: Emergency Provider Emergency Medicine
DX: G43.909 Migraine, unspecified, not intractable, without status migrainosus (principal); F41.9 Anxiety disorder, unspecified; F32.9 Major depressive disorder, single episode, unspecified; F25.9 Schizoaffective disorder, unspecified; Z79.899 Other long term (current) drug therapy
CPT/HCPCS: 70450; 87426; 96361; 96374; 96375; 99282; J7030; A4216

== ENCOUNTER 2021-01-18 04:50 | Emergency (ER) | payer MEDICAID, SELFPAY ==
[2021-01-18 04:50] VITALS: BP 158/99; PULSE 91; RESP 18; TEMP 36.4; O2SAT 95; BMI 34.0
--- NOTE | 2021-01-18 04:58 | EKG12_ITS ---
Test Reason : CP Blood Pressure : / mmHG Vent. Rate : 083 BPM Atrial Rate : 083 BPM P-R Int : 188 ms QRS Dur : 100 ms QT Int : 376 ms P-R-T Axes : 041 038 015 degrees QTc Int : 441 ms Normal sinus rhythm Nonspecific T wave abnormality Abnormal ECG Confirmed by ROSARIO LUIS, MUKESH ([id number]), editor city KAMILA HERNANDEZ ([id number]) on 01/22/2021 2:27:37 PM Referred By: CECILIO Confirmed By:MUKESH PONCE MD
--- NOTE | 2021-01-18 04:59 | RAD_ITS ---
STUDY: X-RAY CHEST REASON FOR EXAM: Male, 35 years old. chest pain TECHNIQUE: PA and lateral chest. COMPARISON: October 30, 2020. FINDINGS: The lungs are clear and expanded. There is no demonstrated pleural abnormality. Normal size heart. Normal mediastinum and wally. Normal visualized pulmonary arteries. Normal visualized aortic arch and descending thoracic aorta. Normal visualized thoracic spine. Normal visualized ribs, clavicles, and shoulders. There is no demonstrated abnormality of the visualized soft tissue structures of the upper abdomen. RAD/Chest PA and Lateral IMPRESSION: Normal x-ray examination of the chest. Electronically Signed: Chu Mason MD at 6:24 EDT , Service support ,
[2021-01-18 05:25] LABS: Absolute Lymphocyte Count 1.71 X10^3/uL (0.83-4.51); Absolute Neutrophil Count 1.1 X10^3/uL (2.0-7.7); Basophil# 0.05 X10^3/uL; Basophil% 1.4 % (0-1); Eosinophil# 0.06 X10^3/uL; Eosinophils% 1.7 % (0-5); Hematocrit 43.8 % (40-54); Hemoglobin 15.5 g/dL (13.0-16.5); Lymphocyte # 1.71 X10^3/ul (4.0); Lymphocyte % 49.3 % (19-41); Mean Corp Hgb Conc 35.4 g/dL (32-36); Mean Corpuscular Hgb 28.8 pg (27.0-32.0); Mean Corpuscular Volume 81.4 fL (80-94); Mean Platelet Vol. 12.2 fl (6.2-12.0); Monocyte% 14.4 % (0-10); NRBC Flagged by Analyzer 0 % (0-5); Neutrophil # 1.14 X10^3/uL (2.7-7.7); Neutrophil % 32.9 % (47-70); Platelet Count 108 K/mm3 (150-450); RBC Distribution Width CV 13.5 % (11.6-14.6); RBC Distribution Width SD 39.2 fl (35.1-43.9); Red Blood Count 5.38 M/mm3 (4.6-6.2); White Blood Count 3.5 K/mm3 (4.4-11.0)
[2021-01-18] MEDS: Aspirin 81 MG TAB.CHEW 324 MG PO (05:25)
[2021-01-18 05:26] VITALS: PULSE 89; RESP 15; O2SAT 98
[2021-01-18 05:43] LABS: Anion Gap 10 (5-15); BUN 14 mg/dL (7-18); BUN/Creat Ratio 13.7 RATIO (10-20); Calcium,Total 9.6 mg/dL (8.5-10.1); Chloride 94 mmol/L (98-107); Creatinine, Serum 1.02 mg/dL (0.70-1.30); EST Glomerular Filtration Rate 89 mL/min (>60); Est Glom Filt Rate - Afr Amer 108 mL/min (>60); Estimated Creatinine Clearance 106.36 ml/min; Glucose 287 mg/dL (74-106); Potassium 3.3 mmol/L (3.5-5.1); Sodium Level 131 mmol/L (136-145)
--- NOTE | 2021-01-18 06:27 | ED.VIS.CHEST ---
History of Present Illness Chief Complaint: Chest Pain Informant: Patient Narrative: Patient presenting for evaluation secondary to chest pain. Patient has an underlying history of anxiety and hypertension. Patient states for quite some time now he has been dealing with issues with waking up frequently overnight feeling as if he is significantly anxious and gasping for air. Is been causing him some difficulty with sleeping. Patient states that intermittently it does cause him feelings of chest pain. He states that tonight he felt as the chest pain was worse than typical. It is an aching type pain across the entirety of his chest. He denies that there is any sort of exacerbating relieving factors. No shortness of breath nausea lightheadedness. Patient denies any history of DVT or PE or any risk factors of such. No recent infectious signs or symptoms such as fever cough nausea vomiting or diarrhea. Review of systems otherwise negative. Past Medical History - Allergies and Home Meds Allergies/Adverse Reactions: Allergies etomidate Adverse Reaction (Verified 01/18/21 04:53) Other Seizure-Tonic Clonic Primary Care Physician: Care Physician,No Primary [Primary Care Provider] - Prior records reviewed: Yes Past Medical History: - - Hypertension, anxiety Surgical History: - - right foot/ankle surgery Smoking Status: Never smoker Alcohol: None Drugs: Marijuana - Family History Maternal Family History: Reports: No pertinent history Paternal Family History: Reports: Diabetes Review of Systems All systems negative except as indicated General: Denies: Chills, Fever, Sweats Eyes: Denies: Visual changes - bilaterally, Diplopia ENT: Denies: Rhinorrhea, Sore throat Cardiovascular: Reports: Chest pain Respiratory: Denies: Dyspnea, Cough, Dyspnea on exertion Gastrointestinal: Denies: Abdominal pain, Nausea, Vomiting, Diarrhea, Melena, Hematochezia Genitourinary: Denies: Dysuria, Hematuria, Frequency Musculoskeletal: Denies: Back pain, Extremity Pain Skin: Denies: Rash, Wounds Neurological: Denies: Headache, Weakness, Numbness Physical Exam Vital Signs/Narrative: Vital Signs Temp Pulse Resp BP Pulse Ox 01/18/21 05:26 89 15 98 01/18/21 04:50 97.5 F L 91 18 158/99 H 95 Inital Vital Signs reviewed: Yes General: Well nourished, Well developed, No Acute Distress Head: Normocephalic, Atraumatic Eyes: Perrl, EOMI ENT: Moist mucous membranes, No rhinorrhea Neck: Supple, Nontender Cardiovascular: Regular rate, Regular rhythm, No murmurs Respiratory: No distress, CTA bilaterally, Chest nontender Abdomen: Soft, Nontender, Nondistended, Normal bowel sounds Back: Nontender, Normal Inspection Extremities: Nontender, No edema Skin: Normal color, No rash Neurological: Alert, Oriented x3, Cranial nerves II-XII grossly intact, Normal Strength, Normal Sensation Psychological: Normal affect, Normal Mood Diagnostic/Tx/Re-eval Chest X-Ray - ED: 2 View, Read by ED Physician, Normal - Medical Decision Making Patient presented secondary to chest pain and frequent nighttime waking. Laboratory work-up including CBC chemistry and troponin found to be unremarkable. EKG found to be unremarkable. Chest x-ray by my personal review also found to be unremarkable. Patient's history seems mostly consistent with that of sleep apnea. Patient's heart score is in the low risk category, may be a maximum of 2. I do not feel the patient requires admission or further work-up at this time. Be given a referral to sleep medicine. Patient was given reassurance. He was discharged in stable condition. ED Disposition - Plan for ED Patient: Disposition: Home or Assisted Living Diagnosis: Chest pain Instructions: ED Chest Pain, Uncertain Cause, ED Sleep Apnea, Obstructive Referrals: Francois Yi DO [STAFF PHYSICIAN] -
[2021-01-18 06:54] VITALS: BP 142/84; PULSE 87; RESP 17; O2SAT 99
== END 2021-01-18 06:54 | disposition home or self-care (01) ==
PROVIDERS: Emergency Provider Emergency Medicine
DX: R07.9 Chest pain, unspecified (principal); I10 Essential (primary) hypertension
CPT/HCPCS: 71046; 80048; 84484; 85025; 93005; 99285; A4216

== ENCOUNTER 2021-01-28 23:54 | Emergency (ER) | payer MEDICAID, SELFPAY ==
[2021-01-28 23:55] VITALS: BP 162/89; PULSE 91; RESP 18; TEMP 36.3; O2SAT 97; BMI 32.1
--- NOTE | 2021-01-29 00:15 | ED.VIS.GEN ---
History of Present Illness Chief Complaint: Other, Pain/Inj Detail of Chief Complaint: insomnia Informant: Patient Onset: Days - 3 Context: Gradual Onset Timing: Continuous Quality: can't sleep Current Severity: Severe Maximum Severity: Severe Worsened by: nothing in particular Relieved by: nothing; see below Associated Symptoms: feeling loopy because I've had no sleep Narrative: Patient presenting for insomnia stating that he cannot sleep and just wants some help falling asleep. He has a history of insomnia, and for that reason was put on Seroquel which she has been taking for several weeks now as prescribed. He states he has taken melatonin 5 mg every night, the first night he took 10. He denies any caffeine use, or illicit drug use. He denies any changes in his anxiety medicines lately and has been taking those. Denies any injury or recent illness or other physical symptoms except for feeling loopy mentally because he has not had any sleep. He states he apologizes for coming in for this, but that is the only reason he is needing to be seen. - Past Medical History (1) Insomnia Status: Chronic (2) Anxiety and depression Status: Chronic Past Medical History - Allergies and Home Meds Allergies/Adverse Reactions: Allergies etomidate Adverse Reaction (Verified 01/28/21 23:58) Other Seizure-Tonic Clonic Primary Care Physician: Leyda Cox [NON-STAFF] - As Needed Surgical History: - - right foot/ankle surgery Smoking Status: Never smoker Drugs: None - Family History Maternal Family History: Reports: No pertinent history Paternal Family History: Reports: Diabetes Review of Systems General: Reports: Malaise. Denies: Chills, Fever, Sweats Eyes: Denies: Visual changes - bilaterally, Diplopia ENT: Denies: Rhinorrhea, Sore throat Cardiovascular: Denies: Chest pain, Palpitations Respiratory: Denies: Dyspnea, Cough, Dyspnea on exertion Gastrointestinal: Denies: Abdominal pain, Nausea, Vomiting, Diarrhea, Melena, Hematochezia Genitourinary: Denies: Dysuria, Hematuria, Frequency Musculoskeletal: Denies: Back pain, Swelling, Extremity Pain Skin: Denies: Rash, Wounds Neurological: Denies: Headache, Weakness, Numbness Physical Exam Vital Signs/Narrative: Vital Signs Temp Pulse Resp BP Pulse Ox 01/28/21 23:55 97.3 F L 91 18 162/89 H 97 Inital Vital Signs reviewed: Yes General: Well nourished, Well developed, No Acute Distress Head: Normocephalic, Atraumatic Eyes: Perrl, EOMI ENT: Moist mucous membranes, No rhinorrhea Neck: Supple, Nontender Cardiovascular: Regular rate, Regular rhythm, No murmurs. Negative for: Tachycardia, Bradycardia Respiratory: No distress, CTA bilaterally, Chest nontender Abdomen: Soft, Nontender, Nondistended, Normal bowel sounds Back: Nontender, Normal Inspection Extremities: Nontender, No edema Skin: Normal color, No rash Neurological: Alert, Oriented x3, Cranial nerves II-XII grossly intact, Normal Strength, Normal Sensation, Normal Gait Psychological: Normal affect, Normal Mood Diagnostic/Tx/Re-eval - Medical Decision Making Patient is here by himself but he lives right around the corner from the hospital and walked here. He is comfortable getting some medications and walking home to try to sleep, it is around midnight. I am comfortable giving him a dose of Benadryl and Ativan here and allowing him to walk home. He is stable clinically and hemodynamically. ED Disposition - Plan for ED Patient: Disposition: Home or Assisted Living Diagnosis: Insomnia Instructions: ED Insomnia Referrals: Lyeda Cox [NON-STAFF] - As Needed
[2021-01-29] MEDS: LORazepam 1 MG Tablet PO (00:22)
[2021-01-29] MEDS: DiphenhydrAMINE 25 MG Capsule 50 MG PO (00:22)
[2021-01-29 00:26] VITALS: BP 162/89; PULSE 91; RESP 18
== END 2021-01-29 00:27 | disposition home or self-care (01) ==
PROVIDERS: Emergency Provider Emergency Medicine
DX: G47.00 Insomnia, unspecified (principal); F32.9 Major depressive disorder, single episode, unspecified; F41.9 Anxiety disorder, unspecified; Z79.899 Other long term (current) drug therapy
CPT/HCPCS: 99283

== ENCOUNTER 2021-02-21 12:27 | Emergency (ER) | payer MEDICAID, SELFPAY ==
[2021-02-21 12:28] VITALS: BP 159/104; PULSE 99; RESP 15; TEMP 36.6; O2SAT 97; BMI 32.3
--- NOTE | 2021-02-21 12:47 | CT_ITS ---
STUDY: CT BRAIN WITHOUT CONTRAST REASON FOR EXAM: Male, 35 years old. vertigo RADIATION DOSAGE (If Supplied By Facility): CTDIvol = ( 44.99 ) mGy, DLP = ( 779.24 ) mGycm TECHNIQUE: Transaxial CT imaging of the brain was performed without administration of intravenous contrast material. Individualized dose optimization techniques were used for this CT. COMPARISON: 12/27/2020 CT head FINDINGS: Normal soft tissue structures. Normal calvarium. Normal size ventricles and extra-axial spaces for the patient''s age. Normal white matter tracts of the cerebral hemispheres. Normal basal ganglia and thalami. Normal brainstem. Normal cerebellum. There is no intracranial hemorrhage. There are no findings of an acute ischemic infarction. Normal visualized paranasal sinuses. CT/Brain/Head without Contrast IMPRESSION: No evidence of acute intracranial bleed, mass or ischemia. Electronically Signed: Nathan Ayon DO at 13:48 EDT , Service support ,
--- NOTE | 2021-02-21 12:49 | EDS_ITS ---
HPI History of Present Illness Chief Complaint: Dizziness Informant: patient Onset/Context/Timing Onset: Today Context: Sudden Onset (Noticed as he got up out of bed this morning suddenly) Timing: Continuous and Waxes and wanes Quality: Sensation of movement, difficult to describe Location: Head Current Severity: Mild Maximum Severity: Moderate Worsened by: Up and moving around Relieved by: Lying resting Associated Symptoms Associated Symptoms: Polyuria, no other associated symptoms Narrative Narrative: Patient is a diabetic, he is on no medication for it, states he does not have a doctor or a blood sugar meter. He has had polyuria for several weeks. He states he woke up today feeling a weird type of dizziness. Denies any lightheadedness or near syncopal. No recent illness or upper respiratory tract infection symptoms. Denies any earache, changes in his hearing, tinnitus, changes in vision or diplopia. No recent injury. [place] off balance when walking. [facility] Medical History (Updated 02/21/21 @ 14:[address] Eric Martinez MD) Anxiety and depression Anxiety disorder, unspecified Non-insulin dependent diabetes mellitus Panic disorder Schizoaffective disorder, bipolar type Tetrahydrocannabinol (THC) use disorder, mild, abuse Home Medications hydrochlorothiazide 25 mg PO DAILY 11/25/20 [History Last Taken 02/19/21] prazosin 1 mg PO QHS 11/25/20 [History Last Taken Unknown] sertraline 150 mg PO DAILY 11/25/20 [History Last Taken 02/20/21] meclizine 25 mg PO 4X/DAY PRN PRN #20 tab 02/21/21 [Rx Last Taken Unknown] metformin 1,000 mg PO BID #60 tab 02/21/21 [Rx Last Taken Unknown] Allergy/AdvReac Type Severity Reaction Status Date / Time etomidate AdvReac Other Verified 02/21/21 13:03 Social History (Updated 02/21/21 @ 12:[address] Eric Martinez MD) Smoking Status: Never smoker alcohol intake: current alcohol intake frequency: a few times a month ROS ROS ED Constitutional Constitutional ED: Denies chills or fever(s) Eyes Eyes: Denies change in vision or diplopia ENT ENT ED: Denies rhinorrhea or sore throat Cardiovascular Cardiovascular: Denies chest pain or palpitations Respiratory/Chest Respiratory/Chest: Denies cough or dyspnea Gastrointestinal Gastrointestinal: Denies abdominal pain, diarrhea, nausea or vomiting Genitourinary Genitourinary ED: Denies dysuria or hematuria Musculoskeletal Musculoskeletal: Denies back pain or neck pain Integumentary Denies abscess or rash Neurologic Neurologic: Reports as per HPI and dizziness; Denies abnormal hearing, headache(s), paresthesias or weakness Psychiatric Psychiatric: Denies anxiety or suicidal thoughts Endocrine Endocrinology: Reports polyuria; Denies polydipsia EXAM Physical Exam Const Vital Signs: 02/21/21 12:28 02/21/21 13:01 Temperature 97.8 F Temperature Source Temporal Pulse Rate 99 Respiratory Rate 15 Respiratory Effort Normal Respiratory Pattern Normal Blood Pressure 159/104 H Blood Pressure Mean 122 Pulse Ox 97 Oxygen Delivery Method Room Air Positive well nourished and well developed General Appearance ED: well developed and NAD HEENT Reports TM's clear and moist mucous membranes normocephalic and atraumatic Tympanic Membrane ED: Yes TM's clear Eyes PERRL and EOMs intact bilaterally Eyes Narrative: No abnormal nystagmus Neck full ROM and supple Resp normal respiratory effort and clear to auscultation bilaterally Cardio regular rate, regular rhythm and no murmurs GI non-tender and non-distended Auscultation: normoactive bowel sounds Palpation: soft Back/Spine no CVA tenderness General Back: other FROM Extremity normal to inspection General Extremety ED: Negative for edema, pulses abnormal or tenderness General Extremity: Negative for edema or pulses abnormal Neuro oriented x3, CN's II-XII intact bilaterally and no sensory deficits noted Sensorium / Orientation: awake, alert and other Normal aufqlx-pu-uahl bilaterally. Has difficulty performing hovv-rh-nxsx bilaterally patient is unsure why Motor Exam: strength 5/5 throughout Skin no rashes or lesions noted and no wounds MDM MDM MDM Narrative Medical decision making narrative: Other than mild hyperglycemia around 250, the patient's metabolic work-up is unremarkable. CT brain was unremarkable, and only done because he had trouble with ycux-lf-[id number] although he did finger-nose normally bilaterally, there is nothing lateralizing here. I do not think that this abnormal exam finding, which is symmetric bilaterally, is indicative of an acute ischemic stroke. He CT was negative. He was given meclizine and a bolus of IV fluids, which helped him feel a lot better. I recommend close outpatient follow-up, prescribed meclizine to use as needed, as well as Metformin and he was referred to a PCP. Lab Data Attestation: I reviewed the patient's lab results. Labs: Laboratory Results - last 24 hr 02/21/21 02/21/21 13:10 13:10 WBC 3.0 L RBC 5.84 Hgb 15.6 Hct 46.9 MCV 80.3 MCH 26.7 L MCHC 33.3 RDW Std Deviation 39.6 RDW Coeff of Maria A 13.6 Plt Count 117 L Immature Gran % (Auto) 0.000 Neut % (Auto) 36.5 L Lymph % (Auto) 48.2 H [place] % (Auto) 13.0 H Eos % (Auto) 1.3 Baso % (Auto) 1.0 Absolute Neuts (auto) 1.1 L Absolute Lymphs (auto) 1.44 Nucleated RBC % 0 Sodium 132 L Potassium 3.9 Chloride 97 L Carbon Dioxide 25.0 Anion Gap 10 BUN 15 Creatinine 0.95 Estim Creat Clear Calc 117.79 Est GFR (MDRD) Af Amer 117 Est GFR (MDRD) Non-Af 97 BUN/Creatinine Ratio 15.8 Glucose 237 H Calcium 9.6 Radiography Diagnostic Testing: Radiology Impression Brain CT 02/21/21 12:47 IMPRESSION: No evidence of acute intracranial bleed, mass or ischemia. Electronically Signed: Nathan Ayon DO at 13:48 EDT , Service support , Discharge Plan Triage Chief Complaint: Dizziness ED Provider: Eric Martinez Dx/Rx/DC Orders Clinical Impression: Uncontrolled diabetes mellitus with hyperglycemia, Vertigo Instructions: ED Diabetic Hyperglycemia, ED Vertigo, Unspecified Prescriptions: New metformin 1,000 mg tablet 1,000 mg PO BID Qty: 60 RF: 0 meclizine 25 mg tablet 25 mg PO 4X/DAY PRN PRN (Reason: Dizziness) Qty: 20 RF: 0 No Action prazosin 1 MG capsule 1 mg PO QHS RF: 0 hydrochlorothiazide 25 MG tablet 25 mg PO DAILY RF: 0 sertraline 50 MG tablet 150 mg PO DAILY RF: 0 Primary Care Provider: Care Physician,No Primary Referrals: Thomas Jon MD [NON-STAFF] - (call for follow up) Disposition Disposition: Home, self care
[2021-02-21] MEDS: Meclizine HCl 25 MG Tablet PO (13:12)
[2021-02-21 13:37] LABS: Absolute Lymphocyte Count 1.44 X10^3/uL (0.83-4.51); Absolute Neutrophil Count 1.1 X10^3/uL (2.0-7.7); Basophil# 0.03 X10^3/uL; Eosinophil# 0.04 X10^3/uL; Eosinophils% 1.3 % (0-5); Hematocrit 46.9 % (40-54); Hemoglobin 15.6 g/dL (13.0-16.5); Lymphocyte # 1.44 X10^3/ul (0.83-4.51); Lymphocyte % 48.2 % (19-41); Mean Corp Hgb Conc 33.3 g/dL (32-36); Mean Corpuscular Hgb 26.7 pg (27.0-32.0); Mean Corpuscular Volume 80.3 fL (80-94); Monocyte# 0.39 X10^3/uL; NRBC Flagged by Analyzer 0 % (0-5); Neutrophil # 1.09 X10^3/uL (2.7-7.7); Neutrophil % 36.5 % (47-70); Platelet Count 117 K/mm3 (150-450); RBC Distribution Width CV 13.6 % (11.6-14.6); RBC Distribution Width SD 39.6 fl (35.1-43.9); Red Blood Count 5.84 M/mm3 (4.6-6.2)
[2021-02-21 13:38] LABS: Anion Gap 10 (5-15); BUN 15 mg/dL (7-18); BUN/Creat Ratio 15.8 RATIO (10-20); Calcium,Total 9.6 mg/dL (8.5-10.1); Chloride 97 mmol/L (98-107); Creatinine, Serum 0.95 mg/dL (0.70-1.30); EST Glomerular Filtration Rate 97 mL/min (>60); Est Glom Filt Rate - Afr Amer 117 mL/min (>60); Estimated Creatinine Clearance 117.79 ml/min; Glucose 237 mg/dL (74-106); Potassium 3.9 mmol/L (3.5-5.1); Sodium Level 132 mmol/L (136-145)
== END 2021-02-21 15:00 | disposition home or self-care (01) ==
PROVIDERS: Emergency Provider Emergency Medicine
DX: E11.65 Type 2 diabetes mellitus with hyperglycemia (principal); R42 Dizziness and giddiness; F25.0 Schizoaffective disorder, bipolar type; F41.9 Anxiety disorder, unspecified; Z79.84 Long term (current) use of oral hypoglycemic drugs; Z79.899 Other long term (current) drug therapy
CPT/HCPCS: 70450; 80048; 85025; 96360; 99285; J7030

== ENCOUNTER 2021-07-19 03:33 | Emergency (ER) | payer MEDICAID, SELFPAY ==
[2021-07-19 03:34] VITALS: BP 163/107; PULSE 96; RESP 17; TEMP 36.8; O2SAT 98; BMI 31.7
[2021-07-19 03:42] VITALS: BP 157/103
--- NOTE | 2021-07-19 04:13 | EDS_ITS ---
HPI HPI - Psych History of Present Illness Chief Complaint: Anxiety Informant: patient Onset/Context/Timing Onset: Today Context: Gradual Onset Current Severity: Mild Maximum Severity: Mild Associated Symptoms Associated Symptoms - Psych: Negative for Depressed, Hopelessness and Suicidal Thoughts Narrative Narrative: 36-year-old male history of anxiety, depression and panic attacks. Also diabetic and schizoaffective disorder. States has been more anxious. His significant other recently had a stroke and was hospitalized. He states he is not suicidal and does not feel like harming himself. Prior similar symptoms: Yes Recent Illness/Hospitalization: No PFSH PFSH Medical History Anxiety and depression Anxiety disorder, unspecified Non-insulin dependent diabetes mellitus Panic disorder Schizoaffective disorder, bipolar type Seizure Tetrahydrocannabinol (THC) use disorder, mild, abuse Home Medications hydrochlorothiazide 25 mg PO DAILY 11/25/20 [History Last Taken 02/19/21] prazosin 1 mg PO QHS 11/25/20 [History Last Taken Unknown] sertraline 150 mg PO DAILY 11/25/20 [History Last Taken 02/20/21] meclizine 25 mg PO 4X/DAY PRN PRN #20 tab 02/21/21 [Rx Last Taken Unknown] metformin 1,000 mg PO BID #60 tab 02/21/21 [Rx Last Taken Unknown] Allergy/AdvReac Type Severity Reaction Status Date / Time etomidate AdvReac Other Verified 07/19/21 03:37 Social History Smoking Status: Never smoker alcohol intake: current alcohol intake frequency: a few times a month ROS ROS ED ROS Narrative Denies. Review of Systems ROS Unobtainable: Denies due to encephalopathy Constitutional Constitutional ED: Denies fever(s) Eyes Eyes: Denies change in vision ENT ENT ED: Denies ear pain Cardiovascular Cardiovascular: Denies chest pain Respiratory/Chest Respiratory/Chest: Denies dyspnea Gastrointestinal Gastrointestinal: Denies abdominal pain Genitourinary Genitourinary ED: Denies dysuria Musculoskeletal Musculoskeletal: Denies myalgias Integumentary Denies rash Neurologic Neurologic: Denies headache(s) Psychiatric Psychiatric: Denies depression Endocrine Endocrinology: Denies polyuria Hematologic/Lymphatic Hematologic/Lymphatic: Denies easy bruising Allergic/Immunologic Allergic/Immunologic ED: Denies urticaria EXAM Physical Exam Narrative Exam Narrative: 36-year-old male normal exam. Vital signs stable afebrile. He is in no distress. He is calm and resting comfortably at this time. Const Vital Signs: 07/19/21 03:34 07/19/21 03:42 Temperature 98.3 F Temperature Source Temporal Pulse Rate 96 Respiratory Rate 17 Blood Pressure 163/107 H 157/103 H Blood Pressure Mean 125 121 Pulse Ox 98 Oxygen Delivery Method Room Air Positive well nourished and well developed; Negative for contractures or unkempt General Appearance ED: well developed and NAD; Negative for unkempt, contractures or pallor HEENT Reports moist mucous membranes normocephalic and atraumatic Eyes PERRL and EOMs intact bilaterally Neck no lymphadenopathy and supple Resp normal respiratory effort and clear to auscultation bilaterally Auscultation: Negative for rales, rhonchi or wheezes Cardio S1 normal heart sound, S2 normal heart sound and no murmurs Rate: regular rate Rhythm: regular rhythm GI non-tender, non-distended and no masses Inspection: Negative for abdominal distention Auscultation: normoactive bowel sounds Palpation: soft; Negative for tender or guarding Back/Spine no CVA tenderness General Back: Negative for CVA tenderness Extremity normal to inspection General Extremety ED: Negative for edema or tenderness General Extremity: Negative for edema Neuro oriented x3 Sensorium / Orientation: alert, oriented to person, oriented to place and oriented to time; Negative for orientation impaired, confused, lethargic or stuporous Motor Exam: strength 5/5 throughout Psych mental status grossly normal, thought process normal, cooperative, affect normal, speech normal and activity/motor behavior normal Appearance: grossly normal; Negative for unkempt Attitude: calm, engaged, No paranoid, No withdrawn, No bizarre, No uncooperative, No evasive, No guarded, No belligerent, No agitated, No ag gressive and No hostile Skin General Skin Exam: Negative for jaundice or pallor Lesions: no lesions Rashes: no rashes MDM MDM MDM Narrative Medical decision making narrative: 36-year-old male history of anxiety with panic attack. Seems to be resolving. His current exam is calm and relaxed. He will be given 1 p.o. Ativan and discharged home. Discharge Plan Triage Chief Complaint: Anxiety ED Provider: Alexis Montes Dx/Rx/DC Orders Clinical Impression: Panic attack Instructions: ED Panic Attack Prescriptions: No Action prazosin 1 MG capsule 1 mg PO QHS RF: 0 hydrochlorothiazide 25 MG tablet 25 mg PO DAILY RF: 0 sertraline 50 MG tablet 150 mg PO DAILY RF: 0 metformin 1,000 mg tablet 1,000 mg PO BID Qty: 60 RF: 0 meclizine 25 mg tablet 25 mg PO 4X/DAY PRN PRN (Reason: Dizziness) Qty: 20 RF: 0 Primary Care Provider: Care Physician,No Primary Referrals: Care Physician,No Primary [Primary Care Provider] - Activity Restrictions/Additional Instructions: Follow-up with your doctor as needed. Disposition Disposition: Home, Self Care
[2021-07-19] MEDS: LORazepam 1 MG Tablet PO (04:21)
[2021-07-19 04:22] VITALS: BP 132/74; RESP 17
== END 2021-07-19 04:30 | disposition home or self-care (01) ==
LOC: ED 04:27
PROVIDERS: Emergency Provider Emergency Medicine
DX: F41.0 Panic disorder [episodic paroxysmal anxiety] (principal); E11.9 Type 2 diabetes mellitus without complications; Z79.84 Long term (current) use of oral hypoglycemic drugs; Z86.73 Personal history of transient ischemic attack (TIA), and cerebral infarction without residual deficits; Z79.899 Other long term (current) drug therapy
CPT/HCPCS: 99282

== ENCOUNTER 2021-07-20 04:15 | Emergency (ER) | payer MEDICAID, SELFPAY ==
[2021-07-20 04:16] VITALS: BP 157/109; PULSE 107; RESP 16; TEMP 36.1; O2SAT 97; BMI 31.8
--- NOTE | 2021-07-20 04:25 | EDS_ITS ---
HPI HPI - Psych History of Present Illness Chief Complaint: Anxiety Detail of Chief Complaint: Trouble sleeping due to anxiety Informant: patient Onset/Context/Timing Onset: Days Context: Sudden Onset Conflict: Family Timing: Continuous and Waxes and wanes Current Severity: Moderate Maximum Severity: Severe Worsened by: Situational factors (Girlfriend diagnosed with stroke) Relieved by: Nothing Associated Symptoms Associated Symptoms - Psych: Positive for Depressed and Change in sleeping; Negative for Change in Eating, Decreased Interest, Guilt, Decreased C oncentration, Hopelessness, Suicidal Thoughts, Easily distracted, Grandiosity, Flight of Ideas, Increased activity, Pressured Speech, Agitated, Angry, Hostile, Threatening, Confusion, Paranoia, Visual Hallucinations and Auditory Hallucinations Specific plan (suicidal thought): Not applicable Narrative Narrative: Patient is a 36-year-old male with history of panic attacks, idiopathic angioedema who presents because of trouble sleeping because of anxiety. His 43-year-old girlfriend diagnosed with stroke. She also has other medical problems. He is concerned because no one is doing anything. He states he is depressed. He has no suicidal or homicidal thoughts. He has had trouble with sleep. He relates this to the anxiety. He states he is seen at the counseling center. He has an appointment this coming week. His prescription of Ativan has run out and he has no refills. Patient states he was prescribed the Ativan as needed. Prior similar symptoms: Yes Recent [facility] Medical History Anxiety and depression Anxiety disorder, unspecified Non-insulin dependent diabetes mellitus Panic disorder Schizoaffective disorder, bipolar type Seizure Tetrahydrocannabinol (THC) use disorder, mild, abuse Home Medications hydrochlorothiazide 25 mg PO DAILY 11/25/20 [History Last Taken 02/19/21] prazosin 1 mg PO QHS 11/25/20 [History Last Taken Unknown] sertraline 150 mg PO DAILY 11/25/20 [History Last Taken 02/20/21] meclizine 25 mg PO 4X/DAY PRN PRN #20 tab 02/21/21 [Rx Last Taken Unknown] metformin 1,000 mg PO BID #60 tab 02/21/21 [Rx Last Taken Unknown] lorazepam [Ativan] 0.5 mg PO TID PRN 3 Days #10 tab 07/20/21 [Rx Last Taken Unknown] Allergy/AdvReac Type Severity Reaction Status Date / Time etomidate AdvReac Other Verified 07/19/21 03:37 Social History (Updated 07/20/21 @ 04:[address] Ray Danielle MD) household members: significant other Smoking Status: Never smoker alcohol intake: current alcohol intake frequency: a few times a month substance use type: does not use ROS ROS ED Constitutional Constitutional ED: Denies chills, fever(s), subjective or sweats Eyes Eyes: Denies blurry vision or change in vision ENT ENT ED: Denies rhinorrhea or sore throat Cardiovascular Cardiovascular: Denies chest pain or palpitations Respiratory/Chest Respiratory/Chest: Denies cough, dyspnea or dyspnea on exertion Gastrointestinal Gastrointestinal: Denies diarrhea, nausea or vomiting Neurologic Neurologic: Denies headache(s), paresthesias or weakness Psychiatric Psychiatric: Reports anxiety and depression; Denies suicidal ideation or suici elise thoughts Hematologic/Lymphatic Hematologic/Lymphatic: Denies easy bleeding or easy bruising EXAM Physical Exam Const Vital Signs: 07/20/21 04:16 Temperature 96.9 F L Temperature Source Temporal Pulse Rate 107 H Respiratory Rate 16 Blood Pressure 157/109 H Blood Pressure Mean 125 Pulse Ox 97 Oxygen Delivery Method Room Air Positive well nourished and well developed General Appearance ED: well developed and NAD; Negative for pallor HEENT normocephalic and atraumatic Eyes PERRL and EOMs intact bilaterally General Eye ED: Negative for pale conjunctiva or scleral icterus Neck supple and no JVD Resp normal respiratory effort Cardio Rate: regular rate Rhythm: regular rhythm Neuro oriented x3, CN's II-XII intact bilaterally and no sensory deficits noted Sensorium / Orientation: alert Motor Exam: strength 5/5 throughout Psych mental status grossly normal, thought process normal, cooperative, speech normal, activity/motor behavior normal, denies hallucinations, denies homicidal ideation and denies suicidal ideation Appearance: grossly normal, appropriate and well kempt Activity / Motor Behavior: psychomotor slowing Speech: slow Mood & Affect: flat affect Thought Process: normal thought process Thought Content: normal thought content Memory / Cognition: memory grossly intact and memory grossly impaired Insight: fair Judgement: judgement good Skin General Skin Exam: Negative for jaundice or pallor Lesions: no lesions Rashes: no rashes MDM MDM MDM Narrative Medical decision making narrative: Patient with history of panic attacks/anxiety disorder. He states he is treated with Ativan. His prescription has and he has no refills. Plan is Ativan tablet in the [facility] and prescription for 10 Ativan tablets. He was instructed to keep his appointment at the counseling center. Discharge Plan Triage Chief Complaint: Anxiety ED Provider: Ray Danielle Dx/Rx/DC Orders Clinical Impression: Anxiety in acute stress reaction Instructions: Anxiety Disorders Tx Therapy Prescriptions: New lorazepam [Ativan] 0.5 mg tablet 0.5 mg PO TID PRN (Reason: anxiety) 3 Days Qty: 10 RF: 0 No Action prazosin 1 MG capsule 1 mg PO QHS RF: 0 hydrochlorothiazide 25 MG tablet 25 mg PO DAILY RF: 0 sertraline 50 MG tablet 150 mg PO DAILY RF: 0 metformin 1,000 mg tablet 1,000 mg PO BID Qty: 60 RF: 0 meclizine 25 mg tablet 25 mg PO 4X/DAY PRN PRN (Reason: Dizziness) Qty: 20 RF: 0 Primary Care Provider: Care Physician,No Primary Referrals: Counseling,Center [GROUP OF PHYSICIANS] - Keep Jonathan appointment Care Physician,No Primary [Primary Care Provider] - Disposition Disposition: Home, Self Care
[2021-07-20] MEDS: LORazepam 0.5 MG Tablet PO (04:28)
[2021-07-20 04:41] VITALS: BP 157/109; PULSE 107; RESP 16; O2SAT 97
== END 2021-07-20 04:41 | disposition home or self-care (01) ==
LOC: ED 04:35
PROVIDERS: Emergency Provider Emergency Medicine
DX: F41.1 Generalized anxiety disorder (principal); F43.0 Acute stress reaction; E11.9 Type 2 diabetes mellitus without complications; Z79.899 Other long term (current) drug therapy; Z79.84 Long term (current) use of oral hypoglycemic drugs
CPT/HCPCS: 99283

== ENCOUNTER 2021-10-04 08:32 | Emergency (ER) | payer MEDICAID, SELFPAY ==
[2021-10-04 08:33] VITALS: BP 147/104; PULSE 92; RESP 18; TEMP 36.4; O2SAT 99; BMI 33.0
[2021-10-04 09:05] VITALS: O2SAT 95
[2021-10-04 09:11] VITALS: O2SAT 95
--- NOTE | 2021-10-04 09:11 | EKG12_ITS ---
Test Reason : SOB/PALPS Blood Pressure : / mmHG Vent. Rate : 095 BPM Atrial Rate : 500 BPM P-R Int : 000 ms QRS Dur : 102 ms QT Int : 354 ms P-R-T Axes : 000 045 035 degrees QTc Int : 444 ms Atrial fibrillation Nonspecific T wave abnormality Abnormal ECG Confirmed by ROSARIO LUIS, MUKESH ([id number]), news assignment editor JOCELYN HOOPER ([id number]) on 10/06/2021 9:48:47 AM Referred By: INOCENTE Confirmed By:MUKESH PONCE MD
--- NOTE | 2021-10-04 09:11 | ED.VIS.DYS ---
HPI History of Present Illness Chief Complaint: Shortness of Breath Narrative Narrative: 36-year-old male presenting with dyspnea with started this morning. He states he has a history of atrial fibrillation and hypertension but states that he does not take any medication for this. He states he has a medication in his drawer at home but does not take it. He has not seen a primary care provider for follow-up of this as it was diagnosed in the ER. He states he was lost to follow-up due to pandemic and has not attempted to make an appointment since practices have reopened. He denies fever, chills, cough, but feels a little bit short of breath. This is a symptom he had the last time he presented for atrial fibrillation he states. Patient does not have any chest pain. No nausea or vomiting. [facility] Medical History Afib Anxiety and depression Anxiety disorder, unspecified HTN (hypertension) Non-insulin dependent diabetes mellitus Panic disorder Schizoaffective disorder, bipolar type Seizure Tetrahydrocannabinol (THC) use disorder, mild, abuse Home Medications hydrochlorothiazide 25 mg PO DAILY 11/25/20 [History Last Taken 02/19/21] prazosin 1 mg PO QHS 11/25/20 [History Last Taken Unknown] sertraline 150 mg PO DAILY 11/25/20 [History Last Taken 02/20/21] meclizine 25 mg PO 4X/DAY PRN PRN #20 tab 02/21/21 [Rx Last Taken Unknown] metformin 1,000 mg PO BID #60 tab 02/21/21 [Rx Last Taken Unknown] lorazepam [Ativan] 0.5 mg PO TID PRN 3 Days #10 tab 07/20/21 [Rx Last Taken Unknown] metoprolol succinate 50 mg PO DAILY #30 tab 10/04/21 [Rx Last Taken Unknown] Allergy/AdvReac Type Severity Reaction Status Date / Time etomidate AdvReac Other Verified 10/04/21 08:35 Social History household members: significant other Smoking Status: Never smoker alcohol intake: current alcohol intake frequency: a few times a month substance use type: does not use ROS ROS ED Constitutional Constitutional ED: Denies chills or fever(s) Eyes Eyes: Denies blurry vision or diplopia ENT ENT ED: Denies rhinorrhea or sore throat Cardiovascular Cardiovascular: Denies chest pain or palpitations Respiratory/Chest Respiratory/Chest: Reports dyspnea; Denies cough Gastrointestinal Gastrointestinal: Denies abdominal pain, nausea or vomiting Genitourinary Genitourinary ED: Denies dysuria or hematuria Musculoskeletal Musculoskeletal: Denies arthralgias or myalgias Integumentary Denies abscess or rash Neurologic Neurologic: Denies headache(s) or weakness Psychiatric Psychiatric: Denies anxiety or depression EXAM Physical Exam Const Vital Signs: 10/04/21 08:33 10/04/21 09:05 10/04/21 09:11 Temperature 97.6 F L Temperature Source Temporal Pulse Rate 92 Respiratory Rate 18 Respiratory Effort Normal Non-Labored Respiratory Depth Normal Respiratory Pattern Normal Blood Pressure 147/104 H Blood Pressure Mean 118 Pulse Ox 99 95 Oxygen Delivery Method Room Air Room Air Room Air Positive well nourished General Appearance ED: NAD; Negative for pallor HEENT Reports moist mucous membranes atraumatic Eyes PERRL and EOMs intact bilaterally Resp normal respiratory effort and clear to auscultation bilaterally Cardio regular rate and regular rhythm Rate: other GI Negative for non-tender Palpation: Negative for soft Neuro oriented x3 and CN's II-XII intact bilaterally Sensorium / Orientation: alert Psych mental status grossly normal Thought Process: normal thought process Skin General Skin Exam: Negative for jaundice or pallor MDM MDM MDM Narrative Medical decision making narrative: Patient with history of atrial fibrillation and medical noncompliance presenting with shortness of breath which started this morning. Patient states that he is not anticoagulated. He also states that the left known to have A. fib that was diagnosed in this emergency room and that he was started on medications for this. I do not see any medication for rate control in the system. I cannot find an EKG that showed A. fib. His EKG today is atrial fibrillation with a controlled ventricular response of 95 bpm without sign of ischemic change. CBC shows leukopenia and lymphopenia which is chronic and the patient has always had this. He has no signs of viral syndrome. His BMP is normal with exception of an elevated glucose at 186. No anion gap. High-sensitivity troponin is 5. Patient not having any chest pain associated with this shortness of breath. Chest x-ray my interpretation shows no acute cardiopulmonary process and the radiologist does agree. Patient was discussed with Dr. Austin. He recommended putting her on metoprolol succinate 50 mg p.o. daily and having him follow-up in office with him. The patient is given his first dose in the ED and given instructions for follow-up. He is given return precautions. Patient discharged home in stable condition. Impression: 1. Atrial fibrillation 2. Dyspnea Lab Data Labs: Laboratory Results - last 24 hr 10/04/21 10/04/21 09:32 09:32 WBC 3.1 L RBC 5.72 Hgb 15.7 Hct 46.9 MCV 82.0 MCH 27.4 MCHC 33.5 RDW Std Deviation 41.8 RDW Coeff of Maria A 14.0 Plt Count 125 L MPV 12.8 H Immature Gran % (Auto) 0.000 Neut % (Auto) 23.9 L Lymph % (Auto) 58.9 H Bath % (Auto) 14.3 H Eos % (Auto) 1.6 Baso % (Auto) 1.3 H Absolute Neuts (auto) 0.8 L Absolute Lymphs (auto) 1.85 Nucleated RBC % 0 Differential Comment COMMENT Sodium 136 Potassium 3.9 Chloride 101 Carbon Dioxide 30.0 Anion Gap 5 BUN 11 Creatinine 1.06 Estim Creat Clear Calc 101.39 Est GFR (MDRD) Af Amer 103 Est GFR (MDRD) Non-Af 85 BUN/Creatinine Ratio 10.4 Glucose 186 H Calcium 9.3 Troponin I High Sens 5 Radiography Diagnostic Testing: Clinical Impression(s) from Imaging Studies Chest X-Ray 10/04/21 09:38 IMPRESSION: Normal x-ray examination of the chest. Electronically Signed: Kwabena Adam MD at 10:07 EST , Service support , Discharge Plan Triage Chief Complaint: Shortness of Breath ED Provider: Dominik Beatty Dx/Rx/DC Orders Instructions: ED AFIB Prescriptions: New metoprolol succinate 50 mg tablet extended release 24 hr 50 mg PO DAILY Qty: 30 RF: 0 No Action prazosin 1 MG capsule 1 mg PO QHS RF: 0 hydrochlorothiazide 25 MG tablet 25 mg PO DAILY RF: 0 sertraline 50 MG tablet 150 mg PO DAILY RF: 0 metformin 1,000 mg tablet 1,000 mg PO BID Qty: 60 RF: 0 meclizine 25 mg tablet 25 mg PO 4X/DAY PRN PRN (Reason: Dizziness) Qty: 20 RF: 0 lorazepam [Ativan] 0.5 mg tablet 0.5 mg PO TID PRN (Reason: anxiety) 3 Days Qty: 10 RF: 0 Primary Care Provider: Care Physician,No Primary Referrals: Pedro Austin MD [STAFF PHYSICIAN] - As soon as possible Care Physician,No Primary [Primary Care Provider] - Disposition Disposition: Home, Self Care
--- NOTE | 2021-10-04 09:38 | RAD_ITS ---
STUDY: X-RAY CHEST REASON FOR EXAM: Male, 36 years old. Dyspnea TECHNIQUE: Single AP portable view of the chest. COMPARISON: Comparison is made with prior study 01/18/2021. FINDINGS: EKG electrodes are seen. The lungs are clear and expanded. There is no demonstrated pleural abnormality. Normal size heart. Normal mediastinum and wally. Normal visualized pulmonary arteries. Normal visualized aortic arch and descending thoracic aorta. Normal visualized thoracic spine. Normal visualized ribs, clavicles, and shoulders. There is no demonstrated abnormality of the visualized soft tissue structures of the upper abdomen. RAD/Chest 1 View (Portable) IMPRESSION: Normal x-ray examination of the chest. Electronically Signed: Kwabena Adam MD at 10:07 EST , Service support ,
[2021-10-04 09:40] LABS: Absolute Lymphocyte Count 1.85 X10^3/uL (0.83-4.51); Absolute Neutrophil Count 0.8 X10^3/uL (2.0-7.7); Basophil# 0.04 X10^3/uL; Basophil% 1.3 % (0-1); Eosinophil# 0.05 X10^3/uL; Eosinophils% 1.6 % (0-5); Hematocrit 46.9 % (40-54); Hemoglobin 15.7 g/dL (13.0-16.5); Lymphocyte # 1.85 X10^3/ul (0.83-4.51); Lymphocyte % 58.9 % (19-41); Mean Corp Hgb Conc 33.5 g/dL (32-36); Mean Corpuscular Hgb 27.4 pg (27.0-32.0); Mean Platelet Vol. 12.8 fl (6.2-12.0); Monocyte# 0.45 X10^3/uL; Monocyte% 14.3 % (0-10); NRBC Flagged by Analyzer 0 % (0-5); Neutrophil # 0.75 X10^3/uL (2.7-7.7); Neutrophil % 23.9 % (47-70); POSITIVE DIFFERENTIAL YES; POSITIVE MORPHOLOGY YES; Platelet Count 125 K/mm3 (150-450); RBC Distribution Width SD 41.8 fl (35.1-43.9); Red Blood Count 5.72 M/mm3 (4.6-6.2); White Blood Count 3.1 K/mm3 (4.4-11.0)
[2021-10-04 09:43] LABS: Differential Indicated SCAN CRITERIA MET
[2021-10-04 09:57] LABS: Anion Gap 5 (5-15); BUN 11 mg/dL (7-18); BUN/Creat Ratio 10.4 RATIO (10-20); Calcium,Total 9.3 mg/dL (8.5-10.1); Chloride 101 mmol/L (98-107); Creatinine, Serum 1.06 mg/dL (0.70-1.30); EST Glomerular Filtration Rate 85 mL/min (>60); Est Glom Filt Rate - Afr Amer 103 mL/min (>60); Estimated Creatinine Clearance 101.39 ml/min; Glucose 186 mg/dL (74-106); Potassium 3.9 mmol/L (3.5-5.1); Sodium Level 136 mmol/L (136-145); Troponin-I HS 5 pg/mL (3.0-78.0)
[2021-10-04 11:41] VITALS: BP 134/75; PULSE 72; RESP 18; O2SAT 100
[2021-10-04] MEDS: Metoprolol(XL)Succ 50 MG Tablet PO (11:42)
== END 2021-10-04 11:48 | disposition home or self-care (01) ==
PROVIDERS: Emergency Provider Student in an Organized Health Care Education/Training Program
DX: I48.91 Unspecified atrial fibrillation (principal); R06.00 Dyspnea, unspecified; Z91.19 Patient's noncompliance with other medical treatment and regimen; E11.9 Type 2 diabetes mellitus without complications; F25.0 Schizoaffective disorder, bipolar type; F41.9 Anxiety disorder, unspecified; F44.5 Conversion disorder with seizures or convulsions; I10 Essential (primary) hypertension; Z79.84 Long term (current) use of oral hypoglycemic drugs; Z79.899 Other long term (current) drug therapy
CPT/HCPCS: 71045; 80048; 84484; 85025; 93005; 99285; A4216

== ENCOUNTER 2022-03-13 02:09 | Emergency (ER) | payer BC, MEDICAID, SELFPAY ==
[2022-03-13 02:10] VITALS: BP 153/108; PULSE 91; RESP 16; TEMP 36.3; O2SAT 97; BMI 29.1
[2022-03-13 02:12] VITALS: O2SAT 98
--- NOTE | 2022-03-13 02:28 | EKG12_ITS ---
Test Reason : SOB Blood Pressure : / mmHG Vent. Rate : 088 BPM Atrial Rate : 088 BPM P-R Int : 170 ms QRS Dur : 090 ms QT Int : 358 ms P-R-T Axes : 040 039 031 degrees QTc Int : 433 ms Normal sinus rhythm Nonspecific T wave abnormality Abnormal ECG Confirmed by ROLANDO LUIS, NING ([id number]), state editor QUANG REYES ([id number]) on 03/15/2022 1:15:07 PM Referred By: KARINA Confirmed By:NING MARSHALL MD
--- NOTE | 2022-03-13 02:30 | EDS_ITS ---
HPI History of Present Illness Chief Complaint: Shortness of Breath Informant: patient Narrative Narrative: Patient presents with episodes of palpitations. Patient states that he has had episodes like this for years. He was diagnosed not long ago with intermittent atrial fibrillation. He has been seeing the heart group. He has pending what he thinks is a heart monitor but he has not been able to get that yet. He states eat a long time ago he did have episodes every 3 months. Then it went down every month. Now he is having episodes several times a week. He feels like a pause in his heartbeat. And then when this happens he just feels momentarily short of breath. He is not having chest pain. He states he does not feel racing heart beats. While I am in the room he felt this several times and each time he had a single PVC. He states that those are the symptoms that he is feeling. Patient does have a history of prior A. fib, anxiety, diet-controlled diabetes. Patient does have his medicines and is taking them Allergy to etomidate A recent surgeries 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) New onset atrial fibrillation (10/04/21) Panic disorder Seizure (10/2019) Tetrahydrocannabinol (THC) use disorder, mild, abuse Type 2 diabetes mellitus Home Medications metoprolol succinate 50 mg tablet,extended release 24 hr 50 mg PO DAILY #90 tab 11/03/21 [Rx Last Taken Unknown] quetiapine 200 mg tablet 200 mg PO DAILY 11/03/21 [History Last Taken Unknown] lorazepam 0.5 mg PO QHS PRN PRN 03/13/22 [History Last Taken Unknown] metformin 500 mg PO BID #60 tab 03/13/22 [Rx Last Taken Unknown] sertraline 100 mg PO DAILY 03/13/22 [History Last Taken Unknown] Allergy/AdvReac Type Severity Reaction Status Date / Time etomidate AdvReac Other Verified 03/13/22 02:10 Family History Father Myocardial infarction Mother Hypertension Sister CVA (cerebral vascular accident) Surgical History History of ankle surgery Social History household members: significant other Smoking Status: Never smoker alcohol intake: current alcohol intake frequency: a few times a month substance use type: marijuana ROS ROS ED Constitutional Constitutional ED: Denies fever(s) Eyes Eyes: Denies blurry vision or change in vision ENT ENT ED: Denies rhinorrhea or sore throat Cardiovascular Cardiovascular: Reports palpitations; Denies chest pain or racing heartbeat Respiratory/Chest Respiratory/Chest: Reports dyspnea; Denies cough or sputum Gastrointestinal Gastrointestinal: Denies nausea or vomiting Genitourinary Genitourinary ED: Denies dysuria Musculoskeletal Musculoskeletal: Denies myalgias Integumentary Denies rash Neurologic Neurologic: Denies headache(s), paresthesias or weakness Psychiatric Psychiatric: Reports anxiety Endocrine Endocrinology: Denies polydipsia or polyuria Allergic/Immunologic Allergic/Immunologic ED: Denies urticaria EXAM Physical Exam Const Vital Signs: 03/13/22 02:10 03/13/22 02:12 03/13/22 04:21 Temperature 97.4 F L Temperature Source Temporal Pulse Rate 91 90 Respiratory Rate 16 18 Respiratory Effort Normal Non-Labored Respiratory Depth Normal Respiratory Pattern Normal Blood Pressure 153/108 H 147/101 H Blood Pressure Mean 123 116 Pulse Ox 97 97 Oxygen Delivery Method Room Air Room Air Room Air Positive well nourished and well developed General Appearance ED: well developed and NAD; Negative for cyanotic or diaphoretic HEENT Reports moist mucous membranes Eyes General Eye ED: Negative for pale conjunctiva or scleral icterus Neck no JVD Chest Wall Negative for inspection of chest normal Resp normal respiratory effort and clear to auscultation bilaterally Cardio regular rate, regular rhythm and no murmurs Rate: other Other Details: Patient does have occasional PVCs. He feels these and these are what is causing his symptoms. The rest of his monitor shows a normal sinus rhythm. I do not see signs of atrial fibrillation GI normal to inspection, nondistended, normoactive bowel sounds; Negative for non- tender or non-distended Palpation: soft Back/Spine no CVA tenderness Extremity normal to inspection Extremity Narrative: No cords edema or tenderness. No asymmetry or distended veins General Extremety ED: Negative for edema or tenderness General Extremity: Negative for edema Neuro Sensorium / Orientation: alert Skin no rashes or lesions noted MDM MDM MDM Narrative Medical decision making narrative: Patient seen CT shows minimally low white count. This is nonspecific. Electrolytes are overall okay other than very high glucose at 459. Troponin and repeat troponin are negative. He was given IV fluids and insulin. His glucose came down to 317 and is now down to 200. He is awake alert and appropriate. Patient currently is feeling PVCs. But he does report a history of intermittent A. fib. He has seen cardiology. I will see if we can get a Holter monitor on him to assist in follow-up. I will also get him started on metformin that he used to be on. He does not know his prior dose so I will start low but I explained that he very likely will need higher dose or o ther medications. Lab Data Attestation: I reviewed the patient's lab results. Labs: Laboratory Results - last 24 hr 03/13/22 03/13/22 03/13/22 02:25 02:25 04:15 WBC 3.4 L RBC 5.68 Hgb 15.3 Hct 45.6 MCV 80.3 MCH 26.9 L MCHC 33.6 RDW Std Deviation 38.1 RDW Coeff of Maria A 13.3 Plt Count 125 L MPV 13.2 H Immature Gran % (Auto) 0.000 Neut % (Auto) 49.4 Lymph % (Auto) 36.0 Darke % (Auto) 12.8 H Eos % (Auto) 0.6 Baso % (Auto) 1.2 H Absolute Neuts (auto) 1.7 L Absolute Lymphs (auto) 1.21 Nucleated RBC % 0 Sodium 131 L Potassium 3.6 Chloride 96 L Carbon Dioxide 25.0 Anion Gap 10 BUN 12 Creatinine 1.07 Estim Creat Clear Calc 103.61 Est GFR (MDRD) Af Amer 101 Est GFR (MDRD) Non-Af 84 BUN/Creatinine Ratio 11.2 Glucose 459 H* Calcium 9.4 Troponin I High Sens < 3 L 4 POC Glucose 03/13/22 04:27 WBC RBC Hgb Hct MCV MCH MCHC RDW Std Deviation RDW Coeff of Maria A Plt Count MPV Immature Gran % (Auto) Neut % (Auto) Lymph % (Auto) Darke % (Auto) Eos % (Auto) Baso % (Auto) Absolute Neuts (auto) Absolute Lymphs (auto) Nucleated RBC % Sodium Potassium Chloride Carbon Dioxide Anion Gap BUN Creatinine Estim Creat Clear Calc Est GFR (MDRD) Af Amer Est GFR (MDRD) Non-Af BUN/Creatinine Ratio Glucose Calcium Troponin I High Sens POC Glucose 317 H Radiography Diagnostic Testing: Clinical Impression(s) from Imaging Studies Chest X-Ray 03/13/22 02:35 IMPRESSION: No radiographic evidence of acute cardiopulmonary disease. Electronically Signed: Julio Montero MD at 3:12 EDT Reading Location ID and State: [facility] / [place] Tel , Service support , EKG Initial EKG: Comments: EKG done for palpitations read by me shows a normal sinus rhythm with overall rate of 88. No ventricular ectopy caught on the EKG. No acute ST elevation or depression. CT interval, QRS duration and QTc normal. Discharge Plan Triage Chief Complaint: Shortness of Breath ED Provider: Epifanio Valdes Dx/Rx/DC Orders Clinical Impression: Heart palpitations, Symptomatic PVCs, Hyperglycemia without ketosis Instructions: ED Diabetic Hyperglycemia, ED Palpitations Prescriptions: New metformin 500 mg tablet 500 mg PO BID Qty: 60 RF: 0 No Action quetiapine 200 mg tablet 200 mg PO DAILY RF: 0 metoprolol succinate 50 mg tablet extended release 24 hr 50 mg PO DAILY Qty: 90 RF: 3 sertraline 100 mg tablet 100 mg PO DAILY RF: 0 lorazepam 0.5 mg tablet 0.5 mg PO QHS PRN PRN (Reason: Anxiety) RF: 0 Primary Care Provider: Care Physician,No Primary Referrals: Pedro Austin MD [STAFF PHYSICIAN] - As soon as possible Nancy Hanna MD [STAFF PHYSICIAN] - As soon as possible Care Physician,No Primary [Primary Care Provider] - Disposition Disposition: Home, Self Care
--- NOTE | 2022-03-13 02:35 | RAD_ITS ---
EXAM: XR CHEST, 1 VIEW CLINICAL INDICATION: chest pain TECHNIQUE: Frontal view of the chest. This report was created using [employer] report generation technology. COMPARISON: 10/04/2021 FINDINGS: LUNGS AND PLEURAL SPACES: Unremarkable. No consolidation or edema. No pneumothorax. No effusion. HEART: Unremarkable. Cardiac silhouette not enlarged. MEDIASTINUM: Central airways and mediastinal contour are unremarkable. BONES/JOINTS: Unremarkable. SOFT TISSUES: Unremarkable. RAD/Chest 1 View (Portable) IMPRESSION: No radiographic evidence of acute cardiopulmonary disease. Electronically Signed: Julio Montero MD at 3:12 EDT ,
[2022-03-13 02:40] LABS: Absolute Lymphocyte Count 1.21 X10^3/uL (0.83-4.51); Absolute Neutrophil Count 1.7 X10^3/uL (2.0-7.7); Basophil# 0.04 X10^3/uL; Basophil% 1.2 % (0-1); Eosinophil# 0.02 X10^3/uL; Eosinophils% 0.6 % (0-5); Hematocrit 45.6 % (40-54); Hemoglobin 15.3 g/dL (13.0-16.5); Lymphocyte # 1.21 X10^3/ul (0.83-4.51); Mean Corp Hgb Conc 33.6 g/dL (32-36); Mean Corpuscular Hgb 26.9 pg (27.0-32.0); Mean Corpuscular Volume 80.3 fL (80-94); Mean Platelet Vol. 13.2 fl (6.2-12.0); Monocyte# 0.43 X10^3/uL; Monocyte% 12.8 % (0-10); NRBC Flagged by Analyzer 0 % (0-5); Neutrophil # 1.66 X10^3/uL (2.7-7.7); Neutrophil % 49.4 % (47-70); Platelet Count 125 K/mm3 (150-450); RBC Distribution Width CV 13.3 % (11.6-14.6); RBC Distribution Width SD 38.1 fl (35.1-43.9); Red Blood Count 5.68 M/mm3 (4.6-6.2); White Blood Count 3.4 K/mm3 (4.4-11.0)
[2022-03-13 03:00] LABS: Anion Gap 10 (5-15); BUN 12 mg/dL (7-18); BUN/Creat Ratio 11.2 RATIO (10-20); Calcium,Total 9.4 mg/dL (8.5-10.1); Chloride 96 mmol/L (98-107); Creatinine, Serum 1.07 mg/dL (0.70-1.30); EST Glomerular Filtration Rate 84 mL/min (>60); Est Glom Filt Rate - Afr Amer 101 mL/min (>60); Estimated Creatinine Clearance 103.61 ml/min; Glucose 459 mg/dL (74-106); Potassium 3.6 mmol/L (3.5-5.1); Sodium Level 131 mmol/L (136-145); Troponin-I HS < 3 pg/mL (3.0-78.0)
[2022-03-13] MEDS: Insulin Lispro 100 UNIT/ML INSULN.PEN 15 UNIT SC (03:20)
[2022-03-13] MEDS: 0.9% Normal Saline 1,000 ML 999 ML IV ×2 (03:21→04:20)
[2022-03-13 04:21] VITALS: BP 147/101; PULSE 90; RESP 18; O2SAT 97
[2022-03-13 04:31] LABS: Bedside Glucose 317 mg/dL (74-106)
[2022-03-13 05:39] LABS: Troponin-I HS 4 pg/mL (3.0-78.0)
[2022-03-13 06:10] LABS: Bedside Glucose 200 mg/dL (74-106)
[2022-03-13 06:19] VITALS: BP 125/85; PULSE 77; RESP 15; O2SAT 98
== END 2022-03-13 06:48 | disposition home or self-care (01) ==
PROVIDERS: Emergency Provider Emergency Medicine; Visit Provider Emergency Medicine
DX: J30.1 Allergic rhinitis due to pollen (principal); E11.65 Type 2 diabetes mellitus with hyperglycemia; I48.91 Unspecified atrial fibrillation; R00.2 Palpitations; I49.3 Ventricular premature depolarization; Z79.84 Long term (current) use of oral hypoglycemic drugs; I10 Essential (primary) hypertension; F41.9 Anxiety disorder, unspecified; F32.A Depression, unspecified; Z79.899 Other long term (current) drug therapy; F12.90 Cannabis use, unspecified, uncomplicated
CPT/HCPCS: 71045; 80048; 82962; 84484; 85025; 93005; 93225; 93226; 96360; 96361; 99283; 99284; J7030; A4216

== ENCOUNTER 2022-03-13 19:58 | Emergency (ER) | payer MEDICAID, SELFPAY ==
[2022-03-13 19:58] VITALS: PULSE 134; RESP 16; TEMP 36.6; O2SAT 98; BMI 29.2
--- NOTE | 2022-03-13 20:14 | EX.ED.DYSGE1 ---
HPI History of Present Illness Chief Complaint: Cold Sx Informant: patient Onset/Context/Timing Onset: Today Context: Gradual Onset Timing: Continuous Quality: itchy swollen eyes Location: face Current Severity: Moderate Maximum Severity: Moderate Worsened by: nothing Relieved by: nothing but hasn't tried any medications Associated Symptoms Associated Symptoms: nose congested/clogged, anxiety Narrative Narrative: Patient states he is allergic to pollen and cats and he has had exposure both of them, has been having allergic rhinitis symptoms all day, to the point where he cannot breathe through his nose and he is feeling very anxious. He has a history of panic disorder. He denies feeling any palpitations, chest discomfort, shortness of breath/wheezing, no edema peripherally. States he usually takes Claritin or some nasal spray when this happens but he does not have any. 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) New onset atrial fibrillation (10/04/21) Panic disorder Seizure (10/2019) Tetrahydrocannabinol (THC) use disorder, mild, abuse Type 2 diabetes mellitus Home Medications metoprolol succinate 50 mg tablet,extended release 24 hr 50 mg PO DAILY #90 tab 11/03/21 [Rx Last Taken Unknown] quetiapine 200 mg tablet 200 mg PO DAILY 11/03/21 [History Last Taken Unknown] fluticasone propionate 1 spray INTRANASAL DAILY #16 g 03/13/22 [Rx Last Taken Unknown] hydroxyzine HCl 50 mg PO TID PRN #15 tab 03/13/22 [Rx Last Taken Unknown] lorazepam 0.5 mg PO QHS PRN PRN 03/13/22 [History Last Taken Unknown] metformin 500 mg PO BID #60 tab 03/13/22 [Rx Last Taken Unknown] sertraline 100 mg PO DAILY 03/13/22 [History Last Taken Unknown] Allergy/AdvReac Type Severity Reaction Status Date / Time etomidate AdvReac Other Verified 03/13/22 20:01 Family History Father Myocardial infarction Mother Hypertension Sister CVA (cerebral vascular accident) Surgical History History of ankle surgery Social History household members: significant other Smoking Status: Never smoker alcohol intake: current alcohol intake frequency: a few times a month substance use type: marijuana ROS ROS ED Constitutional Constitutional ED: Denies chills or fever(s) Eyes Eyes: Reports puffy eyes and tearing; Denies blurry vision, change in vision or foreign body ENT ENT ED: Reports as per HPI, nasal congestion and rhinorrhea; Denies ear pain or sore throat Cardiovascular Cardiovascular: Denies chest pain or palpitations Respiratory/Chest Respiratory/Chest: Denies cough or dyspnea Gastrointestinal Gastrointestinal: Denies abdominal pain, diarrhea, nausea or vomiting Genitourinary Genitourinary ED: Denies dysuria or hematuria Musculoskeletal Musculoskeletal: Denies myalgias or neck pain Integumentary Denies abscess or rash Neurologic Neurologic: Denies headache(s), paresthesias or weakness Psychiatric Psychiatric: Denies depression or suicidal thoughts Endocrine Endocrinology: Denies polydipsia or polyuria EXAM Physical Exam Const Vital Signs: 03/13/22 19:58 03/13/22 20:07 Temperature 98 F Temperature Source Temporal Pulse Rate 134 H Respiratory Rate 16 Respiratory Pattern Normal Pulse Ox 98 Positive well nourished and well developed General Appearance ED: well developed and NAD HEENT Reports EAC's normal, TM's clear, TM's normal bilaterally and moist mucous membranes HEENT Narrative: Congested, mild nasal turbinate edema no purulent discharge. No sinus tenderness. normocephalic and atraumatic Tympanic Membrane ED: Yes TM's clear Throat: Negative for posterior oropharynx abnormal Eyes PERRL and EOMs intact bilaterally Neck no lymphadenopathy, supple and no meningeal signs Resp normal respiratory effort and clear to auscultation bilaterally Cardio no murmurs Rate: regular rate and tachycardic Rhythm: regular rhythm Neuro oriented x3, CN's II-XII intact bilaterally and no sensory deficits noted Sensorium / Orientation: alert Motor Exam: strength 5/5 throughout Skin Lesions: no lesions Rashes: no rashes MDM MDM MDM Narrative Medical decision making narrative: Patient was offered Benadryl but he does not want to be sleepy right now, so he was given 50 mg to take when he gets home later, in addition to a dose of loratadine and I will instill Tammy mix into his nose which contains phenylephrine. Supportive care advised. Patient without a PCP, referred to the next doctor on the unassigned list Dr. Moon. Discharge Plan Triage Chief Complaint: Cold Sx ED Provider: Eric Martinez Dx/Rx/DC Orders Clinical Impression: Acute allergic rhinitis due to pollen, Anxiety Instructions: ED Allergic Rhinitis Prescriptions: New fluticasone propionate 50 mcg/actuation spray,suspension 1 spray intranasal DAILY Qty: 16 RF: 0 hydroxyzine HCl 25 mg tablet 50 mg PO TID PRN (Reason: anxiety) Qty: 15 RF: 0 No Action quetiapine 200 mg tablet 200 mg PO DAILY RF: 0 metoprolol succinate 50 mg tablet extended release 24 hr 50 mg PO DAILY Qty: 90 RF: 3 sertraline 100 mg tablet 100 mg PO DAILY RF: 0 lorazepam 0.5 mg tablet 0.5 mg PO QHS PRN PRN (Reason: Anxiety) RF: 0 metformin 500 mg tablet 500 mg PO BID Qty: 60 RF: 0 Primary Care Provider: Care Physician,No Primary Referrals: German Moon MD [STAFF PHYSICIAN] - As Needed (for primary care) Care Physician,No Primary [Primary Care Provider] - Disposition Disposition: Home, Self Care
[2022-03-13] MEDS: DiphenhydrAMINE 25 MG Capsule 50 MG PO (20:25)
[2022-03-13] MEDS: Mixture 30 ML Bottle 5 ML TOPICAL (20:25)
[2022-03-13] MEDS: Loratadine 10 MG Tablet PO (20:25)
== END 2022-03-13 20:43 | disposition home or self-care (01) ==
PROVIDERS: Emergency Provider Emergency Medicine; Visit Provider Emergency Medicine
DX: J30.1 Allergic rhinitis due to pollen (principal); I48.91 Unspecified atrial fibrillation; E11.9 Type 2 diabetes mellitus without complications; I10 Essential (primary) hypertension; F41.9 Anxiety disorder, unspecified; F12.90 Cannabis use, unspecified, uncomplicated; Z79.899 Other long term (current) drug therapy; Z79.84 Long term (current) use of oral hypoglycemic drugs; F32.A Depression, unspecified
CPT/HCPCS: 99283

== ENCOUNTER → 2022-03-13 | Outpatient (CLI) | payer MEDICAID, SELFPAY | END | disposition home or self-care (01) | LOC: CVS 06:36 | PROVIDERS: Visit Provider Emergency Medicine | DX: Z00.00 Encounter for general adult medical examination without abnormal findings (principal) ==

== ENCOUNTER 2022-05-09 06:59 | Emergency (ER) | payer MEDICAID, SELFPAY ==
[2022-05-09 07:00] VITALS: BP 160/105; PULSE 90; RESP 18; TEMP 36.1; O2SAT 98; BMI 29.5
--- NOTE | 2022-05-09 07:11 | EX.ED.DYSGE1 ---
HPI History of Present Illness Chief Complaint: Anxiety Informant: patient Narrative Narrative: History of type 2 diabetes presenting 2-day history of polyuria polydipsia. No fevers. No nausea or vomiting. Previously in ED 2 months ago started on metformin. He states he ran out. He has been unable to establish a PCP due to insurance transition. He does not check his sugars. However it feels similar to when was high in the past. He states history of anxiety due to the symptoms have been increasing anxiety. No suicidal homicidal ideations. Reviewing records, history of paroxysmal atrial fibrillation followed by cardiology last seen at the end of February. He is on metoprolol.. 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) New onset atrial fibrillation (10/04/21) Panic disorder Seizure (10/2019) Tetrahydrocannabinol (THC) use disorder, mild, abuse Type 2 diabetes mellitus Home Medications metoprolol succinate 50 mg tablet,extended release 24 hr 50 mg PO DAILY #90 tabs 11/03/21 [Rx Last Taken Unknown] quetiapine 200 mg tablet 200 mg PO DAILY 11/03/21 [History Last Taken Unknown] fluticasone propionate 50 mcg/actuation nasal spray,suspension 1 spray intranasal DAILY #16 grams 03/13/22 [Rx Last Taken Unknown] hydroxyzine HCl 25 mg tablet 50 mg PO TID PRN anxiety #15 tabs 03/13/22 [Rx Last Taken Unknown] lorazepam 0.5 mg tablet 0.5 mg PO QHS PRN PRN Anxiety 03/13/22 [History Last Taken Unknown] metformin 500 mg tablet 500 mg PO BID #60 tabs 03/13/22 [Rx Last Taken Unknown] sertraline 100 mg tablet 100 mg PO DAILY 03/13/22 [History Last Taken Unknown] metformin 500 mg tablet 500 mg PO BID #60 tabs 05/09/22 [Rx Last Taken Unknown] Allergy/AdvReac Type Severity Reaction Status Date / Time etomidate AdvReac Other Verified 05/09/22 07:01 Family History Father Myocardial infarction Mother Hypertension Sister CVA (cerebral vascular accident) Surgical History History of ankle surgery Social History household members: significant other Smoking Status: Never smoker alcohol intake: current alcohol intake frequency: a few times a month substance use type: marijuana ROS ROS ED Constitutional Constitutional ED: Denies chills, fever(s) or sweats Eyes Eyes: Denies change in vision ENT ENT ED: Denies dysphagia or sore throat Cardiovascular Cardiovascular: Denies chest pain, leg edema, palpitations or racing heartbeat Respiratory/Chest Respiratory/Chest: Denies cough, dyspnea or dyspnea on exertion Gastrointestinal Gastrointestinal: Denies abdominal pain, diarrhea, nausea or vomiting Genitourinary Genitourinary ED: Denies dysuria, hematuria or urinary frequency Musculoskeletal Musculoskeletal: Denies back pain, extremity pain or neck pain Integumentary Denies rash or wounds Neurologic Neurologic: Denies headache(s), paresthesias or weakness Endocrine Endocrinology: Reports polydipsia and polyuria EXAM Physical Exam Const Vital Signs: 05/09/22 07:00 05/09/22 07:50 05/09/22 11:10 Temperature 96.9 F L 98.2 F Temperature Source Temporal Oral Pulse Rate 90 78 71 Respiratory Rate 18 18 16 Blood Pressure 160/105 H 139/97 H 142/91 H Blood Pressure Mean 123 111 108 Pulse Ox 98 99 99 Oxygen Delivery Method Room Air Room Air Room Air Positive well nourished and well developed Constitutional Narrative: Nontoxic General Appearance ED: well developed and NAD HEENT HEENT Narrative: Mild dry mucosal membranes normocephalic and atraumatic Eyes PERRL, EOMs intact bilaterally and conjunctivae normal General Eye ED: Yes normal appearance of both eyes Neck no lymphadenopathy and supple General: Negative for tenderness Chest Wall Chest: Negative for tenderness Resp normal respiratory effort and normal air movement Effort and Inspection: symmetric chest movement; Negative for respiratory distress Cardio regular rate, regular rhythm and no murmurs Peripheral Pulses: pulses 2+ throughout GI normal to inspection, nondistended, normoactive bowel sounds and non-tender Palpation: Negative for guarding or rebound tenderness present Back/Spine no CVA tenderness and no thoracic nor lumbar tenderness Extremity normal to inspection General Extremety ED: Negative for edema or tenderness General Extremity: Negative for edema Neuro oriented x3 and no sensory deficits noted Sensorium / Orientation: awake and alert Skin no rashes or lesions noted and no wounds MDM MDM MDM Narrative Medical decision making narrative: Patient vital stable slight dry mucosal membranes with polyuria and polydipsia. 2 L of fluid ordered. Fingerstick glucose on arrival 389. Lower suspicion for DKA with no vomiting or respiratory distress. Labs sent glucose 387 gap of 10. He will be given 10 units of insulin. Awaiting urine. Further discussion with patient I diagnosed diabetes 5 years ago with DKA at that time. Has not been able to follow-up with the primary for continued treatment education since then. He moved here from [place]. We will plan to refer to endocrinology in the area. We will plan to restart metformin. 1120: Feeling better after IV fluids. Recheck glucose 266. Follow-up given endocrinology. Prescription for metformin for 1 month supply. Lab Data Attestation: I reviewed the patient's lab results. Labs: Laboratory Results - last 24 hr 05/09/22 05/09/22 05/09/22 07:03 07:45 07:45 WBC 4.6 RBC 5.60 Hgb 15.1 Hct 45.6 MCV 81.4 MCH 27.0 MCHC 33.1 RDW Std Deviation 41.0 RDW Coeff of Maria A 14.1 Plt Count 114 L MPV 12.2 H Immature Gran % (Auto) 0.200 Neut % (Auto) 34.5 L Lymph % (Auto) 53.0 H Bartholomew % (Auto) 10.6 H Eos % (Auto) 0.6 Baso % (Auto) 1.1 H Absolute Neuts (auto) 1.6 L Absolute Lymphs (auto) 2.45 Nucleated RBC % 0 Sodium 134 L Potassium 3.5 Chloride 96 L Carbon Dioxide 28.0 Anion Gap 10 BUN 6 L Creatinine 1.08 Estim Creat Clear Calc 102.65 Est GFR (MDRD) Af Amer 100 Est GFR (MDRD) Non-Af 83 BUN/Creatinine Ratio 5.6 L Glucose 387 H Calcium 9.4 Urine Color Urine Clarity Urine pH Ur Specific [place] Urine Protein Urine Glucose (UA) Urine Ketones Urine Occult Blood Urine Nitrite Urine Bilirubin Urine Urobilinogen Ur Leukocyte Esterase Urine RBC Urine WBC Ur Squamous Epith Cells Urine Bacteria Urine Mucus POC Glucose 389 H 05/09/22 05/09/22 07:54 10:02 WBC RBC Hgb Hct MCV MCH MCHC RDW Std Deviation RDW Coeff of Maria A Plt Count MPV Immature Gran % (Auto) Neut % (Auto) Lymph % (Auto) Bartholomew % (Auto) Eos % (Auto) Baso % (Auto) Absolute Neuts (auto) Absolute Lymphs (auto) Nucleated RBC % Sodium Potassium Chloride Carbon Dioxide Anion Gap BUN Creatinine Estim Creat Clear Calc Est GFR (MDRD) Af Amer Est GFR (MDRD) Non-Af BUN/Creatinine Ratio Glucose Calcium Urine Color Straw Urine Clarity Sl. Cloudy Urine pH 7.0 Ur Specific [place] 1.005 Urine Protein Negative Urine Glucose (UA) 1000 H Urine Ketones Negative Urine Occult Blood Negative Urine Nitrite Negative Urine Bilirubin Negative Urine Urobilinogen Normal Ur Leukocyte Esterase Negative Urine RBC 0-5 SEEN Urine WBC 0 SEEN Ur Squamous Epith Cells 0-5 SEEN Urine Bacteria 0 SEEN Urine Mucus 0 SEEN POC Glucose 342 H Discharge Plan Triage Chief Complaint: Anxiety ED Provider: Toy Chaudhry Dx/Rx/DC Orders Clinical Impression: Type 2 diabetes mellitus, Polyuria, Polydipsia, Essential hypertension Instructions: Diabetes: Caring for Your Body, Diabetes: Living Your Life Prescriptions: New metformin 500 mg tablet 500 mg PO BID Qty: 60 0RF No Action quetiapine 200 mg tablet 200 mg PO DAILY metoprolol succinate 50 mg tablet extended release 24 hr 50 mg PO DAILY Qty: 90 3RF sertraline 100 mg tablet 100 mg PO DAILY Label Comments: TAKE 1 TABLET BY MOUTHTONCE DAILY lorazepam 0.5 mg tablet 0.5 mg PO QHS PRN PRN (Reason: Anxiety) Label Comments: TAKE 1 TABLET BY MOUTHNONCE PER DAY NEEDED TOELAST 30 DAYS metformin 500 mg tablet 500 mg PO BID Qty: 60 0RF fluticasone propionate 50 mcg/actuation spray,suspension 1 spray intranasal DAILY Qty: 16 0RF Rx Instructions: administer into each nostril hydroxyzine HCl 25 mg tablet 50 mg PO TID PRN (Reason: anxiety) Qty: 15 0RF Primary Care Provider: Care Physician,No Primary Referrals: Meet Valladares MD [STAFF PHYSICIAN] - 1 Week Urbano Negron MD [STAFF PHYSICIAN] - 1 Week Care Physician,No Primary [Primary Care Provider] - Disposition Disposition: Home, Self Care
[2022-05-09 07:21] LABS: Bedside Glucose 389 mg/dL (74-106)
[2022-05-09] MEDS: 0.9% Normal Saline 1,000 ML 999 ML IV ×2 (07:48→09:10)
[2022-05-09 07:50] VITALS: BP 139/97; PULSE 78; RESP 18; TEMP 36.8; O2SAT 99
[2022-05-09 08:01] LABS: Absolute Lymphocyte Count 2.45 X10^3/uL (0.83-4.51); Absolute Neutrophil Count 1.6 X10^3/uL (2.0-7.7); Basophil# 0.05 X10^3/uL; Basophil% 1.1 % (0-1); Eosinophil# 0.03 X10^3/uL; Eosinophils% 0.6 % (0-5); Hematocrit 45.6 % (40-54); Hemoglobin 15.1 g/dL (13.0-16.5); Lymphocyte # 2.45 X10^3/ul (0.83-4.51); Mean Corp Hgb Conc 33.1 g/dL (32-36); Mean Corpuscular Volume 81.4 fL (80-94); Mean Platelet Vol. 12.2 fl (6.2-12.0); Monocyte# 0.49 X10^3/uL; Monocyte% 10.6 % (0-10); NRBC Flagged by Analyzer 0 % (0-5); Neutrophil # 1.59 X10^3/uL (2.7-7.7); Neutrophil % 34.5 % (47-70); Platelet Count 114 K/mm3 (150-450); RBC Distribution Width CV 14.1 % (11.6-14.6); White Blood Count 4.6 K/mm3 (4.4-11.0)
[2022-05-09 08:15] LABS: Anion Gap 10 (5-15); BUN 6 mg/dL (7-18); BUN/Creat Ratio 5.6 RATIO (10-20); Calcium,Total 9.4 mg/dL (8.5-10.1); Chloride 96 mmol/L (98-107); Creatinine, Serum 1.08 mg/dL (0.70-1.30); EST Glomerular Filtration Rate 83 mL/min (>60); Est Glom Filt Rate - Afr Amer 100 mL/min (>60); Estimated Creatinine Clearance 102.65 ml/min; Glucose 387 mg/dL (74-106); Potassium 3.5 mmol/L (3.5-5.1); Sodium Level 134 mmol/L (136-145)
[2022-05-09 08:16] LABS: Bedside Glucose 342 mg/dL (74-106)
[2022-05-09] MEDS: Insulin Lispro 100 UNIT/ML INSULN.PEN 10 UNIT SC (08:29)
[2022-05-09 10:06] LABS: Bacteria 0 SEEN /hpf (None Seen); Mucous, Urine 0 SEEN /hpf (<or=2+); White Blood Cells 0 SEEN /hpf (0-5)
--- NOTE | 2022-05-09 10:22 | CM.ED ---
SW Note SW met with MD. Patient does not have anxiety issues and no SW needs at this time. Agustina CLARK
[2022-05-09 10:23] LABS: Color, Urine Straw (Yellow); Glucose, Dipstick 1000 mg/dl (Normal); Ketone-Dipstick Negative (Negative); Leukocyte Esterase-Dipstick Negative /ul (Negative); Nitrite-Dipstick Negative (Negative); Occult Blood-Urine Negative /ul (Negative); Protein-Dipstick Negative (Negative); Specific Gravity, Urine 1.005 (1.002-1.030); Urine Bilirubin Dipstick Negative (Negative); Urine Clarity Sl. Cloudy (Clear); Urine Urobilinogen Normal (Normal)
[2022-05-09 10:45] LABS: Red Blood Cells-Urine 0-5 SEEN /hpf (0-5); Squamous Epithelial Cells - UA 0-5 SEEN /hpf (0-5)
[2022-05-09 11:10] VITALS: BP 142/91; PULSE 71; RESP 16; O2SAT 99
[2022-05-09 11:30] LABS: Bedside Glucose 266 mg/dL (74-106)
[2022-05-09 11:37] VITALS: BP 141/69; PULSE 82; RESP 16; O2SAT 98
== END 2022-05-09 11:37 | disposition home or self-care (01) ==
PROVIDERS: Emergency Provider Emergency Medicine; Visit Provider Emergency Medicine
DX: E11.9 Type 2 diabetes mellitus without complications (principal); R35.89 Other polyuria; R63.1 Polydipsia; I10 Essential (primary) hypertension; F41.9 Anxiety disorder, unspecified; Z79.84 Long term (current) use of oral hypoglycemic drugs; Z79.899 Other long term (current) drug therapy
CPT/HCPCS: 80048; 81001; 82962; 85025; 96360; 96361; 99283; J7030; A4216

== ENCOUNTER 2022-07-01 23:12 | Emergency (ER) | payer MEDICAID, SELFPAY ==
[2022-07-01 23:13] VITALS: BP 154/101; PULSE 121; RESP 18; TEMP 37.1; O2SAT 99; BMI 29.2
--- NOTE | 2022-07-01 23:16 | ED.RN ---
PT DECIDED HE DID NOT WANT TO BE SEEN.
== END 2022-07-01 23:16 | disposition left against medical advice (07) ==
LOC: ED 23:21
DX: Z53.21 Procedure and treatment not carried out due to patient leaving prior to being seen by health care provider (principal)

== ENCOUNTER 2022-07-20 23:41 | Emergency (ER) | payer MEDICAID, SELFPAY ==
[2022-07-20 23:42] VITALS: BP 153/96; PULSE 109; RESP 15; TEMP 36.6; O2SAT 95; BMI 31.4
--- NOTE | 2022-07-20 23:53 | EX.ED.VIS.PS ---
HPI HPI - Psych History of Present Illness Chief Complaint: Anxiety Informant: patient Onset/Context/Timing Onset: Days Context: Gradual Onset Timing: Intermittent Current Severity: Mild Maximum Severity: Mild Narrative Narrative: 37-year-old male history of A. fib, diabetes and anxiety. He suffers from panic attacks. Currently he is out of his Ativan. Has no primary care physician. Follows up with the counseling center. States that he just been more anxious lately. He is not suicidal or homicidal. He is done no self-harm. Denies recent illness. 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) New onset atrial fibrillation (10/04/21) Panic disorder Seizure (10/2019) Tetrahydrocannabinol (THC) use disorder, mild, abuse Type 2 diabetes mellitus Home Medications metoprolol succinate 50 mg tablet,extended release 24 hr 50 mg PO DAILY #90 tabs 11/03/21 [Rx Last Taken Unknown] quetiapine 200 mg tablet 200 mg PO DAILY 11/03/21 [History Last Taken Unknown] fluticasone propionate 50 mcg/actuation nasal spray,suspension 1 spray intranasal DAILY #16 grams 03/13/22 [Rx Last Taken Unknown] hydroxyzine HCl 25 mg tablet 50 mg PO TID PRN anxiety #15 tabs 03/13/22 [Rx Last Taken Unknown] lorazepam 0.5 mg tablet 0.5 mg PO QHS PRN PRN Anxiety 03/13/22 [History Last Taken Unknown] metformin 500 mg tablet 500 mg PO BID #60 tabs 03/13/22 [Rx Last Taken Unknown] sertraline 100 mg tablet 100 mg PO BID 03/13/22 [History Last Taken Unknown] metformin 500 mg tablet 500 mg PO BID #60 tabs 05/09/22 [Rx Last Taken Unknown] lorazepam 1 mg tablet (Ativan) 1 mg PO DAILY PRN anxiety 5 days #5 tabs 07/20/22 [Rx Last Taken Unknown] Allergy/AdvReac Type Severity Reaction Status Date / Time etomidate AdvReac Other Verified 07/20/22 23:45 Family History Father Myocardial infarction Mother Hypertension Sister CVA (cerebral vascular accident) Surgical History History of ankle surgery Social History household members: significant other Smoking Status: Never smoker alcohol intake: current alcohol intake frequency: a few times a month substance use type: marijuana ROS ROS ED ROS Narrative Anxiety. Review of Systems ROS Unobtainable: Denies due to encephalopathy Constitutional Constitutional ED: Denies chills or fever(s) Eyes Eyes: Denies blurry vision ENT ENT ED: Denies ear pain Cardiovascular Cardiovascular: Denies chest pain Respiratory/Chest Respiratory/Chest: Denies cough or dyspnea Gastrointestinal Gastrointestinal: Denies abdominal pain Genitourinary Genitourinary ED: Denies dysuria or hematuria Musculoskeletal Musculoskeletal: Denies arthralgias Integumentary Denies abscess Neurologic Neurologic: Denies headache(s) Psychiatric Psychiatric: Reports anxiety; Denies suicidal ideation or suicidal thoughts Endocrine Endocrinology: Denies polydipsia Hematologic/Lymphatic Hematologic/Lymphatic: Denies easy bleeding Allergic/Immunologic Allergic/Immunologic ED: Denies mouth swelling or tongue swelling EXAM Physical Exam Narrative Exam Narrative: Well-appearing 37-year-old male no acute distress. Lying in bed. Vital signs stable afebrile. H EENT exam unremarkable. Lungs are clear. Heart regular rhythm no murmur rate about 105. Chest were nontender. Abdomen soft nontender. Moving all 4 extremities. No deformity. No injuries. Back nontender. Neurologically is awake and alert with no focal motor deficits. Clinically appears well. Makes good eye contact. Forthcoming with information. Answers questions. Const Vital Signs: 07/20/22 23:42 Temperature 97.9 F Temperature Source Temporal Pulse Rate 109 H Respiratory Rate 15 Blood Pressure 153/96 H Blood Pressure Mean 115 Pulse Ox 95 Oxygen Delivery Method Room Air Positive well nourished, well developed and unkempt; Negative for cachectic or contractures General Appearance ED: unkempt, well developed and NAD; Negative for cachectic, contractures or pallor Nutritional Appearance: Negative for cachectic HEENT Reports moist mucous membranes normocephalic and atraumatic; Negative for trauma or tenderness Eyes PERRL and EOMs intact bilaterally General Eye ED: Negative for pale conjunctiva or scleral icterus Neck no lymphadenopathy, supple and no JVD General: Negative for tenderness Resp normal respiratory effort and clear to auscultation bilaterally Effort and Inspection: Negative for retractions Auscultation: Negative for rales, rhonchi or wheezes Cardio S1 normal heart sound, S2 normal heart sound and no murmurs Palpation: Negative for other Rate: tachycardic Rhythm: regular rhythm GI non-tender, non-distended and no masses Inspection: Negative for abdominal distention Auscultation: normoactive bowel sounds Palpation: soft; Negative for tender Back/Spine no CVA tenderness General Back: Negative for CVA tenderness Cervical Spine: Negative for cervical spine tenderness Thoracic Spine / Upper Back: Negative for thoracic spinal tenderness Lumbar Spine / Lower Back: Negative for lumbar spinal tenderness Coccyx: Negative for other Extremity normal to inspection General Extremety ED: Negative for edema or tenderness General Extremity: Negative for edema Neuro oriented x3, CN's II-XII intact bilaterally and no sensory deficits noted Sensorium / Orientation: alert, oriented to person, oriented to place and oriented to time; Negative for orientation impaired, confused, lethargic or stuporous Motor Exam: strength 5/5 throughout Psych mental status grossly normal, thought process normal, cooperative, affect normal, speech normal, activity/motor behavior normal, denies hallucinations, denies homicidal ideation and denies suicidal ideation Appearance: grossly normal, appropriate, well kempt and unkempt; Negative for disheveled, bizarre or intubated Attitude: calm, engaged, No paranoid, No withdrawn, No bizarre, No uncooperative, No evasive, No guarded, No belligerent and No agitated Activity / Motor Behavior: appropriate eye contact; Negative for psychomotor agitation, psychomotor slowing or fidgetting Speech: normal speech, No incoherent, No excessive and No minimal Mood & Affect: euthymic mood Thought Process: normal thought process, No impoverished and No loose associations Thought Content: normal thought content, No suicidality and No homicidality Attention / Concentration: attention grossly intact Memory / Cognition: memory grossly intact Insight: insight good; Negative for fair Judgement: judgement good Skin General Skin Exam: Negative for jaundice or pallor Lesions: no lesions Rashes: no rashes Trauma: Negative for abrasion Wounds: Negative for amputation MDM MDM MDM Narrative Medical decision making narrative: 37-year-old male history of anxiety. To be given 1 p.o. Ativan here. Prescription for 5. Otherwise follow-up with the counseling center who is seen before in the past. Exam benign. He is calm and has a normal exam. Discharge Plan Triage Chief Complaint: Anxiety ED Provider: Alexis Montes Dx/Rx/DC Orders Clinical Impression: Anxiety, Has run out of medications, History of diabetes mellitus, History of chronic atrial fibrillation Instructions: ED Anxiety Reaction Prescriptions: New lorazepam [Ativan] 1 mg tablet 1 mg PO DAILY PRN (Reason: anxiety) 5 Days Qty: 5 0RF No Action quetiapine 200 mg tablet 200 mg PO DAILY metoprolol succinate 50 mg tablet extended release 24 hr 50 mg PO DAILY Qty: 90 3RF sertraline 100 mg tablet 100 mg PO BID Label Comments: TAKE 1 TABLET BY MOUTHTONCE DAILY lorazepam 0.5 mg tablet 0.5 mg PO QHS PRN PRN (Reason: Anxiety) Label Comments: TAKE 1 TABLET BY MOUTHNONCE PER DAY NEEDED TOELAST 30 DAYS metformin 500 mg tablet 500 mg PO BID Qty: 60 0RF fluticasone propionate 50 mcg/actuation spray,suspension 1 spray intranasal DAILY Qty: 16 0RF Rx Instructions: administer into each nostril hydroxyzine HCl 25 mg tablet 50 mg PO TID PRN (Reason: anxiety) Qty: 15 0RF metformin 500 mg tablet 500 mg PO BID Qty: 60 0RF Primary Care Provider: Care Physician,No Primary Referrals: Counseling,Center [Group of Physicians] - As soon as possible Salinas Parnell MD [Med Staff - Human Resources Operations Coordinator] - 1-2 Weeks Care Physician,No Primary [Primary Care Provider] - Activity Restrictions/Additional Instructions: Ativan as needed for anxiety. Follow-up with the counseling center. Return if worse. Follow-up with a local primary care physician. Disposition Disposition: Home, Self Care
[2022-07-21] MEDS: LORazepam 1 MG Tablet PO (00:08)
== END 2022-07-21 00:10 | disposition home or self-care (01) ==
LOC: ED 23:59
PROVIDERS: Emergency Provider Emergency Medicine; Visit Provider Emergency Medicine
DX: F41.9 Anxiety disorder, unspecified (principal); I48.20 Chronic atrial fibrillation, unspecified; E11.9 Type 2 diabetes mellitus without complications; I10 Essential (primary) hypertension; F32.A Depression, unspecified; Z79.899 Other long term (current) drug therapy
CPT/HCPCS: 99282

== ENCOUNTER 2022-08-01 12:37 | Emergency (ER) | payer MEDICAID, SELFPAY ==
[2022-08-01 12:38] VITALS: BP 159/92; PULSE 116; RESP 18; TEMP 36; O2SAT 99; BMI 31.8
[2022-08-01 12:44] VITALS: PULSE 103
--- NOTE | 2022-08-01 13:01 | EDS_ITS ---
HPI History of Present Illness Chief Complaint: Chest Pain Informant: patient Onset/Context/Timing Onset: Today Timing: Waxes and wanes Quality: Positive for Pressure (Heart kicks hard) Location: Substernal Current Severity: Mild Maximum Severity: Moderate Narrative Narrative: Patient presents with chest pain and palpitations that been occurring over the past 20 minutes or so. He has a history of A. fib but does not follow with a electromechanical inspector on a regular basis. He reports feeling well this morning. He denies shortness of breath or cough. 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) New onset atrial fibrillation (10/04/21) Panic disorder Seizure (10/2019) Tetrahydrocannabinol (THC) use disorder, mild, abuse Type 2 diabetes mellitus Home Medications metoprolol succinate 50 mg tablet,extended release 24 hr 50 mg PO DAILY #90 tabs 11/03/21 [Rx Last Taken Unknown] quetiapine 200 mg tablet 200 mg PO DAILY 11/03/21 [History Last Taken Unknown] fluticasone propionate 50 mcg/actuation nasal spray,suspension 1 spray intranasal DAILY #16 grams 03/13/22 [Rx Last Taken Unknown] hydroxyzine HCl 25 mg tablet 50 mg PO TID PRN anxiety #15 tabs 03/13/22 [Rx Last Taken Unknown] lorazepam 0.5 mg tablet 0.5 mg PO QHS PRN PRN Anxiety 03/13/22 [History Last Taken Unknown] metformin 500 mg tablet 500 mg PO BID #60 tabs 03/13/22 [Rx Last Taken Unknown] sertraline 100 mg tablet 100 mg PO BID 03/13/22 [History Last Taken Unknown] metformin 500 mg tablet 500 mg PO BID #60 tabs 05/09/22 [Rx Last Taken Unknown] lorazepam 1 mg tablet (Ativan) 1 mg PO DAILY PRN anxiety 5 days #5 tabs 07/20/22 [Rx Last Taken Unknown] Allergy/AdvReac Type Severity Reaction Status Date / Time etomidate AdvReac Other Verified 08/01/22 12:38 Family History Father Myocardial infarction Mother Hypertension Sister CVA (cerebral vascular accident) Surgical History History of ankle surgery Social History household members: significant other Smoking Status: Never smoker alcohol intake: current alcohol intake frequency: a few times a month substance use type: marijuana ROS ROS ED Constitutional Constitutional ED: Denies chills or fever(s) Eyes Eyes: Denies change in vision or discharge from eye(s) ENT ENT ED: Denies discharge from eye(s), rhinorrhea or sore throat Cardiovascular Cardiovascular: Reports chest pain and palpitations Respiratory/Chest Respiratory/Chest: Denies cough or dyspnea Gastrointestinal Gastrointestinal: Denies abdominal pain, diarrhea, nausea or vomiting Genitourinary Genitourinary ED: Denies difficulty urinating or dysuria Musculoskeletal Musculoskeletal: Denies back pain or extremity pain Integumentary Denies Abrasions or rash Neurologic Neurologic: Denies headache(s) or weakness Psychiatric Psychiatric: Denies anxiety or depression Allergic/Immunologic Allergic/Immunologic ED: Denies lip swelling or urticaria EXAM Physical Exam Const Vital Signs: 08/01/22 12:38 08/01/22 12:44 08/01/22 12:45 Temperature 96.8 F L Temperature Source Temporal Pulse Rate 116 H 103 H Respiratory Rate 18 Respiratory Effort Normal Non-Labored Blood Pressure 159/92 H Blood Pressure Mean 114 Pulse Ox 99 Oxygen Delivery Method Room Air 08/01/22 13:01 Temperature Temperature Source Pulse Rate Respiratory Rate Respiratory Effort Blood Pressure Blood Pressure Mean Pulse Ox Oxygen Delivery Method Room Air Positive well nourished and well developed General Appearance ED: well developed HEENT Reports normocephalic and head/scalp atraumatic Eyes PERRL and EOMs intact bilaterally Neck supple Chest Wall inspection of chest normal and palpation of chest normal Resp normal respiratory effort and clear to auscultation bilaterally Cardio regular rate and regular rhythm GI normal to inspection, nondistended, normoactive bowel sounds Palpation: soft Extremity normal to inspection Neuro oriented x3 and no sensory deficits noted Sensorium / Orientation: alert Motor Exam: strength 5/5 throughout Psych mental status grossly normal Skin no rashes or lesions noted Heart Score History: Slightly/Non-Suspicious ECG: Normal Age: </= 45 years Risk Factors: 1 or 2 Risk Factors Score: 1 MDM MDM MDM Narrative Medical decision making narrative: EKG, chest x-ray, lab work ordered. Patient given aspirin. EKG Initial EKG: Attestation: I personally reviewed and interpreted this EKG as follows: Interpretation: Sinus Rhythm (Sinus at [address] change. Nonspecific T wave changes noted.) Treatment and Re-Evaluation Narrative: EKG is sinus at 93 with no acute ischemia. Nursing staff states they went in to stop the patient's IV line. He stated that he had some where he needed to be and could not stay for testing. He states his pain is completely resolved at this time and he wishes to leave. He signed AMA paper work and left the emergency room without further work-up or evaluation. Discharge Plan Triage Chief Complaint: Chest Pain ED Provider: Tomasa Mazariegos Dx/Rx/DC Orders Clinical Impression: Chest pain Prescriptions: No Action quetiapine 200 mg tablet 200 mg PO DAILY metoprolol succinate 50 mg tablet extended release 24 hr 50 mg PO DAILY Qty: 90 3RF sertraline 100 mg tablet 100 mg PO BID Label Comments: TAKE 1 TABLET BY MOUTHTONCE DAILY lorazepam 0.5 mg tablet 0.5 mg PO QHS PRN PRN (Reason: Anxiety) Label Comments: TAKE 1 TABLET BY MOUTHNONCE PER DAY NEEDED TOELAST 30 DAYS metformin 500 mg tablet 500 mg PO BID Qty: 60 0RF fluticasone propionate 50 mcg/actuation spray,suspension 1 spray intranasal DAILY Qty: 16 0RF Rx Instructions: administer into each nostril hydroxyzine HCl 25 mg tablet 50 mg PO TID PRN (Reason: anxiety) Qty: 15 0RF metformin 500 mg tablet 500 mg PO BID Qty: 60 0RF lorazepam [Ativan] 1 mg tablet 1 mg PO DAILY PRN (Reason: anxiety) 5 Days Qty: 5 0RF Primary Care Provider: Care Physician,No Primary Referrals: Care Physician,No Primary [Primary Care Provider] - Disposition Disposition: Against Medical Advice Discharge Date/Time: 08/01/22 14:05
--- NOTE | 2022-08-01 13:01 | EKG12_ITS ---
Test Reason : CP Blood Pressure : / mmHG Vent. Rate : 093 BPM Atrial Rate : 093 BPM P-R Int : 186 ms QRS Dur : 092 ms QT Int : 334 ms P-R-T Axes : 051 041 019 degrees QTc Int : 415 ms Normal sinus rhythm Nonspecific T wave abnormality Abnormal ECG Confirmed by ROSARIO LUIS, MUKESH ([id number]), design editor JOCELYN HOOPER ([id number]) on 08/03/2022 6:37:50 AM Referred By: Confirmed By:MUKESH PONCE MD
--- NOTE | 2022-08-01 13:41 | CM.ED ---
SW Note Referral Source: Case Find Referral Reason: No Primary Care Physician (PCP) SW reviewed chart and noted that patient has no PCP. SW provided patient with list of [facility] and [facility] Physician List for reference. No other issues or concerns voiced at this time. SW remains available for any additional needs. Plan: Provided patient with PCP information Agustina CLARK
== END 2022-08-01 14:05 | disposition left against medical advice (07) ==
PROVIDERS: Emergency Provider Emergency Medicine; Visit Provider Emergency Medicine
DX: R07.9 Chest pain, unspecified (principal); I48.91 Unspecified atrial fibrillation; E11.9 Type 2 diabetes mellitus without complications; I10 Essential (primary) hypertension; F41.9 Anxiety disorder, unspecified; F32.A Depression, unspecified; R00.2 Palpitations; Z79.899 Other long term (current) drug therapy; Z53.29 Procedure and treatment not carried out because of patient's decision for other reasons
CPT/HCPCS: 93005; 99283

== ENCOUNTER 2022-09-30 07:06 | Emergency (ER) | payer MEDICAID, SELFPAY ==
[2022-09-30 07:07] VITALS: BP 142/93; PULSE 118; RESP 16; TEMP 36.6; O2SAT 97; BMI 29.5
--- NOTE | 2022-09-30 07:21 | EX.ED.DYSGE1 ---
HPI History of Present Illness Chief Complaint: Anxiety Detail of Chief Complaint: Diarrhea, dehydration, anxiety Informant: patient Narrative Narrative: Patient presents the emergency department with complaint of diarrhea that started yesterday around noon. Patient's had about 6 watery stools. He denies vomiting. Denies abdominal pain. Denies blood in the stool or black tarry stool. Patient also states that he has been feeling more anxious and no longer has his Ativan. Patient denies feeling suicidal or homicidal. Patient denies sick contacts. He said no fever. He denies abdominal pain. Patient complains of a dry mouth. Patient has not checked his blood sugar today. 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) New onset atrial fibrillation (10/04/21) Panic disorder Seizure (10/2019) Tetrahydrocannabinol (THC) use disorder, mild, abuse Type 2 diabetes mellitus Home Medications metoprolol succinate 50 mg tablet,extended release 24 hr 50 mg PO DAILY #90 tabs 11/03/21 [Rx Last Taken Unknown] quetiapine 200 mg tablet 200 mg PO DAILY 11/03/21 [History Last Taken Unknown] fluticasone propionate 50 mcg/actuation nasal spray,suspension 1 spray intranasal DAILY #16 grams 03/13/22 [Rx Last Taken Unknown] hydroxyzine HCl 25 mg tablet 50 mg PO TID PRN anxiety #15 tabs 03/13/22 [Rx Last Taken Unknown] lorazepam 0.5 mg tablet 0.5 mg PO QHS PRN PRN Anxiety 03/13/22 [History Last Taken Unknown] metformin 500 mg tablet 500 mg PO BID #60 tabs 03/13/22 [Rx Last Taken Unknown] sertraline 100 mg tablet 100 mg PO BID 03/13/22 [History Last Taken Unknown] lorazepam 1 mg tablet (Ativan) 1 mg PO TID PRN anxiety #10 tabs 09/30/22 [Rx Last Taken Unknown] Allergy/AdvReac Type Severity Reaction Status Date / Time etomidate AdvReac Other Verified 09/30/22 07:10 Family History Father Myocardial infarction Mother Hypertension Sister CVA (cerebral vascular accident) Surgical History History of ankle surgery Social History household members: significant other Smoking Status: Never smoker alcohol intake: current alcohol intake frequency: a few times a month substance use type: marijuana ROS ROS ED Review of Systems ROS Unobtainable: other Constitutional Constitutional ED: Reports lethargy; Denies chills, fever(s), sweats or weight loss Eyes Eyes: Denies blurry vision, change in vision or diplopia ENT ENT ED: Reports other Details: Dry mouth ; Denies rhinorrhea or sore throat Cardiovascular Cardiovascular: Denies chest pain, orthopnea or racing heartbeat Respiratory/Chest Respiratory/Chest: Denies cough, dyspnea, dyspnea on exertion, orthopnea or sputum Gastrointestinal Gastrointestinal: Reports diarrhea; Denies abdominal pain, nausea or vomiting Genitourinary Genitourinary ED: Denies dysuria, hematuria or urinary frequency Musculoskeletal Musculoskeletal: Denies arthralgias, back pain, myalgias or neck pain Integumentary Denies abscess, Abrasions or rash Neurologic Neurologic: Denies headache(s) or weakness Psychiatric Psychiatric: Reports anxiety; Denies depression or suicidal thoughts Endocrine Endocrinology: Denies polydipsia, polyphagia or polyuria Hematologic/Lymphatic Hematologic/Lymphatic: Denies easy bleeding, easy bruising or lymphadenopathy Allergic/Immunologic Allergic/Immunologic ED: Denies mouth swelling, tongue swelling or urticaria EXAM Physical Exam Const Vital Signs: 09/30/22 07:07 09/30/22 07:33 Temperature 97.8 F Temperature Source Temporal Pulse Rate 118 H 102 H Respiratory Rate 16 18 Blood Pressure 142/93 H 135/76 H Blood Pressure Mean 109 95 Pulse Ox 97 94 Oxygen Delivery Method Room Air Room Air Positive well nourished and well developed General Appearance ED: well developed and NAD HEENT Reports TM's clear and moist mucous membranes normocephalic and atraumatic; Negative for trauma or tenderness Tympanic Membrane ED: Yes TM's clear Eyes PERRL and EOMs intact bilaterally General Eye ED: Negative for pale conjunctiva or scleral icterus Neck no lymphadenopathy, supple and no JVD General: Negative for tenderness Chest Wall inspection of chest normal and palpation of chest normal Chest: Negative for tenderness Resp normal respiratory effort and clear to auscultation bilaterally Effort and Inspection: Negative for respiratory distress or pain with movement Auscultation: Negative for rhonchi, wheezes or diminished lung sounds Cardio regular rhythm, S1 normal heart sound, S2 normal heart sound and no murmurs; Negative for regular rate Rate: tachycardic Peripheral Pulses: pulses 2+ throughout GI normal to inspection, nondistended, normoactive bowel sounds, soft to palpation, non-tender, non-distended and no masses Back/Spine no CVA tenderness and no thoracic nor lumbar tenderness Extremity normal to inspection General Extremety ED: Negative for edema General Extremity: Negative for edema Neuro oriented x3, CN's II-XII intact bilaterally, no sensory deficits noted and gait normal Sensorium / Orientation: awake, alert, oriented to person, oriented to place and oriented to time Motor Exam: strength 5/5 throughout and strength abnormal Psych mental status grossly normal Skin no rashes or lesions noted and no wounds MDM MDM MDM Narrative Medical decision making narrative: IV line established on arrival. Patient was given a liter normal saline fluid bolus. CBC with differential was normal. Chemistries were unremarkable. Blood sugar was elevated at 467. Patient did receive Ativan 1 mg IV. Patient felt significantly improved. Patient did not take his metformin today and has not been taking it as regular as he should he states. He does have the metformin at home. I did give him 1 dose of metformin in the emergency department. Patient I spoke likely has a viral gastroenteritis. I will write him a prescription for Ativan for his anxiety. Patient advised to push fluids. Patient to follow-up with his primary care physician within next 3 to 5 days. Lab Data Attestation: I reviewed the patient's lab results. Labs: Laboratory Results - last 24 hr 09/30/22 09/30/22 09/30/22 07:45 07:45 08:12 WBC Cancelled 7.0 Corrected WBC Cancelled RBC Cancelled 5.09 Hgb Cancelled 14.5 Hct Cancelled 42.2 MCV Cancelled 82.9 MCH Cancelled 28.5 MCHC Cancelled 34.4 RDW Std Deviation Cancelled 41.1 RDW Coeff of Maria A Cancelled 13.5 Plt Count Cancelled 118 L MPV Cancelled 13.1 H Immature Gran % (Auto) Cancelled 0.100 Neut % (Auto) Cancelled 69.0 Lymph % (Auto) Cancelled 20.1 [place] % (Auto) Cancelled 9.6 Eos % (Auto) Cancelled 0.6 Baso % (Auto) Cancelled 0.6 Absolute Neuts (auto) Cancelled 4.8 Absolute Lymphs (auto) Cancelled 1.40 Total Counted Cancelled Neutrophils % (Manual) Cancelled Band Neutrophils % Cancelled Lymphocytes % (Manual) Cancelled Monocytes % (Manual) Cancelled Eosinophils % (Manual) Cancelled Basophils % (Manual) Cancelled Metamyelocytes % Cancelled Myelocytes % Cancelled Promyelocytes % Cancelled Blast Cells % Cancelled Plasma Cell % (Manual) Cancelled Other Cells % Cancelled Nucleated RBC % Cancelled 0 Nucleated RBCs/100 WBC Cancelled Differential Comment Cancelled Diff Path Review Cancelled Hypersegmented Neuts Cancelled Atypical Lymphocytes Cancelled Reactive Lymphocytes Cancelled Smudge Cells Cancelled Toxic Granulation Cancelled Toxic Vacuolation Cancelled Dohle Bodies Cancelled Nissa Rods Cancelled Platelet Estimate Cancelled Plt Morphology Comment Cancelled RBC Morphology Cancelled Polychromasia Cancelled Hypochromasia Cancelled Poikilocytosis Cancelled Basophilic Stippling Cancelled Anisocytosis Cancelled Microcytosis Cancelled Macrocytosis Cancelled Spherocytes Cancelled Sickle Cells Cancelled Target Cells Cancelled Tear Drop Cells Cancelled Ovalocytes Cancelled Stomatocytes Cancelled Jeff-[place] Bodies Cancelled Abraham Cells Cancelled Bite Cells Cancelled Crenated Cell Cancelled Acanthocytes (Spur) Cancelled Rouleaux Cancelled Schistocytes Cancelled Sodium 135 L Potassium 4.3 Chloride 102 Carbon Dioxide 26.0 Anion Gap 7 BUN 12 Creatinine 1.06 Estim Creat Clear Calc 103.60 Est GFR (MDRD) Af Amer 102 Est GFR (MDRD) Non-Af 84 BUN/Creatinine Ratio 11.3 Glucose 467 H* Calcium 8.9 Discharge Plan Triage Chief Complaint: Anxiety ED Provider: Ruben Gómez Dx/Rx/DC Orders Clinical Impression: Acute hyperglycemia, Viral enteritis, Anxiety Instructions: High Blood Sugar (Hyperglycemia), ED Anxiety Reaction, ED Diarrhea, Viral (Adult) Prescriptions: New lorazepam [Ativan] 1 mg tablet 1 mg PO TID PRN (Reason: anxiety) Qty: 10 0RF No Action quetiapine 200 mg tablet 200 mg PO DAILY metoprolol succinate 50 mg tablet extended release 24 hr 50 mg PO DAILY Qty: 90 3RF sertraline 100 mg tablet 100 mg PO BID Label Comments: TAKE 1 TABLET BY MOUTHTONCE DAILY lorazepam 0.5 mg tablet 0.5 mg PO QHS PRN PRN (Reason: Anxiety) Label Comments: TAKE 1 TABLET BY MOUTHNONCE PER DAY NEEDED TOELAST 30 DAYS metformin 500 mg tablet 500 mg PO BID Qty: 60 0RF fluticasone propionate 50 mcg/actuation spray,suspension 1 spray intranasal DAILY Qty: 16 0RF Rx Instructions: administer into each nostril hydroxyzine HCl 25 mg tablet 50 mg PO TID PRN (Reason: anxiety) Qty: 15 0RF Primary Care Provider: Care Physician,No Primary Referrals: Dre Jaquez MD [Med Staff - [employer]] - 3-5 Days Care Physician,No Primary [Primary Care Provider] - Disposition Disposition: Home, Self Care
[2022-09-30 07:33] VITALS: BP 135/76; PULSE 102; RESP 18; O2SAT 94
[2022-09-30] MEDS: 0.9% Normal Saline 1,000 ML 1000 ML IV (07:55)
[2022-09-30 08:24] LABS: Absolute Neutrophil Count 4.8 X10^3/uL (2.0-7.7); Basophil# 0.04 X10^3/uL; Basophil% 0.6 % (0-1); Eosinophil# 0.04 X10^3/uL; Eosinophils% 0.6 % (0-5); Hematocrit 42.2 % (40-54); Hemoglobin 14.5 g/dL (13.0-16.5); Lymphocyte % 20.1 % (19-41); Mean Corp Hgb Conc 34.4 g/dL (32-36); Mean Corpuscular Hgb 28.5 pg (27.0-32.0); Mean Corpuscular Volume 82.9 fL (80-94); Mean Platelet Vol. 13.1 fl (6.2-12.0); Monocyte# 0.67 X10^3/uL; Monocyte% 9.6 % (0-10); NRBC Flagged by Analyzer 0 % (0-5); Platelet Count 118 K/mm3 (150-450); RBC Distribution Width CV 13.5 % (11.6-14.6); RBC Distribution Width SD 41.1 fl (35.1-43.9); Red Blood Count 5.09 M/mm3 (4.6-6.2)
[2022-09-30 08:24] LABS: Anion Gap 7 (5-15); BUN 12 mg/dL (7-18); BUN/Creat Ratio 11.3 RATIO (10-20); Calcium,Total 8.9 mg/dL (8.5-10.1); Chloride 102 mmol/L (98-107); Creatinine, Serum 1.06 mg/dL (0.70-1.30); EST Glomerular Filtration Rate 84 mL/min (>60); Est Glom Filt Rate - Afr Amer 102 mL/min (>60); Glucose 467 mg/dL (74-106); Potassium 4.3 mmol/L (3.5-5.1); Sodium Level 135 mmol/L (136-145)
[2022-09-30] MEDS: metFORMIN HCl 500 MG Tablet PO (09:30)
[2022-09-30 09:32] VITALS: BP 145/82; PULSE 102; RESP 18; TEMP 36.9; O2SAT 99
== END 2022-09-30 09:34 | disposition home or self-care (01) ==
PROVIDERS: Emergency Provider Emergency Medicine; Visit Provider Emergency Medicine
DX: A08.4 Viral intestinal infection, unspecified (principal); E11.65 Type 2 diabetes mellitus with hyperglycemia; I48.91 Unspecified atrial fibrillation; F41.9 Anxiety disorder, unspecified; R19.7 Diarrhea, unspecified; I10 Essential (primary) hypertension; E86.0 Dehydration; Z79.84 Long term (current) use of oral hypoglycemic drugs; Z79.899 Other long term (current) drug therapy
CPT/HCPCS: 80048; 85025; 96360; 99284; J7030; A4216

== ENCOUNTER 2022-12-10 07:58 | Emergency (ER) | payer MEDICAID, SELFPAY ==
[2022-12-10 08:00] VITALS: BP 138/95; PULSE 73; RESP 16; TEMP 36.3; O2SAT 99; BMI 29.1
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
== END 2022-12-10 08:38 | disposition home or self-care (01) ==
LOC: ED 08:20
PROVIDERS: Emergency Provider Emergency Medicine; Visit Provider Emergency Medicine
DX: L02.511 Cutaneous abscess of right hand (principal); E11.9 Type 2 diabetes mellitus without complications; I10 Essential (primary) hypertension
CPT/HCPCS: 10060; 99282